=== PATIENT | female | born 1930 | race Caucasian/White ===

== ENCOUNTER 2016-04-04 12:07 | Emergency (ER) | payer MEDICARE, BC ==
[2016-04-04 12:37] LABS: BASO % 0.3 % (0-6); GRAN % 56.3 % (47-80); HEMATOCRIT 30.9 % (35.0-47.0); HEMOGLOBIN 9.5 gm/dl (11.6-16.0); LYMPH % 28.2 % (16-45); MEAN CORPUSCULAR HEMOGLOBIN 30.4 pg (27-33); MEAN CORPUSCULAR HGB CONC 30.7 g/dl (32-36); MEAN PLATELET VOLUME 10.1 fl (7.4-10.4); MONO % 11.2 % (0-9); PLATELET COUNT 307 K/uL (130-400); RED BLOOD COUNT 3.12 M/uL (3.80-5.40); RED CELL DISTRIBUTION WIDTH 15.4 % (11.5-14.5); WHITE BLOOD COUNT W/O DIFF 6.5 K/uL (4.2-12.2)
--- NOTE | 2016-04-04 12:39 | Emergency Department Record ---
History of Present Illness - General Chief Complaint: Abdominal Pain Stated Complaint: ABD PAIN Time Seen by Provider: 04/04/16 12:25 Source: Patient Mode of Arrival: Ambulatory Limitations: No limitations - History of Present Illness Initial Comments: 85 yo female presents to ED for evaluation of an abdominal "cramp" that the patient reports is similar to the sensation before having a bowel movement. Patient reports that she is currently on coumadin which was elevated yesterday, was told by her PCP to come tot he ED for evaluation as she could be "bleeding out". Patient denies any rectal bleeding, but does report previous bleeding while taking Eliquis 1.5 years ago. Complaint: Other Onset/Timin -: Week(s) Location: LLQ Radiation: None Migration to: No migration Severity: Mild Quality: Cramping Consistency: Intermittent Improves With: Nothing Worsens With: Nothing Associated Symptoms: Denies other symptoms - Related Data Home Medications Medication Instructions Recorded Confirmed Last Taken Aspirin [Aspirin EC] 81 mg PO DAILY 06/19/14 04/04/16 01/30/16 Carvedilol 6.25 mg PO BID 06/19/14 04/04/16 01/31/16 Furosemide 20 mg PO BIDDIUR 06/19/14 04/04/16 01/31/16 Atorvastatin Calcium [Lipitor] 80 mg PO QHS 03/30/15 04/04/16 01/30/16 Gabapentin 300 mg PO DAILY 03/30/15 04/04/16 01/30/16 Gabapentin 600 mg PO QHS 03/30/15 04/04/16 01/30/16 Cholecalciferol (Vitamin D3) 2,000 unit PO DAILY 12/17/15 04/04/16 01/30/16 [Vitamin D3] Cyanocobalamin (Vitamin B-12) 1,000 mcg PO DAILY 12/17/15 04/04/16 01/30/16 [Vitamin B-12] Lorazepam 1 tab PO 2000 PRN 12/17/15 04/04/16 01/30/16 Melatonin 10 mg PO QHS 12/17/15 04/04/16 01/30/16 Sennosides [Senokot] 8.6 mg PO DAILY 12/17/15 04/04/16 01/30/16 Warfarin Sodium [Coumadin] 6 mg PO DAILY 04/04/16 04/04/16 Unknown Previous Rx's Medication Instructions Recorded Omeprazole 40 mg PO BIDAC #20 02/05/16 Ondansetron [Zofran Odt] 4 mg PO Q8H PRN #15 tab.rapdis 02/05/16 Ranitidine HCl [Zantac] 150 mg PO BID PRN #20 tablet 02/05/16 Allergies Allergy/AdvReac Type Severity Reaction Status Date / Time Penicillins Allergy Unknown PT UNSURE Verified 04/04/16 12:23 OF REACTION Sulfa (Sulfonamide Allergy Unknown PT UNSURE Verified 04/04/16 12:23 Antibiotics) OF REACTION Travel Screening - Travel/Exposure Within Last 30 Days Have you traveled within the last 30 days?: No - Travel Symptoms Symptom Screening: None Review of Systems Constitutional: Denies: Chills, Fever, Malaise, Night sweats Eyes: Denies: Eye discharge, Eye pain ENT: Denies: Congestion, Ear pain, Epistaxis Respiratory: Denies: Cough, Dyspnea Cardiovascular: Denies: Chest pain, Dyspnea on exertion Endocrine: Denies: Fatigue, Heat or cold intolerance Gastrointestinal: Reports: Abdominal pain. Denies: Nausea, Vomiting Genitourinary: Denies: Dysuria, Frequency, Hematuria Musculoskeletal: Denies: Arthralgia, Back pain Skin: Denies: Bruising, Change in color Neurological: Denies: Abnormal gait, Confusion, Headache, Seizure Psychiatric: Denies: Anxiety Hematological/Lymphatic: Reports: Easy bleeding, Easy bruising. Denies: Anemia Past Medical History - SOCIAL HISTORY Smoking Status: Never smoker Alcohol Use: Rare Drug Use: None - RESPIRATORY Hx Respiratory Disorders: Yes Hx Pneumonia: Yes Hx Sleep Apnea: Yes Hx Tuberculosis: No Comment:: oxygen at night 2 L - CARDIOVASCULAR Hx Cardio Disorders: Yes Hx Cardiac Cath: Yes (2 stents) Hx Deep Vein Thrombosis: Yes (2001) Hx Hypertension: Yes - NEURO Hx Neuro Disorders: No Hx Seizures: No - GI Hx GI Disorders: Yes Hx Diverticulitis: Yes Hx GI Bleed: Yes (2014) Hx Reflux: Yes Hx Rectal Bleeding: Yes (2014) - Hx Genitourinary Disorders: Yes Hx Renal Disease: Yes (Bright's disease at 7yrs old) Hx UTI: Yes - ENDOCRINE Hx Endocrine Disorders: No Hx Diabetes: No - MUSCULOSKELETAL Hx Musculoskeletal Disorders: Yes Hx Arthritis: Yes (lower back) - PSYCH Hx Psych Problems: Yes Hx Anxiety: Yes Hx Depression: Yes Comment:: sundowners - HEMATOLOGY/ONCOLOGY Hx Hematology/Oncology Disorders: Yes Hx Blood Transfusions: Yes (2014) Hx Blood Transfusion Reaction: No Family Medical History Any Significant Family History?: Yes Hx Cancer: Mother, Grandparents Hx Diabetes: Grandparents Hx Heart Disease: Grandparents Hx Stroke: Grandparents Physical Exam - General General Appearance: Alert, Oriented x3, Cooperative, No acute distress Limitations: No limitations - Head Head exam: Atraumatic, Normocephalic, Normal inspection Head exam detail: negative: Abrasion, Contusion, Alexis's sign, General tenderness, Hematoma, Laceration - Eye Eye exam: Normal appearance. negative: Conjunctival injection, Periorbital swelling, Periorbital tenderness, Scleral icterus - ENT Ear exam: negative: Auricular hematoma, Auricular trauma Nasal Exam: negative: Active bleeding, Discharge, Dried blood, Foreign body Mouth exam: negative: Drooling, Laceration, Muffled voice, Tongue elevation - Neck Neck exam: Normal inspection. negative: Meningismus, Tenderness - Respiratory Respiratory exam: Normal lung sounds bilaterally. negative: Respiratory distress, Rhonchi, Stridor, Wheezes - Cardiovascular Cardiovascular Exam: Regular rate, Normal rhythm, Normal heart sounds - GI/Abdominal GI/Abdominal exam: Soft, Other (Abdominal examination is 100% nontender on exam , patient denies pain currently, no rebound or guarding present). negative: Distended, Rebound, Rigid, Tenderness - Rectal Rectal exam: Deferred - exam: Deferred - Extremities Extremities exam: Normal inspection. negative: Calf tenderness, Pedal edema, Tenderness - Back Back exam: Denies: CVA tenderness (R), CVA tenderness (L) - Neurological Neurological exam: Alert, Normal gait (with walker), Oriented X3 - Psychiatric Psychiatric exam: Normal affect, Normal mood - Skin Skin exam: Normal color. negative: Abrasion Type of lesion: negative: abrasion Course Vital Signs 04/04/16 12:16 Temperature 98.3 F Pulse Rate 69 Respiratory 20 Rate Blood Pressure 151/66 Pulse Ox 96 - Reevaluation(s) Reevaluation #1: 04/04/16 13:06 Labs reviewed, Hgb 9.5, INR 2.63. Previous Hgb 02/03: 9.5 Hgb 02/02: 10.0 Patient was updated on all results, denies any pain or bleeding at this time, and is asking to go home. Patient was encouraged to return to ED if her symptoms worsen or if she develops any rectal bleeding symptoms. Patient verbalizes understanding of all instructions. Medical Decision Making - Lab Data Result diagrams: 04/04/16 12:30 04/04/16 12:30 Disposition Disposition: Discharge Clinical Impression: Warfarin-induced coagulopathy Anemia Qualifiers: Anemia type: unspecified type Qualified Code(s): D64.9 - Anemia, unspecified Disposition: Home, Self-Care Condition: (2) Stable Instructions: Anemia (ED) Additional Instructions: Return to ED if your symptoms worsen or if you have any concerns Follow-up with Dr. Betancur in 3-5 days as directed. Forms: Patient Portal Access Time of Disposition: 13:09
[2016-04-04 12:50] LABS: INR 2.63; PROTHROMBIN TIME (PATIENT) 29.7 SECONDS (9.5-12.1)
[2016-04-04 12:51] LABS: ALB/GLOB RATIO 1.4 (1.1-1.8); ALBUMIN 4.3 gm/dL (3.5-5.0); BILIRUBIN,TOTAL 0.42 mg/dL (0.2-1.3); CREATININE 1.2 mg/dL (0.52-1.04); TOTAL PROTEIN 7.4 gm/dL (6.3-8.2)
== END 2016-04-04 13:17 | disposition home or self-care (01) ==
LOC: ER 12:07
DX: T45.515A Adverse effect of anticoagulants, initial encounter (principal); D64.9 Anemia, unspecified; R10.32 Left lower quadrant pain; I10 Essential (primary) hypertension
CPT/HCPCS: 80053; 83690; 85025; 85610; 99283

== ENCOUNTER 2016-06-14 06:59 | Day surgery (SDC) | payer MEDICARE, BC ==
[2016-06-14 08:09] LABS: INR 0.88; PARTIAL THROMBOPLASTIN TIME 18.7 SECONDS (24.5-39.1)
[2016-06-14] MEDS ORDERED: DEXAMETHASONE PRESERVATIVE FREE 10MG/ML VIAL IV ONE (12:43)
[2016-06-14] MEDS ORDERED: LIDOCAINE 1% W/EPI 1:200,000 MPF 30ML SQ ONE (12:43)
[2016-06-14] MEDS ORDERED: BUPIVACAINE 0.25% MPF 30ML VIAL IVP ONE (12:43)
[2016-06-14] MEDS ORDERED: BUPIVACAINE 0.5% W/EPI MPF 30 ML VIAL IVP ONE (12:43)
[2016-06-14] MEDS ORDERED: 0.9 % SODIUM CHLORIDE 100ML BAG IV ONE (12:43)
[2016-06-14] MEDS ORDERED: LIDOCAINE 2% MDV (20MG/ML) 20ML VIAL IV ONE (15:52)
[2016-06-14] MEDS ORDERED: PROPOFOL 10 MG/ML VIAL IV ONE (15:52)
[2016-06-14] MEDS ORDERED: FENTANYL PF 100MCG/2ML VIAL IV ONE (15:52)
--- NOTE | 2016-06-14 16:22 | Operative Note - [facility]ro ---
DATE OF SURGERY: 06/14/16 PREOPERATIVE DIAGNOSIS: LUMBAR RADICULITIS, ICD-10 CODE = M54.16 AND M54.17. OPERATION: FLUOROSCOPICALLY-GUIDED BILATERAL TRANSFORAMINAL SELECTIVE SEGMENTAL EPIDURAL INJECTION, L3-4. SURGEON: JUAN ANTONIO CARRILLO D.O. ANESTHESIA: LOCAL SEDATION. ANESTHESIA PROVIDER: RYAN BELLE CRNA. INDICATION: This patient presents with pain, which is starts in the back and extends to the hips and legs. Her diagnostic studies show complete disc space collapse 2-3 to 5-1. Endplate spurring and osteophytic spur formation. The current pattern of pain across the outer front surface could be a 3-4 or a 4-5. The 4-5 was unsuccessful in terms of needle placement. PROCEDURE: Intravenous line, vital sign monitoring, IV sedation, prepped, draped, sterile technique. Lumbar foraminal opening at L3-4 was identified and marked bilaterally. Skin infiltrated. Two separate 20-gauge needles one to each foraminal opening. 5 mL of 0.125% Marcaine with Dexamethasone injected. Needle removed. Back cleaned. Topical antibiotics. Sterile dressing applied. We will monitor and evaluate. JUAN ANTONIO CARRILLO D.O. Date & Time cc: Dr. Betancur JOB NUMBER: [id number] MTDD
== END 2016-06-14 09:15 | disposition home or self-care (01) ==
LOC: SUR 06:59
PROVIDERS: ATTEND Pain Medicine Interventional Pain Medicine
DX: M54.16 Radiculopathy, lumbar region (principal); M54.17 Radiculopathy, lumbosacral region; Z79.01 Long term (current) use of anticoagulants; I10 Essential (primary) hypertension; Z86.718 Personal history of other venous thrombosis and embolism
CPT/HCPCS: 64483; 01936; 85730; 85610; Q9967; J1100; J3010

== ENCOUNTER 2016-09-21 17:55 | Emergency (ER) | payer MEDICARE, BC ==
--- NOTE | 2016-09-21 18:35 | Emergency Department Record ---
History of Present Illness - General Chief complaint: Rectal bleeding Stated complaint: RECTAL BLEEDING Time Seen by Provider: 09/21/16 18:19 Source: Patient Mode of Arrival: Wheelchair Limitations: No limitations - History of Present Illness Initial comments: 86 yo female presents with bloody stools for 2 hours. She has had two large stools. She is anticoagulated with Coumadin and on Aspirin. She has a history of significant GI bleed about 1.5 years ago while anticoagulated. She reports she required 13 units of blood. She has a history of DVT/PE with an IVC filter , CAD with 2 stents, diverticulosis. The filter has a history of migrating. It was evaluated in the past for removal but it was not successful. She reports she follows with a local PCP and local [facility] spring former. Her other care team is through [facility]. No current chest pain, shortness of breath or syncope. She had an EGD 02/01/16 that was negative. In july of 2014 she had a GI bleed with source after a work up with EGD, colonoscopy, and tag RBC scan.. Her baseline Hgb over the last year is 9-10. She was 9.1 on 08/21/16. She is on Coumadin 6mg daily. complaint: Gross hematochezia Onset/Timin -: Hour(s) Radiation: None, Epigastric Severity scale (1-10): 6 Consistency: Constant Improves with: None Worsens with: None Context: History of GI bleed, Blood thinners Associated Symptoms: Denies other symptoms Treatments Prior to Arrival: None - Related Data Home Medications Medication Instructions Recorded Confirmed Last Taken Aspirin [Aspirin EC] 81 mg PO DAILY 06/19/14 09/21/16 09/21/16 Carvedilol 6.25 mg PO BID 06/19/14 09/21/16 09/21/16 Furosemide 20 mg PO BIDDIUR 06/19/14 09/21/16 09/21/16 Atorvastatin Calcium [Lipitor] 80 mg PO QHS 03/30/15 09/21/16 09/21/16 Gabapentin 300 mg PO DAILY 03/30/15 09/21/16 09/21/16 Gabapentin 600 mg PO QHS 03/30/15 09/21/16 09/21/16 Cholecalciferol (Vitamin D3) 2,000 unit PO DAILY 12/17/15 09/21/1609/21/17 [Vitamin D3] Cyanocobalamin (Vitamin B-12) 1,000 mcg PO DAILY 12/17/15 09/21/16 09/21/16 [Vitamin B-12] Lorazepam 1 tab PO 2000 PRN 12/17/15 09/21/16 09/21/16 Melatonin 10 mg PO QHS 12/17/15 09/21/16 09/21/16 Sennosides [Senokot] 8.6 mg PO DAILY 12/17/15 09/21/16 09/21/16 Warfarin Sodium [Coumadin] 6 mg PO DAILY 04/04/16 09/21/16 09/21/16 Ferrous Sulfate [Iron] 325 mg PO DAILY 09/21/16 09/21/16 09/21/16 Previous Rx's Medication Instructions Recorded Omeprazole 40 mg PO BIDAC #20 02/05/16 Ondansetron [Zofran Odt] 4 mg PO Q8H PRN #15 tab.rapdis 02/05/16 Ranitidine HCl [Zantac] 150 mg PO BID PRN #20 tablet 02/05/16 Allergies Allergy/AdvReac Type Severity Reaction Status Date / Time Penicillins Allergy Unknown PT UNSURE Verified 09/21/16 18:03 OF REACTION Sulfa (Sulfonamide Allergy Unknown PT UNSURE Verified 09/21/16 18:03 Antibiotics) OF REACTION Travel Screening - Travel/Exposure Within Last 30 Days Have you traveled within the last 30 days?: No - Travel/Exposure Within Last Year Have you traveled outside the [place] in the last year?: No - Additonal Travel Details Have you been exposed to anyone with a communicable illness?: No - Travel Symptoms Symptom Screening: None Review of Systems Constitutional: Denies: Chills, Fever, Night sweats, Weakness Eyes: Denies: Eye discharge ENT: Denies: Congestion, Throat pain Respiratory: Denies: Cough, Dyspnea, Hemoptysis, Stridor, Wheezes Cardiovascular: Denies: Chest pain, Palpitations, Syncope Endocrine: Denies: Fatigue Gastrointestinal: Reports: Abdominal pain (cramps), Hematochezia. Denies: Diarrhea, Hematemesis, Nausea, Vomiting Genitourinary: Denies: Dysuria, Urgency Musculoskeletal: Denies: Arthralgia, Back pain, Joint swelling, Myalgia Skin: Denies: Bruising, Change in color, Rash Neurological: Denies: Headache, Numbness, Vertigo, Weakness Psychiatric: Denies: Anxiety Hematological/Lymphatic: Reports: As per HPI, Blood Clots. Denies: Easy bleeding, Easy bruising, Swollen glands Past Medical History - SOCIAL HISTORY Smoking Status: Never smoker Alcohol Use: Occasional Drug Use: None - RESPIRATORY Hx Respiratory Disorders: Yes Hx Bronchitis: Yes Hx Pneumonia: Yes (February 2016) Hx Sleep Apnea: Yes Hx Tuberculosis: No Comment:: oxygen at night 2 L - CARDIOVASCULAR Hx Cardio Disorders: Yes Hx Abnormal EKG: Yes Hx Cardiac Cath: Yes (2 stents) Hx Deep Vein Thrombosis: Yes (2001 and 2015) Hx Hypertension: Yes Hx Irregular Heartbeat: Yes Hx Coronary Artery Disease: Yes Hx Coronary Stent: Yes - NEURO Hx Neuro Disorders: No Hx Seizures: No - GI Hx GI Disorders: Yes Hx Diverticulitis: Yes Hx GI Bleed: Yes (2014) Hx Reflux: Yes Hx Rectal Bleeding: Yes (2014) - Hx Genitourinary Disorders: Yes Hx Renal Disease: Yes (Bright's disease at 7yrs old) Hx UTI: Yes - ENDOCRINE Hx Endocrine Disorders: No Hx Diabetes: No - MUSCULOSKELETAL Hx Musculoskeletal Disorders: Yes Hx Arthritis: Yes (lower back) - PSYCH Hx Psych Problems: Yes Hx Anxiety: Yes Hx Depression: Yes Comment:: sundowners - HEMATOLOGY/ONCOLOGY Hx Hematology/Oncology Disorders: Yes Hx Blood Transfusions: Yes (2014) Hx Blood Transfusion Reaction: No Family Medical History Any Significant Family History?: Yes Hx Cancer: Mother, Grandparents Hx Diabetes: Grandparents Hx Heart Disease: Grandparents Hx Stroke: Grandparents Physical Exam - General General Appearance: Alert, Oriented x3, Cooperative, No acute distress Limitations: No limitations - Head Head exam: Normal inspection - Eye Eye exam: Normal appearance, PERRL. negative: Conjunctival injection, Periorbital swelling - ENT ENT exam: Normal exam, Mucous membranes moist Ear exam: Normal external inspection Nasal Exam: Normal inspection Mouth exam: Normal external inspection Teeth exam: Normal inspection - Neck Neck exam: Normal inspection, Full ROM. negative: Tenderness - Respiratory Respiratory exam: Normal lung sounds bilaterally. negative: Respiratory distress - Cardiovascular Cardiovascular Exam: Regular rate, Normal rhythm, Normal heart sounds Peripheral Pulses: 2+: Radial (R), Radial (L) - GI/Abdominal GI/Abdominal exam: Soft, Tenderness (very mild). negative: Distended, Guarding , Rebound - Rectal Rectal exam: Bloody stool, Heme (+) stool, Normal rectal tone. negative: Hemorrhoids, Mass - exam: Deferred - Extremities Extremities exam: Normal inspection, Full ROM, Normal capillary refill. negative: Tenderness - Back Back exam: Reports: Normal inspection, Full ROM. Denies: Muscle spasm, Rash noted, Tenderness - Neurological Neurological exam: Alert, Normal gait, Oriented X3 - Psychiatric Psychiatric exam: Normal affect, Normal mood - Skin Skin exam: Dry, Intact, Normal color, Warm Course Vital Signs 09/21/16 18:12 Temperature 98 F Pulse Rate 88 Respiratory 20 Rate Blood Pressure 140/68 Pulse Ox 95 - Reevaluation(s) Reevaluation #1: EKG sinus rhythm rate of 84, intervals Qtc 477, LBBB, [place] left, ST No acute changes. No changes from 12/21/15 09/21/16 18:55 The vitals were reviewed. No acute changes. 09/21/16 18:57 Reevaluation #2: I discussed the risk and benefit of transfusion Given she is 2 grms lower with some bleeding I will discuss transfusion given her CAD, Age, and history of significant prior bleed on anticoagulation. The patient will require transfer to another institution. She requests [facility]. 09/21/16 19:21 Reevaluation #3: INR is 1.7 The patient reports another small bowel movement with blood. No changes in vitals [facility] contacted. Awaiting for a physician. 09/21/16 19:37 Reevaluation #4: I SW Dr [facility] of [facility] discussed the case, labs, and patient request for [facility] transfer He accepts She will receive the first unit of PRBC No current changes in vitals 09/21/16 19:44 09/21/16 21:03 The patient had some nausea when sitting up on the commode She was place supine, vitals reviewed. No acute changes and nausea resolved PRBC now starting and transfer team in ED for [facility] transfer. Medical Decision Making - Lab Data Result diagrams: 09/21/16 18:34 09/21/16 17:47 Disposition Disposition: Transfer Clinical Impression: GI bleed Qualifiers: GI bleed type/associated pathology: unspecified gastrointestinal hemorrhage type Qualified Code(s): K92.2 - Gastrointestinal hemorrhage, unspecified Anemia Qualifiers: Anemia type: unspecified type Qualified Code(s): D64.9 - Anemia, unspecified Disposition: Acute Care Hospital Transfer Transfer To: [facility] Reason For Transfer: GI Bleed Accepting Physician: Shahram Time Discussed w/Accepting Physician: 19:45 Condition: (2) Stable Forms: Patient Portal Access Time of Disposition: 19:45 Quality - Quality Measures Quality Measures: N/A - Blood Pressure Screening View Details: Yes Blood Pressure Classification: Hypertensive Reading Systolic Measurement: 140 Diastolic Measurement: 68 Screening for High Blood Pressure: < Pre-Hypertensive BP, F/U Documented > [ [id number]] Pre-Hypertensive Follow-up Interventions: Referral to alternative/primary care provider.
[2016-09-21] MEDS ORDERED: PANTOPRAZOLE SODIUM IV 40 MG VIAL IVP ONE (19:00)
[2016-09-21 19:09] LABS: HEMATOCRIT 25.2 % (35.0-47.0); HEMOGLOBIN 7.2 gm/dl (11.6-16.0); MEAN CELL VOLUME 95.8 fl (81-97); MEAN CORPUSCULAR HGB CONC 28.6 g/dl (32-36); MEAN PLATELET VOLUME 10.4 fl (7.4-10.4); PLATELET COUNT 248 K/uL (130-400); RED BLOOD COUNT 2.63 M/uL (3.80-5.40); RED CELL DISTRIBUTION WIDTH 20.2 % (11.5-14.5); WHITE BLOOD COUNT W/O DIFF 6.2 K/uL (4.2-12.2)
[2016-09-21 19:11] LABS: MEAN CORPUSCULAR HEMOGLOBIN 27.3 pg (27-33)
[2016-09-21 19:23] LABS: INR 1.68; PARTIAL THROMBOPLASTIN TIME 28.6 SECONDS (24.5-39.1); PROTHROMBIN TIME (PATIENT) 18.2 SECONDS (9.5-12.1)
[2016-09-21 19:27] LABS: ALB/GLOB RATIO 1.4 (1.1-1.8); ALBUMIN 3.6 gm/dL (3.5-5.0); ANION GAP 9.8 (7-16); BILIRUBIN,TOTAL 0.87 mg/dL (0.2-1.3); CARBON DIOXIDE 25.2 mmol/L (22-30); CREATININE 1.3 mg/dL (0.52-1.04); TOTAL PROTEIN 6.2 gm/dL (6.3-8.2)
[2016-09-21 20:39] LABS: ABO GROUP A; ANTIBODY SCREEN NEGATIVE (NEGATIVE); RH TYPE POSITIVE
[2016-09-21 20:40] LABS: IMMED. SPIN CROSSMATCH COMPATIBLE
[2016-09-21] MEDS ORDERED: ONDANSETRON HCL IV 4 MG/2 ML VIAL IVP ONE (20:47)
== END 2016-09-21 21:15 | disposition short-term general hospital (02) ==
LOC: ER 17:55
DX: K92.1 Melena (principal); D64.9 Anemia, unspecified; R10.13 Epigastric pain; I25.10 Atherosclerotic heart disease of native coronary artery without angina pectoris; I10 Essential (primary) hypertension; Z79.01 Long term (current) use of anticoagulants
CPT/HCPCS: 99285 ×2; 96374; 96375; 83605; 85730; 85610; 80053; 85027; 86900; 86901; 86850; 93005; 93010; P9016; J2405; C9113

== ENCOUNTER 2016-11-29 07:44 | Day surgery (SDC) | payer MEDICARE, BC ==
[2016-11-29] MEDS ORDERED: BUPIVACAINE 0.5% (5MG/ML) PF 30ML VIAL IVP ONE (11:03)
[2016-11-29] MEDS ORDERED: LIDOCAINE 1% W/EPI 1:200,000 MPF 30ML SQ ONE (11:03)
[2016-11-29] MEDS ORDERED: DEXAMETHASONE PRESERVATIVE FREE 10MG/ML VIAL IV ONE (11:03)
[2016-11-29] MEDS ORDERED: BUPIVACAINE 0.5% W/EPI MPF 30 ML VIAL IVP ONE (11:03)
[2016-11-29] MEDS ORDERED: MIDAZOLAM HCL 2MG/2ML VIAL IV ONE (16:05)
[2016-11-29] MEDS ORDERED: FENTANYL PF 100MCG/2ML VIAL IV ONE (16:05)
[2016-11-29] MEDS ORDERED: PROPOFOL 10 MG/ML VIAL IV ONE (16:05)
--- NOTE | 2016-11-30 08:09 | Operative Note - Ferro ---
DATE OF SURGERY: 11/29/2016. PREOPERATIVE DIAGNOSES: 1. 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 2. SACROILIITIS, ICD-10 CODE M46.1. POSTOPERATIVE DIAGNOSES: 1. 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 2. SACROILIITIS, ICD-10 CODE M46.1. OPERATION: Fluoroscopically guided infiltration block of the bilateral sacroiliac joints. SURGEON: Basilio Evans D.O. ANESTHESIA: Local. ANESTHESIA PROVIDER: Gloria Vaughn CRNA. INDICATION: This patient presents with back pain. Examination shows tenderness in the lumbar spine away from the midline directly over the sacroiliac joints. Diagnostics show extensive spondylosis throughout the lumbar spine and of the sacroiliac joints. PROCEDURE: Intravenous line, vital sign monitoring, and intravenous sedation. Prepped and draped with sterile technique. Under imaging, the skin over the sacroiliac joints in the area of pain was identified and marked bilaterally and infiltrated. A 22-gauge, 3.5-inch needle under imaging into the sacroiliac joint with 3.0 cc of 0.5 percent Marcaine and dexamethasone injected. This was repeated bilaterally. The areas were cleaned. Topical antibiotic and sterile dressings were applied. Will monitor and evaluate. BASILIO EVANS D.O. Date & Time JOB NUMBER: [id number] MTDD
== END 2016-11-29 09:37 | disposition home or self-care (01) ==
LOC: SUR 07:44
PROVIDERS: ATTEND Pain Medicine Interventional Pain Medicine
DX: M47.816 Spondylosis without myelopathy or radiculopathy, lumbar region (principal); M46.1 Sacroiliitis, not elsewhere classified; I10 Essential (primary) hypertension; I25.10 Atherosclerotic heart disease of native coronary artery without angina pectoris; Z79.01 Long term (current) use of anticoagulants
CPT/HCPCS: 27096; 01992; J1100; J3010

== ENCOUNTER 2017-02-21 07:38 | Day surgery (SDC) | payer MEDICARE, BC ==
[2017-02-21] MEDS ORDERED: LIDOCAINE 2% MDV (20MG/ML) 20ML VIAL IV ONE (07:39)
[2017-02-21] MEDS ORDERED: FLUMAZENIL 1MG/10ML VIAL IV ONE (07:39)
[2017-02-21] MEDS ORDERED: FENTANYL PF 100MCG/2ML VIAL IV ONE (07:39)
[2017-02-21] MEDS ORDERED: LIDOCAINE 1% W/EPI 1:200,000 MPF 30ML SQ ONE (07:39)
[2017-02-21] MEDS ORDERED: KETOROLAC 30 MG/ML VIAL IVP ONE (07:39)
[2017-02-21] MEDS ORDERED: PROPOFOL 10 MG/ML VIAL IV ONE (07:39)
[2017-02-21] MEDS ORDERED: HYDROCODONE/APAP 7.5/325MG TABLET PO ONE (07:39)
[2017-02-21] MEDS ORDERED: MIDAZOLAM HCL 2MG/2ML VIAL IV ONE (07:39)
[2017-02-21] MEDS ORDERED: DEXAMETHASONE PRESERVATIVE FREE 10MG/ML VIAL IV ONE (07:39)
[2017-02-21] MEDS ORDERED: BUPIVACAINE 0.75% W/EPI MPF 30ML VIAL IVP ONE (07:39)
--- NOTE | 2017-02-21 15:23 | Operative Note - Ferro ---
DATE OF SURGERY: 02/21/17 PREOPERATIVE DIAGNOSIS: LUMBAR SPONDYLOSIS WITHOUT MYELOPATHY, ICD-10 CODE = M47.816. OPERATION: RADIOFREQUENCY RHIZOTOMY BILATERAL LUMBAR FACETS, 4-5 AND 5-1. SURGEON: JUAN ANTONIO CARRILLO D.O. ANESTHESIA: LOCAL SEDATION. ANESTHESIA PROVIDER: SUMANTH SWEET CRNA INDICATION: This patient presents with primary back pain. Examination shows tenderness in the lumbar spine. Range of motion does cause pain in the low back with extension. Diagnostic imaging shows extensive multiple levels of spondylosis with near complete disc space collapse at 4-5 and 5-1. A previous facet series performed at 2-3 to 5-1 resulted in 75 to 90% pain control. Insurance guidelines and authorization has only approved two of the four levels , approving a 4-5 and 5-1 bilateral technique. All conservative therapies failed. PROCEDURE: Intravenous line, vital sign monitoring, IV sedation, prepped and draped in sterile technique. Facet levels of the lumbar spine at 4-5 and 5-1 identified and marked bilaterally. Skin infiltrated and a 20-gauge rhizotomy cannula positioned. Stimulation trials conducted. Rhizotomy burn performed. Local with anti-inflammatory into the sites. Topical antibiotics. Sterile dressing applied. We will monitor and evaluate. cc: Dr. Betancur JOB NUMBER: [id number] MTDD
== END 2017-02-21 10:20 | disposition home or self-care (01) ==
LOC: SUR 07:38
PROVIDERS: ATTEND Pain Medicine Interventional Pain Medicine
DX: M47.816 Spondylosis without myelopathy or radiculopathy, lumbar region (principal); I10 Essential (primary) hypertension; Z79.01 Long term (current) use of anticoagulants; E78.00 Pure hypercholesterolemia, unspecified; Z86.718 Personal history of other venous thrombosis and embolism
CPT/HCPCS: 85730; 64635; 64636; 01936; J1885; J1100; J3010; J3490

== ENCOUNTER 2017-04-05 04:43 | Inpatient (IN) | payer MEDICARE, BC ==
[2017-04-05] MEDS ORDERED: IPRATROPIUM/ALBUTEROL (0.5MG/3MG) NEB INH ONE (05:11)
--- NOTE | 2017-04-05 05:12 | Emergency Department Record ---
History of Present Illness - General Chief Complaint: Shortness of breath Stated Complaint: ACOSTA Time Seen by Provider: 04/05/17 05:01 Source: Patient Mode of Arrival: EMS Limitations: No limitations - History of Present Illness Initial Comments: The patient is here due to a cough and SOB for one day. She also has had a low grade fever. The patient feels like her lungs are tight similar to when she had pneumonia last year. There has been no reported sputum production, ST, back pain , AP or bloody stools. The patient does have an extensive hx of DVT's and is on Coumadin and does have a malik filter in place. The patient states she has oxygen she uses at night because she cannot tolerate CPAP. MD Complaint: Cough, Shortness of breath Onset/Timin -: Days(s) Severity scale (1-10): 7 Quality: Crushing Consistency: Constant Improves With: Nothing Worsens With: Coughing, Inspiration Known History Of: DVT Associated Symptoms: Cough, Pain with inspiration Treatments Prior to Arrival: None - Related Data Home Oxygen Therapy: Yes Home Oxygen Amount: 2 Liters Home Medications Medication Instructions Recorded Confirmed Last Taken Nabumetone 500 mg PO DAILY 04/05/17 04/05/17 Unknown Omeprazole 20 mg PO DAILY 04/05/17 04/05/17 Unknown Allergies Allergy/AdvReac Type Severity Reaction Status Date / Time Penicillins Allergy Intermediate RASH Verified 04/05/17 04:52 Sulfa (Sulfonamide Allergy Intermediate RASH Verified 04/05/17 04:52 Antibiotics) Travel Screening - Travel/Exposure Within Last 30 Days Have you traveled within the last 30 days?: No - Travel Symptoms Symptom Screening: None Review of Systems Constitutional: Reports: Malaise. Denies: Chills, Fever Eyes: Denies: Eye discharge ENT: Reports: Congestion Respiratory: Reports: Cough, Dyspnea. Denies: Hemoptysis Cardiovascular: Reports: Dyspnea on exertion. Denies: Arrhythmia Endocrine: Reports: Fatigue Gastrointestinal: Denies: Abdominal pain Genitourinary: Denies: Dysuria Musculoskeletal: Denies: Back pain Past Medical History - SOCIAL HISTORY Smoking Status: Never smoker - RESPIRATORY Hx Respiratory Disorders: Yes Hx Sleep Apnea: Yes (O2 2.5L by nc) - CARDIOVASCULAR Hx Cardio Disorders: Yes Hx Deep Vein Thrombosis: Yes (2001 and 2015) Hx Hypertension: Yes Hx Coronary Stent: Yes (x2) - NEURO Hx Neuro Disorders: No Hx Seizures: No - GI Hx GI Disorders: Yes Hx Diverticulitis: Yes Hx GI Bleed: Yes (2014) Hx Reflux: Yes Hx Rectal Bleeding: Yes (2014) Comment:: unkown cause of bleed-to avoid NSAIDS - Hx Genitourinary Disorders: Yes Hx UTI: Yes - ENDOCRINE Hx Endocrine Disorders: No Hx Diabetes: No - MUSCULOSKELETAL Hx Musculoskeletal Disorders: Yes Hx Arthritis: Yes (lower back) - PSYCH Hx Psych Problems: Yes Hx Anxiety: Yes Hx Depression: Yes Comment:: sundowners - HEMATOLOGY/ONCOLOGY Hx Hematology/Oncology Disorders: Yes Hx Blood Transfusions: Yes (2014) Family Medical History Any Significant Family History?: Yes Hx Cancer: Mother, Grandparents Hx Diabetes: Grandparents Hx Heart Disease: Grandparents Hx Stroke: Grandparents Physical Exam - General General Appearance: Alert, Oriented x3, Cooperative, No acute distress - Head Head exam: Atraumatic, Normocephalic, Normal inspection - Eye Eye exam: Normal appearance, PERRL - Neck Neck exam: Normal inspection, Full ROM. negative: Tenderness - Respiratory Respiratory exam: Normal lung sounds bilaterally (The patient is in no respiratory distress with a biox of 99% on 2 liters of oxygen.). negative: Accessory muscle use, Prolonged expiratory, Respiratory distress, Rhonchi, Stridor, Wheezes - Cardiovascular Cardiovascular Exam: Regular rate, Normal rhythm, Normal heart sounds - GI/Abdominal GI/Abdominal exam: Soft, Normal bowel sounds. negative: Tenderness - Extremities Extremities exam: Normal inspection, Full ROM, Normal capillary refill. negative: Tenderness - Neurological Neurological exam: Alert. negative: Motor sensory deficit Course Vital Signs 04/05/17 04:52 Temperature 99.0 F Pulse Rate 86 Respiratory 24 Rate Blood Pressure 137/55 Pulse Ox 98 - Reevaluation(s) Reevaluation #1: The patient is feeling better after the Neb tx but still feels very weak. She is coughing less and presently denies any CP or SOB. I did explain to her that her xrays and labs are mostly WNL's. Due to the pain with cough we will admit the patient as an OBS for monitoring. 04/05/17 06:05 Medical Decision Making - Data Complexity MDM Data: Labs Ordered and/or Reviewed, X-Ray Ordered and/or Reviewed - Lab Data Result diagrams: 04/05/17 05:10 04/05/17 05:10 - EKG Data -: EKG Interpreted by Me EKG: No Acute Changes, Unchanged From Previous, LBBB - Radiology Data Radiology results: Report reviewed (Head CT: neg CXR: Neg.) Disposition Disposition: Admit Clinical Impression: Weakness generalized, Chest pain CAP (community acquired pneumonia) Qualifiers: Lung location: unspecified part of lung Disposition: Still a Patient at [facility] Decision to Admit: Admit from ER Decision to Admit Date: 04/05/17 Decision to Admit Time: 06:07 Accepting Physician: Nicole Archer Discussed w/Accepting Physician: 06:07 Condition: (2) Stable Time of Disposition: 06:07 Quality - Quality Measures Quality Measures: N/A - Blood Pressure Screening View Details: Yes Does Patient Have Any of the Following: No Blood Pressure Classification: Pre-Hypertensive BP Reading Systolic Measurement: 137 Diastolic Measurement: 55 Screening for High Blood Pressure: < Pre-Hypertensive BP, F/U Documented > [ [id number]] Pre-Hypertensive Follow-up Interventions: Referral to alternative/primary care provider.
[2017-04-05 05:14] LABS: BASO % 0.2 % (0-6); EOS % 1.6 % (0-6); GRAN % 71.3 % (47-80); HEMATOCRIT 32.7 % (35.0-47.0); LYMPH % 14.5 % (16-45); MEAN CELL VOLUME 91.9 fl (81-97); MEAN CORPUSCULAR HGB CONC 30.6 g/dl (32-36); MEAN PLATELET VOLUME 10.1 fl (7.4-10.4); MONO % 12.4 % (0-9); PLATELET COUNT 245 K/uL (130-400); RED BLOOD COUNT 3.56 M/uL (3.80-5.40); WHITE BLOOD COUNT W/O DIFF 12.6 K/uL (4.2-12.2)
[2017-04-05 05:23] LABS: BLOOD UREA NITROGEN 20 mg/dL (8-23); CREATININE 1.1 mg/dL (0.5-0.9); EST GLOMERULAR FILTRATION RATE 50 mL/min
[2017-04-05 05:26] LABS: GLUCOSE,RANDOM 110 mg/dL (74-109)
[2017-04-05 05:27] LABS: INR 2.28; PARTIAL THROMBOPLASTIN TIME 32.9 SECONDS (24.5-39.1); PROTHROMBIN TIME (PATIENT) 24.8 SECONDS (9.5-12.1)
[2017-04-05 05:28] LABS: INFLUENZA A NEGATIVE (NEGATIVE); INFLUENZA B NEGATIVE (NEGATIVE)
[2017-04-05 05:29] LABS: CREATINE PHOSPHOKINASE 98 U/L (26-192)
[2017-04-05 05:31] LABS: CKMB < 1.0 ng/mL (<3.77)
[2017-04-05] MEDS ORDERED: DOXYCYCLINE HYCLATE 100 MG CAPSULE PO ONE (06:04)
[2017-04-05] MEDS ORDERED: CEFTRIAXONE SODIUM 1 GM in 0.9 % SODIUM CHLORIDE 100ML 100 ML IVPB ONE (06:04)
--- NOTE | 2017-04-05 08:06 | History & Physical ---
History of Present Illness - Date of Service Date of Service for History & Physical: 04/05/17 - History of Present Illness Admitting Diagnosis: 1. Chest pain, R/O AR. 2. Weakness with Pneumonia History of Present Illness: Mrs. Shepherd is an 86 year-old female who presented to the ED early this morning due to cough and shortness of breath that she had been experiencing for one day. She stated that her lungs felt "tight" and similar to when she had pneumonia last year. She denied sputum production, back pain, abdominal pain, or change in bowel pattern. She does have an extensive history of DVTs and is on coumadin, she does have a malik filter in place. Patient states that she uses oxygen at night at home because she cannot tolerate her Cpap. Her history includes: sleep apnea (2.5L O2 NC during night) , HTN, coronary stent x2, DVTs in 2001 and 2015, diverticulitis, GI bleed in 2014 related to NSAID use, GERD, lower back arthritis, anxiety, depression, and sundowners. She had a rhizotomy with Dr. Evans on 02/21/17. In the ED, she did have a low grade fever of 99.0F. Her BP was 137/55, HR 86, RR24, and pulse ox of 98% on 2L NC. She received a duo neb treatment and reported improved ease of breathing, still feeling weakness. WBC was 12.6, Hgb 10.0. First troponin was within normal range. Influenza A and B were negative. EKG in ED showed right BBB, no acute change. A chest x-ray was done , report still pending, but no acute process visible on image. A head CT was done because of pt's weakness, which was negative for acute process. She was started on rocephin 1g IV bid and doxy 100mg IV bid. She was admitted for observation based on her cough and chest pain, possible early pneumonia. 04/05/17 0830: Pt. is resting in bed. She states that her cough has improved, remains nonproductive, she also states her chest tightness has improved. Her vital signs have remained stable, she is afebrile at 98.2F and 97% O2 on 2L nc. Plan to continue IV antibiotics and repeat labs this evening, will plan to discharge home tomorrow morning if pt. remains stable, ease of respiration continue to improve, and no worsening signs/symptoms of infection. PCP: Dr. Betancur Metaphysician: Dr. Briggs Oncology/hematology: Dr. Reyes (DVT and anemia management) Travel Screening - Travel/Exposure Within Last 30 Days Have you traveled within the last 30 days?: No - Travel/Exposure Within Last Year Have you traveled outside the [place] in the last year?: No - Additonal Travel Details Have you been exposed to anyone with a communicable illness?: No - Travel Symptoms Symptom Screening: Weakness Review of Systems Constitutional: Reports: Malaise. Denies: Chills, Fever Eyes: Denies: Eye discharge ENT: Reports: Congestion Respiratory: Reports: Cough. Denies: Hemoptysis Cardiovascular: Reports: Dyspnea on exertion. Denies: Arrhythmia Endocrine: Reports: Fatigue Gastrointestinal: Denies: Abdominal pain Genitourinary: Denies: Dysuria Musculoskeletal: Denies: Back pain Skin: Reports: As per HPI. Denies: Bruising, Change in color, Change in hair/ nails, Lesions, Pruritus, Rash Neurological: Reports: As per HPI. Denies: Abnormal gait, Confusion, Numbness, Paresthesias, Seizure, Tingling, Tremors, Vertigo Psychiatric: Reports: As per HPI. Denies: Anxiety, Auditory hallucinations, Depression, Homicidal thoughts, Suicidal thoughts, Visual hallucinations Hematological/Lymphatic: Reports: As per HPI, Easy bleeding, Easy bruising. Denies: Anemia, Blood Clots, Swollen glands Past Medical History - SOCIAL HISTORY Smoking Status: Never smoker Alcohol Use: None Drug Use: None - RESPIRATORY Hx Respiratory Disorders: Yes Hx Sleep Apnea: Yes (O2 2.5L by nc) - CARDIOVASCULAR Hx Cardio Disorders: Yes Hx Deep Vein Thrombosis: Yes (2001 and 2015) Hx Hypertension: Yes Hx Coronary Stent: Yes (x2) - NEURO Hx Neuro Disorders: No Hx Seizures: No - GI Hx GI Disorders: Yes Hx Diverticulitis: Yes Hx GI Bleed: Yes (2014) Hx Reflux: Yes Hx Rectal Bleeding: Yes (2014) Comment:: unkown cause of bleed-to avoid NSAIDS - Hx Genitourinary Disorders: Yes Hx UTI: Yes - ENDOCRINE Hx Endocrine Disorders: No Hx Diabetes: No - MUSCULOSKELETAL Hx Musculoskeletal Disorders: Yes Hx Arthritis: Yes (lower back) - PSYCH Hx Psych Problems: Yes Hx Anxiety: Yes Hx Depression: Yes Comment:: ers - HEMATOLOGY/ONCOLOGY Hx Hematology/Oncology Disorders: Yes Hx Blood Transfusions: Yes (2014) Family Medical History Any Significant Family History?: Yes Hx Cancer: Mother, Grandparents Hx Diabetes: Grandparents Hx Heart Disease: Grandparents Hx Stroke: Grandparents H&P Meds/Allergies - Allergies Allergies: Allergies Allergy/AdvReac Type Severity Reaction Status Date / Time Penicillins Allergy Intermediate RASH Verified 04/05/17 04:52 Sulfa (Sulfonamide Allergy Intermediate RASH Verified 04/05/17 04:52 Antibiotics) - Home Medications Home Medications Medication Instructions Recorded Confirmed Last Taken Nabumetone 500 mg PO DAILY 04/05/17 04/05/17 Unknown Omeprazole 20 mg PO DAILY 04/05/17 04/05/17 Unknown - Active Medications Active Medications: Current Medications Albuterol/Ipratropium (Duoneb) 3 ml INH [id number].[id number].WA JULIO Aspirin (Ecotrin (Ec)) 325 mg PO DAILY JULIO Atorvastatin Calcium (Lipitor) 80 mg PO QHS [facility] Carvedilol (Coreg) 6.25 mg PO BID JULIO Doxycycline Hyclate (Vibramycin) 100 mg PO BID JULIO Furosemide (Lasix) 20 mg PO DAILY [facility] Gabapentin (Neurontin) 600 mg PO QHS [facility] Gabapentin (Neurontin) 300 mg PO DAILY JULIO Ceftriaxone Sodium 1 gm/ (Sodium Chloride) 100 mls @ 200 mls/hr IVPB Q12H JULIO Stop: 04/10/17 18:01 Lorazepam (Ativan) 0.5 mg PO 2000 PRN PRN Reason: ANXIETY Melatonin (Melatonin) 10 mg PO QHS [facility] Naproxen (Naprosyn) 250 mg PO DAILY JULIO Pantoprazole Sodium (Protonix) 40 mg PO DAILYAC JULIO Senna/Docusate Sodium (Senna Plus) 1 each PO DAILY [facility] Warfarin Sodium (Coumadin) 5 mg PO DAILY@1600 JULIO Warfarin Sodium (Coumadin) 1 mg PO [id number] [facility] Physical Exam - Vital Signs Vital Signs: Vital Signs - Last 24 Hrs Temp Pulse Resp BP Pulse Ox 04/05/17 06:56 99.2 F 74 18 147/93 94 L - General General Appearance: Alert, Oriented x3, Cooperative, No acute distress Limitations: No limitations - Head Head exam: Atraumatic, Normocephalic, Normal inspection - Eye Eye exam: Normal appearance, PERRL - ENT ENT exam: Normal exam, Mucous membranes moist, Normal external ear exam, Normal orophraynx Ear exam: Normal external inspection. negative: External canal tenderness Nasal Exam: Normal inspection. negative: Discharge, Sinus tenderness Mouth exam: Normal external inspection, Tongue normal Teeth exam: Normal inspection. negative: Dental caries Throat exam: Normal inspection. negative: Tonsillar erythema, Tonsillar exudate - Neck Neck exam: Normal inspection. negative: Tenderness - Respiratory Respiratory exam: Normal lung sounds bilaterally (The patient is in no respiratory distress with a biox of 99% on 2 liters of oxygen.). negative: Accessory muscle use, Prolonged expiratory, Respiratory distress, Rhonchi, Stridor, Wheezes - Cardiovascular Cardiovascular Exam: Regular rate, Normal rhythm, Normal heart sounds - GI/Abdominal GI/Abdominal exam: Soft, Normal bowel sounds. negative: Tenderness - Rectal Rectal exam: Deferred - exam: Deferred - Extremities Extremities exam: Normal inspection, Full ROM, Normal capillary refill. negative: Tenderness - Neurological Neurological exam: Alert. negative: Motor sensory deficit - Psychiatric Psychiatric exam: Normal affect, Normal mood - Skin Skin exam: Dry, Intact, Normal color, Warm Results - Labs Result Diagrams: 04/05/17 05:10 04/05/17 05:10 - Imaging and Cardiology CT scan - head Status: Pending Chest x-ray Status: Image reviewed (No acute process- per voice clip) VTE H&P Assessment - Risk for VTE Risk for VTE: Yes Risk Level: Moderate Risk Assessment Date: 04/05/17 Risk Assessment Time: 09:21 VTE Orders Placed or Will Be Placed: No VTE Reason for No Prophylaxis: Not Indicated (Pt. is currently on coumadin and takes daily asa) Plan - Detailed Diagnosis and Plan (1) Pneumonia Current Visit: Yes Status: Acute Base Code: J18.9 - PNEUMONIA, UNSPECIFIED ORGANISM Comment: 04/05/17 0845: Chest x-ray was negative for acute process, however, pt. presented to ED with shortness of breath, low grade temp of 99F, generalized weakness, and chest pain with cough. (pt. report of cough/chest tightness similar to previous pneumonia last year). Plan to continue IV antibiotics: rocephin 1g IV q12h and doxy 100mg IV BID. Plan to continue duoneb q4h scheduled while awake. Will monitor CBC with diff. (2) Chest pain Current Visit: Yes Status: Acute Qualifiers: Chest pain type: other chest pain Qualified Code(s): R07.89 - Other chest pain; R07.8 - Other chest pain Base Code: R07.9 - CHEST PAIN, UNSPECIFIED Priority: High Comment: 04/05/17 0845: Pt. presented to ED with report of chest tightness with cough. Hx of HTN , stent x2, several DVT with malik filter in place. Chest x-ray neg for acute process. EKG in ED showed R BBB, no acute changes identified. Plan to continue to monitor serial troponins (first value was wnl). Pt. recieving coumadin 6mg daily and asa 325mg daily. Plan to continue laboratory monitor. (3) Weakness generalized Current Visit: Yes Status: Acute Base Code: R53.1 - WEAKNESS Comment: 04/05 0845: Pt. presented to ED this morning with cough, chest tightness and weakness that she had been experiencing for 1 day. Weakness likely related to infectious process, possible early pneumonia. Will continue to monitor and will consider PT/OT eval if no improvement. (4) At risk for deep venous thrombosis Current Visit: Yes Status: Acute Base Code: Z91.89 - OTH PERSONAL RISK FACTORS, NOT ELSEWHERE CLASSIFIED Comment: 04/05/17 0845: Pt. has history of several DVTs. Pt. currently on coumadin 6mg daily and has malik filter in place. INR this morning was 2.25. Pt. sees Dr. Reyes for hematology. Will plan to increase activity as tolerated. (5) Full code status Current Visit: Yes Status: Acute Base Code: Z78.9 - OTHER SPECIFIED HEALTH STATUS Comment: 04/05/17 0809: Pt. is full code status
[2017-04-05] MEDS: GABAPENTIN 300 MG CAPSULE PO SCH ×2 (09:11→21:21)
[2017-04-05] MEDS: SENNOSIDES/DOCUSATE SODIUM UD CAPSULE PO SCH (09:11)
[2017-04-05] MEDS: CARVEDILOL 3.125 MG TABLET PO SCH ×2 (09:11→21:21)
[2017-04-05] MEDS: FUROSEMIDE 20 MG TABLET PO SCH (09:12)
[2017-04-05] MEDS: ASPIRIN 325 MG TAB ENTERIC-COATED PO SCH (09:12)
[2017-04-05] MEDS: NAPROXEN 250 MG TABLET PO SCH (09:12)
[2017-04-05] MEDS: IPRATROPIUM/ALBUTEROL (0.5MG/3MG) NEB INH SCH ×2 (09:41→14:34)
--- NOTE | 2017-04-05 09:49 | RADIOLOGY REPORT ---
EXAM: CHEST, TWO VIEWS HISTORY: CHEST PAIN. TECHNIQUE: Frontal and lateral views of the chest were obtained. Comparison: Prior chest 12/17/15. FINDINGS: The heart size is normal. Atheromatous change thoracic aorta. Osteopenia. Inferior vena cava filter partially seen. Scarring left lung base. The lungs are otherwise clear. No pneumothorax. IMPRESSION: NO ACUTE CARDIOPULMONARY PROCESS. JOB NUMBER: [id number] MTDD
--- NOTE | 2017-04-05 09:51 | CT SCAN REPORT ---
EXAM: CT OF THE BRAIN WITHOUT CONTRAST HISTORY: HEADACHE. TECHNIQUE: CT of the brain without contrast was obtained. Comparison: None. FINDINGS: The globes are intact. Minor polyp formation in the maxillary sinuses. There is no displaced or depressed skull fracture. There is no intra or extraaxial hemorrhage. CT is limited for the evaluation of acute infarct. No CT evidence for large or territorial acute infarct. No mass or midline shift. Age appropriate atrophy with small vessel ischemic change. IMPRESSION: ATROPHY. SMALL VESSEL ISCHEMIC CHANGE. JOB NUMBER: [id number] [facility]
[2017-04-05 14:35] LABS: CKMB < 1.0 ng/mL (<3.77)
[2017-04-05] MEDS: WARFARIN 1 MG TABLET PO SCH (16:25)
[2017-04-05] MEDS: WARFARIN 5 MG TAB PO SCH (16:26)
[2017-04-05] MEDS ORDERED: CEFTRIAXONE SODIUM 1 GM in 0.9 % SODIUM CHLORIDE 100ML 100 ML IVPB SCH (18:00)
[2017-04-05] MEDS: LORAZEPAM 0.5 MG TABLET PO PRN (20:00)
[2017-04-05] MEDS ORDERED: ONDANSETRON 4 MG ODT TABLET SL PRN (20:34)
[2017-04-05] MEDS: DOXYCYCLINE HYCLATE 100 MG CAPSULE PO SCH (21:20)
[2017-04-05] MEDS: ATORVASTATIN 20 MG TABLET PO SCH (21:20)
[2017-04-05] MEDS: MELATONIN 5 MG TABLET PO SCH (21:21)
[2017-04-05 21:56] LABS: CKMB < 1.0 ng/mL (<3.77)
[2017-04-05 22:02] LABS: BASO % 0.2 % (0-6); EOS % 1.6 % (0-6); GRAN % 69.6 % (47-80); HEMATOCRIT 30.6 % (35.0-47.0); HEMOGLOBIN 8.9 gm/dl (11.6-16.0); LYMPH % 16.9 % (16-45); MEAN CORPUSCULAR HGB CONC 29.1 g/dl (32-36); MEAN PLATELET VOLUME 10.5 fl (7.4-10.4); MONO % 11.7 % (0-9); PLATELET COUNT 253 K/uL (130-400); RED BLOOD COUNT 3.29 M/uL (3.80-5.40); RED CELL DISTRIBUTION WIDTH 18.8 % (11.5-14.5); WHITE BLOOD COUNT W/O DIFF 11.2 K/uL (4.2-12.2)
[2017-04-05 22:11] LABS: ALB/GLOB RATIO 1.3 (1.1-1.8); ALBUMIN 3.7 g/dL (4.0-5.0); BILIRUBIN,TOTAL 0.2 mg/dL (0.2-1.0); CREATININE 1.2 mg/dL (0.5-0.9); TOTAL PROTEIN 6.6 g/dL (6.6-8.7)
[2017-04-05] MEDS ORDERED: CEFDINIR 300 MG CAPSULE PO SCH (22:30)
[2017-04-06 06:45] LABS: BASO % 0.1 % (0-6); EOS % 2.5 % (0-6); GRAN % 65.9 % (47-80); HEMATOCRIT 31.8 % (35.0-47.0); HEMOGLOBIN 9.1 gm/dl (11.6-16.0); LYMPH % 19.8 % (16-45); MEAN CORPUSCULAR HEMOGLOBIN 26.6 pg (27-33); MEAN CORPUSCULAR HGB CONC 28.6 g/dl (32-36); MEAN PLATELET VOLUME 10.2 fl (7.4-10.4); MONO % 11.7 % (0-9); PLATELET COUNT 246 K/uL (130-400); RED BLOOD COUNT 3.42 M/uL (3.80-5.40); WHITE BLOOD COUNT W/O DIFF 8.1 K/uL (4.2-12.2)
[2017-04-06 07:17] LABS: ALB/GLOB RATIO 1.1 (1.1-1.8); ALBUMIN 3.6 g/dL (4.0-5.0); BILIRUBIN,TOTAL 0.4 mg/dL (0.2-1.0); CREATININE 1.2 mg/dL (0.5-0.9); TOTAL PROTEIN 6.8 g/dL (6.6-8.7)
[2017-04-06] MEDS: PANTOPRAZOLE SODIUM 40 MG TABLET PO SCH (07:49)
[2017-04-06] MEDS: IPRATROPIUM/ALBUTEROL (0.5MG/3MG) NEB INH PRN ×3 (09:33→21:34)
[2017-04-06] MEDS ORDERED: ACETAMINOPHEN 500 MG TABLET PO PRN (10:26)
[2017-04-06] MEDS ORDERED: MAGNESIUM HYDROXIDE 30 ML UDC PO PRN (10:45)
[2017-04-06] MEDS: CEFDINIR 300 MG CAPSULE PO SCH ×2 (10:54→21:16)
[2017-04-06] MEDS: GUAIFENESIN 1,200 MG TABLET PO SCH ×2 (10:54→21:17)
[2017-04-06] MEDS: ASPIRIN 325 MG TAB ENTERIC-COATED PO SCH (10:56)
[2017-04-06] MEDS: CARVEDILOL 3.125 MG TABLET PO SCH ×2 (10:56→21:16)
[2017-04-06] MEDS: GABAPENTIN 300 MG CAPSULE PO SCH ×2 (10:56→21:16)
[2017-04-06] MEDS: FUROSEMIDE 20 MG TABLET PO SCH (10:57)
[2017-04-06] MEDS: NAPROXEN 250 MG TABLET PO SCH (10:57)
[2017-04-06] MEDS: SENNOSIDES/DOCUSATE SODIUM UD CAPSULE PO SCH (10:57)
[2017-04-06] MEDS: DOXYCYCLINE HYCLATE 100 MG CAPSULE PO SCH ×2 (10:57→21:16)
--- NOTE | 2017-04-06 11:21 | Rehab Evaluation ---
Patient Information - Patient Information Diagnosis: Chest Pain, Deconditioning with Pneumonia Ordered Treatment: PT Evaluate and Treat Status: Initial Evaluation Surgery: No Past Medical/Surgical Hx: PAST MEDICAL/SURGICAL HISTORY Past Surgical History back injs and rhizotomy hernia repair cholecystectomy hand surgery cardiac stents 2001, 2005 Juhi filter in Left Lower Extremity PMH - Respiratory Hx Respiratory Disorders Yes Hx Sleep Apnea Yes: O2 2.5L by nc PMH - Cardiovascular Hx Cardiovascular Disorders Yes Hx Deep Vein Thrombosis Yes: 2001 and 2015 Hx Hypertension Yes Hx Coronary Stent Yes: x2 PMH - Neuro Hx Neurological Disorders No Hx Seizures No PMH - GI Hx Gastrointestinal Disorders Yes Hx Diverticulitis Yes Hx Gastrointestinal Bleed Yes: 2014 Hx Gastroesophageal Reflux Yes Hx Rectal Bleeding Yes: 2014 Comment: unkown cause of bleed-to avoid NSAIDS PMH - Hx Genitourinary Disorders Yes Hx Urinary Tract Infection Yes PMH - Endocrine Hx Endocrine Disorders No Hx Diabetes No PMH - Musculoskeletal Hx Musculoskeletal Disorders Yes Hx Arthritis Yes: lower back PMH - Psych Hx Psychiatric Problems Yes Hx Anxiety Yes Hx Depression 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 - Hematology/Oncology Hx Hematology/Oncology Yes Disorders Social History: Detail (The reports living alone in a 2-story house. She says that she has 4 steps to enter the home, with railing on each side. She says that her bathroom has a walk-in shower with a seat and a hand held shower head. She has grab bars within the shower, as well. She has a raised toilet seat, but does not have grab bars. She says that she uses a walker inside her home, and outside of the home she uses a single point cane.) - Time With Patient Total Time Spent With Patient (Min): 30 Treatment Procedures: Detail (PT Initial Evaluation) Subjective Information - Subjective Information Per Patient (Says that she has a little bit of a headache currently, but otherwise is feeling okay. Says that she has a persistent cough that she can't get rid of.) Objective Data - Pain Pain Present: Yes (Due to her headache) Pain Intensity: 5 - Mental Status Patient Orientation: Oriented x3 - ROM Within normal limits (LE within functional limits, but not formally assessed) - Strength/Tone Within normal limits (LE strength at Quads, Hamstrings, Plantarflexors, dorsiflexors, Hip Flexion, Hip Add/Abduction was 5/5 throughout.) - Bed Mobility Independent (Not formally assessed as patient was in her chair upon arrival. Patient was able to move independently in her chair) - Transfers Independent (Sit to Stand, Stand to sit, Scooting side to side independently) - Balance Balance Sitting: Good (Not formally assessed, but no loss of balance was seen during evaluation activities.) Balance Standing: Good (Not formally assessed, but showed no loss of balance with ambulation.) - Gait Detail (The patient used a 2WW during ambulation today, and was able to walk about 50 feet total independently. She says that she used a 4WW at home, and uses a single point cane with distances in the community independently.) Therapy Assessment - Therapy Assessment Detail (The patient was independent with bed mobility, transfers, and ambulation. Stairs were not assessed at this time. The patient's strength and ROM were all within functional limits. However, she did have increased with fatigue with exercise today. Based on the patient's presentation, she would not benefit from further inpatient therapy at this time.) Problem List - Problem List Physical Therapy Problem List: Detail (1) Fatigue with activity 2) Ability to do stairs was not assessed) Goals - Goals Physical Therapy Goals: Patient is independent with ambulation and transfers. The patient's strength and ROM is within normal limits. No further inpatient PT goals. Prognosis - Prognosis Good Plan - Plan Physical Therapy Plan: The patient was independent with transfers and ambulation , and had functional strength and ROM. The patient should not need further inpatient PT at this time.
--- NOTE | 2017-04-06 11:52 | Inpatient Certification ---
Inpatient Certification Admit to inpatient care: Based on my medical assessment, after consideration of patient's risk factors (age, co-morbidities and patient presenting symptoms and acuity), I expect that this patient will remain in the hospital greater than or equal to two midnights and that the services needed warrant inpatient care because: Patient Risk Factors: [Age, comorbidities, history of pneumonia admissions] Estimated length of stay: [] The patient may reasonably be expected to be discharged or transferred to a hospital within 96 hours after admission to [facility]. Services needed: [Respiratory treatment, PT/OT evaluation, antibiotic therapy, lab monitoring] Post hospital care (if known): [will plan for visiting nurse (pt. lives independently)] I certify that my determination is in accordance with my understanding of Medicare requirements for reasonable and necessary inpatient services. 04/06/17 11:50
--- NOTE | 2017-04-06 12:24 | Rehab Evaluation ---
Patient Information - Patient Information Diagnosis: Chest Pain, Deconditioning with Pneumonia Ordered Treatment: OT Evaluate and Treat Status: Initial Evaluation Surgery: No Past Medical/Surgical Hx: PAST MEDICAL/SURGICAL HISTORY Past Surgical History back injs and rhizotomy hernia repair cholecystectomy hand surgery cardiac stents 2001, 2005 Juhi filter in Left Lower Extremity PMH - Respiratory Hx Respiratory Disorders Yes Hx Sleep Apnea Yes: O2 2.5L by nc PMH - Cardiovascular Hx Cardiovascular Disorders Yes Hx Deep Vein Thrombosis Yes: 2001 and 2015 Hx Hypertension Yes Hx Coronary Stent Yes: x2 PMH - Neuro Hx Neurological Disorders No Hx Seizures No PMH - GI Hx Gastrointestinal Disorders Yes Hx Diverticulitis Yes Hx Gastrointestinal Bleed Yes: 2014 Hx Gastroesophageal Reflux Yes Hx Rectal Bleeding Yes: 2014 Comment: unkown cause of bleed-to avoid NSAIDS PMH - Hx Genitourinary Disorders Yes Hx Urinary Tract Infection Yes PMH - Endocrine Hx Endocrine Disorders No Hx Diabetes No PMH - Musculoskeletal Hx Musculoskeletal Disorders Yes Hx Arthritis Yes: lower back PMH - Psych Hx Psychiatric Problems Yes Hx Anxiety Yes Hx Depression 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 - Hematology/Oncology Hx Hematology/Oncology Yes Disorders Premorbid Status: Detail (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 She says that she has 4 steps to enter the home, with railing on each side. Bathroom has a walk-in shower with a seat, glass door enclosure, grab bars, and a hand held shower head. She has a raised toilet seat, but does not have grab bars around toilet. She says that she uses a walker inside her home, and outside of the home she uses a single point cane.) Precautions: [place], Fall, Other (Contact precautions) - Time With Patient Total Time Spent With Patient (Min): 25 Treatment Procedures: Detail (OT eval LOW) Subjective Information - Subjective Information Per Patient Objective Data - Pain Pain Present: Yes (Pt c/o headache that became worse following strength testing) - Mental Status Patient Orientation: Oriented x3 - Visual Perception Appears within normal limits for therapeutic activities - ROM Within normal limits (BUE's) - Strength/Tone Not within normal limits (MMT: (bilateral) Shld flex 3+/5, shld ext 4+/5, shld abd 3+/5, shld add 4+/5, elbow flex 4/5, elbow ext 3+/5. Pt does show overall BUE weakness, however, pt has been here in the past and strength testing appears to within pt's norm.) - Coordination Appears within normal limits for therapeutic activities - Transfers Independent (Sit<>stand t/f) - Balance Balance Sitting: Good - Sensation Intact - Gait Detail (Pt ambulated from room to just past nurses station independently w/ 2WW) Therapy Assessment - Therapy Assessment Detail (Pt does show some BUE weakness but this appears to be her normal functioning level of strength. Pt shows some decreased endurance when ambulating household distances. Do not anticipate patient needing further inpatient OT services at this time.) Problem List - Problem List Physical Therapy Problem List: Detail (1) Fatigue with activity 2) Ability to do stairs was not assessed) Occupational Therapy Problem List: Detail Goals - Goals Physical Therapy Goals: Patient is independent with ambulation and transfers. The patient's strength and ROM is within normal limits. No further inpatient PT goals. Occupational Therapy Goals: Pt is independent and safe with ADLs, t/f's and mobility. No further inpatient OT anticipated at this time. Prognosis - Prognosis Good Plan - Plan Physical Therapy Plan: The patient was independent with transfers and ambulation , and had functional strength and ROM. The patient should not need further inpatient PT at this time. Occupational Therapy Plan: No further inpatient OT needed at this time.
--- NOTE | 2017-04-06 15:19 | Physician Progress Note ---
Subjective - Date Date of Physician Progress Note: 04/06/17 Objective - Vital Signs Vital Signs: Vital Signs - Last 24 Hrs Temp Pulse Pulse Resp BP Pulse Ox 04/06/17 10:00 98.8 F 74 18 134/54 97 04/06/17 09:33 77 17 97 - General General Appearance: Alert, Oriented x3, Cooperative, No acute distress Limitations: No limitations - Head Head exam: Atraumatic, Normocephalic, Normal inspection - Eye Eye exam: Normal appearance, PERRL - ENT ENT exam: Normal exam, Mucous membranes moist, Normal external ear exam, Normal orophraynx Ear exam: Normal external inspection. negative: External canal tenderness Nasal Exam: Normal inspection. negative: Discharge, Sinus tenderness Mouth exam: Normal external inspection, Tongue normal Teeth exam: Normal inspection. negative: Dental caries Throat exam: Normal inspection. negative: Tonsillar erythema, Tonsillar exudate - Neck Neck exam: Normal inspection, Full ROM. negative: Tenderness - Respiratory Respiratory exam: Rhonchi. negative: Accessory muscle use, Prolonged expiratory , Respiratory distress, Stridor, Wheezes - Cardiovascular Cardiovascular Exam: Regular rate, Normal rhythm, Normal heart sounds - GI/Abdominal GI/Abdominal exam: Soft, Normal bowel sounds. negative: Tenderness - Rectal Rectal exam: Deferred - exam: Deferred - Extremities Extremities exam: Normal inspection, Full ROM, Normal capillary refill. negative: Tenderness - Neurological Neurological exam: Alert. negative: Motor sensory deficit - Psychiatric Psychiatric exam: Normal affect, Normal mood - Skin Skin exam: Dry, Intact, Normal color, Warm Assessment and Plan - Assessment and Plan (1) Pneumonia Current Visit: Yes Status: Acute Base Code: J18.9 - PNEUMONIA, UNSPECIFIED ORGANISM Comment: 04/06/17 1512: Chest x-ray was negative for acute process, however, pt. presented to ED with shortness of breath, low grade temp of 99F, generalized weakness, and chest pain with cough. (pt. report of cough/chest tightness similar to previous pneumonia last year). Antibiotics changed to PO, continue to encurage duonebs. Will monitor CBC with diff. (2) Chest pain Current Visit: Yes Status: Acute Qualifiers: Chest pain type: other chest pain Qualified Code(s): R07.89 - Other chest pain; R07.8 - Other chest pain Base Code: R07.9 - CHEST PAIN, UNSPECIFIED Priority: High Comment: 04/05/17 0845: Pt. presented to ED with report of chest tightness with cough. Hx of HTN , stent x2, several DVT with malik filter in place. Chest x-ray neg for acute process. EKG in ED showed R BBB, no acute changes identified. Serial troponis were negative. Pt. recieving coumadin 6mg daily and asa 325mg daily. 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 (3) Weakness generalized Current Visit: Yes Status: Acute Base Code: R53.1 - WEAKNESS Comment: 04/06 1520: Pt. presented to ED this morning with cough, chest tightness and weakness that she had been experiencing for 1 day. Weakness likely related to infectious process of pneumonia. Will continue to monitor. PT/OT eval completed and no needs identified. Pt. set up with visiting nurse to start on Sunday 04/09. (4) At risk for deep venous thrombosis Current Visit: Yes Status: Acute Base Code: Z91.89 - OT PERSONAL RISK FACTORS, NOT ELSEWHERE CLASSIFIED Comment: 04/06/17 1385: Pt. has history of several DVTs. Pt. currently on coumadin 6mg daily and has malik filter in place. Pt. sees Dr. Reyes for hematology. Will plan to increase activity as tolerated. (5) Full code status Current Visit: Yes Status: Acute Base Code: Z78.9 - OTHER SPECIFIED HEALTH STATUS Comment: 04/06/17 0184: Pt. remains full code status - Disposition Disposition: Pt began having productive cough this morning with yellow/brown sputum. She remains afebrile and WBC wnl. Pt. lives alone independently and has history of several pneumonia re-admissions. Planning to continue monitoring vital signs, wbc differential, respiratory status, and encourage duo nebs. Will tentatively plan to discharge tomorrow morning. Results - Labs Result Diagrams: 04/06/17 06:20 04/06/17 06:20 DVT/PE Assessment - Risk for VTE Risk for VTE: No Risk Level: Moderate Risk Assessment Date: 04/05/17 Risk Assessment Time: 09:21 VTE Orders Placed or Will Be Placed: No VTE Reason for No Prophylaxis: Not Indicated (Pt. is currently on coumadin and takes daily asa) - Active Medicaitons Current Medications: Current Medications Acetaminophen (Tylenol 500mg Tab) 1,000 mg PO Q8H PRN PRN Reason: HEADACHE Last Admin: 04/06/17 10:56 Dose: 1,000 mg Albuterol/Ipratropium (Duoneb) 3 ml INH RESP.Q4H PRN PRN Reason: Wheezing Last Admin: 04/06/17 09:33 Dose: 3 ml Aspirin (Ecotrin (Ec)) 325 mg PO DAILY [facility] [place] Last Admin: 04/06/17 10:56 Dose: 325 mg Atorvastatin Calcium (Lipitor) 80 mg PO QHS [facility] Last Admin: 04/05/17 21:20 Dose: 80 mg Carvedilol (Coreg) 6.25 mg PO BID [facility] [place] Last Admin: 04/06/17 10:56 Dose: 6.25 mg Cefdinir (Cefdinir) 300 mg PO BID [facility] [place] Stop: 04/09/17 22:01 Last Admin: 04/06/17 10:54 Dose: 300 mg Doxycycline Hyclate (Vibramycin) 100 mg PO BID [facility] [place] Last Admin: 04/06/17 10:57 Dose: 100 mg Furosemide (Lasix) 20 mg PO DAILY [facility] [place] Last Admin: 04/06/17 10:57 Dose: 20 mg Gabapentin (Neurontin) 600 mg PO QHS [facility] [place] Last Admin: 04/05/17 21:21 Dose: 600 mg Gabapentin (Neurontin) 300 mg PO DAILY [facility] [place] Last Admin: 04/06/17 10:56 Dose: 300 mg Guaifenesin (Mucinex) 1,200 mg PO BID [facility] Last Admin: 04/06/17 10:54 Dose: 1,200 mg Lorazepam (Ativan) 0.5 mg PO 2000 PRN PRN Reason: ANXIETY Last Admin: 04/05/17 20:00 Dose: 0.5 mg Magnesium Hydroxide (Milk Of Magnesium) 30 ml PO DAILY PRN PRN Reason: INDIGESTION Melatonin (Melatonin) 10 mg PO QHS [facility] [place] Last Admin: 04/05/17 21:21 Dose: 10 mg Naproxen (Naprosyn) 250 mg PO DAILY [facility] [place] Last Admin: 04/06/17 10:57 Dose: 250 mg Ondansetron HCl (Zofran Odt) 4 mg SL Q8H PRN PRN Reason: NAUSEA/VOMITING Last Admin: 04/05/17 21:21 Dose: 4 mg [facility]op[facility]ole [facility] ([facility] Last Admin: 04/06/17 07:49 Dose: 40 mg Senna/Docusate Sodium (Senna Plus) 1 each PO DAILY [facility] [place] Last Admin: 04/06/17 10:57 Dose: 1 each Warfarin Sodium (Coumadin) 5 mg PO DAILY@1600 [facility] Last Admin: 04/05/17 16:26 Dose: 5 mg Warfarin Sodium (Coumadin) 1 mg PO [id number] [facility] [place] Last Admin: 04/05/17 16:25 Dose: 1 mg AMI Plan - Labs Result Diagrams: 04/06/17 06:20 04/06/17 06:20
[2017-04-06] MEDS: WARFARIN 5 MG TAB PO SCH (16:28)
[2017-04-06] MEDS: WARFARIN 1 MG TABLET PO SCH (16:28)
[2017-04-06] MEDS: LORAZEPAM 0.5 MG TABLET PO PRN (19:42)
[2017-04-06] MEDS: MELATONIN 5 MG TABLET PO SCH (21:15)
[2017-04-06] MEDS: ATORVASTATIN 20 MG TABLET PO SCH (21:16)
[2017-04-07] MEDS: IPRATROPIUM/ALBUTEROL (0.5MG/3MG) NEB INH PRN (03:03)
[2017-04-07] MEDS: PANTOPRAZOLE SODIUM 40 MG TABLET PO SCH (06:14)
[2017-04-07 06:51] LABS: BASO % 0.1 % (0-6); EOS % 3.4 % (0-6); GRAN % 67.4 % (47-80); HEMATOCRIT 30.8 % (35.0-47.0); HEMOGLOBIN 9.1 gm/dl (11.6-16.0); LYMPH % 17.5 % (16-45); MEAN CELL VOLUME 92.8 fl (81-97); MEAN CORPUSCULAR HEMOGLOBIN 27.4 pg (27-33); MEAN CORPUSCULAR HGB CONC 29.5 g/dl (32-36); MEAN PLATELET VOLUME 10.5 fl (7.4-10.4); MONO % 11.6 % (0-9); PLATELET COUNT 262 K/uL (130-400); RED BLOOD COUNT 3.32 M/uL (3.80-5.40); RED CELL DISTRIBUTION WIDTH 18.7 % (11.5-14.5); WHITE BLOOD COUNT W/O DIFF 7.8 K/uL (4.2-12.2)
[2017-04-07 07:13] LABS: ALB/GLOB RATIO 1.2 (1.1-1.8); ALBUMIN 3.5 g/dL (4.0-5.0); BILIRUBIN,TOTAL 0.3 mg/dL (0.2-1.0); TOTAL PROTEIN 6.5 g/dL (6.6-8.7)
--- NOTE | 2017-04-07 07:56 | Discharge Summary ---
Providers Discharge Summary Date: 04/07/17 Date of admission: 04/06/17 09:00 Expected Date of Discharge: 04/07/17 Attending physician: NIRMALA DANIELS Primary care physician: ISRRAEL BETANCUR D.O. Physical Exam - Vital Signs Vital Signs: Vital Signs - Last 24 Hrs Temp Pulse Pulse Pulse Resp BP Pulse Ox 04/07/17 05:45 98.7 F 65 67 16 132/72 96 04/07/17 03:03 76 20 96 04/06/17 22:00 98.3 F 68 16 125/68 97 04/06/17 21:34 73 20 96 04/06/17 21:00 70 68 16 04/06/17 18:00 99.1 F 71 16 137/66 95 04/06/17 16:31 81 17 97 04/06/17 14:00 98.9 F 64 18 108/50 95 04/06/17 10:00 98.8 F 74 18 134/54 97 04/06/17 09:33 77 17 97 - General General Appearance: Alert, Oriented x3, Cooperative, No acute distress Limitations: No limitations - Head Head exam: Atraumatic, Normocephalic, Normal inspection - Eye Eye exam: Normal appearance, PERRL - ENT ENT exam: Normal exam, Mucous membranes moist, Normal external ear exam, Normal orophraynx Ear exam: Normal external inspection. negative: External canal tenderness Nasal Exam: Normal inspection. negative: Discharge, Sinus tenderness Mouth exam: Normal external inspection, Tongue normal Teeth exam: Normal inspection. negative: Dental caries Throat exam: Normal inspection. negative: Tonsillar erythema, Tonsillar exudate - Neck Neck exam: Normal inspection, Full ROM. negative: Tenderness - Respiratory Respiratory exam: Rhonchi. negative: Accessory muscle use, Prolonged expiratory , Respiratory distress, Stridor, Wheezes - Cardiovascular Cardiovascular Exam: Regular rate, Normal rhythm, Normal heart sounds - GI/Abdominal GI/Abdominal exam: Soft, Normal bowel sounds. negative: Tenderness - Rectal Rectal exam: Deferred - exam: Deferred - Extremities Extremities exam: Normal inspection, Full ROM, Normal capillary refill. negative: Tenderness - Neurological Neurological exam: Alert. negative: Motor sensory deficit - Psychiatric Psychiatric exam: Normal affect, Normal mood - Skin Skin exam: Dry, Intact, Normal color, Warm Hospitalization - Hospitalization Admission Diagnosis: 1. Chest pain, R/O HI. 2. Weakness with Pneumonia - Problem List/Discharge Diagnosis (1) Pneumonia Status: Acute Base Code: J18.9 - PNEUMONIA, UNSPECIFIED ORGANISM Comment: 04/22 1512: Chest x-ray was negative for acute process, however, pt. presented to ED with shortness of breath, low grade temp of 99F, generalized weakness, and chest pain with cough. (pt. report of cough/chest tightness similar to previous pneumonia last year). Vital signs have remained stable and wbc count now wnl. Plan to discharge home today and continue PO cefdinir 300mg bid and doxy 100mg bid for total of 5 days therapy. (2) Chest pain Status: Acute Discharge Diagnosis: Chest pain type: other chest pain Qualified Code(s): R07.89 - Other chest pain; R07.8 - Other chest pain Base Code: R07.9 - CHEST PAIN, UNSPECIFIED Comment: 04/07/17 151: Pt. presented to ED with report of chest tightness with cough. Hx of HTN, stent x2 , several DVT with malik filter in place. Chest x-ray neg for acute process. EKG in ED showed R BBB, no acute changes identified. Serial troponis were negative. Pt. recieving coumadin 6mg daily and asa 325mg daily. Chest pain with cough has now resolved. Plan to discharge home today. (3) Weakness generalized Status: Acute Base Code: R53.1 - WEAKNESS Comment: 04/07/17 100: Pt. presented to ED on 04/05 with cough, chest tightness and weakness that she had been experiencing for 1 day. Weakness likely related to infectious process of pneumonia. PT/OT eval completed and no needs identified. Pt. set up with visiting nurse to start on Sunday 04/09. (4) At risk for deep venous thrombosis Status: Acute Base Code: Z91.89 - OT PERSONAL RISK FACTORS, NOT ELSEWHERE CLASSIFIED Comment: 04/07/17 5492: Pt. has history of several DVTs. Pt. currently on coumadin 6mg daily and has malik filter in place. Pt. sees Dr. Reyes for hematology. Will plan to increase activity as tolerated. (5) Full code status Status: Acute Base Code: Z78.9 - OTHER SPECIFIED HEALTH STATUS Comment: 04/07 1515: Pt. remains full code status - Disposition Pt began having productive cough this morning with yellow/brown sputum. She remains afebrile and WBC wnl. Pt. lives alone independently and has history of several pneumonia re-admissions. Planning to continue monitoring vital signs, wbc differential, respiratory status, and encourage duo nebs. Will tentatively plan to discharge tomorrow morning. - Hospitalization Course Disposition: Home Health Service Hospital Course: Mrs. Shepherd is an 86 year-old female who presented to the ED early this morning due to cough and shortness of breath that she had been experiencing for one day. She stated that her lungs felt "tight" and similar to when she had pneumonia last year. She denied sputum production, back pain, abdominal pain, or change in bowel pattern. She does have an extensive history of DVTs and is on coumadin, she does have a malik filter in place. Patient states that she uses oxygen at night at home because she cannot tolerate her Cpap. Her history includes: sleep apnea (2.5L O2 [place] during night) , HTN, coronary stent x2, DVTs in 2001 and 2015, diverticulitis, GI bleed in 2014 related to NSAID use, GERD, lower back arthritis, anxiety, depression, and sundowners. She had a rhizotomy with Dr. Evans on 02/21/17. In the ED, she did have a low grade fever of 99.0F. Her BP was 137/55, HR 86, RR24, and pulse ox of 98% on 2L NC. She received a duo neb treatment and reported improved ease of breathing, still feeling weakness. WBC was 12.6, Hgb 10.0. First troponin was within normal range. Influenza A and B were negative. EKG in ED showed right BBB, no acute change. A chest x-ray was done , report still pending, but no acute process visible on image. A head CT was done because of pt's weakness, which was negative for acute process. She was started on rocephin 1g IV bid and doxy 100mg IV bid. She was admitted for observation based on her cough and chest pain, possible early pneumonia. 04/05/17 0830: Pt. is resting in bed. She states that her cough has improved, remains nonproductive, she also states her chest tightness has improved. Her vital signs have remained stable, she is afebrile at 98.2F and 97% O2 on 2L nc. Plan to continue IV antibiotics and repeat labs this evening, will plan to discharge home tomorrow morning if pt. remains stable, ease of respiration continue to improve, and no worsening signs/symptoms of infection. 04/06/17 1532: Pt. began having productive cough this morning with yellow/brown sputum. She remains afebrile and WBC wnl. Pt. lives alone independently and has history of several pneumonia re-admissions. Planning to continue monitoring vital signs, wbc differential, respiratory status, and encourage duonebs. Will tentatively plan to discharge home tomorrow. 04/06/17 1000: Pt. is resting in bed, she states that her cough has improved. She verbalized that she is nervous about being home. RT saw pt. this morning and taught pt. deep-breathing exercises and did ambulating pulse ox monitoring, pt. responded well, no home O2 needed. Vital signs have remained stable, WBC has decreased to normal limit. Pt's daughter, Anali, is present. We discussed discharge home and pt. is set up with visiting nurse from [place] to start on Saturday 04/08. Pt. has f/u with Dr. Betancur on 04/08 as well. PCP: Dr. Betancur Pharmacy Technician Assistant: Dr. Briggs Oncology/hematology: Dr. Reyes (DVT and anemia management) Abnormal Labs: Abnormal Lab Results 04/07/17 04/07/17 Range/Units 06:20 06:20 RBC 3.32 L (3.80-5.40) M/uL Hgb 9.1 L (11.6-16.0) gm/dl Hct 30.8 L (35.0-47.0) % MCHC 29.5 L (32-36) g/dl RDW 18.7 H (11.5-14.5) % MPV 10.5 H (7.4-10.4) fl Monocytes % 11.6 H (0-9) % Creatinine 1.0 H (0.5-0.9) mg/dL Total Protein 6.5 L (6.6-8.7) g/dL Albumin 3.5 L (4.0-5.0) g/dL Condition at Discharge: (2) Stable VTE Discharge VTE Reason For No Overlap Therapy: Not Indicated (Pt. is already on coumadin) Discharge Medications - Discharge Medications Prescriptions: Cefdinir 300 mg PO BID #5 capsule Doxycycline Hyclate [Vibramycin] 100 mg PO BID #5 capsule Home Medications: Ambulatory Orders Carvedilol 6.25 mg PO BID 06/19/14 [Last Taken 09/21/16] Furosemide 20 mg PO DAILY 06/19/14 [Last Taken 09/21/16] Atorvastatin Calcium [Lipitor] 80 mg PO QHS 03/30/15 [Last Taken 09/21/16] Gabapentin 300 mg PO DAILY 03/30/15 [Last Taken 09/21/16] Gabapentin 600 mg PO QHS 03/30/15 [Last Taken 09/21/16] Lorazepam 1 tab PO 2000 PRN 12/17/15 [Last Taken 09/21/16] Melatonin 10 mg PO QHS 12/17/15 [Last Taken 09/21/16] Sennosides [Senokot] 8.6 mg PO DAILY 12/17/15 [Last Taken 09/21/16] Warfarin Sodium [Coumadin] 6 mg PO DAILY 04/04/16 [Last Taken 09/21/16] Nabumetone 500 mg PO DAILY 04/05/17 [Last Taken Unknown] Omeprazole 20 mg PO DAILY 04/05/17 [Last Taken Unknown] Cefdinir 300 mg PO BID #5 capsule 04/07/17 [Last Taken Unknown] Doxycycline Hyclate [Vibramycin] 100 mg PO BID #5 capsule 04/07/17 [Last Taken Unknown] Discharge Plan - Discharge Instructions Activity at Discharge: Increase Activity as Tolerated Diet at Discharge: Regular Diet Instructions: Dyspnea (ED) Additional Instructions: Follow up with Dr. Betancur on 04/09 Visiting nurse schedule to start on 04/09 Return to ED if you experience worsening shortness of breath or chest pain Quality Measures - Quality Measures Quality Measures: Atrial Fibrillation & Atrial Flutter: Chronic Anticoagulation Therapy, Advance Directives, Documentation of Current Medications in Medical Record, Elder Maltreatment Screen and Follow-Up Plan, Screening for High Blood Pressure and F/U Documented - Current Medications Quality Measure: Measure #130: Documentation of Current Medications Documentation of Current Medications: <Current Medications Documented/Reviewed> [G8427] - Blood Pressure Screening Quality Measure: Screening for High Blood Pressure and Follow-Up Documented Does Patient Have Any of the Following: Active Dx of HTN Blood Pressure Classification: Pre-Hypertensive BP Reading Systolic Measurement: 137 Diastolic Measurement: 55 Screening for High Blood Pressure: Patient Exclusion, Hx of HTN [R3954] - Atrial Fibrillation and Atrial Flutter Quality Measure: Atrial Fibrillation & Atrial Flutter: Chronic Anticoagulation Therapy Does Patient Have Any of the Following: No CHADS2 Risk Stratification: Age 75 or Greater, Hypertension Risk Stratification Summary: One or more high risk factors OR more than one moderate risk factor exists. [K8972] Anticoagulation Therapy: <Oral anticoagulant Prescribed> [[id number]] - Advance Directives Quality Measure: Measure #47: Care Plan Advance Directives Established: Yes Advance Directives Information Provided To Patient: Declined Advance Directives on File: No Living Will: Yes Power of Brim Stiffener: Yes Power of Brim Stiffener Name: John ruff Advance Care Planning: <Care Plan/Decision Maker Documented; Discussed & Documented> [[id number]] - Elder Abuse Suspicion Index Screening: Elder Abuse Suspicion Index Screening Rely on people for bathing, dressing, shopping, banking, etc: No Prevented from getting food, clothes, medication, etc: No Made to feel shamed or threatened by someone: No Forced to sign papers or use money against will: No Feel afraid, touched in ways not wanted or hurt physically: No Poor eye contact, withdrawn, malnourished, cuts or bruises: No Screening Result: Negative result EASI Reference Information: Rebeca SAMUELS, Danny C, Shay D, Darwin Drew.Development and validation of a tool to assist physicians identification of elder abuse: The Elder Abuse Suspicion Index (EASI ). Journal of Elder Abuse and Neglect, 2008; 20 (3): 276-300. - Elder Maltreatment Screen Quality Measures: Elder Maltreatment Screen and Follow-Up Plan Elder Maltreatment Screen: <Negative, No Follow-Up Plan Required> [[id number]]
[2017-04-07] MEDS: FUROSEMIDE 20 MG TABLET PO SCH (09:20)
[2017-04-07] MEDS: SENNOSIDES/DOCUSATE SODIUM UD CAPSULE PO SCH (09:20)
[2017-04-07] MEDS: NAPROXEN 250 MG TABLET PO SCH (09:20)
[2017-04-07] MEDS: ASPIRIN 325 MG TAB ENTERIC-COATED PO SCH (09:20)
[2017-04-07] MEDS: CEFDINIR 300 MG CAPSULE PO SCH (09:20)
[2017-04-07] MEDS: DOXYCYCLINE HYCLATE 100 MG CAPSULE PO SCH (09:21)
[2017-04-07] MEDS: GUAIFENESIN 1,200 MG TABLET PO SCH (09:21)
[2017-04-07] MEDS: GABAPENTIN 300 MG CAPSULE PO SCH (09:22)
[2017-04-07] MEDS: CARVEDILOL 3.125 MG TABLET PO SCH (09:22)
[2017-04-07] MEDS ORDERED: ALBUTEROL HFA 8 GM INHALER INH PRN (12:28)
[2017-04-08] MEDS: IPRATROPIUM/ALBUTEROL (0.5MG/3MG) NEB INH PRN (06:50)
== END 2017-04-07 13:00 | disposition home health service (06) | DRG 195 ==
LOC: ER 04:43 → MEDSURG 06:38 → OBSVTOIN 04-06 09:00
PROVIDERS: ADMIT Internal Medicine; ATTEND Internal Medicine
DX: R05 Cough (principal); R07.89 Other chest pain; J18.9 Pneumonia, unspecified organism; I10 Essential (primary) hypertension; F41.8 Other specified anxiety disorders; Z86.718 Personal history of other venous thrombosis and embolism; Z79.01 Long term (current) use of anticoagulants; I25.10 Atherosclerotic heart disease of native coronary artery without angina pectoris; G47.33 Obstructive sleep apnea (adult) (pediatric); R53.1 Weakness
CPT/HCPCS: 99285 ×2; 96365; 82550; 85025 ×3; 85730; 85610; 82553 ×3; 80048; 80053 ×2; 87400; 84484 ×3; 71046; 70450; 94640 ×2; 94761 ×2; 93005 ×2; 93010 ×2; G0378 ×18; J3490; 94760; 97165; 99220; 99223; 99233; 99239

== ENCOUNTER 2017-04-29 17:03 | Emergency (ER) | payer MEDICARE, BC ==
[2017-04-29] MEDS ORDERED: ONDANSETRON HCL IV 4 MG/2 ML VIAL IV ONE (18:37)
[2017-04-29] MEDS ORDERED: 0.9% SODIUM CHLORIDE 250ML BAG IV ONE (18:37)
[2017-04-29] MEDS ORDERED: MORPHINE SULFATE 5 MG/ML PFS IVP ONE (18:40)
--- NOTE | 2017-04-29 18:45 | Emergency Department Record ---
History of Present Illness - General Chief complaint: GI Bleed Stated complaint: BLOODY STOOL Time Seen by Provider: 04/29/17 18:31 Source: Patient Mode of Arrival: EMS Limitations: No limitations - History of Present Illness Initial comments: pt reports 1 episode of blood in toilet w clots. she hs had gi bleeds in the past and was [facility] and to [facility]. no source was found. at one time she required 13 units of blood. pt is also having ap in upper abd. w nausea. Onset/Timin -: Hour(s) Radiation: LUQ, LLQ, RLQ Severity scale (1-10): 8 Consistency: Constant Improves with: None Worsens with: None Context: History of GI bleed, Blood thinners Associated Symptoms: Nausea - Related Data Previous Rx's Medication Instructions Recorded Doxycycline Hyclate [Vibramycin] 100 mg PO BID #5 capsule 04/07/17 Allergies Allergy/AdvReac Type Severity Reaction Status Date / Time Penicillins Allergy Intermediate RASH Verified 04/29/17 17:14 Sulfa (Sulfonamide Allergy Intermediate RASH Verified 04/29/17 17:14 Antibiotics) Travel Screening - Travel/Exposure Within Last 30 Days Have you traveled within the last 30 days?: No - Travel/Exposure Within Last Year Have you traveled outside the [place] in the last year?: No - Additonal Travel Details Have you been exposed to anyone with a communicable illness?: No - Travel Symptoms Symptom Screening: None Review of Systems Reviewed: No additional complaints except as noted below Constitutional: Reports: As per HPI. Denies: Chills, Fever, Malaise, Night sweats, Weakness, Weight change Eyes: Reports: As per HPI. Denies: Eye discharge, Eye pain, Photophobia, Vision change ENT: Reports: As per HPI. Denies: Congestion, Dental pain, Ear pain, Epistaxis , Hearing loss, Throat pain Respiratory: Reports: As per HPI. Denies: Cough, Dyspnea, Hemoptysis, Stridor, Wheezes Cardiovascular: Reports: As per HPI. Denies: Arrhythmia, Chest pain, Dyspnea on exertion, Edema, Murmurs, Orthopnea, Palpitations, Paroxysmal nocturnal dyspnea, Rheumatic Fever, Syncope Endocrine: Reports: As per HPI. Denies: Fatigue, Heat or cold intolerance, Polydipsia, Polyuria Gastrointestinal: Reports: As per HPI, Abdominal pain, Hematochezia, Nausea. Denies: Constipation, Diarrhea, Hematemesis, Melena, Vomiting Genitourinary: Reports: As per HPI. Denies: Abnormal menses, Discharge, Dyspareunia, Dysuria, Frequency, Hematuria, Incontinence, Retention, Urgency Musculoskeletal: Reports: As per HPI. Denies: Arthralgia, Back pain, Gout, Joint swelling, Myalgia, Neck pain Skin: Reports: As per HPI. Denies: Bruising, Change in color, Change in hair/ nails, Lesions, Pruritus, Rash Neurological: Reports: As per HPI. Denies: Abnormal gait, Confusion, Headache, Numbness, Paresthesias, Seizure, Tingling, Tremors, Vertigo, Weakness Psychiatric: Reports: As per HPI. Denies: Anxiety, Auditory hallucinations, Depression, Homicidal thoughts, Suicidal thoughts, Visual hallucinations Hematological/Lymphatic: Reports: As per HPI. Denies: Anemia, Blood Clots, Easy bleeding, Easy bruising, Swollen glands Past Medical History - SOCIAL HISTORY Smoking Status: Never smoker Alcohol Use: None Drug Use: None - RESPIRATORY Hx Respiratory Disorders: Yes Hx Sleep Apnea: Yes (O2 2.5L by nc) - CARDIOVASCULAR Hx Cardio Disorders: Yes Hx Deep Vein Thrombosis: Yes (2001 and 2015) Hx Hypertension: Yes Hx Coronary Stent: Yes (x2) - NEURO Hx Neuro Disorders: No Hx Seizures: No - GI Hx GI Disorders: Yes Hx Diverticulitis: Yes Hx GI Bleed: Yes (2014) Hx Reflux: Yes Hx Rectal Bleeding: Yes (2014) Comment:: unkown cause of bleed-to avoid NSAIDS - Hx Genitourinary Disorders: Yes Hx UTI: Yes - ENDOCRINE Hx Endocrine Disorders: No Hx Diabetes: No - MUSCULOSKELETAL Hx Musculoskeletal Disorders: Yes Hx Arthritis: Yes (lower back) - PSYCH Hx Psych Problems: Yes Hx Anxiety: Yes Hx Depression: Yes 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:: sundowners - HEMATOLOGY/ONCOLOGY Hx Hematology/Oncology Disorders: Yes Hx Blood Transfusions: Yes (2014) Family Medical History Any Significant Family History?: Yes Hx Cancer: Mother, Grandparents Hx Diabetes: Grandparents Hx Heart Disease: Grandparents Hx Stroke: Grandparents Physical Exam - General General Appearance: Alert, Oriented x3, Cooperative, Mild distress - Head Head exam: Normal inspection - Eye Eye exam: Normal appearance, PERRL, EOMI Pupils: Normal accommodation - ENT ENT exam: Normal exam, Mucous membranes moist, Normal external ear exam, Normal orophraynx Ear exam: Normal external inspection. negative: External canal tenderness Nasal Exam: Normal inspection. negative: Discharge, Sinus tenderness Mouth exam: Normal external inspection, Tongue normal Teeth exam: Normal inspection. negative: Dental caries Throat exam: Normal inspection. negative: Tonsillar erythema, Tonsillar exudate - Neck Neck exam: Normal inspection, Full ROM. negative: Tenderness - Respiratory Respiratory exam: Normal lung sounds bilaterally. negative: Respiratory distress - Cardiovascular Cardiovascular Exam: Regular rate, Normal rhythm, Normal heart sounds - GI/Abdominal GI/Abdominal exam: Soft, Normal bowel sounds. negative: Tenderness - Rectal Rectal exam: Heme (+) stool - exam: Deferred - Extremities Extremities exam: Normal inspection, Full ROM, Normal capillary refill. negative: Tenderness - Back Back exam: Reports: Normal inspection, Full ROM. Denies: Muscle spasm, Rash noted, Tenderness - Neurological Neurological exam: Alert, CN II-XII intact, Normal gait, Oriented X3 - Psychiatric Psychiatric exam: Normal affect, Normal mood - Skin Skin exam: Dry, Intact, Normal color, Warm Course Vital Signs 04/29/17 17:07 Temperature 99.0 F Pulse Rate 73 Respiratory 18 Rate Blood Pressure 145/65 Pulse Ox 92 L - Reevaluation(s) Reevaluation #1: 04/29/17 22:04 pt did well entire stay, she remained stable and had no reoccurences of bleeding Medical Decision Making - Lab Data Result diagrams: 04/29/17 18:23 04/29/17 18:23 Disposition Disposition: Transfer Clinical Impression: GI bleed Qualifiers: GI bleed type/associated pathology: unspecified gastrointestinal hemorrhage type Qualified Code(s): K92.2 - Gastrointestinal hemorrhage, unspecified Transfer To: [facility] Reason For Transfer: gi bleed Accepting Physician: dr cece cool Time Discussed w/Accepting Physician: 22:04 Quality - Quality Measures Quality Measures: N/A - Blood Pressure Screening Does Patient Have Any of the Following: Active Dx of HTN Blood Pressure Classification: Hypertensive Reading Systolic Measurement: 145 Diastolic Measurement: 65 Screening for High Blood Pressure: Patient Exclusion, Hx of HTN [[id number]]
[2017-04-29 18:51] LABS: BASO % 0.3 % (0-6); EOS % 5.3 % (0-6); GRAN % 55.7 % (47-80); HEMATOCRIT 34.6 % (35.0-47.0); HEMOGLOBIN 10.1 gm/dl (11.6-16.0); LYMPH % 25.3 % (16-45); MEAN CELL VOLUME 95.1 fl (81-97); MEAN CORPUSCULAR HEMOGLOBIN 27.7 pg (27-33); MEAN CORPUSCULAR HGB CONC 29.2 g/dl (32-36); MONO % 13.4 % (0-9); PLATELET COUNT 257 K/uL (130-400); RED BLOOD COUNT 3.64 M/uL (3.80-5.40); RED CELL DISTRIBUTION WIDTH 19.8 % (11.5-14.5); WHITE BLOOD COUNT W/O DIFF 6.1 K/uL (4.2-12.2)
[2017-04-29 19:03] LABS: INR 1.6; PROTHROMBIN TIME (PATIENT) 17.6 SECONDS (9.5-12.1)
[2017-04-29 19:04] LABS: BILIRUBIN,TOTAL 0.2 mg/dL (0.2-1.0)
[2017-04-29 19:09] LABS: ALB/GLOB RATIO 1.3 (1.1-1.8)
[2017-04-29 19:26] LABS: URINE APPEARANCE CLEAR; URINE BILIRUBIN NEGATIVE (NEGATIVE); URINE BLOOD TRACE-I (NEGATIVE); URINE COLOR YELLOW; URINE GLUCOSE (UA) NEGATIVE (NEGATIVE); URINE KETONE NEGATIVE (NEGATIVE); URINE LEUKOCYTE ESTERASE NEGATIVE (NEGATIVE); URINE NITRITE NEGATIVE (NEGATIVE); URINE PROTEIN NEGATIVE (NEGATIVE); URINE UROBILINOGEN 0.2 E.U./dL (0.20 - 1.00)
[2017-04-29 19:32] LABS: URINE BACTERIA NONE SEEN; URINE EPITHELIAL CELLS 0 - 2 (FEW); URINE WBC 0 - 2 (0-2/hpf)
[2017-04-29 19:36] LABS: ABO GROUP O; ANTIBODY SCREEN NEGATIVE (NEGATIVE); RH TYPE POSITIVE
--- NOTE | 2017-04-30 09:07 | CT SCAN REPORT ---
EXAM: CT OF THE ABDOMEN AND PELVIS WITHOUT CONTRAST HISTORY: GI BLEED. TECHNIQUE: CT of the abdomen and pelvis was performed without oral or IV contrast. This limits evaluation of bowel and solid visceral organs. Comparison: Prior CT 04/17/16. FINDINGS: Limited evaluation of the lung bases is unremarkable. The osseous structures are grossly intact. Limited evaluation of the liver, spleen, adrenal glands, and pancreas is unremarkable. Moderate sized hiatal hernia. Surgical absence of the gallbladder. Negative for urinary tract calculus or hydronephrosis. Rather extensive atheromatous changes. Left iliac endovascular stent graft noted. Inferior vena cava partially seen. Abundant stool in the colon. Scattered colonic diverticulosis without CT evidence for diverticulitis. No free air or free fluid. No gross evidence for bowel obstruction. IMPRESSION: MODERATE SIZED HIATAL HERNIA. COLONIC DIVERTICULOSIS WITHOUT CT EVIDENCE FOR DIVERTICULITIS. ATHEROMATOUS CHANGES, ABOVE. JOB NUMBER: [id number] [facility]
== END 2017-04-29 22:36 | disposition short-term general hospital (02) ==
LOC: ER 17:03
DX: K92.1 Melena (principal); R10.84 Generalized abdominal pain; R42 Dizziness and giddiness; R11.0 Nausea; R07.81 Pleurodynia; I10 Essential (primary) hypertension; Z79.01 Long term (current) use of anticoagulants
CPT/HCPCS: 99285 ×2; 96374; 96375; 96361; 83605; 83690; 85025; 85730; 85610; 80053; 81001; 86900; 86901; 86850; 74176; 93005; 93010; J2405; J2270

== ENCOUNTER 2017-05-31 13:46 | Day surgery (SDC) | payer MEDICARE, BC ==
[2017-05-31] MEDS ORDERED: ONDANSETRON HCL IV 4 MG/2 ML VIAL IVP ONE (13:47)
[2017-05-31] MEDS ORDERED: PROPOFOL 10 MG/ML VIAL IV ONE (13:47)
--- NOTE | 2017-06-01 12:40 | Operative Note ---
DATE OF SURGERY: 05/31/2017 OPERATION: 1. ESOPHAGOGASTRODUODENOSCOPY. 2. COLONOSCOPY. PREOPERATIVE DIAGNOSIS: Hiatal hernia, left upper quadrant pain, and anemia. POSTOPERATIVE DIAGNOSES: 1. Hiatal hernia. 2. Melanosis coli. 3. Colonic diverticulosis. PROCEDURE: After informed consent was obtained from the patient, she was placed in the left lateral decubitus position in the endoscopy suite, sedated and monitored by the department of anesthesia. A well-lubricated [id number] gastroscope was placed in the posterior oropharynx and under direct visualization passed to the proximal esophagus. The endoscope was advanced through the proximal, mid, and distal esophagus. There was a [id number] size hiatal hernia. The subdiaphragmatic stomach and esophagus was unremarkable. The gastric body, antrum, pylorus, duodenal bulb and sweep were unremarkable. J-turn views of the proximal stomach revealed changes consistent with a hiatal hernia but no other abnormalities were identified. The endoscope was straightened and retracted from the patient after the duodenum had been inspected one more time and no new abnormalities were identified. No abnormalities noted in the esophagus in retrograde inspection. Digital rectal exam was unremarkable. A well-lubricated [id number] colonoscope was inserted into the rectum and advanced to the cecum. Preparation quality was good to excellent. The cecum, ileocecal valve, appendiceal orifice, ascending colon, transverse colon, descending colon, sigmoid colon, and rectum were free of inflammatory changes, mass lesions, or polyps. Forward and J-turn views of the rectum were unremarkable. There were colonic diverticular changes throughout the length of the colon, primarily in the sigmoid colon, descending colon, and ascending colon. No polyps, mass lesions, fresh or old blood, or bleeding lesions were seen. No AVMs were noted. The rectal ampulla was deflated and the endoscope was removed. RECOMMENDATIONS: At this point I see no obvious GI abnormality to be concerned about at this time. She should undergo further workup of her left rib pain. There is no GI explanation noted at this time. As always, thank you for allowing me to participate in the healthcare of your patients. CC: ISRRAEL SCHREIBER D.O. Dr. Connie LASSITER
== END 2017-05-31 15:34 | disposition home or self-care (01) ==
LOC: HOP 13:46
PROVIDERS: ATTEND Internal Medicine Gastroenterology
DX: R10.12 Left upper quadrant pain (principal); K44.9 Diaphragmatic hernia without obstruction or gangrene; K63.89 Other specified diseases of intestine; K57.30 Diverticulosis of large intestine without perforation or abscess without bleeding; D64.9 Anemia, unspecified; Z86.718 Personal history of other venous thrombosis and embolism; Z79.01 Long term (current) use of anticoagulants; I10 Essential (primary) hypertension; E78.00 Pure hypercholesterolemia, unspecified
CPT/HCPCS: 00813; 43235; G0121; J2405

== ENCOUNTER 2017-06-14 11:15 | Inpatient (IN) | payer MEDICARE, BC ==
--- NOTE | 2017-06-14 16:13 | History & Physical ---
History of Present Illness - Date Date of Service for History & Physical: 06/15/17 - History of Present Illness Admitting Diagnosis: weakness, deconditioning History of Present Illness: Pt. is an 87 year-old female who is admitted to swing bed for sub-acute rehab for generalized weakness and deconditioning. She was admitted at [facility] from 06/07/17-06/14/17 with c/o nausea, vomiting, weakness, and abdominal vidal and discharged with a diagnosis of acute pancreatitis and constipation. During her hospital stay, GI was consulted and an abdominal CT was done on 06/08/17 and results included small hiatal hernia, presence of an IVC filter, diverticulosis , and 4.3 x 2.3 cm low attenuation area in the stomach that may be food vs. neoplasm- an upper GI series was recommended to further evaluate the area. Bentyl 10mg qid was initiated and her diet was advanced from clear liquid to regular as tolerated. She was evaluated by PT/OT and MURTAZA was recommended- she was admitted to [facility] swing bed on 06/14/17 for weakness. She has a history of ED visits and an admission to [facility] for similar symptoms over the past several weeks, most recently d/c'd on 06/01. She had an EGD and colonoscopy with Dr. Collins for GI bleed 5 weeks ago. Past medical history included long-term anticoagulation therapy for a-fib and chronic DVTs, lower GI bleed (3 years ago required 13 units PRBCs), CAD, chronic anemia, chronic constipation, GERD, WILNER, TAY, left BBB, anxiety, and nausea. Surgical hx of cholecystectomy, cardiac stents 2001 and 2011, rhizotomies, and IVC fitler. 06/14/17 1630: Pt. is sitting up in her chair. She states that her abdominal pain had greatly improved over the last few days and she currently denies constipation. She was evaluated by PT/OT this afternoon and she is ambulating with a cane. She does report persistent weakness. Plan to continue PT/OT, GI consult for possible upper GI series to evaluate stomach mass seen on CT (neoplasm vs. food) . PT did note left calf tenderness, pt. hx of chronic left calf DVT. PCP Gy[facility] Hematology: Dr. Reyes GI: Dr. Collins General - Cognitive Patterns Speech: Normal Thought Process: Intact Thought Content: Normal Orientation: Oriented x3 - Communication Preferred Language?: Latvian Returned Goods Inspector Required: No Level of Education: High School Preferred Method of Learning: Doing Comprehension Ability: No Impairment Able to Read: Yes Able to Write: Yes Select best description of speech pattern: Clear Speech Ability to express ideas and wants: Understood Understanding verbal content: Understands - Mood and Behavior Patterns Appearance: Well Groomed Mood: Normal Attitude: Cooperative Motor Activity: Calm Affect: Appropriate Hallucinations: Denies - Psychosocial Well-Being Usual Living Arrangement: Alone - Physical Functioning Assistive Devices: Straight Cane - Dental Status Unable to examine: No Broken or loosely fitting full or partial dentures: No No natural teeth or tooth fragment(s) (edentulous): No Abnormal mouth tissue (ulcers, masses, oral lesions, etc.): No Obvious or likely cavity or broken natural teeth: Yes Inflamed or bleeding gums or loose natural teeth: No Mouth/facial pain, discomfort or difficulty chewing: Yes - Nutrition Screening Poor oral intake > 1 week: Yes Unplanned weight loss in specified time frame: No Nutrition Support via tube feedings or parenteral nutrition: No Pressure Ulcer: No Significantly underweight define as BMI <18.5 kg/m2: No Albumin <2.5mg/dL: No Persistent nausea/vomiting/diarrhea >3 days: Yes Difficulty chewing/swallowing/mouth sores: No Admitting Diagnosis: Yes Nutrition Risk Score: High Risk Review of Systems Reviewed: No additional complaints except as noted below Constitutional: Reports: Weakness. Denies: Chills, Fever, Malaise, Night sweats , Weight change Eyes: Reports: As per HPI. Denies: Eye discharge, Eye pain, Photophobia, Vision change ENT: Reports: As per HPI. Denies: Congestion, Dental pain, Ear pain, Epistaxis , Hearing loss, Throat pain Respiratory: Reports: As per HPI. Denies: Cough, Dyspnea, Hemoptysis, Stridor, Wheezes Cardiovascular: Reports: As per HPI. Denies: Arrhythmia, Chest pain, Dyspnea on exertion, Edema, Murmurs, Orthopnea, Palpitations, Paroxysmal nocturnal dyspnea, Rheumatic Fever, Syncope Endocrine: Reports: As per HPI. Denies: Fatigue, Heat or cold intolerance, Polydipsia, Polyuria Gastrointestinal: Reports: Abdominal pain. Denies: Constipation, Diarrhea, Hematemesis, Hematochezia, Melena, Nausea, Vomiting Genitourinary: Reports: As per HPI. Denies: Abnormal menses, Discharge, Dyspareunia, Dysuria, Frequency, Hematuria, Incontinence, Retention, Urgency Musculoskeletal: Reports: Other (left leg tenderness). Denies: Arthralgia, Back pain, Gout, Joint swelling, Myalgia, Neck pain Skin: Reports: As per HPI. Denies: Bruising, Change in color, Change in hair/ nails, Lesions, Pruritus, Rash Neurological: Reports: As per HPI. Denies: Abnormal gait, Confusion, Headache, Numbness, Paresthesias, Seizure, Tingling, Tremors, Vertigo, Weakness Psychiatric: Reports: As per HPI. Denies: Anxiety, Auditory hallucinations, Depression, Homicidal thoughts, Suicidal thoughts, Visual hallucinations Hematological/Lymphatic: Reports: As per HPI. Denies: Anemia, Blood Clots, Easy bleeding, Easy bruising, Swollen glands Past Medical History - SOCIAL HISTORY Smoking Status: Never smoker - SURGICAL HISTORY Past Surgical History: back injs and rhizotomy. hernia repair cholecystectomy hand surgery cardiac stents 2001, 2005. Juhi filter in Left Lower Extremity. EGD/colonoscopy in [place]. Emergent tranfer and 13 units of blood for GI bleeding - RESPIRATORY Hx Respiratory Disorders: Yes - CARDIOVASCULAR Hx Cardio Disorders: Yes Hx Abnormal EKG: Yes Hx Cardiac Cath: Yes (2 stents) Hx Edema: Yes (some in ankles-on Lasix) Hx Hypertension: Yes Hx Coronary Artery Disease: Yes (per CT results) - NEURO Hx Neuro Disorders: No Hx Seizures: No - GI Hx GI Disorders: Yes Hx Hiatal Hernia: Yes (1956) - Hx Genitourinary Disorders: Yes Hx UTI: Yes - ENDOCRINE Hx Endocrine Disorders: No Hx Diabetes: No Hx Thyroid Disease: No - MUSCULOSKELETAL Hx Musculoskeletal Disorders: Yes Hx Arthritis: Yes (lower back) - PSYCH Hx Psych Problems: Yes Hx Anxiety: Yes Hx Depression: Yes - HEMATOLOGY/ONCOLOGY Hx Hematology/Oncology Disorders: Yes Hx Anemia: Yes Hx Blood Transfusions: Yes (2014) Hx Blood Transfusion Reaction: No Family Medical History Any Significant Family History?: Yes Hx Cancer: Mother *Cancer Comment: uterus Hx Heart Disease: Grandparents Hx Resp Disorders: Father *Resp Comment: TB Hx Stroke: Grandparents H&P Meds/Allergies - Allergies Allergies: Allergies Allergy/AdvReac Type Severity Reaction Status Date / Time Penicillins Allergy Intermediate RASH Verified 04/29/17 17:14 Sulfa (Sulfonamide Allergy Intermediate RASH Verified 04/29/17 17:14 Antibiotics) - Home Medications Previous Rx's Medication Instructions Recorded Enoxaparin Sodium [Lovenox] 120 mg SQ DAILY syr 06/02/17 Lorazepam [Ativan] 1 mg PO BID PRN tablet 06/02/17 Zinc Oxide [Desitin] 28.35 gm TOP BID PRN tube 06/02/17 - Active Medications Active Medications: Current Medications Atorvastatin Calcium (Lipitor) 80 mg PO QHS [facility] Carvedilol (Coreg) 6.25 mg PO BID JULIO Celecoxib (Celebrex) 100 mg PO BID [facility] Cyanocobalamin (Vitamin B-12) 100 mcg PO DAILY [facility] Dicyclomine HCl (Bentyl) 10 mg PO QIDWMHS [facility] Enoxaparin Sodium (Lovenox) 80 mg SQ DAILY JULIO Enoxaparin Sodium (Lovenox) 40 mg SQ DAILY [facility] Gabapentin (Neurontin) 300 mg PO BID JULIO Lorazepam (Ativan) 1 mg PO BID PRN PRN Reason: ANXIETY Melatonin (Melatonin) 10 mg PO QHS [facility] Pantoprazole Sodium (Protonix) 40 mg PO BIDAC [facility] Senna/Docusate Sodium (Senna Plus) 1 each PO QHS [facility] Tramadol HCl (Ultram) 50 mg PO BID PRN PRN Reason: Pain - General Vitamin D (Vitamin D3) 2,000 unit PO DAILY [facility] Warfarin Sodium (Coumadin) 5 mg PO DAILY@1600 [facility] Warfarin Sodium (Coumadin) 2 mg PO [id number] [facility] Physical Exam - Vital Signs Vital Signs: Vital Signs - Last 24 Hrs Temp Pulse Resp BP Pulse Ox 06/14/17 13:00 98.8 F 67 16 130/71 92 L - General General Appearance: Alert, Oriented x3, Cooperative, No acute distress Limitations: Physical limitation - Head Head exam: Normal inspection - Eye Eye exam: Normal appearance, PERRL Pupils: Normal accommodation - ENT ENT exam: Normal exam, Mucous membranes moist, Normal external ear exam, Normal orophraynx, TM's normal bilaterally Ear exam: Normal external inspection. negative: External canal tenderness Nasal Exam: Normal inspection. negative: Discharge, Sinus tenderness Mouth exam: Normal external inspection, Tongue normal Teeth exam: Normal inspection. negative: Dental caries Throat exam: Normal inspection. negative: Tonsillar erythema, Tonsillar exudate - Neck Neck exam: Normal inspection, Full ROM. negative: Tenderness - Respiratory Respiratory exam: Normal lung sounds bilaterally. negative: Respiratory distress - Cardiovascular Cardiovascular Exam: Irregular rhythm (a-fib) - GI/Abdominal GI/Abdominal exam: Soft, Normal bowel sounds, Tenderness (epigastric) - Rectal Rectal exam: Deferred - exam: Deferred - Extremities Extremities exam: Calf tenderness (left), Other (bilateral ankle edema) - Back Back exam: Reports: Normal inspection, Full ROM. Denies: Muscle spasm, Rash noted, Tenderness - Neurological Neurological exam: Alert, Normal gait, Oriented X3, Reflexes normal - Psychiatric Psychiatric exam: Normal affect, Normal mood - Skin Skin exam: Dry, Intact, Normal color, Warm H&P Results - Chest X-Ray In Last 90 Days Chest X-Ray Within Last 90 Days: Yes Status: Report reviewed, Image reviewed Discharge Potential - Discharge Potential Discharge Potential: Plan to discharge home within 7-10 days, depending on PT/OT progress, will discharge with home PT - Discharge Needs Community Services Used Prior to Admission: Home Health Nurse Patient Discharge Plan Description: Return Home Community Services Needed at Discharge: Home Health Aide, Home Health Nurse Plan - Swing Bed Certification Initial Certification Due: 06/14/17 14 Day Re-Cert Due: 06/28/17 44 Day Re-Cert Due: 07/28/17 74 Day Re-Cert Due: 08/27/17 - Detailed Diagnosis and Plan (1) Physical deconditioning Current Visit: Yes Status: Acute Base Code: R53.81 - OTHER MALAISE Comment : 06/15/17: Physical deconditioning and weakness secondary to several weeks of abdominal pain/GI work-up and pneumonia in 04/2017. Pt. is ambulating with a cane. PT/OT eval and treament 1-2/week. Will plan to d/c with home PT as well. (2) Abdominal pain Current Visit: No Status: Acute Qualifiers: Abdominal location: epigastric Qualified Code(s): R10.13 - Epigastric pain Base Code: R10.9 - UNSPECIFIED ABDOMINAL PAIN Comment: 06/15/17: several week hx of epigastric pain. Pt. had EGD and colonoscopy [address] Collins - report of gastritis and hiatal hernia- no acute findings. Abd CT on 06/08/17 during [facility] admission revealed diverticulosis, small hiatal hernia, and questionable stomach neoplasm vs. food- upper GI series was recommended to further evaluate. Plan to continue bentyl 10mg qid, protonix 40mg bid, ultram 50mg bid prn, maalox for GI upset and simethicone 80mg tid prn. Will pursue GI series during SB status as OP. Low fiber and bland diet, will advance as tolerated. (3) At risk for deep venous thrombosis Current Visit: No Status: Acute Base Code: Z91.89 - OTH PERSONAL RISK FACTORS, NOT ELSEWHERE CLASSIFIED Comment: 06/15/17: hx of a-fib and chronic DVTs. IVC filter in place. Per hematology- planned treatement is 120mg lovenox and 7mg coumadin daily and daily INRs. Dr. Reyes plans to call on 06/18 to re-evaluate treatment. Plan to increase activity as tolerated with PT/OT. (4) Full code status Current Visit: No Status: Acute Base Code: Z78.9 - OTHER SPECIFIED HEALTH STATUS Comment: 06/15/17: Pt. remains full code status
[2017-06-14 16:16] LABS: PROTHROMBIN TIME (PATIENT) 10.7 SECONDS (9.5-12.1)
--- NOTE | 2017-06-14 16:28 | Swing Bed Certification/Recert ---
Initial Certification Due: 06/14/17 14 Day Re-Cert Due: 06/28/17 44 Day Re-Cert Due: 07/28/17 74 Day Re-Cert Due: 08/27/17 CERTIFICATION 3 CERTIFICATION OF PATIENT ADMISSION Required at time of admission. Due: 06/14/17 I certify that SNF services are required to be given on an inpatient basis because of the above named patient's need for [place] [facility] care on a continuing basis for the condition(s) for which he/she was receiving inpatient hospital services prior to his/her transfer to the SNF. The patient's current needs for skilled care includes: [PT/OT evaluation and treatment, outpatient GI workup] Aye Redmond, N.P. 06/14/17
[2017-06-14] MEDS: WARFARIN 5 MG TAB PO SCH (16:40)
[2017-06-14] MEDS: WARFARIN 1 MG TABLET PO SCH (16:41)
[2017-06-14] MEDS: PANTOPRAZOLE SODIUM 40 MG TABLET PO SCH (16:42)
[2017-06-14] MEDS: DICYCLOMINE HCL 10 MG CAPSULE PO SCH ×2 (17:34→21:30)
--- NOTE | 2017-06-14 18:35 | Rehab Evaluation ---
Patient Information - Patient Information Diagnosis: Deconditioning, weakness Ordered Treatment: PT Evaluate and Treat Status: Initial Evaluation Surgery: No History: Detail (Pt had endoscopy on 05/31/17 at [facility], had nausea the next day, presented to ED and admitted overnight for observation. Subsequently discharged home 06/02/17 and was seen by visiting nurse on 06/07/17 who advised going to [facility] due to persistent nausea/vomiting. Had pancreatitis; transferred to [facility] for IP rehabilitation today. Pt continues to have nausea, but vomiting has diminished significantly.) Past Medical/Surgical Hx: PAST MEDICAL/SURGICAL HISTORY Past Surgical History back injs and rhizotomy hernia repair cholecystectomy hand surgery cardiac stents 2001, 2005 [place] filter in Left Lower Extremity EGD/colonoscopy in [place] [facility] tranfer and 13 units of blood for GI bleeding PMH - Respiratory Hx Respiratory Disorders Yes Hx Bronchitis Yes Hx Pneumonia Yes: February 2016 Hx Sleep Apnea Yes: O2 2.5L by nc Hx Tuberculosis No Hx of CPAP No Hx of SOB Yes Comment: oxygen at night 2 L PMH - Cardiovascular Hx Cardiovascular Disorders Yes Hx Abnormal EKG Yes Hx Cardiac Catheterization Yes: 2 stents Hx Deep Vein Thrombosis Yes: 2001 and 2015 Hx Edema Yes: some in ankles-on Lasix Hx Hypertension Yes Hx Irregular Heartbeat Yes Hx Coronary Artery Disease Yes: per CT results Hx Coronary Stent Yes: x2 PMH - Neuro Hx Neurological Disorders No Hx Seizures No PMH - GI Hx Gastrointestinal Disorders Yes Hx Diverticulitis Yes Hx Gastrointestinal Bleed Yes: 2014 Hx Gastroesophageal Reflux Yes Hx Hiatal Hernia Yes: 1956 Hx Rectal Bleeding Yes: 2014 Comment: unkown cause of bleed-to avoid NSAIDS PMH - Hx Genitourinary Disorders Yes Hx Renal Disease Yes: Bright's disease at 7yrs old Hx Urinary Tract Infection Yes PMH - Endocrine Hx Endocrine Disorders No Hx Diabetes No Hx Thyroid Disease No PMH - Musculoskeletal Hx Musculoskeletal Disorders Yes Hx Arthritis Yes: lower back Hx Back Injury Yes: broke tailbone-removed PMH - Psych Hx Psychiatric Problems Yes Hx Anxiety Yes Hx Depression 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 She has four steps to enter the home, w/two handrails but they are four feet apart. She has walk-in shower with bench and hand held shower, elevated toilet. All needs are on first level of home. She had pneumonia in March, was hospitalized, and had been dealing with N/V for some time over the past three months. She had been receiving home care services (nrsg, PT, SW) prior to this admission. She used a four-wheeled walker within her home mostly to be able to carry things from room to room. Out of the house, she used a single tip cane, which she has presently. She has had no falls in the past 6 months.) Social History: Detail (Pt's son-in-law Santi was present during evaluation; he and pt's daughter Anali live 2-1/2 hrs away. Pt has a niece Antoinette in [place], but she is not very available due to her work schedule. A family friend in [place] is available to help as needed.) Precautions: [place] - Time With Patient Total Time Spent With Patient (Min): 40 Treatment Procedures: Detail (PT Evaluation) Subjective Information - Subjective Information Per Patient (Pt was walking in the hallway with her son-in-law upon arrival. She was agreeable/cooperative for evaluation. Reported epigastric pain, but states she is mostly deconditioned from being sick essentially since March. She feels that she didn't fully recover after pneumonia, because the GI issues began.) Objective Data - Pain Pain Present: Yes Pain Intensity: 4 (belly pain) Pain Scale Used: Numeric (1 - 10) - Mental Status Patient Orientation: Oriented x3 - Visual Perception Appears within normal limits for therapeutic activities - ROM Within normal limits - Strength/Tone Not within normal limits (4/5 strength in B hip flexion, extension, abduction, and adduction; 4+/5 in B knee extension and flexion, and B ankle dorsiflexion.) - Coordination Appears within normal limits for therapeutic activities - Bed Mobility Independent - Transfers Independent - Balance Balance Sitting: Good Balance Standing: Good - Sensation Intact (Intact to light touch but patient reports numbness in L LE greater than R since rhizotomies in December 2016. She states rhizotomy on R was effective in relieving R LE pain, but not on L. She states epidural was scheduled w/Dr. Evans, but that was postponed due to her illness.) - Gait Detail (Pt ambulated independently w/single tip cane over level surfaces. She walked about 55 feet w/no LOB, conversing.) - Special Tests Yes (Pt exhibits tenderness, edema, and mild warmth of the L calf. Nrsg notified.) Therapy Assessment - Therapy Assessment Detail (Pt exhibits mild proximal LE weakness and activity intolerance consistent with her medical condition. She is a good candidate for short-term rehabilitation to facilitate safe return to home environment.) Patient Education - Patient Education Teaching Topic: Exercise/Activity, Precautions Response: Reinforcement Needed Teaching Method: Discussion Teaching Recipient: Patient, Family Barriers To Learning: None Problem List - Problem List Physical Therapy Problem List: Detail (1. Mild proximal LE weakness. 2. Activity intolerance) Goals - Goals Physical Therapy Goals: 1. Pt will safely and independently ambulate over household and short-community distances with least restrictive assistive device. 2. Pt will tolerate 30 minutes of low intensity therapeutic exercise without undue fatigue or pain. 3. Pt will safely and independently ascend/ descend up to 10 stairs with least restrictive assistive device. 4. Pt will be independent in a lower extremity strengthening exercise program. Prognosis - Prognosis Good Plan - Plan Physical Therapy Plan: Pt will be seen 1-2x/daily M-F to address above goals.
[2017-06-14] MEDS: CARVEDILOL 3.125 MG TABLET PO SCH (21:30)
[2017-06-14] MEDS: CELECOXIB 100 MG CAPSULE PO SCH (21:30)
[2017-06-14] MEDS: SENNOSIDES/DOCUSATE SODIUM UD CAPSULE PO SCH (21:30)
[2017-06-14] MEDS: GABAPENTIN 300 MG CAPSULE PO SCH (21:30)
[2017-06-14] MEDS: MELATONIN 5 MG TABLET PO SCH (21:31)
[2017-06-14] MEDS: ATORVASTATIN 20 MG TABLET PO SCH (21:31)
[2017-06-14] MEDS: LORAZEPAM 0.5 MG TABLET PO PRN (21:39)
[2017-06-15] MEDS: TRAMADOL HCL 50 MG TABLET PO PRN ×2 (05:23→21:45)
[2017-06-15] MEDS: PANTOPRAZOLE SODIUM 40 MG TABLET PO SCH ×2 (06:03→15:55)
[2017-06-15] MEDS: DICYCLOMINE HCL 10 MG CAPSULE PO SCH ×5 (09:14→22:31)
[2017-06-15] MEDS: SIMETHICONE 80 MG TAB.CHEW PO PRN ×3 (09:15→20:20)
[2017-06-15] MEDS: CARVEDILOL 3.125 MG TABLET PO SCH ×3 (09:15→23:51)
[2017-06-15] MEDS: CYANOCOBALAMIN (VITAMIN B-12) 100 MCG TABLET PO SCH (09:15)
[2017-06-15] MEDS: BIFIDOBACTERIUM INFANTIS 4 MG CAPSULE PO SCH (09:15)
[2017-06-15] MEDS: CELECOXIB 100 MG CAPSULE PO SCH ×2 (09:15→22:48)
[2017-06-15] MEDS: CHOLECALCIFEROL 1,000 UNIT TABLET PO SCH (09:16)
[2017-06-15] MEDS: GABAPENTIN 300 MG CAPSULE PO SCH ×3 (09:16→23:47)
[2017-06-15] MEDS: AL HYDROX/MAG HYDROX 30ML UD PO PRN ×2 (09:17→19:52)
[2017-06-15] MEDS ORDERED: ENOXAPARIN 40 MG/0.4 ML SYR SQ SCH (10:00)
[2017-06-15] MEDS ORDERED: ENOXAPARIN 80 MG/0.8 ML SYR SQ SCH (10:00)
[2017-06-15] MEDS ORDERED: ENOXAPARIN 40 MG/0.4 ML SYR SQ ONE (10:00)
[2017-06-15] MEDS ORDERED: ENOXAPARIN 100 MG/ML SYR SQ SCH (10:00)
--- NOTE | 2017-06-15 12:50 | Rehab Evaluation ---
Patient Information - Patient Information Diagnosis: Deconditioning, weakness Ordered Treatment: OT Evaluate and Treat Status: Initial Evaluation Surgery: No History: Detail (Pt had endoscopy on 05/31/17 at [facility], had nausea the next day, presented to ED and admitted overnight for observation. Subsequently discharged home 06/02/17 and was seen by visiting nurse on 06/07/17 who advised going to [facility] due to persistent nausea/vomiting. Had pancreatitis; transferred to [facility] for IP rehabilitation 06/14/17. Pt continues to have nausea , but vomiting has diminished significantly.) Past Medical/Surgical Hx: PAST MEDICAL/SURGICAL HISTORY Past Surgical History back injs and rhizotomy hernia repair cholecystectomy hand surgery cardiac stents 2001, 2005 [place] filter in Left Lower Extremity EGD/colonoscopy in [place] [facility] tranfer and 13 units of blood for GI bleeding PMH - Respiratory Hx Respiratory Disorders Yes Hx Bronchitis Yes Hx Pneumonia Yes: February 2016 Hx Sleep Apnea Yes: O2 2.5L by nc Hx Tuberculosis No Hx of CPAP No Hx of SOB Yes Comment: oxygen at night 2 L PMH - Cardiovascular Hx Cardiovascular Disorders Yes Hx Abnormal EKG Yes Hx Cardiac Catheterization Yes: 2 stents Hx Deep Vein Thrombosis Yes: 2001 and 2015 Hx Edema Yes: some in ankles-on Lasix Hx Hypertension Yes Hx Irregular Heartbeat Yes Hx Coronary Artery Disease Yes: per CT results Hx Coronary Stent Yes: x2 PMH - Neuro Hx Neurological Disorders No Hx Seizures No PMH - GI Hx Gastrointestinal Disorders Yes Hx Diverticulitis Yes Hx Gastrointestinal Bleed Yes: 2014 Hx Gastroesophageal Reflux Yes Hx Hiatal Hernia Yes: 1956 Hx Rectal Bleeding Yes: 2014 Comment: unkown cause of bleed-to avoid NSAIDS PMH - Hx Genitourinary Disorders Yes Hx Renal Disease Yes: Bright's disease at 7yrs old Hx Urinary Tract Infection Yes PMH - Endocrine Hx Endocrine Disorders No Hx Diabetes No Hx Thyroid Disease No PMH - Musculoskeletal Hx Musculoskeletal Disorders Yes Hx Arthritis Yes: lower back Hx Back Injury Yes: broke tailbone-removed PMH - Psych Hx Psychiatric Problems Yes Hx Anxiety Yes Hx Depression 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 She has four steps to enter the home, w/two handrails but they are four feet apart. She has walk-in shower with bench, grab bar and hand held shower as well as an elevated toilet with grab bar. All needs are on first level of home. She had pneumonia in March, was hospitalized, and had been dealing with N/V for some time over the past three months. She had been receiving home care services (nrsg, PT, SW) prior to this admission. She used a four-wheeled walker within her home mostly to be able to carry things from room to room. Out of the house, she used a single tip cane, which she has presently. She has had no falls in the past 6 months.) Social History: Detail (Pt reports she has a supportive son in law. Pt has a niece Antoinette in [place], but she is not very available due to her work schedule. A family friend in [place] is available to help as needed.) Precautions: [place], [place] - Time With Patient Total Time Spent With Patient (Min): 40 Treatment Procedures: Detail (OT eval low complexity) Subjective Information - Subjective Information Per Patient Objective Data - Pain Pain Present: Yes (7/10 abdominal pain) - Mental Status Patient Orientation: Oriented x3 - Visual Perception Appears within normal limits for therapeutic activities (Pt reports she wears glasses as needed.) - ROM Within normal limits (Hola UE AROM WNL) - Strength/Tone Not within normal limits (Hola shoulder strength 4-/5, hola elbow flexion and extension 4/5, hola deck specialist 4-/5) - Coordination Appears within normal limits for therapeutic activities - Transfers Independent (Ind with sit to stand from reclining chair.) - Balance Balance Sitting: Good Balance Standing: Good - Sensation Deficit (Pt reports she has numbness in hola hands all the time.) - Gait Detail (Pt ambulating in room and hallway with 2 wheeled walker and SBA.) - ADL's/IADL's Detail (Pt reports she was able to complete total body dressing this am Indly. She has not attempted showering. She was able to demonstrate Ind with oral hygiene and combing hair while standing at sink. She reports nursing is standing by with toileting.) Therapy Assessment - Therapy Assessment Detail (Pt presents with UE weakness and decreased endurance needed for safe and Ind return home. She hopes to increase her overall strength and return to doing everything she was doing before.) Problem List - Problem List Physical Therapy Problem List: Detail (1. Mild proximal LE weakness. 2. Activity intolerance) Occupational Therapy Problem List: Detail (1. Decreased Ind with showering. 2. Decreased UE strength needed for safe and Ind IADLs. 3. Decreased endurance) Goals - Goals Physical Therapy Goals: 1. Pt will safely and independently ambulate over household and short-community distances with least restrictive assistive device. 2. Pt will tolerate 30 minutes of low intensity therapeutic exercise without undue fatigue or pain. 3. Pt will safely and independently ascend/ descend up to 10 stairs with least restrictive assistive device. 4. Pt will be independent in a lower extremity strengthening exercise program. Occupational Therapy Goals: 1. Pt will be safe and Ind with showering in sitting. 2. Pt will participate in UE strengthening activities and improve UE strength to 4/5 in shoulders and hands. 3. Pt will tolerate endurance training to allow safe and Ind IADLs. Prognosis - Prognosis Good Plan - Plan Physical Therapy Plan: Pt will be seen 1-2x/daily M-F to address above goals. Occupational Therapy Plan: OT 2-4 days per week to address ADLs/IADLs, UE strength, overall endurance and safety to allow Ind return home.
--- NOTE | 2017-06-15 13:23 | Physical Therapy Tx Note ---
Physical Therapy Tx Note - Treatment Note Tolerated: Good Total Time Spent With Patient: 20 Physical Therapy Tx Note: Detail (The patient was sitting in her chair upon arrival. The patient was independent with transferring from sit to stand. The patient was then able to ambulate from her room to the nurse's station and back to her room (a total of 130 feet). She used a cane and required only supervision for ambulation activities. The patient then completed 10 reps of the following exercises: Long Arc Quads, Heel/Toe Raises, Seated Hip Flexion, Hip Abduction, and Hip Adduction. She was instructed to complete the HEP 2 times a day. The patient was left sitting in her chair with call light in reach and friends present.Patient's treatment was limited due to fatigue.) Physical Therapy Problem List: Detail (1. Mild proximal LE weakness. 2. Activity intolerance) Physical Therapy Goals: 1. Pt will safely and independently ambulate over household and short-community distances with least restrictive assistive device. 2. Pt will tolerate 30 minutes of low intensity therapeutic exercise without undue fatigue or pain. 3. Pt will safely and independently ascend/ descend up to 10 stairs with least restrictive assistive device. 4. Pt will be independent in a lower extremity strengthening exercise program. Prognosis: Good Physical Therapy Plan: Pt will be seen 1-2x/daily M-F to address above goals.
[2017-06-15] MEDS: WARFARIN 1 MG TABLET PO SCH (15:55)
[2017-06-15] MEDS: WARFARIN 5 MG TAB PO SCH (15:55)
[2017-06-15] MEDS: LORAZEPAM 0.5 MG TABLET PO PRN (21:44)
[2017-06-15] MEDS ORDERED: ONDANSETRON 4 MG ODT TABLET SL PRN (22:28)
[2017-06-15] MEDS: ATORVASTATIN 20 MG TABLET PO SCH (22:48)
[2017-06-15] MEDS: SENNOSIDES/DOCUSATE SODIUM UD CAPSULE PO SCH ×2 (22:48→23:47)
[2017-06-15] MEDS: MELATONIN 5 MG TABLET PO SCH ×2 (22:48→23:49)
[2017-06-16] MEDS: PANTOPRAZOLE SODIUM 40 MG TABLET PO SCH ×2 (08:01→18:12)
[2017-06-16] MEDS: DICYCLOMINE HCL 10 MG CAPSULE PO SCH ×4 (08:01→22:19)
[2017-06-16] MEDS: ENOXAPARIN 80 MG/0.8 ML SYR SQ SCH (09:56)
[2017-06-16] MEDS: ENOXAPARIN 40 MG/0.4 ML SYR SQ SCH (09:56)
[2017-06-16] MEDS: CHOLECALCIFEROL 1,000 UNIT TABLET PO SCH (09:56)
[2017-06-16] MEDS: CELECOXIB 100 MG CAPSULE PO SCH ×2 (09:57→22:19)
[2017-06-16] MEDS: BIFIDOBACTERIUM INFANTIS 4 MG CAPSULE PO SCH (09:57)
[2017-06-16] MEDS: CARVEDILOL 3.125 MG TABLET PO SCH ×2 (09:57→22:19)
[2017-06-16] MEDS: GABAPENTIN 300 MG CAPSULE PO SCH ×2 (09:57→22:19)
[2017-06-16] MEDS: CYANOCOBALAMIN (VITAMIN B-12) 100 MCG TABLET PO SCH (09:58)
[2017-06-16 10:28] LABS: PROTHROMBIN TIME (PATIENT) 10.9 SECONDS (9.5-12.1)
[2017-06-16] MEDS: LORAZEPAM 0.5 MG TABLET PO PRN (18:03)
[2017-06-16] MEDS: WARFARIN 1 MG TABLET PO SCH (18:03)
[2017-06-16] MEDS: WARFARIN 5 MG TAB PO SCH (18:11)
[2017-06-16] MEDS: SENNOSIDES/DOCUSATE SODIUM UD CAPSULE PO SCH (22:19)
[2017-06-16] MEDS: MELATONIN 5 MG TABLET PO SCH (22:19)
[2017-06-16] MEDS: ATORVASTATIN 20 MG TABLET PO SCH (22:19)
[2017-06-17] MEDS: PANTOPRAZOLE SODIUM 40 MG TABLET PO SCH ×2 (07:15→16:51)
[2017-06-17] MEDS: DICYCLOMINE HCL 10 MG CAPSULE PO SCH ×4 (07:15→22:23)
[2017-06-17] MEDS: GABAPENTIN 300 MG CAPSULE PO SCH ×2 (10:21→22:23)
[2017-06-17] MEDS: CARVEDILOL 3.125 MG TABLET PO SCH ×2 (10:22→22:23)
[2017-06-17] MEDS: CHOLECALCIFEROL 1,000 UNIT TABLET PO SCH (10:23)
[2017-06-17] MEDS: CELECOXIB 100 MG CAPSULE PO SCH ×2 (10:23→22:23)
[2017-06-17] MEDS: BIFIDOBACTERIUM INFANTIS 4 MG CAPSULE PO SCH (10:24)
[2017-06-17] MEDS: ENOXAPARIN 80 MG/0.8 ML SYR SQ SCH (10:24)
[2017-06-17] MEDS: CYANOCOBALAMIN (VITAMIN B-12) 100 MCG TABLET PO SCH (10:24)
[2017-06-17] MEDS: ENOXAPARIN 40 MG/0.4 ML SYR SQ SCH (10:25)
[2017-06-17 10:36] LABS: INR 1.1; PROTHROMBIN TIME (PATIENT) 11.4 SECONDS (9.5-12.1)
[2017-06-17] MEDS: WARFARIN 5 MG TAB PO SCH (16:51)
[2017-06-17] MEDS: WARFARIN 1 MG TABLET PO SCH (16:52)
[2017-06-17] MEDS: LORAZEPAM 0.5 MG TABLET PO PRN (18:27)
[2017-06-17] MEDS: TRAMADOL HCL 50 MG TABLET PO PRN (22:22)
[2017-06-17] MEDS: MELATONIN 5 MG TABLET PO SCH (22:23)
[2017-06-17] MEDS: ATORVASTATIN 20 MG TABLET PO SCH (22:23)
[2017-06-17] MEDS: SENNOSIDES/DOCUSATE SODIUM UD CAPSULE PO SCH (22:23)
[2017-06-18] MEDS: LORAZEPAM 0.5 MG TABLET PO PRN ×2 (00:25→17:42)
[2017-06-18] MEDS: PANTOPRAZOLE SODIUM 40 MG TABLET PO SCH ×2 (06:13→16:02)
[2017-06-18] MEDS: DICYCLOMINE HCL 10 MG CAPSULE PO SCH ×4 (07:59→21:17)
[2017-06-18] MEDS: CELECOXIB 100 MG CAPSULE PO SCH ×2 (10:08→21:17)
[2017-06-18] MEDS: BIFIDOBACTERIUM INFANTIS 4 MG CAPSULE PO SCH (10:08)
[2017-06-18] MEDS: ENOXAPARIN 80 MG/0.8 ML SYR SQ SCH (10:09)
[2017-06-18] MEDS: CARVEDILOL 3.125 MG TABLET PO SCH ×2 (10:09→21:17)
[2017-06-18] MEDS: GABAPENTIN 300 MG CAPSULE PO SCH ×2 (10:09→21:17)
[2017-06-18] MEDS: ENOXAPARIN 40 MG/0.4 ML SYR SQ SCH (10:09)
[2017-06-18] MEDS: CYANOCOBALAMIN (VITAMIN B-12) 100 MCG TABLET PO SCH (10:10)
[2017-06-18] MEDS: CHOLECALCIFEROL 1,000 UNIT TABLET PO SCH (10:10)
--- NOTE | 2017-06-18 10:23 | Occupational Therapy Tx Note ---
Occupational Therapy Tx Note - Treatment Note Tolerated: Good Total Time Spent With Patient: 45 (gait, ther ex) Occupational Therapy Treatment Note: Detail (S: Pt in recliner resting. Reports having a good weekend. O: Sit to stand and amb to rehab gym with 2 wheeled walker and SBA (300 feet +). Pt completed hola UE ther ex including passive pulleys for shoulder ROM, overhead repetitive reaching with resisted clothespins and red theraputty for networking administrator, rolling and pinch. Pt amb back to room with 2 wheeled walker and SBA. A: Hola shoulder fatigue with overhead reaching, improved endurance with mobility.) Occupational Therapy Problem List: Detail (1. Decreased Ind with showering. 2. Decreased UE strength needed for safe and Ind IADLs. 3. Decreased endurance) Occupational Therapy Goals: 1. Pt will be safe and Ind with showering in sitting. 2. Pt will participate in UE strengthening activities and improve UE strength to 4/5 in shoulders and hands. 3. Pt will tolerate endurance training to allow safe and Ind IADLs. Prognosis: Good Occupational Therapy Plan: OT 2-4 days per week to address ADLs/IADLs, UE strength, overall endurance and safety to allow Ind return home.
[2017-06-18 11:00] LABS: INR 1.2; PROTHROMBIN TIME (PATIENT) 12.5 SECONDS (9.5-12.1)
--- NOTE | 2017-06-18 13:41 | Physical Therapy Tx Note ---
Physical Therapy Tx Note - Treatment Note Tolerated: Good Total Time Spent With Patient: 30 Physical Therapy Tx Note: Detail (The patient was sitting in her chair upon arrival. She was independent with sit to stand. She was then able to ambulate from her room to the ED doors and back to the nurse's station before requiring a rest break ( a total of 630 feet). She used a 2WW and required supervision only for ambulation. She was then able to ascend/descend 3 stairs with CGA x1. She ambulated back to her room with 2WW and supervision (another 67 feet). The patient then completed the following standing exercises: mini-squats x 10, side- stepping and tandem walking for a total of 30 feet with each exercise. The patient then reported increased fatigue. The patient was returned to her recliner with call light in reach.) Physical Therapy Problem List: Detail (1. Mild proximal LE weakness. 2. Activity intolerance) Physical Therapy Goals: 1. Pt will safely and independently ambulate over household and short-community distances with least restrictive assistive device - MET. 2. Pt will tolerate 30 minutes of low intensity therapeutic exercise without undue fatigue or pain. 3. Pt will safely and independently ascend/ descend up to 10 stairs with least restrictive assistive device. 4. Pt will be independent in a lower extremity strengthening exercise program. Prognosis: Good Physical Therapy Plan: Pt will be seen 1-2x/daily M-F to address above goals.
[2017-06-18] MEDS: WARFARIN 1 MG TABLET PO SCH (16:01)
[2017-06-18] MEDS: WARFARIN 5 MG TAB PO SCH (16:01)
[2017-06-18] MEDS: SENNOSIDES/DOCUSATE SODIUM UD CAPSULE PO SCH (21:16)
[2017-06-18] MEDS: ATORVASTATIN 20 MG TABLET PO SCH (21:16)
[2017-06-18] MEDS ORDERED: ZINC OXIDE 28.35 GM TUBE TOP PRN (22:36)
[2017-06-18] MEDS: TRAMADOL HCL 50 MG TABLET PO PRN (23:42)
[2017-06-18] MEDS: MELATONIN 5 MG TABLET PO SCH (23:42)
[2017-06-19] MEDS: PANTOPRAZOLE SODIUM 40 MG TABLET PO SCH ×2 (06:16→16:57)
[2017-06-19] MEDS: DICYCLOMINE HCL 10 MG CAPSULE PO SCH ×4 (08:19→23:07)
[2017-06-19] MEDS: CHOLECALCIFEROL 1,000 UNIT TABLET PO SCH (09:40)
[2017-06-19] MEDS: CELECOXIB 100 MG CAPSULE PO SCH ×2 (09:41→23:07)
[2017-06-19] MEDS: GABAPENTIN 300 MG CAPSULE PO SCH ×2 (09:41→23:07)
[2017-06-19] MEDS: CYANOCOBALAMIN (VITAMIN B-12) 100 MCG TABLET PO SCH (09:41)
[2017-06-19] MEDS: BIFIDOBACTERIUM INFANTIS 4 MG CAPSULE PO SCH (09:42)
[2017-06-19] MEDS: CARVEDILOL 3.125 MG TABLET PO SCH ×2 (09:42→23:07)
[2017-06-19] MEDS: ENOXAPARIN 60 MG/0.6 ML SYR SQ SCH (09:43)
[2017-06-19 10:38] LABS: INR 1.2; PROTHROMBIN TIME (PATIENT) 13.4 SECONDS (9.5-12.1)
--- NOTE | 2017-06-19 12:55 | Occupational Therapy Tx Note ---
Occupational Therapy Tx Note - Treatment Note Tolerated: Good Total Time Spent With Patient: 45 (ADL) Occupational Therapy Treatment Note: Detail (S: Pt up in chair, ready for showering. O: Sit to stand and amb to shower with 2 wheeled walker. Pt doffed PJ gown, briefs and slippers Indly. Pt completed showering in sitting with hand held shower and use of grab bar when standing. She was Ind with drying self. She donned shirt, briefs, pants and slippers Indly in sitting. Pt amb to sink with walker and completed oral hygiene and combed hair Indly. Pt amb back to chair with walker Indly. A: Pt fatigued after showering, she was Ind with all showering, dressing and grooming/hygiene tasks.) Occupational Therapy Problem List: Detail (1. Decreased Ind with showering. 2. Decreased UE strength needed for safe and Ind IADLs. 3. Decreased endurance) Occupational Therapy Goals: 1. Pt will be safe and Ind with showering in sitting. 2. Pt will participate in UE strengthening activities and improve UE strength to 4/5 in shoulders and hands. 3. Pt will tolerate endurance training to allow safe and Ind IADLs. Prognosis: Good Occupational Therapy Plan: OT 2-4 days per week to address ADLs/IADLs, UE strength, overall endurance and safety to allow Ind return home.
--- NOTE | 2017-06-19 13:33 | Physical Therapy Tx Note ---
Physical Therapy Tx Note - Treatment Note Tolerated: Good Total Time Spent With Patient: 15 Physical Therapy Tx Note: Detail (The patient was sitting in her chair upon arrival. The patient independently transferred from sit to stand. She was then able to ambulate from her room to the [facility] (about 210 feet) with use of cane and supervision. She then requested to use a 2WW to return back to her room (another 210 feet). She required supervision only for this bout of ambulation as well. She then had complaints of fatigue after getting a shower this morning with OT. She was returned to her chair with call light in reach.) Physical Therapy Problem List: Detail (1. Mild proximal LE weakness. 2. Activity intolerance) Physical Therapy Goals: 1. Pt will safely and independently ambulate over household and short-community distances with least restrictive assistive device - MET. 2. Pt will tolerate 30 minutes of low intensity therapeutic exercise without undue fatigue or pain. 3. Pt will safely and independently ascend/ descend up to 10 stairs with least restrictive assistive device. 4. Pt will be independent in a lower extremity strengthening exercise program. Prognosis: Good Physical Therapy Plan: Pt will be seen 1-2x/daily M-F to address above goals.
[2017-06-19] MEDS: WARFARIN 5 MG TAB PO SCH (16:56)
[2017-06-19] MEDS: WARFARIN 1 MG TABLET PO SCH (16:57)
[2017-06-19] MEDS: LORAZEPAM 0.5 MG TABLET PO PRN (18:58)
[2017-06-19] MEDS: ATORVASTATIN 20 MG TABLET PO SCH (23:07)
[2017-06-19] MEDS: SENNOSIDES/DOCUSATE SODIUM UD CAPSULE PO SCH (23:07)
[2017-06-19] MEDS: MELATONIN 5 MG TABLET PO SCH (23:07)
[2017-06-19] MEDS: TRAMADOL HCL 50 MG TABLET PO PRN (23:08)
[2017-06-20] MEDS: PANTOPRAZOLE SODIUM 40 MG TABLET PO SCH ×2 (06:45→16:13)
[2017-06-20] MEDS: CARVEDILOL 3.125 MG TABLET PO SCH ×2 (09:17→21:57)
[2017-06-20] MEDS: GABAPENTIN 300 MG CAPSULE PO SCH ×2 (09:17→22:02)
[2017-06-20] MEDS: CYANOCOBALAMIN (VITAMIN B-12) 100 MCG TABLET PO SCH (09:17)
[2017-06-20] MEDS: ENOXAPARIN 60 MG/0.6 ML SYR SQ SCH (09:17)
[2017-06-20] MEDS: CHOLECALCIFEROL 1,000 UNIT TABLET PO SCH (09:18)
[2017-06-20] MEDS: LORAZEPAM 0.5 MG TABLET PO PRN ×2 (09:18→22:00)
[2017-06-20] MEDS: CELECOXIB 100 MG CAPSULE PO SCH ×2 (09:18→22:00)
[2017-06-20] MEDS: BIFIDOBACTERIUM INFANTIS 4 MG CAPSULE PO SCH (09:20)
[2017-06-20] MEDS: DICYCLOMINE HCL 10 MG CAPSULE PO SCH ×5 (09:20→21:58)
[2017-06-20 11:30] LABS: INR 1.5; PROTHROMBIN TIME (PATIENT) 16.2 SECONDS (9.5-12.1)
--- NOTE | 2017-06-20 12:36 | Physical Therapy Tx Note ---
Physical Therapy Tx Note - Treatment Note Tolerated: Good Total Time Spent With Patient: 35 Physical Therapy Tx Note: Detail (The patient was sitting in her chair upon arrival. The patient was able to transfer from sit to stand independently. The patient was then able to ambulate from her room to the therapy gym using her cane and supervision only (about 320 feet total). She then completed 6 minutes on the Nu-Step. She then completed 12 mini-squats with UE support on the therapy rail. She completed side-stepping with each foot lead for the length of the therapy rail ([address] The patient required a rest break between the Nu-Step and squat exercises, and another break between the squat and side- stepping exercise. She was then able to ambulate back down to her room from the therapy gym with use of her 2WW as she felt some fatigue and wanted more stability. The patient was returned to her chair in her room with call light in reach.) Physical Therapy Problem List: Detail (1. Mild proximal LE weakness. 2. Activity intolerance) Physical Therapy Goals: 1. Pt will safely and independently ambulate over household and short-community distances with least restrictive assistive device - MET. 2. Pt will tolerate 30 minutes of low intensity therapeutic exercise without undue fatigue or pain - MET. 3. Pt will safely and independently ascend/descend up to 10 stairs with least restrictive assistive device. 4. Pt will be independent in a lower extremity strengthening exercise program. Prognosis: Good Physical Therapy Plan: Pt will be seen 1-2x/daily M-F to address above goals.
--- NOTE | 2017-06-20 14:46 | Occupational Therapy Tx Note ---
Occupational Therapy Tx Note - Treatment Note Tolerated: Good Total Time Spent With Patient: 30 (ther ex) Occupational Therapy Treatment Note: Detail (S: Pt up in chair, ready for therapy. O: Sit to stand and amb to rehab gym with 2 wheeled walker Indly. Pt completed angie UE overhead reaching and resisted pinch activity with graded clothespins. Pt provided yellow and red theraband and written HEP, she was able to complete angie UE yellow theraband exercises as follows: shoulder flexion , shoulder extension, horizontal abduction, horizontal adduction, elbow extension and elbow flexion x 10 reps each. She demonstrated learning of theraband HEP. Pt amb back to room with 2 wheeled walker Indly. A: Pt continues to improve endurance with mobility and UE activities. She is Ind with theraband and theraputty HEP) Occupational Therapy Problem List: Detail (1. Decreased Ind with showering. 2. Decreased UE strength needed for safe and Ind IADLs. 3. Decreased endurance) Occupational Therapy Goals: 1. Pt will be safe and Ind with showering in sitting. 2. Pt will participate in UE strengthening activities and improve UE strength to 4/5 in shoulders and hands. 3. Pt will tolerate endurance training to allow safe and Ind IADLs. Prognosis: Good Occupational Therapy Plan: OT 2-4 days per week to address ADLs/IADLs, UE strength, overall endurance and safety to allow Ind return home.
[2017-06-20] MEDS: WARFARIN 5 MG TAB PO SCH ×2 (16:13→16:15)
[2017-06-20] MEDS: WARFARIN 1 MG TABLET PO SCH (16:13)
[2017-06-20] MEDS: ATORVASTATIN 20 MG TABLET PO SCH (21:58)
[2017-06-20] MEDS: MELATONIN 5 MG TABLET PO SCH (21:59)
[2017-06-20] MEDS: TRAMADOL HCL 50 MG TABLET PO PRN (21:59)
[2017-06-20] MEDS: SENNOSIDES/DOCUSATE SODIUM UD CAPSULE PO SCH (21:59)
[2017-06-21] MEDS: PANTOPRAZOLE SODIUM 40 MG TABLET PO SCH ×2 (06:36→17:09)
[2017-06-21] MEDS: DICYCLOMINE HCL 10 MG CAPSULE PO SCH ×4 (07:47→22:50)
[2017-06-21] MEDS: GABAPENTIN 300 MG CAPSULE PO SCH ×2 (09:32→22:53)
[2017-06-21] MEDS: CARVEDILOL 3.125 MG TABLET PO SCH ×2 (09:32→22:51)
[2017-06-21] MEDS: BIFIDOBACTERIUM INFANTIS 4 MG CAPSULE PO SCH (09:33)
[2017-06-21] MEDS: CYANOCOBALAMIN (VITAMIN B-12) 100 MCG TABLET PO SCH (09:33)
[2017-06-21] MEDS: LORAZEPAM 0.5 MG TABLET PO PRN ×2 (09:33→20:43)
[2017-06-21] MEDS: CELECOXIB 100 MG CAPSULE PO SCH ×2 (09:33→22:51)
[2017-06-21] MEDS: CHOLECALCIFEROL 1,000 UNIT TABLET PO SCH (09:33)
--- NOTE | 2017-06-21 10:07 | Discharge Summary ---
Providers Discharge Summary Date: 06/22/17 Date of admission: 06/14/17 12:38 Expected Date of Discharge: 06/22/17 Attending physician: NIRMALA DANIELS Primary care physician: ISRRAEL BETANCUR D.O. Physical Exam - Vital Signs Vital Signs: Vital Signs - Last 24 Hrs Temp Pulse Resp BP Pulse Ox 06/21/17 09:00 97.7 F 58 L 18 143/80 94 L 06/20/17 20:00 99.2 F 65 18 149/63 94 L 06/20/17 11:02 16 93 L - General General Appearance: Alert, Oriented x3, Cooperative, No acute distress Limitations: Physical limitation - Head Head exam: Normal inspection - Eye Eye exam: Normal appearance, PERRL Pupils: Normal accommodation - ENT ENT exam: Normal exam, Mucous membranes moist, Normal external ear exam, Normal orophraynx, TM's normal bilaterally Ear exam: Normal external inspection. negative: External canal tenderness Nasal Exam: Normal inspection. negative: Discharge, Sinus tenderness Mouth exam: Normal external inspection, Tongue normal Teeth exam: Normal inspection. negative: Dental caries Throat exam: Normal inspection. negative: Tonsillar erythema, Tonsillar exudate - Neck Neck exam: Normal inspection, Full ROM. negative: Tenderness - Respiratory Respiratory exam: Normal lung sounds bilaterally. negative: Respiratory distress - Cardiovascular Cardiovascular Exam: Irregular rhythm (a-fib) - GI/Abdominal GI/Abdominal exam: Soft, Normal bowel sounds, Tenderness (epigastric, mild) - Rectal Rectal exam: Deferred - exam: Deferred - Extremities Extremities exam: Other (bilateral ankle edema). negative: Calf tenderness - Back Back exam: Reports: Normal inspection, Full ROM. Denies: Muscle spasm, Rash noted, Tenderness - Neurological Neurological exam: Alert, Normal gait, Oriented X3, Reflexes normal - Psychiatric Psychiatric exam: Normal affect, Normal mood - Skin Skin exam: Dry, Intact, Normal color, Warm Hospitalization - Hospitalization Admission Diagnosis: weakness, deconditioning - Problem List (1) Abdominal pain Current Visit: No Status: Acute Discharge Diagnosis: Abdominal location: epigastric Qualified Code(s): R10.13 - Epigastric pain Base Code: R10.9 - UNSPECIFIED ABDOMINAL PAIN Comment: 06/22/17: chronic GI pain for several months. EGD and colonoscopy [address] Collins- report of gastritis and small hiatal hernia. Abd CT on 06/08/17 during [facility] admission revealed diverticulosis, small hiatal hernia, and questionable stomach neoplasm vs. food. -Plan to follow up with Dr. Gallo, GI, today to continue further evaluation and mgmt of her chronic abdominal pain -Has had minimal improvement in severity of pain. Will continue protonix 40mg bid and follow Dr. Gallo's recommendations -has follow up [facility] pcp already scheduled (2) At risk for deep venous thrombosis Current Visit: No Status: Acute Base Code: Z91.89 - OTH PERSONAL RISK FACTORS, NOT ELSEWHERE CLASSIFIED Comment: 06/22/17: hx of a-fib and chronic DVTs. IVC filter in place. -will continue treatement with lovenox 120mg sq q24H and coumadin 9mg po daily with weekly INR until therapeutic -She will follow up with Dr. Reyes for further mgmt as outpatient and PT/INR will be reported to her office. (3) Full code status Current Visit: No Status: Acute Base Code: Z78.9 - OTHER SPECIFIED HEALTH STATUS Comment: 06/22/17: Pt. remains full code status - Hospitalization Course Disposition: Home Health Service Reason For Discharge/Transfer: Medical Stability Hospital Course: Pt. is an 87 year-old female who is admitted to swing bed for sub-acute rehab for generalized weakness and deconditioning. She was admitted at [facility] from 06/07/17-06/14/17 with c/o nausea, vomiting, weakness, and abdominal vidal and discharged with a diagnosis of acute pancreatitis and constipation. During her hospital stay, GI was consulted and an abdominal CT was done on 06/08/17 and results included small hiatal hernia, presence of an IVC filter, diverticulosis , and 4.3 x 2.3 cm low attenuation area in the stomach that may be food vs. neoplasm- an upper GI series was recommended to further evaluate the area. Bentyl 10mg qid was initiated and her diet was advanced from clear liquid to regular as tolerated. She was evaluated by PT/OT and MURTAZA was recommended- she was admitted to [facility] swing bed on 06/14/17 for weakness. She has a history of ED visits and an admission to [facility] for similar symptoms over the past several weeks, most recently d/c'd on 06/01. She had an EGD and colonoscopy with Dr. Collins for GI bleed 5 weeks ago. Past medical history included long-term anticoagulation therapy for a-fib and chronic DVTs, lower GI bleed (3 years ago required 13 units PRBCs), CAD, chronic anemia, chronic constipation, GERD, WILNER, TAY, left BBB, anxiety, and nausea. Surgical hx of cholecystectomy, cardiac stents 2001 and 2011, rhizotomies, and IVC fitler. 06/14/17 1630: Pt. is sitting up in her chair. She states that her abdominal pain had greatly improved over the last few days and she currently denies constipation. She was evaluated by PT/OT this afternoon and she is ambulating with a cane. She does report persistent weakness. Plan to continue PT/OT, GI consult for possible upper GI series to evaluate stomach mass seen on CT (neoplasm vs. food) . PT did note left calf tenderness, pt. hx of chronic left calf DVT. 06/22/18- patient states she is frustrated with continued epigastric pain that she has had for several months. She does admit that the severity has improved significantly since she's been here but has not gone away. She can't say that any of the medications or diet modifications have made a difference. she is going to see Dr. Gallo today for GI follow up and determine need for further imaging and treatment. She has done well from a therapy stand point and will continue with home health services upon discharge. She has a follow up [facility] Dr. Reyes scheduled as well as a follow up with her pcp, Dr. Betancur. PCP [facility]: Dr. Reyes GI: Dr. Collins Procedures: Cardiology Procedures 06/15/17 21:51 EKG NOW Abnormal Labs: Abnormal Lab Results 06/18/17 06/19/17 06/20/17 Range/Units 10:35 10:20 10:37 PT 12.5 H 13.4 H 16.2 H (9.5-12.1) SECONDS Condition at Discharge: (2) Stable Discharge Medications - Discharge Medications Prescriptions: Enoxaparin Sodium [Lovenox] 120 mg SQ DAILY #30 syr Pantoprazole Sodium [Protonix] 40 mg PO BIDAC #60 tablet. Home Medications: Ambulatory Orders Carvedilol 6.25 mg PO BID 06/19/14 [Last Taken 1 Day Ago ~04/28/17] Furosemide 20 mg PO BID 06/19/14 [Last Taken 1 Day Ago ~04/28/17] Atorvastatin Calcium [Lipitor] 80 mg PO QHS 03/30/15 [Last Taken 1 Day Ago ~] Gabapentin 300 mg PO BID 03/30/15 [Last Taken 1 Day Ago ~04/28/17] Lorazepam 1 tab PO BID 12/17/15 [Last Taken 1 Day Ago ~04/28/17] Melatonin 10 mg PO QHS 12/17/15 [Last Taken 1 Day Ago ~04/28/17] Sennosides [Senokot] 8.6 mg PO DAILY 12/17/15 [Last Taken 1 Day Ago ~04/28/17] Nabumetone 500 mg PO BID 04/05/17 [Last Taken 1 Day Ago ~04/28/17] Cholecalciferol (Vitamin D3) [Vitamin D3] 2,000 unit PO DAILY 06/01/17 [Last Taken Unknown] Nitroglycerin [Nitrostat] 0.4 mg SL ASDIR 06/01/17 [Last Taken Unknown] Potassium Chloride 20 meq PO DAILY 06/01/17 [Last Taken Unknown] Lorazepam [Ativan] 1 mg PO BID PRN tablet 06/02/17 [Last Taken Unknown] Zinc Oxide [Desitin] 28.35 gm TOP BID PRN tube 06/02/17 [Last Taken Unknown] Enoxaparin Sodium [Lovenox] 120 mg SQ DAILY #30 syr 06/22/17 [Last Taken Unknown ] Pantoprazole Sodium [Protonix] 40 mg PO BIDAC #60 tablet. 06/22/17 [Last Taken Unknown] Discharge Plan - Discharge Instructions Activity at Discharge: As Per Physical Therapy Additional Instructions: Follow up with Dr. Betancur on Sunday 06/25 at 1:30PM Follow up with Dr. Reyes for further management of coumadin as scheduled Continue Lovenox 120mg subcutaneously every 24 hours. Continue coumadin 9mg by mouth daily Continue protonix 40mg by mouth twice daily Home Care has been set up through [facility]. They will also be doing home blood draws to monitor your INR once weekly. Please call with questions or concerns Quality Measures - Quality Measures Quality Measures: Atrial Fibrillation & Atrial Flutter: Chronic Anticoagulation Therapy, Advance Directives, Documentation of Current Medications in Medical Record, Elder Maltreatment Screen and Follow-Up Plan, Screening for High Blood Pressure and F/U Documented - Current Medications Quality Measure: Measure #130: Documentation of Current Medications Documentation of Current Medications: <Current Medications Documented/Reviewed> [G4221] - Blood Pressure Screening Quality Measure: Screening for High Blood Pressure and Follow-Up Documented Does Patient Have Any of the Following: Active Dx of HTN Blood Pressure Classification: Pre-Hypertensive BP Reading Systolic Measurement: 143 Diastolic Measurement: 80 Screening for High Blood Pressure: Patient Exclusion, Hx of HTN [G9744] - Atrial Fibrillation and Atrial Flutter Quality Measure: Atrial Fibrillation & Atrial Flutter: Chronic Anticoagulation Therapy Does Patient Have Any of the Following: No CHADS2 Risk Stratification: Age 75 or Greater, Hypertension Risk Stratification Summary: One or more high risk factors OR more than one moderate risk factor exists. [G8972] Anticoagulation Therapy: <Oral anticoagulant Prescribed> [G8967] - Advance Directives Quality Measure: Measure #47: Care Plan Advance Directives Established: Yes (DNR) Advance Directives Information Provided To Patient: No Advance Directives on File: Yes Living Will: Yes Power of Ged Teacher: Yes Power of Ged Teacher Name: Anali- elzbieta Advance Care Planning: <Care Plan/Decision Maker Documented; Discussed & Documented> [1123F] - Elder Abuse Suspicion Index Screening: Elder Abuse Suspicion Index Screening Rely on people for bathing, dressing, shopping, banking, etc: Yes Prevented from getting food, clothes, medication, etc: No Made to feel shamed or threatened by someone: No Forced to sign papers or use money against will: No Feel afraid, touched in ways not wanted or hurt physically: No Poor eye contact, withdrawn, malnourished, cuts or bruises: No Screening Result: Negative result EASI Reference Information: Rebeca SAMUELS, Danny C, Shay D, Darwin Drew.Development and validation of a tool to assist physicians identification of elder abuse: The Elder Abuse Suspicion Index (EASI ). Journal of Elder Abuse and Neglect, 2008; 20 (3): 276-300. - Elder Maltreatment Screen Quality Measures: Elder Maltreatment Screen and Follow-Up Plan Elder Maltreatment Screen: <Negative, No Follow-Up Plan Required> [G8781]
[2017-06-21 10:36] LABS: INR 1.8; PROTHROMBIN TIME (PATIENT) 19.6 SECONDS (9.5-12.1)
[2017-06-21] MEDS: ENOXAPARIN 60 MG/0.6 ML SYR SQ SCH (10:39)
--- NOTE | 2017-06-21 14:57 | Physical Therapy Tx Note ---
Physical Therapy Tx Note - Treatment Note Tolerated: Good Total Time Spent With Patient: 50 Physical Therapy Tx Note: Detail (Patient was seated in chair upon BID ANALYST arrival. Patient transferred sit to and from stand independently. Patient ambulated 337 feet with cane with supervision x1. Patient performed the Nustep L1 x10 minutes. Patient ambulated 50 feet with cane with supervision x1. Patient performed the following exercises x32 feet each: sidestepping, walking backwards , and marching. Patient performed the following exercises standing x10-15 reps each: heel raises and toe raises. Patient performed the following balance exercises x30 seconds each: foam weight shift A/P, foam weight shift lateral, feet together balance on foam, feet together with looking up and down on foam, feet together with looking side to side on foam, DLS with eyes closed on foam, and tandem stance on floor. Patient ambulated 268 feet with cane with supervision x1. Patient tolerated treatment well. Patient required several seated rest breaks with exercises due to fatigue. Patient displays decreased balance with foam weight shift lateral and A/P, feet together on foam, DLS with eyes closed, feet together looking side to side, feet together looking up and down, tandem stance, and walking backwards. Patient declined further exercises due to fatigue. Patient was left seated in chair with call light within reach.) Physical Therapy Problem List: Detail (1. Mild proximal LE weakness. 2. Activity intolerance) Physical Therapy Goals: 1. Pt will safely and independently ambulate over household and short-community distances with least restrictive assistive device - MET. 2. Pt will tolerate 30 minutes of low intensity therapeutic exercise without undue fatigue or pain - MET. 3. Pt will safely and independently ascend/descend up to 10 stairs with least restrictive assistive device. 4. Pt will be independent in a lower extremity strengthening exercise program. Prognosis: Good Physical Therapy Plan: Pt will be seen 1-2x/daily M-F to address above goals.
[2017-06-21] MEDS: WARFARIN 5 MG TAB PO SCH (17:05)
[2017-06-21] MEDS: WARFARIN 1 MG TABLET PO SCH ×2 (17:06→17:07)
[2017-06-21] MEDS: ATORVASTATIN 20 MG TABLET PO SCH (22:52)
[2017-06-21] MEDS: SENNOSIDES/DOCUSATE SODIUM UD CAPSULE PO SCH (22:53)
[2017-06-21] MEDS: MELATONIN 5 MG TABLET PO SCH (22:53)
[2017-06-22] MEDS: PANTOPRAZOLE SODIUM 40 MG TABLET PO SCH (06:29)
[2017-06-22] MEDS: DICYCLOMINE HCL 10 MG CAPSULE PO SCH (08:42)
[2017-06-22 09:57] LABS: INR 1.9; PROTHROMBIN TIME (PATIENT) 21.1 SECONDS (9.5-12.1)
[2017-06-22] MEDS: BIFIDOBACTERIUM INFANTIS 4 MG CAPSULE PO SCH (11:20)
[2017-06-22] MEDS: CARVEDILOL 3.125 MG TABLET PO SCH (11:21)
[2017-06-22] MEDS: CELECOXIB 100 MG CAPSULE PO SCH (11:21)
[2017-06-22] MEDS: GABAPENTIN 300 MG CAPSULE PO SCH (11:22)
[2017-06-22] MEDS: CHOLECALCIFEROL 1,000 UNIT TABLET PO SCH (11:22)
[2017-06-22] MEDS: CYANOCOBALAMIN (VITAMIN B-12) 100 MCG TABLET PO SCH (11:22)
--- NOTE | 2017-06-25 08:16 | Rehab Discharge Summary ---
Patient Information - Patient Information Diagnosis: Deconditioning, weakness Ordered Treatment: OT Evaluate and Treat Surgery: No History: Detail (Pt had endoscopy on 05/31/17 at [facility], had nausea the next day, presented to ED and admitted overnight for observation. Subsequently discharged home 06/02/17 and was seen by visiting nurse on 06/07/17 who advised going to [facility] due to persistent nausea/vomiting. Had pancreatitis; transferred to [facility] for IP rehabilitation 06/14/17. Pt continues to have nausea , but vomiting has diminished significantly.) Past Medical/Surgical Hx: PAST MEDICAL/SURGICAL HISTORY Past Surgical History back injs and rhizotomy hernia repair cholecystectomy hand surgery cardiac stents 2001, 2005 Juhi filter in Left Lower Extremity EGD/colonoscopy in [facility] and 13 units of blood for GI bleeding PMH - Respiratory Hx Respiratory Disorders Yes Hx Bronchitis Yes Hx Pneumonia Yes: February 2016 Hx Sleep Apnea Yes: O2 2.5L by nc Hx Tuberculosis No Hx of CPAP No Hx of SOB Yes Comment: oxygen at night 2 L PMH - Cardiovascular Hx Cardiovascular Disorders Yes Hx Abnormal EKG Yes Hx Cardiac Catheterization Yes: 2 stents Hx Deep Vein Thrombosis Yes: 2001 and 2015 Hx Edema Yes: some in ankles-on Lasix Hx Hypertension Yes Hx Irregular Heartbeat Yes Hx Coronary Artery Disease Yes: per CT results Hx Coronary Stent Yes: x2 PMH - Neuro Hx Neurological Disorders No Hx Seizures No PMH - GI Hx Gastrointestinal Disorders Yes Hx Diverticulitis Yes Hx Gastrointestinal Bleed Yes: 2014 Hx Gastroesophageal Reflux Yes Hx Hiatal Hernia Yes: 1956 Hx Rectal Bleeding Yes: 2014 Comment: unkown cause of bleed-to avoid NSAIDS PMH - Hx Genitourinary Disorders Yes Hx Renal Disease Yes: Bright's disease at 7yrs old Hx Urinary Tract Infection Yes PMH - Endocrine Hx Endocrine Disorders No Hx Diabetes No Hx Thyroid Disease No PMH - Musculoskeletal Hx Musculoskeletal Disorders Yes Hx Arthritis Yes: lower back Hx Back Injury Yes: broke tailbone-removed PMH - Psych Hx Psychiatric Problems Yes Hx Anxiety Yes Hx Depression 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 She has four steps to enter the home, w/two handrails but they are four feet apart. She has walk-in shower with bench, grab bar and hand held shower as well as an elevated toilet with grab bar. All needs are on first level of home. She had pneumonia in March, was hospitalized, and had been dealing with N/V for some time over the past three months. She had been receiving home care services (nrsg, PT, SW) prior to this admission. She used a four-wheeled walker within her home mostly to be able to carry things from room to room. Out of the house, she used a single tip cane, which she has presently. She has had no falls in the past 6 months.) Social History: Detail (Pt reports she has a supportive son in law. Pt has a niece Antoinette in [place], but she is not very available due to her work schedule. A family friend in [place] is available to help as needed.) Precautions: [place], Fall Objective Data - Pain Pain Present: Yes (Abdominal pain at times) - Mental Status Patient Orientation: Oriented x3 - Visual Perception Appears within normal limits for therapeutic activities - ROM Within normal limits (Hola UE AROM WNL) - Strength/Tone Not within normal limits (Hola UE strength improved to 4/5 in shoulder flexion and 4+/5 in elbows and technical professional.) - Coordination Appears within normal limits for therapeutic activities - Bed Mobility Independent - Transfers Independent - Balance Balance Sitting: Good Balance Standing: Good - Sensation Intact - Gait Detail (Ind with ambulating household distances with assistive device as needed. ) - ADL's/IADL's Detail (Pt is Ind with showering, dressing, grooming/hygiene activities) Therapy Assessment - Therapy Assessment Detail (Pt is safe and Ind with all self cares, functional mobility and HEP) Problem List - Problem List Physical Therapy Problem List: Detail (1. Mild proximal LE weakness. 2. Activity intolerance) Occupational Therapy Problem List: Detail (1. Decreased Ind with showering. 2. Decreased UE strength needed for safe and Ind IADLs. 3. Decreased endurance) Goals - Goals Physical Therapy Goals: 1. Pt will safely and independently ambulate over household and short-community distances with least restrictive assistive device - MET. 2. Pt will tolerate 30 minutes of low intensity therapeutic exercise without undue fatigue or pain - MET. 3. Pt will safely and independently ascend/descend up to 10 stairs with least restrictive assistive device. 4. Pt will be independent in a lower extremity strengthening exercise program. Occupational Therapy Goals: Goals Met: 1. Pt will be safe and Ind with showering in sitting. 2. Pt will participate in UE strengthening activities and improve UE strength to 4/5 in shoulders and hands. 3. Pt will tolerate endurance training to allow safe and Ind IADLs. Prognosis - Prognosis Good Plan - Plan Physical Therapy Plan: Pt will be seen 1-2x/daily M-F to address above goals. Occupational Therapy Plan: Pt discharged home on 06/22/17 with home OT/PT.
--- NOTE | 2017-06-25 11:29 | Rehab Discharge Summary ---
Patient Information - Patient Information Diagnosis: Deconditioning, weakness Ordered Treatment: PT Evaluate and Treat Surgery: No History: Detail (Pt had endoscopy on 05/31/[address] [facility], had nausea the next day, presented to ED and admitted overnight for observation. Subsequently discharged home 06/02/17 and was seen by visiting nurse on 06/07/17 who advised going to [facility] due to persistent nausea/vomiting. Had pancreatitis; transferred to [facility] for IP rehabilitation 06/14/17. Pt continues to have nausea , but vomiting has diminished significantly.) Past Medical/Surgical Hx: PAST MEDICAL/SURGICAL HISTORY Past Surgical History back injs and rhizotomy hernia repair cholecystectomy hand surgery cardiac stents 2001, 2005 Juhi filter in Left Lower Extremity EGD/colonoscopy in [place] [facility] tranfer and 13 units of blood for GI bleeding PMH - Respiratory Hx Respiratory Disorders Yes Hx Bronchitis Yes Hx Pneumonia Yes: February 2016 Hx Sleep Apnea Yes: O2 2.5L by nc Hx Tuberculosis No Hx of CPAP No Hx of SOB Yes Comment: oxygen at night 2 L PMH - Cardiovascular Hx Cardiovascular Disorders Yes Hx Abnormal EKG Yes Hx Cardiac Catheterization Yes: 2 stents Hx Deep Vein Thrombosis Yes: 2001 and 2015 Hx Edema Yes: some in ankles-on Lasix Hx Hypertension Yes Hx Irregular Heartbeat Yes Hx Coronary Artery Disease Yes: per CT results Hx Coronary Stent Yes: x2 PMH - Neuro Hx Neurological Disorders No Hx Seizures No PMH - GI Hx Gastrointestinal Disorders Yes Hx Diverticulitis Yes Hx Gastrointestinal Bleed Yes: 2014 Hx Gastroesophageal Reflux Yes Hx Hiatal Hernia Yes: 1956 Hx Rectal Bleeding Yes: 2014 Comment: unkown cause of bleed-to avoid NSAIDS PMH - Hx Genitourinary Disorders Yes Hx Renal Disease Yes: Bright's disease at 7yrs old Hx Urinary Tract Infection Yes PMH - Endocrine Hx Endocrine Disorders No Hx Diabetes No Hx Thyroid Disease No PMH - Musculoskeletal Hx Musculoskeletal Disorders Yes Hx Arthritis Yes: lower back Hx Back Injury Yes: broke tailbone-removed PMH - Psych Hx Psychiatric Problems Yes Hx Anxiety Yes Hx Depression 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 She has four steps to enter the home, w/two handrails but they are four feet apart. She has walk-in shower with bench, grab bar and hand held shower as well as an elevated toilet with grab bar. All needs are on first level of home. She had pneumonia in March, was hospitalized, and had been dealing with N/V for some time over the past three months. She had been receiving home care services (nrsg, PT, SW) prior to this admission. She used a four-wheeled walker within her home mostly to be able to carry things from room to room. Out of the house, she used a single tip cane, which she has presently. She has had no falls in the past 6 months.) Social History: Detail (Pt reports she has a supportive son in law. Pt has a niece Antoinette in [place], but she is not very available due to her work schedule. A family friend in [place] is available to help as needed.) Precautions: [place], Fall Subjective Information - Subjective Information Per Patient (The patient had no complaints except of abdominal pain.) Objective Data - Mental Status Patient Orientation: Oriented x3 - ROM Within normal limits - Strength/Tone Within normal limits (The patient's strength is functional generally 4+ to 4/5.) - Bed Mobility Independent - Transfers Independent (The patient is independent with sit to and from stand and toilet transfers.) - Balance Balance Sitting: Good Balance Standing: Good - Gait Detail (The patient ambulated independently with single point cane with a wider base a distance of 350 feet . The patient ambulated on stairs independently with use of railing.) Therapy Assessment - Therapy Assessment Detail (The patient was independent with mobility and transfers. The patient's ability to complete sustained physical activity has improved. The patient is to recieve home PT to assess the paitent's safety in a home environment.) Patient Education - Patient Education Teaching Topic: Exercise/Activity (The patient was instructed in a home exercise program of LE strengthening exercises.) Response: Return Demonstration Teaching Method: Demonstration, Handout Teaching Recipient: Patient Barriers To Learning: Age Related Problem List - Problem List Physical Therapy Problem List: Detail (1. Mild proximal LE weakness. 2. Activity intolerance) Occupational Therapy Problem List: Detail (1. Decreased Ind with showering. 2. Decreased UE strength needed for safe and Ind IADLs. 3. Decreased endurance) Goals - Goals Physical Therapy Goals: 1. Pt will safely and independently ambulate over household and short-community distances with least restrictive assistive device - MET. 2. Pt will tolerate 30 minutes of low intensity therapeutic exercise without undue fatigue or pain - MET. 3. Pt will safely and independently ascend/descend up to 10 stairs with least restrictive assistive device. PARTIALLY MET, the patient was able to climb 3 steps the amount that was present at her home enterance. 4. Pt will be independent in a lower extremity strengthening exercise program. MET Occupational Therapy Goals: Goals Met: 1. Pt will be safe and Ind with showering in sitting. 2. Pt will participate in UE strengthening activities and improve UE strength to 4/5 in shoulders and hands. 3. Pt will tolerate endurance training to allow safe and Ind IADLs. Plan - Plan Physical Therapy Plan: The patient was discharged from [facility] and is to receive home PT/OT. Occupational Therapy Plan: Pt discharged home on 06/22/17 with home OT/PT.
== END 2017-06-22 14:10 | disposition home health service (06) | DRG 948 ==
LOC: MEDSURG 12:38
PROVIDERS: ADMIT Internal Medicine; ATTEND Internal Medicine
DX: R53.1 Weakness (principal); R10.13 Epigastric pain; K59.00 Constipation, unspecified; K44.9 Diaphragmatic hernia without obstruction or gangrene; K57.30 Diverticulosis of large intestine without perforation or abscess without bleeding; I48.91 Unspecified atrial fibrillation; Z79.01 Long term (current) use of anticoagulants; Z86.718 Personal history of other venous thrombosis and embolism; I25.10 Atherosclerotic heart disease of native coronary artery without angina pectoris; D53.9 Nutritional anemia, unspecified
CPT/HCPCS: 85610; 93005; 94760; 94761; 97110; 97116; 97530; 97535; 99306; 99316; J1650

== ENCOUNTER 2017-11-21 16:01 | Observation (INO) | payer MEDICARE, BC ==
[2017-11-21] MEDS ORDERED: ONDANSETRON HCL IV 4 MG/2 ML VIAL IV ONE (16:37)
[2017-11-21] MEDS ORDERED: SODIUM CHLORIDE 0.9% 500 ML IV ONE (16:37)
--- NOTE | 2017-11-21 16:38 | Emergency Department Record ---
History of Present Illness - General Chief Complaint: Abdominal Pain Stated Complaint: LT SIDE /BACK PAIN,NAUSEA Time Seen by Provider: 11/21/17 16:33 Source: Patient Mode of Arrival: Ambulatory Limitations: No limitations - History of Present Illness Initial Comments: The patient is here due to LUQ and L flank pain for 8 months. The pain is a sharp aching intermittent pain. She has seen multiple providers for it and did have a neg Abd CT 3 weeks ago and a neg EGD 3 months ago. The patient has been taking Tylenol for the pain but today it is not helping and she also is nauseated. There has been no fever, chills, vomiting, diarrhea or CP. MD Complaint: Abdominal pain Onset/Timin -: Month(s) Location: L Flank Severity: Severe Severity scale (1-10): 10 Quality: Aching Consistency: Constant Improves With: Nothing Worsens With: Nothing Associated Symptoms: Nausea - Related Data Home Medications Medication Instructions Recorded Confirmed Last Taken Metoprolol Tartrate 50 mg PO DAILY 11/21/17 11/21/17 Unknown Omeprazole 20 mg PO DAILY 11/21/17 11/21/17 Unknown Previous Rx's Medication Instructions Recorded Lorazepam [Ativan] 1 mg PO BID PRN tablet 06/02/17 Warfarin Sodium [Coumadin] 5 mg PO DAILY@1600 #30 tablet 06/22/17 Allergies Allergy/AdvReac Type Severity Reaction Status Date / Time Penicillins Allergy Intermediate RASH Verified 11/21/17 16:32 Sulfa (Sulfonamide Allergy Intermediate RASH Verified 11/21/17 16:32 Antibiotics) Travel Screening - Travel/Exposure Within Last 30 Days Have you traveled within the last 30 days?: No Past Medical History - SOCIAL HISTORY Smoking Status: Never smoker Alcohol Use: None Drug Use: None - RESPIRATORY Hx Respiratory Disorders: Yes - CARDIOVASCULAR Hx Cardio Disorders: Yes Hx Abnormal EKG: Yes Hx Cardiac Cath: Yes (2 stents) Hx Edema: Yes (some in ankles-on Lasix) Hx Hypertension: Yes Hx Coronary Artery Disease: Yes (per CT results) - NEURO Hx Neuro Disorders: No Hx Seizures: No - GI Hx GI Disorders: Yes Hx Hiatal Hernia: Yes (1956) - Hx Genitourinary Disorders: Yes Hx UTI: Yes - ENDOCRINE Hx Endocrine Disorders: No Hx Diabetes: No - MUSCULOSKELETAL Hx Musculoskeletal Disorders: Yes Hx Arthritis: Yes (lower back) - PSYCH Hx Psych Problems: Yes Hx Anxiety: Yes Hx Depression: Yes - HEMATOLOGY/ONCOLOGY Hx Hematology/Oncology Disorders: Yes Hx Anemia: Yes Hx Blood Transfusions: Yes (2014) Hx Blood Transfusion Reaction: No Family Medical History Any Significant Family History?: Yes Hx Cancer: Mother *Cancer Comment: uterus Hx Heart Disease: Grandparents Hx Resp Disorders: Father *Resp Comment: TB Hx Stroke: Grandparents Physical Exam - General General Appearance: Alert, Oriented x3, Cooperative, No acute distress - Head Head exam: Atraumatic, Normocephalic - Eye Eye exam: Normal appearance, PERRL - Neck Neck exam: Normal inspection, Full ROM. negative: Tenderness - Respiratory Respiratory exam: Normal lung sounds bilaterally. negative: Respiratory distress - Cardiovascular Cardiovascular Exam: Regular rate, Normal rhythm, Normal heart sounds - GI/Abdominal GI/Abdominal exam: Soft, Normal bowel sounds, Tenderness (There is mild LUQ tenderness.). negative: Diminished bowel sounds, Guarding, Organomegaly, Pulsatile mass, Rebound, Rigid - Extremities Extremities exam: Normal inspection, Full ROM, Normal capillary refill. negative: Tenderness - Neurological Neurological exam: Alert. negative: Motor sensory deficit - Skin Skin exam: negative: Rash Course Vital Signs 11/21/17 16:21 Temperature 98.9 F Pulse Rate 74 Respiratory 22 Rate Blood Pressure 155/86 Pulse Ox 95 - Reevaluation(s) Reevaluation #1: The patient is still nauseated and still having the chronic L sided AP. I did explain to her that we have not found any cause for the pain and will order a CT to be sure there is no acute problems going on. Because the patient is reluctant to go home we will admit her overnight for a social group worker consult and PT/OT eval. I did discuss the case with Nica (PATIENT ADVOCATE) and she does accept the patient for admission for Dr. Rivera. 11/21/17 18:32 Medical Decision Making - Data Complexity MDM Data: Labs Ordered and/or Reviewed - Lab Data Result diagrams: 11/21/17 17:12 11/21/17 17:12 Disposition Disposition: Admit Clinical Impression: Weakness generalized, Physical deconditioning Abdominal pain Qualifiers: Abdominal location: unspecified location Qualified Code(s): R10.9 - Unspecified abdominal pain Disposition: Still a Patient at [facility] Decision to Admit: Admit from ER Decision to Admit Date: 11/21/17 Decision to Admit Time: 18:35 Accepting Physician: Nicole Time Discussed w/Accepting Physician: 18:35 Condition: (2) Stable Time of Disposition: 18:35 Quality - Quality Measures Quality Measures: N/A - Blood Pressure Screening View Details: Yes Does Patient Have Any of the Following: No Blood Pressure Classification: Pre-Hypertensive BP Reading Systolic Measurement: 155 Diastolic Measurement: 86 Screening for High Blood Pressure: < Pre-Hypertensive BP, F/U Documented > [ [id number]] Pre-Hypertensive Follow-up Interventions: Referral to alternative/primary care provider.
[2017-11-21] MEDS ORDERED: ACETAMINOPHEN 325 MG TAB PO ONE (16:45)
[2017-11-21 17:19] LABS: BASO % 0.1 % (0-6); EOS % 1.3 % (0-6); GRAN % 60.1 % (47-80); HEMATOCRIT 35.2 % (35.0-47.0); HEMOGLOBIN 10.6 gm/dl (11.6-16.0); LYMPH % 31.4 % (16-45); MEAN CELL VOLUME 94.9 fl (81-97); MEAN CORPUSCULAR HGB CONC 30.1 g/dl (32-36); MEAN PLATELET VOLUME 10.8 fl (7.4-10.4); MONO % 7.1 % (0-9); PLATELET COUNT 231 K/uL (130-400); RED BLOOD COUNT 3.71 M/uL (3.80-5.40); RED CELL DISTRIBUTION WIDTH 16.6 % (11.5-14.5); WHITE BLOOD COUNT W/O DIFF 7.1 K/uL (4.2-12.2)
[2017-11-21 17:20] LABS: MEAN CORPUSCULAR HEMOGLOBIN 28.5 pg (27-33)
[2017-11-21 17:27] LABS: INR 2.2; PARTIAL THROMBOPLASTIN TIME 32.7 SECONDS (24.5-39.1); PROTHROMBIN TIME (PATIENT) 21.5 SECONDS (9.5-12.1)
[2017-11-21 17:29] LABS: BLOOD UREA NITROGEN 19 mg/dL (8-23); EST GLOMERULAR FILTRATION RATE 56 mL/min
[2017-11-21 17:32] LABS: AMYLASE 49 U/L (28-100); GLUCOSE,RANDOM 96 mg/dL (74-109)
[2017-11-21 17:34] LABS: ALT/SGPT 11 U/L (<33); AST/SGOT 20 U/L (10.0-35.0)
[2017-11-21 17:35] LABS: ALBUMIN 4.1 g/dL (4.0-5.0); ALKALINE PHOSPHATASE 32 U/L (35-104); LIPASE 54 U/L (13-60)
[2017-11-21 17:44] LABS: BILIRUBIN,DIRECT < 0.2 mg/dL (0-0.3)
[2017-11-21] MEDS ORDERED: MORPHINE SULFATE 10 MG/ML VIAL IVP ONE (17:46)
[2017-11-21 17:51] LABS: URINE APPEARANCE CLEAR; URINE BILIRUBIN NEGATIVE (NEGATIVE); URINE BLOOD SMALL (NEGATIVE); URINE COLOR YELLOW; URINE GLUCOSE (UA) NEGATIVE (NEGATIVE); URINE KETONE NEGATIVE (NEGATIVE); URINE LEUKOCYTE ESTERASE NEGATIVE (NEGATIVE); URINE NITRITE NEGATIVE (NEGATIVE); URINE PROTEIN NEGATIVE (NEGATIVE); URINE UROBILINOGEN 0.2 E.U./dL (0.20 - 1.00)
[2017-11-21 18:01] LABS: URINE BACTERIA NONE SEEN; URINE EPITHELIAL CELLS 0 - 2 (FEW); URINE RBC 0 - 2 (NONE SEEN); URINE WBC NONE SEEN (0-2/hpf)
[2017-11-21] MEDS ORDERED: HYDROCODONE/APAP 5/325MG TABLET PO PRN (20:51)
[2017-11-21] MEDS ORDERED: ACETAMINOPHEN 500 MG TABLET PO PRN (20:51)
[2017-11-21] MEDS ORDERED: ONDANSETRON HCL IV 4 MG/2 ML VIAL IVP PRN (20:51)
[2017-11-21] MEDS ORDERED: LORAZEPAM 0.5 MG TABLET PO PRN (20:51)
[2017-11-21] MEDS: CARVEDILOL 3.125 MG TABLET PO SCH (21:27)
[2017-11-21] MEDS: GABAPENTIN 300 MG CAPSULE PO SCH (21:28)
[2017-11-21] MEDS ORDERED: FUROSEMIDE 20 MG TABLET PO SCH (22:00)
[2017-11-21] MEDS ORDERED: MELATONIN 5 MG TABLET PO SCH (22:00)
[2017-11-22] MEDS ORDERED: PANTOPRAZOLE SODIUM 40 MG TABLET PO SCH (07:00)
--- NOTE | 2017-11-22 08:00 | CT SCAN REPORT ---
EXAM: CT OF THE ABDOMEN AND PELVIS WITHOUT CONTRAST HISTORY: LEFT SIDED ABDOMINAL PAIN. TECHNIQUE: Routine CT imaging of the abdomen and pelvis was obtained without intravenous contrast. Comparison: 10/29/17. FINDINGS: The lung bases are clear. The liver is unremarkable. The gallbladder has been resected. There is marked dilatation of the common bile duct. Similar to prior exams dating back to 04/17/16. No peripancreatic inflammation. The spleen is normal in size. The adrenal glands appear normal. No nephrolithiasis or hydronephrosis. There is a tiny hiatal hernia. No small bowel dilatation. There is colonic diverticulosis without evidence for diverticulitis. The appendix is not visualized. The bladder is unremarkable. Multiple mildly enlarged retroperitoneal lymph nodes and a left paraaortic distribution measuring up to 14 mm in short axis diameter. Some of these are stable from 04/17/16 while a few others have enlarged. No enlarged pelvic lymph nodes. No enlarged mesenteric lymph nodes. No free fluid in the abdomen or pelvis. A stent is present in the left iliac veins. Severe atherosclerotic disease. An IVC filter remains. There are numerous collaterals with a diminutive IVC. Advanced multilevel degenerative changes in the lumbar spine. IMPRESSION: 1. NEGATIVE NONCONTRAST CT FOR AN ACUTE INFLAMMATORY PROCESS. 2. MILD RETROPERITONEAL ADENOPATHY, SOME OF WHICH HAVE SLIGHTLY INCREASED IN SIZE FROM 04/17/16. 3. COLONIC DIVERTICULOSIS. JOB NUMBER: [id number] MTDD
[2017-11-22] MEDS: CARVEDILOL 3.125 MG TABLET PO SCH (09:28)
[2017-11-22] MEDS: GABAPENTIN 300 MG CAPSULE PO SCH (09:29)
[2017-11-22] MEDS ORDERED: FUROSEMIDE 20 MG TABLET PO SCH (10:00)
[2017-11-22] MEDS ORDERED: METOPROLOL TART 50 MG TABLET PO SCH (10:00)
[2017-11-22] MEDS ORDERED: SENNOSIDES/DOCUSATE SODIUM UD CAPSULE PO SCH ×2 (10:00→22:00)
--- NOTE | 2017-11-22 11:34 | History & Physical ---
History of Present Illness - Date of Service Date of Service for History & Physical: 11/22/17 - History of Present Illness Admitting Diagnosis: 1. Acute Exacerbation of Chronic pain disorder with Deconditioning. History of Present Illness: 87 year old female presented to ED for LUQ abdominal pain that has been intermittent since April of 2017. Patient reports yesterday the pain was significantly worse, with a sharp, stabbing pain in the LUQ. Patient reports using a heating pad and Tylenol at home with no relief. Patient has seen PCP and Dr. Gama (GI) for this issue. She has had negative CTs and negative EGD 3 months ago. Patient reports not having gotten any answers for the cause of this pain up to this point. Denies nausea, vomiting, fever, chills, chest pain , or shortness of breath with the pain. She is currently established with home health care services and has weekly PT/OT and visiting nurse services. Past medical history includes LBBB, HTN, hyperlipidemia, history of DVT with current coumadin use PCP: [facility] ED Course: VS: Temp 98.9F, HR 74, RR 22, BP 155/86, Pulse ox 95% RA CBC and CMP unremarkable Abd/pelvis CT: negative for acute inflammotry process, retroperitoneal adenopathy, colonic diverticulosis Morphine and [place] for pain control 11/22/17: Patient A&O x 4, resting comfortably in bed. Reports significant improvement in pain at this time, reporting the most help from [place]. Patient has been tolerating PO diet, VS WNL. Patient reports improvement in weakness at this time, already established with home PT/OT. Travel Screening - Travel/Exposure Within Last 30 Days Have you traveled within the last 30 days?: No - Travel/Exposure Within Last Year Have you traveled outside the [place] in the last year?: No - Additonal Travel Details Have you been exposed to anyone with a communicable illness?: No - Travel Symptoms Symptom Screening: Weakness Review of Systems Reviewed: No additional complaints except as noted below Constitutional: Reports: Weakness. Denies: Chills, Fever ENT: Denies: Congestion Respiratory: Denies: Cough, Dyspnea Cardiovascular: Denies: Arrhythmia, Chest pain, Syncope Endocrine: Denies: Fatigue Gastrointestinal: Reports: Abdominal pain. Denies: Diarrhea, Nausea, Vomiting Musculoskeletal: Denies: Arthralgia Skin: Denies: Bruising Neurological: Reports: Abnormal gait Psychiatric: Denies: Anxiety Hematological/Lymphatic: Reports: Blood Clots Past Medical History - SOCIAL HISTORY Smoking Status: Never smoker Alcohol Use: None Drug Use: None - RESPIRATORY Hx Respiratory Disorders: Yes - CARDIOVASCULAR Hx Cardio Disorders: Yes Hx Abnormal EKG: Yes Hx Cardiac Cath: Yes (2 stents) Hx Edema: Yes (some in ankles-on Lasix) Hx Hypertension: Yes Hx Coronary Artery Disease: Yes (per CT results) - NEURO Hx Neuro Disorders: No Hx Seizures: No - GI Hx GI Disorders: Yes Hx Hiatal Hernia: Yes (1954) - Hx Genitourinary Disorders: Yes Hx UTI: Yes - ENDOCRINE Hx Endocrine Disorders: No Hx Diabetes: No - MUSCULOSKELETAL Hx Musculoskeletal Disorders: Yes Hx Arthritis: Yes (lower back) - PSYCH Hx Psych Problems: Yes Hx Anxiety: Yes Hx Depression: Yes - HEMATOLOGY/ONCOLOGY Hx Hematology/Oncology Disorders: Yes Hx Anemia: Yes Hx Blood Transfusions: Yes (2014) Hx Blood Transfusion Reaction: No Family Medical History Any Significant Family History?: Yes Hx Cancer: Mother *Cancer Comment: uterus Hx Heart Disease: Grandparents Hx Resp Disorders: Father *Resp Comment: TB Hx Stroke: Grandparents H&P Meds/Allergies - Allergies Allergies: Allergies Allergy/AdvReac Type Severity Reaction Status Date / Time Penicillins Allergy Intermediate RASH Verified 11/21/17 16:32 Sulfa (Sulfonamide Allergy Intermediate RASH Verified 11/21/17 16:32 Antibiotics) - Home Medications Home Medications Medication Instructions Recorded Confirmed Last Taken Omeprazole 20 mg PO DAILY 11/21/17 11/21/17 Unknown Warfarin Sodium 5 mg PO QHS 11/22/17 11/22/17 Unknown Previous Rx's Medication Instructions Recorded Lorazepam [Ativan] 1 mg PO BID PRN tablet 06/02/17 - Active Medications Active Medications: Current Medications Acetaminophen (Tylenol 500mg Tab) 500 mg PO Q6H PRN PRN Reason: PAIN - MILD(1-4)/FEVER Hydrocodone Bitart/Acetaminophen ([place] 5mg/325mg) 1 each PO Q6H PRN PRN Reason: ABDOMINAL PAIN Last Admin: 11/21/17 21:31 Dose: 1 each Atorvastatin Calcium (Lipitor) 80 mg PO QHS JULIO Last Admin: 11/21/17 21:37 Dose: 80 mg Carvedilol (Coreg) 6.25 mg PO BID JULIO Last Admin: 11/22/17 09:28 Dose: 6.25 mg Furosemide (Lasix) 20 mg PO BIDDIUR [facility] Last Admin: 11/22/17 09:29 Dose: 20 mg Gabapentin (Neurontin) 300 mg PO BID [facility] Last Admin: 11/22/17 09:29 Dose: 300 mg Lorazepam (Ativan) 1 mg PO BID PRN PRN Reason: ANXIETY Last Admin: 11/21/17 21:31 Dose: 1 mg Melatonin (Melatonin) 10 mg PO QHS [facility] Last Admin: 11/21/17 21:28 Dose: 10 mg Ondansetron HCl (Zofran) 4 mg IVP Q4H PRN PRN Reason: NAUSEA Pantoprazole S[facility] ([facility]ix) [facility] Last Admin: 11/22/17 06:58 Dose: 40 mg Senna/Docusate Sodium (Senna Plus) 1 each PO DAILY [facility] Warfarin Sodium (Coumadin) 5 mg PO DAILY@1600 [facility] Last Admin: 11/21/17 21:29 Dose: 5 mg Physical Exam - Vital Signs Vital Signs: Vital Signs - Last 24 Hrs Temp Pulse Pulse Pulse Resp BP BP 11/22/17 08:00 98.6 F 56 L 20 141/56 11/21/17 20:45 98.9 F 70 18 156/78 11/21/17 20:35 98.5 F 71 16 139/74 11/21/17 17:57 66 20 154/75 11/21/17 16:21 98.9 F 74 22 155/86 Pulse Ox 11/22/17 08:00 93 L 11/21/17 20:45 97 11/21/17 20:35 93 L 11/21/17 17:57 97 11/21/17 16:21 95 - General General Appearance: Alert, Oriented x3, Cooperative, No acute distress Limitations: No limitations - Head Head exam: Atraumatic, Normocephalic - Eye Eye exam: Normal appearance, PERRL - ENT ENT exam: Normal exam, Mucous membranes moist Mouth exam: Normal external inspection - Neck Neck exam: Normal inspection, Full ROM. negative: Tenderness - Respiratory Respiratory exam: Normal lung sounds bilaterally. negative: Respiratory distress - Cardiovascular Cardiovascular Exam: Regular rate, Normal rhythm, Normal heart sounds Peripheral Pulses: 2+: Radial (R), Radial (L), Dorsalis Pedis (R), Dorsalis Pedis (L) - GI/Abdominal GI/Abdominal exam: Soft, Normal bowel sounds, Tenderness (There is mild LUQ tenderness to palpation.). negative: Diminished bowel sounds, Guarding, Organomegaly, Pulsatile mass, Rebound, Rigid - Rectal Rectal exam: Deferred - exam: Deferred - Extremities Extremities exam: Normal inspection, Full ROM, Normal capillary refill. negative: Tenderness - Neurological Neurological exam: Alert, Oriented X3. negative: Motor sensory deficit - Psychiatric Psychiatric exam: Normal affect, Normal mood - Skin Skin exam: Dry, Normal color, Warm. negative: Rash Results - Labs Result Diagrams: 11/21/17 17:12 11/21/17 17:12 Labs Last 24 Hours: Laboratory Results - last 24 hr 11/21/17 11/21/17 11/21/17 16:37 16:41 17:12 WBC 7.1 RBC 3.71 L Hgb 10.6 L Hct 35.2 MCV 94.9 MCH 28.5 MCHC 30.1 L RDW 16.6 H Plt Count 231 MPV 10.8 H Gran % 60.1 Lymphocytes % 31.4 Monocytes % 7.1 Eosinophils % 1.3 Basophils % 0.1 PT INR APTT Sodium Potassium Chloride Carbon Dioxide Anion Gap BUN Creatinine Estimated GFR Random Glucose Lactic Acid Calcium Total Bilirubin Direct Bilirubin AST ALT Alkaline Phosphatase Total Protein Albumin Amylase Lipase Urine Color Yellow Urine Appearance Clear Urine pH 7.0 Ur Specific [place] <= 1.005 Urine Protein Negative Urine Glucose (UA) Negative Urine Ketones Negative Urine Blood Small H Urine Nitrite Negative Urine Bilirubin Negative Urine Urobilinogen 0.2 Ur Leukocyte Esterase Negative Urine RBC 0 - 2 Urine WBC None seen Ur Epithelial Cells 0 - 2 Urine Bacteria None seen Fluid Lactate Cancelled 11/21/17 11/21/17 11/21/17 17:12 17:12 18:15 WBC RBC Hgb Hct MCV MCH MCHC RDW Plt Count MPV Gran % Lymphocytes % Monocytes % Eosinophils % Basophils % PT 21.5 H INR 2.2 APTT 32.7 Sodium 144 Potassium 3.5 Chloride 103 Carbon Dioxide 26.0 Anion Gap 15.0 BUN 19 Creatinine 1.0 H Estimated GFR 56 Random Glucose 96 Lactic Acid 0.8 Calcium 9.2 Total Bilirubin 0.30 Direct Bilirubin < 0.2 AST 20 ALT 11 Alkaline Phosphatase 32 L Total Protein 7.0 Albumin 4.1 Amylase 49 Lipase 54 Urine Color Urine Appearance Urine pH Ur Specific [place] Urine Protein Urine Glucose (UA) Urine Ketones Urine Blood Urine Nitrite Urine Bilirubin Urine Urobilinogen Ur Leukocyte Esterase Urine RBC Urine WBC Ur Epithelial Cells Urine Bacteria Fluid Lactate VTE H&P Assessment - Risk for VTE Risk for VTE: Yes Risk Level: Moderate Risk Assessment Date: 11/22/17 Risk Assessment Time: 09:00 VTE Orders Placed or Will Be Placed: No VTE Reason for No Prophylaxis: Contraindicated (currently on coumadin therapy) Plan - Detailed Diagnosis and Plan (1) Abdominal pain Current Visit: Yes Status: Acute Qualifiers: Abdominal location: unspecified location Qualified Code(s): R10.9 - Unspecified abdominal pain Base Code: R10.9 - UNSPECIFIED ABDOMINAL PAIN Comment: 11/22/17: chronic GI pain since April 2017. EGD and colonoscopy with Dr. Collins- report of gastritis and small hiatal hernia. Abd CT on 06/08/17 during [facility] admission revealed diverticulosis, small hiatal hernia, and questionable stomach neoplasm vs. food. -Abd/pelvis CT in ED: negative for acute inflammatory process, retroperitoneal adenopathy, colonic diverticulosis -IV dilaudid and [place] for pain control -Advance diet as tolerated (2) Weakness generalized Current Visit: Yes Status: Acute Base Code: R53.1 - WEAKNESS Comment: 11/22: Patient reports weakness yesterday upon admission. Has noted some improvement in weakness since getting a full night's sleep with adequate pain control -Will continue with home PT/OT that has been scheduled (3) DVT prophylaxis Current Visit: Yes Status: Acute Base Code: [id number] - Comment: 11/22/17: Moderate risk due to age, hospitalization, and history of DVT -No further prophylaxis needed at this time as patient is currently on coumadin therapy (4) Full code status Current Visit: No Status: Acute Base Code: Z78.9 - OTHER SPECIFIED HEALTH STATUS Comment: 11/22/17: Pt. remains full code status this admission
--- NOTE | 2017-11-22 11:48 | Discharge Summary ---
Providers Discharge Summary Date: 11/22/17 Date of admission: 11/21/17 20:36 Expected Date of Discharge: 11/22/17 Attending physician: NIRMALA DANIELS Primary care physician: ISRRAEL SCHREIBER D.O. Physical Exam - Vital Signs Vital Signs: Vital Signs - Last 24 Hrs Temp Pulse Pulse Pulse Resp BP BP 11/22/17 08:00 98.6 F 56 L 20 141/56 11/21/17 20:45 98.9 F 70 18 156/78 11/21/17 20:35 98.5 F 71 16 139/74 11/21/17 17:57 66 20 154/75 11/21/17 16:21 98.9 F 74 22 155/86 Pulse Ox 11/22/17 08:00 93 L 11/21/17 20:45 97 11/21/17 20:35 93 L 11/21/17 17:57 97 11/21/17 16:21 95 - General General Appearance: Alert, Oriented x3, Cooperative, No acute distress Limitations: No limitations - Head Head exam: Atraumatic, Normocephalic - Eye Eye exam: Normal appearance, PERRL - ENT ENT exam: Normal exam, Mucous membranes moist Mouth exam: Normal external inspection - Neck Neck exam: Normal inspection, Full ROM. negative: Tenderness - Respiratory Respiratory exam: Normal lung sounds bilaterally. negative: Respiratory distress - Cardiovascular Cardiovascular Exam: Regular rate, Normal rhythm, Normal heart sounds Peripheral Pulses: 2+: Radial (R), Radial (L), Dorsalis Pedis (R), Dorsalis Pedis (L) - GI/Abdominal GI/Abdominal exam: Soft, Normal bowel sounds, Tenderness (There is mild LUQ tenderness to palpation.). negative: Diminished bowel sounds, Guarding, Organomegaly, Pulsatile mass, Rebound, Rigid - Rectal Rectal exam: Deferred - exam: Deferred - Extremities Extremities exam: Normal inspection, Full ROM, Normal capillary refill. negative: Tenderness - Neurological Neurological exam: Alert, Oriented X3. negative: Motor sensory deficit - Psychiatric Psychiatric exam: Normal affect, Normal mood - Skin Skin exam: Dry, Normal color, Warm. negative: Rash Hospitalization - Hospitalization Admission Diagnosis: 1. Acute Exacerbation of Chronic pain disorder with Deconditioning. - Problem List/Discharge Diagnosis (1) Abdominal pain Current Visit: Yes Status: Acute Discharge Diagnosis: Abdominal location: unspecified location Qualified Code(s): R10.9 - Unspecified abdominal pain Base Code: R10.9 - UNSPECIFIED ABDOMINAL PAIN Comment: 11/22/17: chronic GI pain since April 2017. EGD and colonoscopy with Dr. Collins- report of gastritis and small hiatal hernia. Abd CT on 06/08/17 during [facility] admission revealed diverticulosis, small hiatal hernia, and questionable stomach neoplasm vs. food. -Abd/pelvis CT in ED: negative for acute inflammatory process, retroperitoneal adenopathy, colonic diverticulosis -Pain controlled with 1 [place] 5/325 -Tolerating PO diet -No acute process identified. Patient to continue following with GI as scheduled (2) Weakness generalized Current Visit: Yes Status: Acute Base Code: R53.1 - WEAKNESS Comment: 11/22: Patient reports weakness yesterday upon admission. Has noted some improvement in weakness since getting a full night's sleep with adequate pain control -Will continue with home PT/OT and visiting nurse that has been scheduled (3) DVT prophylaxis Current Visit: Yes Status: Acute Base Code: [id number] - Comment: 11/22/17: Moderate risk due to age, hospitalization, and history of DVT -No further prophylaxis needed at this time as patient is currently on coumadin therapy (4) Full code status Current Visit: No Status: Acute Base Code: Z78.9 - OTHER SPECIFIED HEALTH STATUS Comment: 11/22/17: Pt. remains full code status this admission - Hospitalization Course Disposition: Home Health Service Hospital Course: 87 year old female presented to ED for LUQ abdominal pain that has been intermittent since April of 2017. Patient reports yesterday the pain was significantly worse, with a sharp, stabbing pain in the LUQ. Patient reports using a heating pad and Tylenol at home with no relief. Patient has seen PCP and Dr. Gama (GI) for this issue. She has had negative CTs and negative EGD 3 months ago. Patient reports not having gotten any answers for the cause of this pain up to this point. Denies nausea, vomiting, fever, chills, chest pain , or shortness of breath with the pain. She is currently established with home health care services and has weekly PT/OT and visiting nurse services. Past medical history includes LBBB, HTN, hyperlipidemia, history of DVT with current coumadin use PCP: [facility] ED Course: VS: Temp 98.9F, HR 74, RR 22, BP 155/86, Pulse ox 95% RA CBC and CMP unremarkable Abd/pelvis CT: negative for acute inflammotry process, retroperitoneal adenopathy, colonic diverticulosis Morphine and [place] for pain control 11/22/17: Patient A&O x 4, resting comfortably in bed. Reports significant improvement in pain at this time, reporting the most help from [place]. Patient has been tolerating PO diet, VS WNL. Patient reports improvement in weakness at this time, already established with home PT/OT. Update: Patient has had significant improvement in pain with 1 [place] /. Reports normal BM pattern, denies urinary symptoms. Patient will be sent home with small amount of [place] to take as needed. Patient to follow-up with GI and PCP as scheduled to continue workup for this pain. Procedures: Imaging and X-Rays 11/21/17 18:15 ABDOMEN/PELVIS WO CONTRAST [CT] Stat Abnormal Labs: Abnormal Lab Results 11/21/17 11/21/17 11/21/17 Range/Units 16:37 17:12 17:12 RBC 3.71 L (3.80-5.40) M/uL Hgb 10.6 L (11.6-16.0) gm/dl MCHC 30.1 L (32-36) g/dl RDW 16.6 H (11.5-14.5) % MPV 10.8 H (7.4-10.4) fl PT (9.5-12.1) SECONDS Creatinine 1.0 H (0.5-0.9) mg/dL Alkaline Phosphatase 32 L (35-104) U/L Urine Blood Small H (NEGATIVE) 11/21/17 Range/Units 17:12 RBC (3.80-5.40) M/uL Hgb (11.6-16.0) gm/dl MCHC (32-36) g/dl RDW (11.5-14.5) % MPV (7.4-10.4) fl PT 21.5 H (9.5-12.1) SECONDS Creatinine (0.5-0.9) mg/dL Alkaline Phosphatase (35-104) U/L Urine Blood (NEGATIVE) Condition at Discharge: (2) Stable VTE Discharge VTE Reason For No Overlap Therapy: Not Indicated Discharge Medications - Discharge Medications Prescriptions: Hydrocodone/APAP 5/325Mg [[place] 5Mg/325Mg] 1 each PO Q6H PRN #10 tab PRN Reason: Abdominal Pain Home Medications: Ambulatory Orders Carvedilol 6.25 mg PO BID 06/19/14 [Last Taken 1 Day Ago ~04/28/17] Furosemide 20 mg PO BID 06/19/14 [Last Taken 1 Day Ago ~04/28/17] Atorvastatin Calcium [Lipitor] 80 mg PO QHS 03/30/15 [Last Taken 1 Day Ago ~] Gabapentin 300 mg PO BID 03/30/15 [Last Taken 1 Day Ago ~04/28/17] Melatonin 10 mg PO QHS 12/17/15 [Last Taken 1 Day Ago ~04/28/17] Sennosides [Senokot] 8.6 mg PO DAILY 12/17/15 [Last Taken 1 Day Ago ~04/28/17] Nabumetone 500 mg PO DAILY 04/05/17 [Last Taken 1 Day Ago ~04/28/17] Cholecalciferol (Vitamin D3) [Vitamin D3] 2,000 unit PO DAILY 06/01/17 [Last Taken Unknown] Lorazepam [Ativan] 1 mg PO BID PRN tablet 06/02/17 [Last Taken Unknown] Omeprazole 20 mg PO DAILY 11/21/17 [Last Taken Unknown] Hydrocodone/APAP 5/325Mg [[place] 5Mg/325Mg] 1 each PO Q6H PRN #10 tab 11/22/17 [ Last Taken Unknown] Warfarin Sodium 5 mg PO QHS 11/22/17 [Last Taken Unknown] Discharge Plan - Discharge Instructions Activity at Discharge: Increase Activity as Tolerated Diet at Discharge: Advance to Usual Diet Instructions: Abdominal Pain (ED) Additional Instructions: -Follow-up with Dr. Reyes today as scheduled at 3:15 -Continue following with Dr. Gama and Dr. Collins to further evaluate your abdominal pain -Use the [place] only as needed for severe abdominal pain. Do not drive after taking the [place]. Quality Measures - Quality Measures Quality Measures: Atrial Fibrillation & Atrial Flutter: Chronic Anticoagulation Therapy, Advance Directives, Documentation of Current Medications in Medical Record, Elder Maltreatment Screen and Follow-Up Plan, Screening for High Blood Pressure and F/U Documented - Current Medications Quality Measure: Measure #130: Documentation of Current Medications Documentation of Current Medications: <Current Medications Documented/Reviewed> [[id number]] - Blood Pressure Screening Quality Measure: Screening for High Blood Pressure and Follow-Up Documented Does Patient Have Any of the Following: Active Dx of HTN Blood Pressure Classification: Pre-Hypertensive BP Reading Systolic Measurement: 155 Diastolic Measurement: 86 Screening for High Blood Pressure: Patient Exclusion, Hx of HTN [G9844] - Atrial Fibrillation and Atrial Flutter Quality Measure: Atrial Fibrillation & Atrial Flutter: Chronic Anticoagulation Therapy Does Patient Have Any of the Following: No CHADS2 Risk Stratification: Age 75 or Greater, Hypertension Risk Stratification Summary: One or more high risk factors OR more than one moderate risk factor exists. [G8972] Anticoagulation Therapy: <Oral anticoagulant Prescribed> [G8967] - Advance Directives Quality Measure: Measure #47: Care Plan Advance Directives Established: Yes (DNR) Advance Directives Information Provided To Patient: No Advance Directives on File: Yes Living Will: Yes Power of Historic Sites Registrar: Yes Power of Historic Sites Registrar Name: Anali- daughter Advance Care Planning: <Care Plan/Decision Maker Documented; Discussed & Documented> [3603F] - Elder Abuse Suspicion Index Screening: Elder Abuse Suspicion Index Screening Rely on people for bathing, dressing, shopping, banking, etc: No Prevented from getting food, clothes, medication, etc: No Made to feel shamed or threatened by someone: No Forced to sign papers or use money against will: No Feel afraid, touched in ways not wanted or hurt physically: No Poor eye contact, withdrawn, malnourished, cuts or bruises: No Screening Result: Negative result EASI Reference Information: Rebeca SAMUELS, Danny C, Shay D, Darwin Drew.Development and validation of a tool to assist physicians identification of elder abuse: The Elder Abuse Suspicion Index (EASI ). Journal of Elder Abuse and Neglect, 2008; 20 (3): 276-300. - Elder Maltreatment Screen Quality Measures: Elder Maltreatment Screen and Follow-Up Plan Elder Maltreatment Screen: <Negative, No Follow-Up Plan Required> [G8734]
[2017-11-22] MEDS ORDERED: WARFARIN 5 MG TAB PO SCH (16:00)
[2017-11-22] MEDS ORDERED: ATORVASTATIN 20 MG TABLET PO SCH (22:00)
== END 2017-11-22 14:57 | disposition home health service (06) ==
LOC: ER 16:01 → MEDSURG 20:36
PROVIDERS: ADMIT Internal Medicine; ATTEND Internal Medicine
DX: G89.29 Other chronic pain (principal); R53.81 Other malaise; R53.1 Weakness; I82.409 Acute embolism and thrombosis of unspecified deep veins of unspecified lower extremity; D50.9 Iron deficiency anemia, unspecified; K85.90 Acute pancreatitis without necrosis or infection, unspecified; I10 Essential (primary) hypertension; E78.00 Pure hypercholesterolemia, unspecified; R60.9 Edema, unspecified; I25.10 Atherosclerotic heart disease of native coronary artery without angina pectoris; Z86.14 Personal history of Methicillin resistant Staphylococcus aureus infection; Z95.5 Presence of coronary angioplasty implant and graft; Z87.19 Personal history of other diseases of the digestive system; Z79.01 Long term (current) use of anticoagulants
CPT/HCPCS: 83605; 83550; 82150; 83690; 85025; 85730; 85610; 80076; 80048; 81001; 82728; 74176; 90686; G0378 ×2; J2405; J3490; J2270; 96365; 96366; 96374; 99220; 99285

== ENCOUNTER 2017-12-10 19:54 | Emergency (ER) | payer MEDICARE, BC ==
[2017-12-10] MEDS ORDERED: ONDANSETRON HCL IV 4 MG/2 ML VIAL IVP ONE (20:08)
[2017-12-10] MEDS ORDERED: HYOSCYAMINE SULFATE ODT 0.125 MG TAB.SUBL SL ONE (20:09)
[2017-12-10] MEDS ORDERED: ACETAMINOPHEN 1,000 MG/100 ML BTL IVPB ONE (20:09)
[2017-12-10] MEDS ORDERED: 0.9 % SODIUM CHLORIDE 1000ML 500 ML IV SCH (20:15)
--- NOTE | 2017-12-10 20:15 | Emergency Department Record ---
History of Present Illness - General Chief Complaint: Abdominal Pain Stated Complaint: LT SIDE ABDOMINAL PAIN Time Seen by Provider: 12/10/17 19:58 Source: Patient Mode of Arrival: EMS Limitations: No limitations - History of Present Illness Initial Comments: 87 yo female presents to ED for evaluation of diffuse abdominal pain that has been present for months. Patient reports that her symptoms have been progressively worsening, reports recent negative CT imaging 3 weeks ago as well as negative EGD/Colonoscopy. Patient denies fevers, chills, or recent illness. Patient does report previous shi and hysterectomy. Patient reports that her PCP does not knwo the etiology of her symptoms and has referred her to [facility] for further evaluation which has not occurred yet. MD Complaint: Abdominal pain -: Month(s) Location: Diffuse Radiation: None Migration to: No migration Severity: Moderate Severity scale (1-10): 6 Quality: Other Consistency: Constant, Getting worse Improves With: Nothing Worsens With: Nothing Associated Symptoms: Nausea - Related Data Patient : No Home Medications Medication Instructions Recorded Confirmed Last Taken Gabapentin [Neurontin] 600 mg PO QHS 12/10/17 12/10/17 Unknown Previous Rx's Medication Instructions Recorded RX: Lorazepam [Ativan] 1 mg PO BID PRN tablet 06/02/17 RX: Hydrocodone/APAP 5/325Mg 1 each PO Q6H PRN #10 tab 11/22/17 [[place] 5Mg/325Mg] Allergies Allergy/AdvReac Type Severity Reaction Status Date / Time Penicillins Allergy Intermediate RASH Verified 11/21/17 16:32 Sulfa (Sulfonamide Allergy Intermediate RASH Verified 11/21/17 16:32 Antibiotics) Travel Screening - Travel/Exposure Within Last 30 Days Have you traveled within the last 30 days?: No Review of Systems Constitutional: Denies: Chills, Fever, Malaise, Night sweats Eyes: Denies: Eye discharge, Eye pain ENT: Denies: Congestion, Ear pain, Epistaxis Respiratory: Denies: Cough, Dyspnea Cardiovascular: Denies: Chest pain, Dyspnea on exertion Endocrine: Denies: Fatigue, Heat or cold intolerance Gastrointestinal: Reports: Abdominal pain. Denies: Nausea, Vomiting Genitourinary: Denies: Incontinence, Retention Musculoskeletal: Denies: Arthralgia, Back pain Skin: Denies: Bruising, Change in color Neurological: Denies: Abnormal gait, Confusion, Headache, Seizure Psychiatric: Denies: Anxiety Hematological/Lymphatic: Denies: Anemia, Blood Clots Past Medical History - SOCIAL HISTORY Smoking Status: Never smoker Alcohol Use: None Drug Use: None - RESPIRATORY Hx Respiratory Disorders: Yes - CARDIOVASCULAR Hx Cardio Disorders: Yes Hx Abnormal EKG: Yes Hx Cardiac Cath: Yes (2 stents) Hx Edema: Yes (some in ankles-on Lasix) Hx Hypertension: Yes Hx Coronary Artery Disease: Yes (per CT results) - NEURO Hx Neuro Disorders: No Hx Seizures: No - GI Hx GI Disorders: Yes Hx Hiatal Hernia: Yes (1956) - Hx Genitourinary Disorders: Yes Hx UTI: Yes - ENDOCRINE Hx Endocrine Disorders: No Hx Diabetes: No - MUSCULOSKELETAL Hx Musculoskeletal Disorders: Yes Hx Arthritis: Yes (lower back) - PSYCH Hx Psych Problems: Yes Hx Anxiety: Yes Hx Depression: Yes - HEMATOLOGY/ONCOLOGY Hx Hematology/Oncology Disorders: Yes Hx Anemia: Yes Hx Blood Transfusions: Yes (2014) Hx Blood Transfusion Reaction: No Family Medical History Any Significant Family History?: Yes Hx Cancer: Mother *Cancer Comment: uterus Hx Heart Disease: Grandparents Hx Resp Disorders: Father *Resp Comment: TB Hx Stroke: Grandparents Physical Exam - General General Appearance: Alert, Oriented x3, Cooperative, Moderate distress Limitations: No limitations - Head Head exam: Atraumatic, Normocephalic, Normal inspection Head exam detail: negative: Abrasion, Contusion, Alexis's sign, General tenderness, Hematoma, Laceration - Eye Eye exam: Normal appearance. negative: Conjunctival injection, Periorbital swelling, Periorbital tenderness, Scleral icterus - ENT Ear exam: negative: Auricular hematoma, Auricular trauma Nasal Exam: negative: Active bleeding, Discharge, Dried blood, Foreign body Mouth exam: negative: Drooling, Laceration, Muffled voice, Tongue elevation - Neck Neck exam: Normal inspection. negative: Meningismus, Tenderness - Respiratory Respiratory exam: Normal lung sounds bilaterally. negative: Rales, Respiratory distress, Rhonchi, Stridor - Cardiovascular Cardiovascular Exam: Regular rate, Normal rhythm, Normal heart sounds - GI/Abdominal GI/Abdominal exam: Soft, Tenderness (Diffuse TTP without rebound, guarding, or peritoneal signs on examination.). negative: Rebound, Rigid - Rectal Rectal exam: Deferred - exam: Deferred - Extremities Extremities exam: Normal inspection. negative: Calf tenderness, Pedal edema, Tenderness - Back Back exam: Denies: CVA tenderness (R), CVA tenderness (L) - Neurological Neurological exam: Alert, Oriented X3. negative: Motor sensory deficit - Psychiatric Psychiatric exam: Normal affect, Normal mood - Skin Skin exam: Normal color. negative: Abrasion Type of lesion: negative: abrasion Course Vital Signs 12/10/17 19:58 Pulse Rate 80 Respiratory 20 Rate Blood Pressure 138/81 Pulse Ox 96 - Reevaluation(s) Reevaluation #1: 12/10/17 21:21 Laboratory studies were reviewed and are grossly unremarkable for an acute process except: Hgb 10.[address] imaging is currently pending. Reevaluation #2: 12/10/17 22:37 EKG: NSR with PACs LBBB No Sgarboss criteria present. 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 Patient was updated on all results, chronic occlusion may be the etiology of the patient's chronic pain symptoms. Will initiate transfer to [facility] for vascular consultation. Reevaluation #4: 12/10/17 23:54 Case was discussed with Dr. Serrano, will accept transfer for cardiovascular surgery consultation. Patient and family at the bedside were updated on the plan of care at this time as well. Medical Decision Making - Lab Data Result diagrams: 12/10/17 20:10 12/10/17 20:10 Disposition Disposition: Transfer Clinical Impression: Abdominal pain Qualifiers: Abdominal location: generalized Qualified Code(s): R10.84 - Generalized abdominal pain Disposition: Acute Care Hospital Transfer Transfer To: [facility] Reason For Transfer: IVC occlusion with pelvic vascular congestion Accepting Physician: Maggie Time Discussed w/Accepting Physician: 23:38 Condition: (2) Stable Forms: Patient Portal Access Time of Disposition: 23:38 Quality - Quality Measures Quality Measures: N/A - Blood Pressure Screening Does Patient Have Any of the Following: No Blood Pressure Classification: Pre-Hypertensive BP Reading Systolic Measurement: 138 Diastolic Measurement: 81 Screening for High Blood Pressure: < Pre-Hypertensive BP, F/U Documented > [ G8950] Pre-Hypertensive Follow-up Interventions: Referral to alternative/primary care provider.
[2017-12-10 20:24] LABS: BASO % 0.3 % (0-6); EOS % 1.9 % (0-6); GRAN % 64.6 % (47-80); HEMATOCRIT 35.2 % (35.0-47.0); HEMOGLOBIN 10.6 gm/dl (11.6-16.0); MEAN CELL VOLUME 95.9 fl (81-97); MEAN CORPUSCULAR HGB CONC 30.1 g/dl (32-36); MEAN PLATELET VOLUME 10.7 fl (7.4-10.4); MONO % 8.2 % (0-9); PLATELET COUNT 240 K/uL (130-400); RED BLOOD COUNT 3.67 M/uL (3.80-5.40); RED CELL DISTRIBUTION WIDTH 16.3 % (11.5-14.5); WHITE BLOOD COUNT W/O DIFF 7.4 K/uL (4.2-12.2)
[2017-12-10 20:31] LABS: MEAN CORPUSCULAR HEMOGLOBIN 28.8 pg (27-33)
[2017-12-10 20:38] LABS: BLOOD UREA NITROGEN 17 mg/dL (8-23)
[2017-12-10 20:39] LABS: CREATININE 0.9 mg/dL (0.5-0.9); EST GLOMERULAR FILTRATION RATE > 60 mL/min; TOTAL PROTEIN 6.9 g/dL (6.6-8.7)
[2017-12-10 20:41] LABS: GLUCOSE,RANDOM 108 mg/dL (74-109)
[2017-12-10 20:44] LABS: ALB/GLOB RATIO 1.5 (1.1-1.8); ALBUMIN 4.1 g/dL (4.0-5.0); ALKALINE PHOSPHATASE 37 U/L (35-104); ALT/SGPT 13 U/L (<33); AST/SGOT 19 U/L (10.0-35.0); LIPASE 62 U/L (13-60)
[2017-12-10] MEDS ORDERED: MORPHINE SULFATE 10 MG/ML VIAL IVP ONE (21:50)
[2017-12-10 22:35] LABS: INR 2.2; PROTHROMBIN TIME (PATIENT) 21.5 SECONDS (9.5-12.1)
[2017-12-11] MEDS ORDERED: MORPHINE SULFATE 10 MG/ML VIAL IVP ONE (01:21)
--- NOTE | 2017-12-13 10:09 | CT SCAN REPORT ---
EXAM: CT OF THE ABDOMEN AND PELVIS WITH IV CONTRAST HISTORY: LEFT UPPER ABDOMINAL PAIN, NAUSEA. TECHNIQUE: Helical CT scan of the abdomen and pelvis was obtained after the administration of intravenous contrast. No oral contrast was administered. Comparison: CT abdomen and pelvis without contrast 11/21/17. FINDINGS: The lung bases show minimal linear scar. Coronary artery stent noted. Tiny hiatal hernia. ABDOMEN: The liver, spleen, pancreas, adrenal glands, and kidneys are within normal limits. The gallbladder is absent. The common bile duct is again mildly dilated, similar to previous CT. The bowel has normal caliber, moderate colonic diverticulosis without acute inflammatory changes. PELVIC: Retroperitoneal nodes are again mildly enlarged, similar to recent exam. Inferior vena cava filter is present, the infrarenal IVC is very tiny in caliber, presumably chronically occluded. There is a stent in the left common iliac vein, patency is not well evaluated due to early phase of contrast administration. The right iliac vein is tiny in caliber and is presumably chronically occluded. Several collateral vessels are seen in both groins and in the anterior abdominal wall. The urinary bladder is unremarkable. The bony structures show moderate degenerative changes of the spine. IMPRESSION: 1. NO ACUTE ABNORMALITIES ARE IDENTIFIED IN THE ABDOMEN AND PELVIS TO EXPLAIN THIS PATIENT'S ABDOMINAL PAIN. 2. MILD RETROPERITONEAL ADENOPATHY, CONSIDER LOW GRADE LYMPHOPROLIFERATIVE DISORDER OR CHRONIC LOW GRADE INFECTION. 3. 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 JOB NUMBER: [id number] MTDD
== END 2017-12-11 02:49 | disposition short-term general hospital (02) ==
LOC: ER 19:54
DX: I82.221 Chronic embolism and thrombosis of inferior vena cava (principal); R10.84 Generalized abdominal pain; R11.0 Nausea; I10 Essential (primary) hypertension
CPT/HCPCS: 99285 ×2; 96376; 96365; 96375; 83605; 83690; 85025; 85610; 80053; 74177; 93005; 93010; Q9967; J1980; J2405; J2270 ×2; J7030

== ENCOUNTER 2018-02-21 19:30 | Observation (INO) | payer MEDICARE, BC ==
[2018-02-21] MEDS ORDERED: 0.9% SODIUM CHLORIDE 250ML BAG IV ONE (20:13)
[2018-02-21] MEDS ORDERED: ONDANSETRON HCL IV 4 MG/2 ML VIAL IV ONE (20:13)
[2018-02-21 20:15] LABS: URINE APPEARANCE CLOUDY; URINE BILIRUBIN NEGATIVE (NEGATIVE); URINE BLOOD LARGE (NEGATIVE); URINE COLOR YELLOW; URINE GLUCOSE (UA) NEGATIVE (NEGATIVE); URINE KETONE NEGATIVE (NEGATIVE); URINE LEUKOCYTE ESTERASE LARGE (NEGATIVE); URINE NITRITE POSITIVE (NEGATIVE); URINE UROBILINOGEN 0.2 E.U./dL (0.20 - 1.00)
[2018-02-21 20:22] LABS: URINE BACTERIA 4+; URINE EPITHELIAL CELLS NONE SEEN (FEW); URINE RBC 0 - 2 (NONE SEEN); URINE WBC 21 - 35 (0-2/hpf)
[2018-02-21 20:33] LABS: BASO % 0.1 % (0-6); EOS % 1.1 % (0-6); GRAN % 63.3 % (47-80); HEMATOCRIT 35.7 % (35.0-47.0); HEMOGLOBIN 11.2 gm/dl (11.6-16.0); LYMPH % 26.9 % (16-45); MEAN CELL VOLUME 97.5 fl (81-97); MEAN CORPUSCULAR HEMOGLOBIN 30.6 pg (27-33); MEAN CORPUSCULAR HGB CONC 31.4 g/dl (32-36); MEAN PLATELET VOLUME 10.3 fl (7.4-10.4); MONO % 8.6 % (0-9); PLATELET COUNT 287 K/uL (130-400); RED BLOOD COUNT 3.66 M/uL (3.80-5.40); RED CELL DISTRIBUTION WIDTH 15.9 % (11.5-14.5); WHITE BLOOD COUNT W/O DIFF 9.3 K/uL (4.2-12.2)
[2018-02-21] MEDS ORDERED: MORPHINE SULFATE 10 MG/ML VIAL IVP ONE ×2 (20:38→23:01)
[2018-02-21 20:42] LABS: CREATININE 1.1 mg/dL (0.5-0.9)
[2018-02-21 20:43] LABS: BILIRUBIN,TOTAL 0.4 mg/dL (0.2-1.0); TOTAL PROTEIN 7.7 g/dL (6.6-8.7)
[2018-02-21 20:48] LABS: ALB/GLOB RATIO 1.3 (1.1-1.8); ALBUMIN 4.4 g/dL (4.0-5.0)
[2018-02-21 21:01] LABS: INR 1.6; PARTIAL THROMBOPLASTIN TIME 30.8 SECONDS (24.5-39.1)
[2018-02-21] MEDS ORDERED: CEFTRIAXONE SODIUM 1 GM in 0.9 % SODIUM CHLORIDE 100ML 100 ML IVPB ONE (21:36)
[2018-02-21] MEDS ORDERED: CEFTRIAXONE 1GM/50ML BAG 1 GM/50 ML BAG IVPB ONE (21:41)
--- NOTE | 2018-02-21 23:26 | Emergency Department Record ---
History of Present Illness - General Chief complaint: Female Urogenital Problem Stated complaint: UTI Time Seen by Provider: 02/21/18 20:04 Source: Patient Mode of Arrival: Ambulatory Limitations: No limitations - History of Present Illness Initial comments: pt thinks she has a uti. she has burning w urination, dysuria, frequency, nausea. she has ap also but in the upper abdomen MD Complaint: Dysuria Onset/Timin -: Days(s) Location: Suprapubic Severity: Mild Severity scale (1-10): 5 Consistency: Intermittent Worsens with: Urination Patient : No Associated Symptoms: Abdominal pain, Dysuria, Nausea/vomiting - Related Data Sexually active: No Previous Rx's Medication Instructions Recorded Lorazepam [Ativan] 1 mg PO BID PRN tablet 06/02/17 Hydrocodone/APAP 5/325Mg [[place] 1 each PO Q6H PRN #10 tab 11/22/17 5Mg/325Mg] Allergies Allergy/AdvReac Type Severity Reaction Status Date / Time Penicillins Allergy Intermediate RASH Verified 11/21/17 16:32 Sulfa (Sulfonamide Allergy Intermediate RASH Verified 11/21/17 16:32 Antibiotics) Travel Screening - Travel/Exposure Within Last 30 Days Have you traveled within the last 30 days?: No - Travel Symptoms Symptom Screening: Fever (Subjective), Chills Review of Systems Reviewed: No additional complaints except as noted below Constitutional: Reports: As per HPI. Denies: Chills, Fever, Malaise, Night sweats, Weakness, Weight change Eyes: Reports: As per HPI. Denies: Eye discharge, Eye pain, Photophobia, Vision change ENT: Reports: As per HPI. Denies: Congestion, Dental pain, Ear pain, Epistaxis , Hearing loss, Throat pain Respiratory: Reports: As per HPI. Denies: Cough, Dyspnea, Hemoptysis, Stridor, Wheezes Cardiovascular: Reports: As per HPI. Denies: Arrhythmia, Chest pain, Dyspnea on exertion, Edema, Murmurs, Orthopnea, Palpitations, Paroxysmal nocturnal dyspnea, Rheumatic Fever, Syncope Endocrine: Reports: As per HPI. Denies: Fatigue, Heat or cold intolerance, Polydipsia, Polyuria Gastrointestinal: Reports: As per HPI, Abdominal pain, Nausea. Denies: Constipation, Diarrhea, Hematemesis, Hematochezia, Melena, Vomiting Genitourinary: Reports: As per HPI, Dysuria, Frequency, Urgency. Denies: Abnormal menses, Discharge, Dyspareunia, Hematuria, Incontinence, Retention Musculoskeletal: Reports: As per HPI. Denies: Arthralgia, Back pain, Gout, Joint swelling, Myalgia, Neck pain Skin: Reports: As per HPI. Denies: Bruising, Change in color, Change in hair/ nails, Lesions, Pruritus, Rash Neurological: Reports: As per HPI. Denies: Abnormal gait, Confusion, Headache, Numbness, Paresthesias, Seizure, Tingling, Tremors, Vertigo, Weakness Psychiatric: Reports: As per HPI. Denies: Anxiety, Auditory hallucinations, Depression, Homicidal thoughts, Suicidal thoughts, Visual hallucinations Hematological/Lymphatic: Reports: As per HPI. Denies: Anemia, Blood Clots, Easy bleeding, Easy bruising, Swollen glands Past Medical History - SOCIAL HISTORY Smoking Status: Never smoker Alcohol Use: None Drug Use: None - RESPIRATORY Hx Respiratory Disorders: Yes - CARDIOVASCULAR Hx Cardio Disorders: Yes Hx Abnormal EKG: Yes Hx Cardiac Cath: Yes (2 stents) Hx Edema: Yes (some in ankles-on Lasix) Hx Hypertension: Yes Hx Coronary Artery Disease: Yes (per CT results) - NEURO Hx Neuro Disorders: No Hx Seizures: No - GI Hx GI Disorders: Yes Hx Hiatal Hernia: Yes (1956) - Hx Genitourinary Disorders: Yes Hx UTI: Yes - ENDOCRINE Hx Endocrine Disorders: No Hx Diabetes: No - MUSCULOSKELETAL Hx Musculoskeletal Disorders: Yes Hx Arthritis: Yes (lower back) - PSYCH Hx Psych Problems: Yes Hx Anxiety: Yes Hx Depression: Yes - HEMATOLOGY/ONCOLOGY Hx Hematology/Oncology Disorders: Yes Hx Anemia: Yes Hx Blood Transfusions: Yes (2014) Hx Blood Transfusion Reaction: No Family Medical History Any Significant Family History?: Yes Hx Cancer: Mother *Cancer Comment: uterus Hx Heart Disease: Grandparents Hx Resp Disorders: Father *Resp Comment: TB Hx Stroke: Grandparents Course Vital Signs 02/21/18 02/21/18 02/21/18 19:49 21:29 22:33 Temperature 99.4 F 98.9 F Pulse Rate [ 94 H 84 97 H Crimp Setter ] Respiratory 28 H 24 20 Rate Blood Pressure 147/87 162/69 148/76 [Left Arm] Pulse Ox 96 95 96 - Reevaluation(s) Reevaluation #1: 02/21/18 23:[address] pt feels better. pt and family want her admitted as she lives alone and has been uncomfortable Medical Decision Making - Lab Data Result diagrams: 02/21/18 20:28 02/21/18 20:28 Lab Results 02/21/18 02/21/18 02/21/18 Range/Units 20:00 20:27 20:28 WBC 9.3 (4.2-12.2) K/uL RBC 3.66 L (3.80-5.40) M/uL Hgb 11.2 L (11.6-16.0) gm/dl Hct 35.7 (35.0-47.0) % MCV 97.5 H (81-97) fl MCH 30.6 (27-33) pg MCHC 31.4 L (32-36) g/dl RDW 15.9 H (11.5-14.5) % Plt Count 287 (130-400) K/uL MPV 10.3 (7.4-10.4) fl Gran % 63.3 (47-80) % Lymphocytes % 26.9 (16-45) % Monocytes % 8.6 (0-9) % Eosinophils % 1.1 (0-6) % Basophils % 0.1 (0-6) % PT 16.0 H (9.5-12.1) SECONDS INR 1.6 APTT 30.8 (24.5-39.1) SECONDS Sodium (136-145) mmol/L Potassium (3.4-4.5) mmol/L Chloride (98-107) mmol/L Carbon Dioxide (22-29) mmol/L Anion Gap (7-16) BUN (8-23) mg/dL Creatinine (0.5-0.9) mg/dL Estimated GFR mL/min Random Glucose (74-109) mg/dL Calcium (8.8-10.2) mg/dL Total Bilirubin (0.2-1.0) mg/dL AST (10.0-35.0) U/L ALT (<33) U/L Alkaline Phosphatase (35-104) U/L Total Protein (6.6-8.7) g/dL Albumin (4.0-5.0) g/dL Globulin (1.4-4.8) gm/dL Albumin/Globulin Ratio (1.1-1.8) Lipase (13-60) U/L Urine Color Yellow Urine Appearance Cloudy Urine pH 7.0 (5.0-8.0) Ur Specific [place] 1.010 (1.002-1.030) Urine Protein 100 mg/dl H (NEGATIVE) Urine Glucose (UA) Negative (NEGATIVE) Urine Ketones Negative (NEGATIVE) Urine Blood Large H (NEGATIVE) Urine Nitrite Positive H (NEGATIVE) Urine Bilirubin Negative (NEGATIVE) Urine Urobilinogen 0.2 (0.20 - 1.00) E.U./dL Ur Leukocyte Esterase Large H (NEGATIVE) Urine RBC 0 - 2 (NONE SEEN) Urine WBC 21 - 35 (0-2/hpf) Ur Epithelial Cells None seen (FEW) Urine Bacteria 4+ 12//18 Range/Units 20:28 WBC (4.2-12.2) K/uL RBC (3.80-5.40) M/uL Hgb (11.6-16.0) gm/dl Hct (35.0-47.0) % MCV (81-97) fl MCH (27-33) pg MCHC (32-36) g/dl RDW (11.5-14.5) % Plt Count (130-400) K/uL MPV (7.4-10.4) fl Gran % (47-80) % Lymphocytes % (16-45) % Monocytes % (0-9) % Eosinophils % (0-6) % Basophils % (0-6) % PT (9.5-12.1) SECONDS INR APTT (24.5-39.1) SECONDS Sodium 142 (136-145) mmol/L Potassium 3.5 (3.4-4.5) mmol/L Chloride 100 (98-107) mmol/L Carbon Dioxide 26.0 (22-29) mmol/L Anion Gap 16.0 (7-16) BUN 17 (8-23) mg/dL Creatinine 1.1 H (0.5-0.9) mg/dL Estimated GFR 50 mL/min Random Glucose 104 (74-109) mg/dL Calcium 9.5 (8.8-10.2) mg/dL Total Bilirubin 0.40 (0.2-1.0) mg/dL AST 21 (10.0-35.0) U/L ALT 11 (<33) U/L Alkaline Phosphatase 43 (35-104) U/L Total Protein 7.7 (6.6-8.7) g/dL Albumin 4.4 (4.0-5.0) g/dL Globulin 3.3 (1.4-4.8) gm/dL Albumin/Globulin Ratio 1.3 (1.1-1.8) Lipase 48 (13-60) U/L Urine Color Urine Appearance Urine pH (5.0-8.0) Ur Specific [place] (1.002-1.030) Urine Protein (NEGATIVE) Urine Glucose (UA) (NEGATIVE) Urine Ketones (NEGATIVE) Urine Blood (NEGATIVE) Urine Nitrite (NEGATIVE) Urine Bilirubin (NEGATIVE) Urine Urobilinogen (0.20 - 1.00) E.U./dL Ur Leukocyte Esterase (NEGATIVE) Urine RBC (NONE SEEN) Urine WBC (0-2/hpf) Ur Epithelial Cells (FEW) Urine Bacteria Disposition Disposition: Admit Clinical Impression: UTI (urinary tract infection) Qualifiers: Urinary tract infection type: acute cystitis Hematuria presence: without hematuria Qualified Code(s): N30.00 - Acute cystitis without hematuria Nausea & vomiting Qualifiers: Vomiting type: unspecified Vomiting Intractability: non-intractable Qualified Code(s): R11.2 - Nausea with vomiting, unspecified Abdominal pain Qualifiers: Abdominal location: upper abdomen, unspecified Qualified Code(s): R10.10 - Upper abdominal pain, unspecified Decision to Admit: Admit from ER Decision to Admit Date: 02/21/18 Decision to Admit Time: 23:30 Quality - Quality Measures Quality Measures: N/A - Blood Pressure Screening Does Patient Have Any of the Following: Active Dx of HTN Blood Pressure Classification: Hypertensive Reading Systolic Measurement: 148 Diastolic Measurement: 76 Screening for High Blood Pressure: Patient Exclusion, Hx of HTN [[id number]]
[2018-02-21] MEDS ORDERED: LORAZEPAM 0.5 MG TABLET PO PRN (23:40)
[2018-02-21] MEDS ORDERED: ACETAMINOPHEN 500 MG TABLET PO PRN (23:40)
[2018-02-22] MEDS ORDERED: WARFARIN 5 MG TAB PO SCH (01:00)
[2018-02-22] MEDS: HYDROCODONE/APAP 5/325MG TABLET PO PRN ×2 (01:01→09:39)
--- NOTE | 2018-02-22 06:21 | CT SCAN REPORT ---
EXAM: EMERGENCY CT OF THE ABDOMEN AND PELVIS WITHOUT CONTRAST HISTORY: NAUSEATED, LOWER ABDOMINAL PAIN. CHOLECYSTECTOMY. HYSTERECTOMY. UMBILICAL HERNIA SURGERY. TECHNIQUE: Axial CT scan of the abdomen and pelvis was performed without oral or IV contrast. Comparison: CT abdomen and pelvis 12/10/17. FINDINGS: The gallbladder and uterus are again not identified consistent with surgical history. IVC filter remains in place and the left iliac venous stent remains in place. No intrarenal calculi are identified in either kidney. No hydronephrosis or hydroureter is seen in either kidney. As such the ureters are difficult to follow in their nondilated state throughout the retroperitoneum and pelvis, but no definite ureteral calculus seen on either side and no bladder calculus evident. Mildly thick walled appearance of the bladder is nonspecific, but may simply be due to incomplete distention. This can also be seen with cystitis and correlation with urinalysis is suggested. Evaluation of the bowel and viscera is extremely limited without oral or IV contrast. Given this limitation, no definite hepatic, splenic, adrenal, pancreatic, or renal mass identified. Small hiatal hernia similar to before. Previously described stable mildly enlarged retroperitoneal nodes again seen. These may actually represent some collateral veins, but at any rate appear stable compared with the prior study. Prominent diverticulosis left side of the colon and less so also right side of the colon, but no definite diverticulitis evident. No appendicitis is seen. A small amount of pericardial fluid anteriorly more pronounced than before. No free intraperitoneal air or free intraperitoneal fluid identified. 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 IMPRESSION: 1. POSTOP CHOLECYSTECTOMY AND HYSTERECTOMY. 2. IVC FILTER REMAINS IN PLACE DOES THE LEFT ILIAC VENOUS STENT. 3. NO DEFINITE URINARY TRACT CALCULI OR HYDRONEPHROSIS EVIDENT. MILDLY THICK WALLED APPEARANCE OF THE URINARY BLADDER MAY JUST BE DUE TO INCOMPLETE DISTENTION, BUT CAN ALSO BE SEEN WITH CYSTITIS. 4. SCATTERED DIVERTICULOSIS THROUGHOUT THE COLON, BUT NO DIVERTICULITIS EVIDENT. 5. SMALL AMOUNT OF PERICARDIAL EFFUSION ANTERIORLY. 6. SMALL HIATAL HERNIA. 7. DIFFUSE DEGENERATIVE CHANGES IN THE LUMBAR SPINE. JOB NUMBER: [id number] [facility]
[2018-02-22] MEDS ORDERED: PANTOPRAZOLE SODIUM 40 MG TABLET PO SCH (07:00)
[2018-02-22] MEDS ORDERED: SENNOSIDES/DOCUSATE SODIUM UD CAPSULE PO SCH ×2 (10:00→22:00)
[2018-02-22] MEDS ORDERED: FUROSEMIDE 20 MG TABLET PO SCH ×2 (10:00)
[2018-02-22] MEDS ORDERED: GABAPENTIN 300 MG CAPSULE PO SCH ×2 (10:00→22:00)
[2018-02-22] MEDS ORDERED: CARVEDILOL 3.125 MG TABLET PO SCH (10:00)
[2018-02-22] MEDS ORDERED: NAPROXEN 250 MG TABLET PO SCH (10:00)
--- NOTE | 2018-02-22 10:24 | History & Physical ---
History of Present Illness - Date of Service Date of Service for History & Physical: 02/22/18 - History of Present Illness Admitting Diagnosis: uti, nausea, abd pain History of Present Illness: Mrs. Shepherd is a 87 y/o female with a two day complaint of burning when urinating. She says that she spoke to her home nurse about it but they did not order any tests for it right away but then took a urine sample yesterday before she came in. She denies fever, chills, headaches or diarrhea. The patient also has chronic complaint of abdominal pain and has been evaluated with EGD/ Colonoscopy at the [facility]. The patient says that she is on pain medication for her condition but is unable to articualte exactly what is being treated. She says that she has a home nurse that comes out to visit and monitor her Coumadin levels. The patient's ED labs reveal urine positive for leukocytes, nitrites and large hematuria. CT abdomen/pelvis was not suggestive of hydronephrosis or renal calculi but diverticula were noted. Vitals on admission: BP: 147/87 HR: 94 RR: 28 T: 99.4 Sats: 96% RA Travel Screening - Travel/Exposure Within Last 30 Days Have you traveled within the last 30 days?: No - Travel/Exposure Within Last Year Have you traveled outside the [place] in the last year?: No - Additonal Travel Details Have you been exposed to anyone with a communicable illness?: No - Travel Symptoms Symptom Screening: Fever (Subjective), Chills Review of Systems Constitutional: Reports: As per HPI. Denies: Chills, Fever, Malaise, Night sweats, Weakness, Weight change Eyes: Reports: As per HPI. Denies: Eye discharge, Eye pain, Photophobia, Vision change ENT: Reports: As per HPI. Denies: Congestion, Dental pain, Ear pain, Epistaxis , Hearing loss, Throat pain Respiratory: Reports: As per HPI. Denies: Cough, Dyspnea, Hemoptysis, Stridor, Wheezes Cardiovascular: Reports: As per HPI. Denies: Arrhythmia, Chest pain, Dyspnea on exertion, Edema, Murmurs, Orthopnea, Palpitations, Paroxysmal nocturnal dyspnea, Rheumatic Fever, Syncope Endocrine: Reports: As per HPI. Denies: Fatigue, Heat or cold intolerance, Polydipsia, Polyuria Gastrointestinal: Reports: As per HPI, Abdominal pain, Nausea. Denies: Constipation, Diarrhea, Hematemesis, Hematochezia, Melena, Vomiting Genitourinary: Reports: As per HPI, Dysuria, Frequency, Urgency. Denies: Abnormal menses, Discharge, Dyspareunia, Hematuria, Incontinence, Retention Musculoskeletal: Reports: As per HPI. Denies: Arthralgia, Back pain, Gout, Joint swelling, Myalgia, Neck pain Skin: Reports: As per HPI. Denies: Bruising, Change in color, Change in hair/ nails, Lesions, Pruritus, Rash Neurological: Reports: As per HPI. Denies: Abnormal gait, Confusion, Headache, Numbness, Paresthesias, Seizure, Tingling, Tremors, Vertigo, Weakness Psychiatric: Reports: As per HPI. Denies: Anxiety, Auditory hallucinations, Depression, Homicidal thoughts, Suicidal thoughts, Visual hallucinations Hematological/Lymphatic: Reports: As per HPI. Denies: Anemia, Blood Clots, Easy bleeding, Easy bruising, Swollen glands Past Medical History - SOCIAL HISTORY Smoking Status: Never smoker - RESPIRATORY Hx Respiratory Disorders: Yes - CARDIOVASCULAR Hx Cardio Disorders: Yes Hx Abnormal EKG: Yes Hx Cardiac Cath: Yes (2 stents) Hx Edema: Yes (some in ankles-on Lasix) Hx Hypertension: Yes Hx Coronary Artery Disease: Yes (per CT results) - NEURO Hx Neuro Disorders: No Hx Seizures: No - GI Hx GI Disorders: Yes Hx Hiatal Hernia: Yes (1956) - Hx Genitourinary Disorders: Yes Hx UTI: Yes - ENDOCRINE Hx Endocrine Disorders: No Hx Diabetes: No - MUSCULOSKELETAL Hx Musculoskeletal Disorders: Yes Hx Arthritis: Yes (lower back) - PSYCH Hx Psych Problems: Yes Hx Anxiety: Yes Hx Depression: Yes - HEMATOLOGY/ONCOLOGY Hx Hematology/Oncology Disorders: Yes Hx Anemia: Yes Hx Blood Transfusions: Yes (2014) Hx Blood Transfusion Reaction: No Family Medical History Any Significant Family History?: Yes Hx Cancer: Mother *Cancer Comment: uterus Hx Heart Disease: Grandparents Hx Resp Disorders: Father *Resp Comment: TB Hx Stroke: Grandparents H&P Meds/Allergies - Allergies Allergies: Allergies Allergy/AdvReac Type Severity Reaction Status Date / Time Penicillins Allergy Intermediate RASH Verified 11/21/17 16:32 Sulfa (Sulfonamide Allergy Intermediate RASH Verified 11/21/17 16:32 Antibiotics) - Home Medications Previous Rx's Medication Instructions Recorded Lorazepam [Ativan] 1 mg PO BID PRN tablet 06/02/17 Hydrocodone/APAP 5/325Mg [Merna 1 each PO Q6H PRN #10 tab 11/22/17 5Mg/325Mg] - Active Medications Active Medications: Current Medications Acetaminophen (Tylenol 500mg Tab) 1,000 mg PO Q6H PRN PRN Reason: PAIN - MILD(1-4)/FEVER Hydrocodone Bitart/Acetaminophen (Merna 5mg/325mg) 1 each PO Q6H PRN PRN Reason: ABDOMINAL PAIN Last Admin: 02/22/18 09:39 Dose: 1 each Atorvastatin Calcium (Lipitor) 80 mg PO QHS [facility] Carvedilol (Coreg) 6.25 mg PO BID [facility] Last Admin: 02/22/18 09:39 Dose: 6.25 mg Furosemide (Lasix) 20 mg PO BIDDIUR [facility] Last Admin: 02/22/18 09:48 Dose: Not Given Gabapentin (Neurontin) 300 mg PO QAM [facility] Last Admin: 02/22/18 09:39 Dose: 300 mg Gabapentin (Neurontin) 600 mg PO QHS [facility] CEFTRIAXONE 1GM/50ML BAG (Ceftriaxone 1 Gm-D5w Bag) 1 gm in 50 mls @ 100 mls/ hr IVPB QHS [facility] Lorazepam (Ativan) 1 mg PO BID PRN PRN Reason: ANXIETY Last Admin: 02/22/18 01:01 Dose: 1 mg Naproxen (Naprosyn) 250 mg PO DAILY [facility] Last Admin: 02/22/18 09:39 Dose: 250 mg Pantoprazole Sodium (Protonix) 40 mg PO DAILYAC [facility] Last Admin: 02/22/18 06:14 Dose: 40 mg Senna/Docusate Sodium (Senna Plus) 3 each PO QHS JUL[facility] Warfarin Sodium (Coumadin) 5 mg PO QHS [facility] Last Admin: 02/22/18 01:01 Dose: 5 mg Physical Exam - Vital Signs Vital Signs: Vital Signs - Last 24 Hrs Temp Pulse Pulse Resp BP Pulse Ox 02/22/18 09:00 16 02/22/18 07:00 98.1 F 76 16 130/52 93 L 02/22/18 00:40 16 02/21/18 23:55 99.0 F 88 16 185/82 96 02/21/18 22:33 98.9 F 97 H 20 148/76 96 02/21/18 21:29 84 24 162/69 95 02/21/18 19:49 99.4 F 94 H 28 H 147/87 96 - General Limitations: No limitations - Head Head exam: Normal inspection Head exam detail: negative: Abrasion, Contusion - Eye Eye exam: Normal appearance, PERRL Pupils: Normal accommodation - ENT Nasal Exam: Normal inspection. negative: Discharge, Sinus tenderness Mouth exam: Normal external inspection, Tongue normal - Respiratory Respiratory exam: Normal lung sounds bilaterally. negative: Respiratory distress - Cardiovascular Cardiovascular Exam: Regular rate Peripheral Pulses: 3+: Radial (R), Radial (L), Dorsalis Pedis (R), Dorsalis Pedis (L) - GI/Abdominal GI/Abdominal exam: Soft, Normal bowel sounds - Neurological Neurological exam: Alert, Normal gait, Oriented X3, Reflexes normal - Skin Skin exam: Dry, Intact, Normal color, Warm Results - Labs Result Diagrams: 02/21/18 20:28 02/21/18 20:28 Labs Last 24 Hours: Laboratory Results - last 24 hr 02/21/18 02/21/18 02/21/18 20:00 20:27 20:28 WBC 9.3 RBC 3.66 L Hgb 11.2 L Hct 35.7 MCV 97.5 H MCH 30.6 MCHC 31.4 L RDW 15.9 H Plt Count 287 MPV 10.3 Gran % 63.3 Lymphocytes % 26.9 Monocytes % 8.6 Eosinophils % 1.1 Basophils % 0.1 PT 16.0 H INR 1.6 APTT 30.8 Sodium Potassium Chloride Carbon Dioxide Anion Gap BUN Creatinine Estimated GFR Random Glucose Calcium Total Bilirubin AST ALT Alkaline Phosphatase Total Protein Albumin Globulin Albumin/Globulin Ratio Lipase Urine Color Yellow Urine Appearance Cloudy Urine pH 7.0 Ur Specific [place] 1.010 Urine Protein 100 mg/dl H Urine Glucose (UA) Negative Urine Ketones Negative Urine Blood Large H Urine Nitrite Positive H Urine Bilirubin Negative Urine Urobilinogen 0.2 Ur Leukocyte Esterase Large H Urine RBC 0 - 2 Urine WBC 21 - 35 Ur Epithelial Cells None seen Urine Bacteria 4+ 02/21/18 20:28 WBC RBC Hgb Hct MCV MCH MCHC RDW Plt Count MPV Gran % Lymphocytes % Monocytes % Eosinophils % Basophils % PT INR APTT Sodium 142 Potassium 3.5 Chloride 100 Carbon Dioxide 26.0 Anion Gap 16.0 BUN 17 Creatinine 1.1 H Estimated GFR 50 Random Glucose 104 Calcium 9.5 Total Bilirubin 0.40 AST 21 ALT 11 Alkaline Phosphatase 43 Total Protein 7.7 Albumin 4.4 Globulin 3.3 Albumin/Globulin Ratio 1.3 Lipase 48 Urine Color Urine Appearance Urine pH Ur Specific [place] Urine Protein Urine Glucose (UA) Urine Ketones Urine Blood Urine Nitrite Urine Bilirubin Urine Urobilinogen Ur Leukocyte Esterase Urine RBC Urine WBC Ur Epithelial Cells Urine Bacteria VTE H&P Assessment - Risk for VTE Risk for VTE: Yes Risk Level: High Risk Assessment Date: 02/22/18 Risk Assessment Time: 12:21 VTE Orders Placed or Will Be Placed: Yes Plan - Detailed Diagnosis and Plan (1) Urinary tract infection Current Visit: Yes Status: Acute Qualifiers: Urinary tract infection type: acute cystitis Hematuria presence: without hematuria Qualified Code(s): N30.00 - Acute cystitis without hematuria Base Code: N39.0 - URINARY TRACT INFECTION, SITE NOT SPECIFIED Comment: 02/22/18: - UA: + leukocytes, + nitrites, + blood. CT abdo/pelvis: previously described hiatal hernia and diverticulosis. - UCX pending. - On Rocephin 1 gm Q24H. Change Ciprofloxacin 500mg BID x 6 mored days. (2) Abdominal pain Current Visit: Yes Status: Acute Qualifiers: Abdominal location: upper abdomen, unspecified Qualified Code(s): R10.10 - Upper abdominal pain, unspecified Base Code: R10.9 - UNSPECIFIED ABDOMINAL PAIN Comment: 02/22/18: - Persistent abdominal pain with hx of multiple EGD/Colonsocopies. CT abdomen/ pelvis: diverticulosis w/o diverticulitis. Labs WNL - EGD and colonoscopy with Dr. Collins- report of gastritis and small hiatal hernia. Abd CT on 06/08/17 during [facility] admission revealed diverticulosis, small hiatal hernia. - Pain controlled with 1 Merna 5/325 - Tolerating PO diet - Pt to follow with GI at the [facility] next week. 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 (4) DNR (do not resuscitate) discussion Current Visit: No Status: Acute Base Code: Z71.89 - OTHER SPECIFIED COUNSELING Comment: 02/22/18: - Pt remains DNR status.
--- NOTE | 2018-02-22 13:36 | Discharge Summary ---
Providers Date of admission: 02/21/18 23:44 Attending physician: NIRMALA DANIELS Primary care physician: ISRRAEL SCHREIBER D.O. Physical Exam - Vital Signs Vital Signs: Vital Signs - Last 24 Hrs Temp Pulse Pulse Resp BP Pulse Ox 02/22/18 09:00 16 02/22/18 07:00 98.1 F 76 16 130/52 93 L 02/22/18 00:40 16 02/21/18 23:55 99.0 F 88 16 185/82 96 02/21/18 22:33 98.9 F 97 H 20 148/76 96 02/21/18 21:29 84 24 162/69 95 02/21/18 19:49 99.4 F 94 H 28 H 147/87 96 - General Limitations: No limitations - Head Head exam: Normal inspection Head exam detail: negative: Abrasion, Contusion - Eye Eye exam: Normal appearance, PERRL Pupils: Normal accommodation - ENT Nasal Exam: Normal inspection. negative: Discharge, Sinus tenderness Mouth exam: Normal external inspection, Tongue normal - Respiratory Respiratory exam: Normal lung sounds bilaterally. negative: Respiratory distress - Cardiovascular Cardiovascular Exam: Regular rate Peripheral Pulses: 3+: Radial (R), Radial (L), Dorsalis Pedis (R), Dorsalis Pedis (L) - GI/Abdominal GI/Abdominal exam: Soft, Normal bowel sounds - Neurological Neurological exam: Alert, Normal gait, Oriented X3, Reflexes normal - Skin Skin exam: Dry, Intact, Normal color, Warm Hospitalization - Hospitalization Admission Diagnosis: uti, nausea, abd pain - Problem List/Discharge Diagnosis (1) Urinary tract infection Current Visit: Yes Status: Acute Discharge Diagnosis: Urinary tract infection type: acute cystitis Hematuria presence: without hematuria Qualified Code(s): N30.00 - Acute cystitis without hematuria Base Code: N39.0 - URINARY TRACT INFECTION, SITE NOT SPECIFIED Comment: 02/22/18: - UA: + leukocytes, + nitrites, + blood. CT abdo/pelvis: previously described hiatal hernia and diverticulosis. - UCX pending. - On Rocephin 1 gm Q24H. Change Ciprofloxacin 500mg BID x 6 mored days. (2) Abdominal pain Current Visit: Yes Status: Acute Discharge Diagnosis: Abdominal location: upper abdomen, unspecified Qualified Code(s): R10.10 - Upper abdominal pain, unspecified Base Code: R10.9 - UNSPECIFIED ABDOMINAL PAIN Comment: 02/22/18: - Persistent abdominal pain with hx of multiple EGD/Colonsocopies. CT abdomen/ pelvis: diverticulosis w/o diverticulitis. Labs WNL - EGD and colonoscopy with Dr. Collins- report of gastritis and small hiatal hernia. Abd CT on 06/08/17 during [facility] admission revealed diverticulosis, small hiatal hernia. - Pain controlled with 1 [place] 5/325 - Tolerating PO diet - Pt to follow with GI at the [facility] next week. 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 (4) DNR (do not resuscitate) discussion Current Visit: No Status: Acute Base Code: Z71.89 - OTHER SPECIFIED COUNSELING Comment: 02/22/18: - Pt remains DNR status. - Hospitalization Course Hospital Course: Mrs. Shepherd is a 87 y/o female with a two day complaint of burning when urinating. She says that she spoke to her home nurse about it but they did not order any tests for it right away but then took a urine sample yesterday before she came in. She denies fever, chills, headaches or diarrhea. The patient also has chronic complaint of abdominal pain and has been evaluated with EGD/ Colonoscopy at the [facility]. The patient says that she is on pain medication for her condition but is unable to articualte exactly what is being treated. She says that she has a home nurse that comes out to visit and monitor her Coumadin levels. The patient's ED labs reveal urine positive for leukocytes, nitrites and large hematuria. CT abdomen/pelvis was not suggestive of hydronephrosis or renal calculi but diverticula were noted. Vitals on admission: BP: 147/87 HR: 94 RR: 28 T: 99.4 Sats: 96% RA Procedures: Imaging and X-Rays 02/21/18 20:13 ABDOMEN/PELVIS WO CONTRAST [CT] Stat Abnormal Labs: Abnormal Lab Results 02/21/18 02/21/18 02/21/18 Range/Units 20:00 20:27 20:28 RBC 3.66 L (3.80-5.40) M/uL Hgb 11.2 L (11.6-16.0) gm/dl MCV 97.5 H (81-97) fl MCHC 31.4 L (32-36) g/dl RDW 15.9 H (11.5-14.5) % PT 16.0 H (9.5-12.1) SECONDS Creatinine (0.5-0.9) mg/dL Urine Protein 100 mg/dl H (NEGATIVE) Urine Blood Large H (NEGATIVE) Urine Nitrite Positive H (NEGATIVE) Ur Leukocyte Esterase Large H (NEGATIVE) 02/21/18 Range/Units 20:28 RBC (3.80-5.40) M/uL Hgb (11.6-16.0) gm/dl MCV (81-97) fl MCHC (32-36) g/dl RDW (11.5-14.5) % PT (9.5-12.1) SECONDS Creatinine 1.1 H (0.5-0.9) mg/dL Urine Protein (NEGATIVE) Urine Blood (NEGATIVE) Urine Nitrite (NEGATIVE) Ur Leukocyte Esterase (NEGATIVE) Discharge Medications - Discharge Medications Prescriptions: Cefdinir [Omnicef] 300 mg PO BID 6 Days #12 cap Home Medications: Ambulatory Orders Carvedilol 6.25 mg PO BID 06/19/14 [Last Taken 1 Day Ago ~04/28/17] Furosemide 20 mg PO BID 06/19/14 [Last Taken 1 Day Ago ~04/28/17] Atorvastatin Calcium [Lipitor] 80 mg PO QHS 03/30/15 [Last Taken 1 Day Ago ~] Gabapentin 300 mg PO QA 03/30/15 [Last Taken 1 Day Ago ~04/28/17] Melatonin 10 mg PO QHS 12/17/15 [Last Taken 1 Day Ago ~04/28/17] Sennosides [Senokot] 8.6 mg PO DAILY 12/17/15 [Last Taken 1 Day Ago ~04/28/17] Nabumetone 500 mg PO DAILY 04/05/17 [Last Taken 1 Day Ago ~04/28/17] Cholecalciferol (Vitamin D3) [Vitamin D3] 2,000 unit PO DAILY 06/01/17 [Last Taken Unknown] Lorazepam [Ativan] 1 mg PO BID PRN tablet 06/02/17 [Last Taken Unknown] Omeprazole 20 mg PO DAILY 11/21/17 [Last Taken Unknown] Hydrocodone/APAP 5/325Mg [[place] 5Mg/325Mg] 1 each PO Q6H PRN #10 tab 11/22/17 [ Last Taken Unknown] Warfarin Sodium 5 mg PO QHS 11/22/17 [Last Taken Unknown] Gabapentin [Neurontin] 600 mg PO QHS 12/10/17 [Last Taken Unknown] Cefdinir [Omnicef] 300 mg PO BID 6 Days #12 cap 02/22/18 [Last Taken Unknown] Discharge Plan - Discharge Instructions Additional Instructions: You are to take: Omnicef 500mg, twice daily for the next 6 days. Resume all of your other home medications as prescribed by your primary care doctor. Follow up with your primary care doctor within 1 week of discharge. If you have urgent concerns or feel any new symptoms please go to the ED. Quality Measures - Quality Measures Quality Measures: Atrial Fibrillation & Atrial Flutter: Chronic Anticoagulation Therapy, Advance Directives, Documentation of Current Medications in Medical Record, Elder Maltreatment Screen and Follow-Up Plan, Screening for High Blood Pressure and F/U Documented - Current Medications Quality Measure: Measure #130: Documentation of Current Medications Documentation of Current Medications: <Current Medications Documented/Reviewed> [U7046] - Blood Pressure Screening Quality Measure: Screening for High Blood Pressure and Follow-Up Documented Does Patient Have Any of the Following: Active Dx of HTN Blood Pressure Classification: Pre-Hypertensive BP Reading Systolic Measurement: 130 Diastolic Measurement: 52 Screening for High Blood Pressure: Patient Exclusion, Hx of HTN [X5064] - Atrial Fibrillation and Atrial Flutter Quality Measure: Atrial Fibrillation & Atrial Flutter: Chronic Anticoagulation Therapy Does Patient Have Any of the Following: No CHADS2 Risk Stratification: Age 75 or Greater, Hypertension Risk Stratification Summary: One or more high risk factors OR more than one moderate risk factor exists. [G8972] Anticoagulation Therapy: <Oral anticoagulant Prescribed> [G8990] - Advance Directives Quality Measure: Measure #47: Care Plan Advance Directives Established: Yes (DNR) Advance Directives Information Provided To Patient: No Advance Directives on File: Yes Living Will: Yes Power of Electric Wheelchair Repairer: Yes Power of Electric Wheelchair Repairer Name: Anali- daughter Advance Care Planning: <Care Plan/Decision Maker Documented; Discussed & Documented> [1123F] - Elder Abuse Suspicion Index Screening: Elder Abuse Suspicion Index Screening Rely on people for bathing, dressing, shopping, banking, etc: No Prevented from getting food, clothes, medication, etc: No Made to feel shamed or threatened by someone: No Forced to sign papers or use money against will: No Feel afraid, touched in ways not wanted or hurt physically: No Poor eye contact, withdrawn, malnourished, cuts or bruises: No Screening Result: Negative result EASI Reference Information: Rebeca SAMUELS, Danny C, Shay Hooper, Darwin Drew.Development and validation of a tool to assist physicians identification of elder abuse: The Elder Abuse Suspicion Index (EASI ). Journal of Elder Abuse and Neglect, 2008; 20 (3): 276-300. - Elder Maltreatment Screen Quality Measures: Elder Maltreatment Screen and Follow-Up Plan Elder Maltreatment Screen: <Negative, No Follow-Up Plan Required> [G3911]
[2018-02-22] MEDS ORDERED: ONDANSETRON 4 MG ODT TABLET SL PRN (14:52)
[2018-02-22] MEDS ORDERED: ATORVASTATIN 20 MG TABLET PO SCH (22:00)
[2018-02-22] MEDS ORDERED: CEFTRIAXONE 1GM/50ML BAG 1 GM/50 ML BAG IVPB SCH (22:00)
== END 2018-02-22 15:17 | disposition home or self-care (01) ==
LOC: ER 19:30 → MEDSURG 23:44
PROVIDERS: ADMIT Internal Medicine; ATTEND Internal Medicine
DX: N30.00 Acute cystitis without hematuria (principal); R10.10 Upper abdominal pain, unspecified; Z71.89 Other specified counseling
CPT/HCPCS: 99285 ×2; 96376; 96365; 96375; 82310; 83690; 85025; 85730; 85610; 80053; 81001; 74176; G0378 ×2; J2405; J0696; J2270; 99220

== ENCOUNTER 2018-04-19 07:47 | Observation (INO) | payer MEDICARE, BC ==
[2018-04-19] MEDS ORDERED: ACETAMINOPHEN 1,000 MG/100 ML BTL IVPB ONE ×2 (07:50→12:01)
[2018-04-19] MEDS ORDERED: 0.9 % SODIUM CHLORIDE 1000ML 1,000 ML IV ONE (07:50)
[2018-04-19] MEDS ORDERED: ONDANSETRON HCL IV 4 MG/2 ML VIAL IVP ONE ×2 (07:50→08:51)
--- NOTE | 2018-04-19 07:56 | Emergency Department Record ---
History of Present Illness - General Chief Complaint: Abdominal Pain Stated Complaint: ABDOMINAL PAIN Time Seen by Provider: 04/19/18 07:48 Source: Patient, EMS Mode of Arrival: EMS Limitations: No limitations - History of Present Illness Initial Comments: 88 yo female presents with two days of upper abdominal pain. The pain started two days ago upon waking up. The pain goes across the abdomen. She has associated nausea without any vomiting. Her appetite is decreased. No chest pain or cough. No shortness of breath. The pain does go to the back. She had a soft bowel movement this morning. No blood. She reports she had her gall bladder removed in the past and she has an IVC filter that can not be removed. She reports she was pain free prior three days ago with baseline appetite. The patient has had recurrent similar pain over the last several years. CT scan 03/31/18 at [facility] demonstrated scattered aorto biiliac atherosclerosis but no significant stenosis. The celiac, SMA, and DEMARIO are widely patent. A jose angel of her IVC traverses the duodenum and a jose angel is near the aorta. Diverticulosis without diverticulitis. [facility] GI clinic on 03/22/18 was reviewed as a follow up for chronic abdominal pain. She had a GI bleed in 2014. IVC filter retrieval was attempted in 2014 without success. Recurrent GI bleed in 2015. No source found with Hgb 6. 2017 the patient developed abdominal and back pain. EGD was performed 01/2018. Duodenitis noted otherwise negative. The IVC filter prong has been seen on prior scopes in the duodenum and on the video enterography. MD Complaint: Abdominal pain -: Days(s) (2) Location: Epigastric, LUQ, RUQ Radiation: Back, Epigastric, LUQ, RUQ Migration to: Epigastric, LUQ, RUQ Severity: Severe Quality: Aching, Other (pressure) Consistency: Constant Improves With: Other (Improved with walking around) Worsens With: Eating Context: Other Associated Symptoms: Anorexia, Constipation, Nausea - Related Data Previous Rx's Medication Instructions Recorded Lorazepam [Ativan] 1 mg PO BID PRN tablet 06/02/17 Hydrocodone/APAP 5/325Mg [[place] 1 each PO Q6H PRN #10 tab 11/22/17 5Mg/325Mg] Allergies Allergy/AdvReac Type Severity Reaction Status Date / Time Penicillins Allergy Intermediate RASH Verified 11/21/17 16:32 Sulfa (Sulfonamide Allergy Intermediate RASH Verified 11/21/17 16:32 Antibiotics) Review of Systems Constitutional: Denies: Chills, Fever, Malaise, Weakness Eyes: Denies: Eye discharge, Eye pain, Vision change ENT: Denies: Congestion Respiratory: Denies: Cough Cardiovascular: Denies: Chest pain, Edema, Palpitations, Syncope Endocrine: Denies: Fatigue, Heat or cold intolerance, Polyuria Gastrointestinal: Reports: Abdominal pain, Diarrhea (one soft stool this morning ), Nausea. Denies: Constipation, Vomiting Genitourinary: Denies: Dysuria, Retention Musculoskeletal: Reports: Back pain. Denies: Arthralgia, Joint swelling, Myalgia Skin: Denies: Bruising, Rash Neurological: Denies: Confusion, Headache, Numbness, Vertigo, Weakness Psychiatric: Denies: Anxiety Hematological/Lymphatic: Denies: Blood Clots, Easy bleeding, Easy bruising, Swollen glands Past Medical History - SOCIAL HISTORY Smoking Status: Never smoker - RESPIRATORY Hx Respiratory Disorders: Yes - CARDIOVASCULAR Hx Cardio Disorders: Yes Hx Abnormal EKG: Yes Hx Cardiac Cath: Yes (2 stents) Hx Edema: Yes (some in ankles-on Lasix) Hx Hypertension: Yes Hx Coronary Artery Disease: Yes (per CT results) - NEURO Hx Neuro Disorders: No Hx Seizures: No - GI Hx GI Disorders: Yes Hx Hiatal Hernia: Yes (1954) - Hx Genitourinary Disorders: Yes Hx UTI: Yes - ENDOCRINE Hx Endocrine Disorders: No Hx Diabetes: No - MUSCULOSKELETAL Hx Musculoskeletal Disorders: Yes Hx Arthritis: Yes (lower back) - PSYCH Hx Psych Problems: Yes Hx Anxiety: Yes Hx Depression: Yes - HEMATOLOGY/ONCOLOGY Hx Hematology/Oncology Disorders: Yes Hx Anemia: Yes Hx Blood Transfusions: Yes (2014) Hx Blood Transfusion Reaction: No Family Medical History Hx Cancer: Mother *Cancer Comment: uterus Hx Heart Disease: Grandparents Hx Resp Disorders: Father *Resp Comment: TB Hx Stroke: Grandparents Physical Exam - General General Appearance: Alert, Oriented x3, Cooperative, No acute distress Limitations: No limitations - Head Head exam: Atraumatic, Normal inspection - Eye Eye exam: Normal appearance, PERRL. negative: Conjunctival injection, Scleral icterus - ENT ENT exam: Normal exam, Mucous membranes moist Ear exam: Normal external inspection Nasal Exam: Normal inspection Mouth exam: Normal external inspection - Neck Neck exam: Normal inspection, Full ROM. negative: Tenderness - Respiratory Respiratory exam: Normal lung sounds bilaterally. negative: Accessory muscle use, Decreased breath sounds, Respiratory distress, Rhonchi, Stridor, Wheezes - Cardiovascular Cardiovascular Exam: Regular rate, Normal rhythm, Normal heart sounds Peripheral Pulses: 2+: Radial (R), Radial (L) - GI/Abdominal GI/Abdominal exam: Soft, Guarding, Tenderness, Other (The abdomen is soft and non distended, she is tender in the RUQ,Epigastrium, and LUQ. The lower abdomen is very soft and non tender). negative: Distended - Rectal Rectal exam: Deferred Course - Reevaluation(s) Reevaluation #1: EMR reviewed. [facility] reviewed. See HPI for notes EKG 08:14 Sinus rhythm rate of 65, intervals LBBB, Qtc 470, Sulphur L, ST segments consistent with LBBB, no changes since 12/10/17. 04/19/18 08:21 04/19/18 08:23 The CBC was reviewed. The Hgb is 12.6. 04/19/18 08:32 The remaining labs were reviewed. The lactic acid is 0.9 The troponin is normal The CMP is normal except K of 3.4 The lipase is normal The patient reports no improvement of pain with the initial treatment 04/19/18 11:[address] scan was read as no acute process, chronic stable processes, diverticulosis without finding for diverticulitis. 04/19/18 11:16 The patient work up demonstrates findings at her baseline. No since of a new acute process. She still has nausea and pain. I recommend admission. She has had extensive work up at [facility]. No clear advantage to immediate transfer. Transfer was offered but the patient prefers to remain in [place]. She is aware of risks of transfer if any changes occur in her clinical condition. Dr Rivera accepts the patient for inpatient admission and further treatment and monitoring. She is stable for admission to [facility] at this time. Medical Decision Making - Lab Data Result diagrams: 04/19/18 08:00 04/19/18 08:00 Disposition Disposition: Admit Clinical Impression: Abdominal pain Disposition: Still a Patient at [facility] Decision to Admit: Admit from ER Decision to Admit Date: 04/19/18 Decision to Admit Time: 11:11 Condition: (2) Stable Forms: Patient Portal Access Time of Disposition: 11:11 Quality - Quality Measures Quality Measures: N/A - Blood Pressure Screening Does Patient Have Any of the Following: Active Dx of HTN Blood Pressure Classification: Pre-Hypertensive BP Reading Systolic Measurement: 153 Diastolic Measurement: 84 Screening for High Blood Pressure: Patient Exclusion, Hx of HTN [G9744]
[2018-04-19 08:04] LABS: BASO % 0.4 % (0-6); EOS % 2.8 % (0-6); HEMATOCRIT 39.2 % (35.0-47.0); HEMOGLOBIN 12.6 gm/dl (11.6-16.0); LYMPH % 34.9 % (16-45); MEAN CORPUSCULAR HEMOGLOBIN 32.5 pg (27-33); MEAN CORPUSCULAR HGB CONC 32.1 g/dl (32-36); MEAN PLATELET VOLUME 11.2 fl (7.4-10.4); MONO % 8.9 % (0-9); PLATELET COUNT 194 K/uL (130-400); RED BLOOD COUNT 3.88 M/uL (3.80-5.40); WHITE BLOOD COUNT W/O DIFF 5.3 K/uL (4.2-12.2)
[2018-04-19 08:22] LABS: BLOOD UREA NITROGEN 11 mg/dL (8-23); EST GLOMERULAR FILTRATION RATE 56 mL/min; LIPASE 39 U/L (13-60); TOTAL PROTEIN 7.5 g/dL (6.6-8.7)
[2018-04-19 08:24] LABS: GLUCOSE,RANDOM 112 mg/dL (74-109)
[2018-04-19 08:27] LABS: ALB/GLOB RATIO 1.5 (1.1-1.8); ALBUMIN 4.5 g/dL (4.0-5.0); ALKALINE PHOSPHATASE 47 U/L (45-87); ALT/SGPT 14 U/L (<33); AST/SGOT 24 U/L (10.0-35.0); PROTHROMBIN TIME (PATIENT) 19.8 SECONDS (9.5-12.1)
[2018-04-19] MEDS ORDERED: PANTOPRAZOLE SODIUM IV 40 MG VIAL IVP ONE (08:31)
[2018-04-19] MEDS ORDERED: MORPHINE SULFATE 10 MG/ML VIAL IVP ONE (08:31)
[2018-04-19] MEDS ORDERED: METOCLOPRAMIDE HCL 10 MG/2 ML VIAL IVP ONE (11:33)
[2018-04-19] MEDS: POTASSIUM CHLORIDE/D5-0.9%NACL 20 MEQ/1,000 ML BAG IV SCH ×2 (12:19→21:33)
[2018-04-19] MEDS ORDERED: PNEUM 13-VAL/PF 0.5 ML IM ONE (12:48)
--- NOTE | 2018-04-19 13:09 | History & Physical ---
History of Present Illness - Date of Service Date of Service for History & Physical: 04/19/18 - History of Present Illness Admitting Diagnosis: Abdominal pain History of Present Illness: Mrs. Shepherd is a 88 y/o female well known to this service who has ongoing complaint of abdominal pain and nausea. The patient has protracted history of colonoscopies and imaging here at [facility] and at the [facility]. She states that she began having abdominal pain about two days ago which progressively became more acute last night. The patient was recently evaluated at the [facility] outpatient gastroenterology and had a CT abdomen/ pelvis which did not show any significant changes from previous imaging studies. 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 The patient notes having nausea, and a decrease in appetite. She says that her pain does resolve with the use of [place] but she doesn't like using it because it makes her constipated. She denies, fevers, chills, weight loss or blood in her stools. The patient is admitted to the general medical floor for pain control and hydration. PCP: Dr. Betancur Travel Screening - Travel/Exposure Within Last 30 Days Have you traveled within the last 30 days?: No - Travel/Exposure Within Last Year Have you traveled outside the [place] in the last year?: No - Additonal Travel Details Have you been exposed to anyone with a communicable illness?: No - Travel Symptoms Symptom Screening: None Review of Systems Constitutional: Denies: Chills, Fever, Malaise, Weakness Eyes: Denies: Eye discharge, Eye pain, Vision change ENT: Denies: Congestion Respiratory: Denies: Cough Cardiovascular: Denies: Chest pain, Edema, Palpitations, Syncope Endocrine: Denies: Fatigue, Heat or cold intolerance, Polyuria Gastrointestinal: Reports: Abdominal pain, Diarrhea (one soft stool this morning ), Nausea. Denies: Constipation, Vomiting Genitourinary: Denies: Dysuria, Retention Musculoskeletal: Reports: Back pain. Denies: Arthralgia, Joint swelling, Myalgia Skin: Denies: Bruising, Rash Neurological: Denies: Confusion, Headache, Numbness, Vertigo, Weakness Psychiatric: Denies: Anxiety Hematological/Lymphatic: Denies: Blood Clots, Easy bleeding, Easy bruising, Swollen glands Past Medical History - SOCIAL HISTORY Smoking Status: Never smoker Alcohol Use: None Drug Use: None - RESPIRATORY Hx Respiratory Disorders: Yes - CARDIOVASCULAR Hx Cardio Disorders: Yes Hx Abnormal EKG: Yes Hx Cardiac Cath: Yes (2 stents) Hx Edema: Yes (some in ankles-on Lasix) Hx Hypertension: Yes Hx Coronary Artery Disease: Yes (per CT results) - NEURO Hx Neuro Disorders: No Hx Seizures: No - GI Hx GI Disorders: Yes Hx Hiatal Hernia: Yes (1954) Hx Ulcer: Yes - Hx Genitourinary Disorders: Yes Hx UTI: Yes - ENDOCRINE Hx Endocrine Disorders: No Hx Diabetes: No - MUSCULOSKELETAL Hx Musculoskeletal Disorders: Yes Hx Arthritis: Yes (lower back) - PSYCH Hx Psych Problems: Yes Hx Anxiety: Yes Hx Depression: Yes - HEMATOLOGY/ONCOLOGY Hx Hematology/Oncology Disorders: Yes Hx Anemia: Yes Hx Blood Transfusions: Yes (2014) Hx Blood Transfusion Reaction: No Family Medical History Any Significant Family History?: Yes Hx Cancer: Mother *Cancer Comment: uterus Hx Heart Disease: Grandparents Hx Resp Disorders: Father *Resp Comment: TB Hx Stroke: Grandparents H&P Meds/Allergies - Allergies Allergies: Allergies Allergy/AdvReac Type Severity Reaction Status Date / Time Penicillins Allergy Intermediate RASH Verified 11/21/17 16:32 Sulfa (Sulfonamide Allergy Intermediate RASH Verified 11/21/17 16:32 Antibiotics) - Home Medications Previous Rx's Medication Instructions Recorded Lorazepam [Ativan] 1 mg PO BID PRN tablet 06/02/17 Hydrocodone/APAP 5/325Mg [[place] 1 each PO Q6H PRN #10 tab 11/22/17 5Mg/325Mg] - Active Medications Active Medications: Current Medications Atorvastatin Calcium (Lipitor) 80 mg PO QHS JULIO Carvedilol (Coreg) 6.25 mg PO BID JULIO Furosemide (Lasix) 20 mg PO BIDDIUR JULIO Gabapentin (Neurontin) 300 mg PO QAM JULIO Gabapentin (Neurontin) 600 mg PO QHS JUL[facility] Acetaminophen (Ofirmev) 1,000 mg in 100 mls @ 400 mls/hr IVPB NOW ONE Stop: 04/19/18 12:15 Last Admin: 04/19/18 12:21 Dose: Not Given Potassium Chloride/Dextrose/Sod Cl () 20 meq in 1,000 mls @ 125 mls/hr IV Q8H JULIO Last Admin: 04/19/18 12:19 Dose: 125 mls/hr Lorazepam (Ativan) 1 mg PO BID PRN PRN Reason: ANXIETY Morphine Sulfate (Morphine Sulfate) 4 mg IVP Q6H PRN PRN Reason: ABDOMINAL PAIN Non-Formulary Medication (Nabumetone [Nabumetone]) 500 mg PO DAILY [facility] Ondansetron HCl (Zofran) 4 mg IVP Q4H PRN PRN Reason: NAUSEA Pantoprazole Sodium (Protonix Iv) 40 mg IV DAILY [facility] Pneumococcal 13-Valent Conj Vacc (Prevnar 13) 0.5 ml IM .ONCE ONE Stop: 04/19/18 12:49 Senna/Docusate Sodium (Senna Plus) 1 each PO DAILY [facility] Vitamin D (Vitamin D3) 2,000 unit PO DAILY [facility] Physical Exam - Vital Signs Vital Signs: Vital Signs - Last 24 Hrs Temp Pulse Pulse Resp BP BP Pulse Ox 04/19/18 12:52 20 04/19/18 12:22 98.8 F 60 16 144/56 98 04/19/18 11:52 99 04/19/18 11:45 60 18 135/61 95 04/19/18 10:26 62 16 134/60 95 04/19/18 08:56 97.7 F 04/19/18 07:49 70 20 153/84 96 - General General Appearance: Alert, Oriented x3, Cooperative, No acute distress Limitations: No limitations - Head Head exam: Atraumatic, Normal inspection - Eye Eye exam: Normal appearance, PERRL. negative: Conjunctival injection, Scleral icterus - ENT ENT exam: Normal exam, Mucous membranes moist Ear exam: Normal external inspection Nasal Exam: Normal inspection Mouth exam: Normal external inspection - Neck Neck exam: Normal inspection, Full ROM. negative: Tenderness - Respiratory Respiratory exam: Normal lung sounds bilaterally. negative: Accessory muscle use, Decreased breath sounds, Respiratory distress, Rhonchi, Stridor, Wheezes - Cardiovascular Cardiovascular Exam: Regular rate, Normal rhythm, Normal heart sounds Peripheral Pulses: 2+: Radial (R), Radial (L) - GI/Abdominal GI/Abdominal exam: Soft, Guarding, Tenderness, Other (The abdomen is soft and non distended, she is tender in the RUQ,Epigastrium, and LUQ. The lower abdomen is very soft and non tender). negative: Distended - Rectal Rectal exam: Deferred Results - Labs Result Diagrams: 04/19/18 08:00 04/19/18 08:00 Labs Last 24 Hours: Laboratory Results - last 24 hr 04/19/18 04/19/18 04/19/18 08:00 08:00 08:00 WBC 5.3 RBC 3.88 Hgb 12.6 Hct 39.2 MCV 101.0 H MCH 32.5 MCHC 32.1 RDW 15.0 H Plt Count 194 MPV 11.2 H Gran % 53.0 Lymphocytes % 34.9 Monocytes % 8.9 Eosinophils % 2.8 Basophils % 0.4 PT 19.8 H INR 2.0 APTT 32.0 Sodium 144 Potassium 3.4 Chloride 102 Carbon Dioxide 27.0 Anion Gap 15.0 BUN 11 Creatinine 1.0 H Estimated GFR 56 Random Glucose 112 H Lactic Acid Cancelled Calcium 9.2 Total Bilirubin 0.70 AST 24 ALT 14 Alkaline Phosphatase 47 Troponin T < 0.010 Total Protein 7.5 Albumin 4.5 Globulin 3.0 Albumin/Globulin Ratio 1.5 Lipase 39 04/19/18 Unknown WBC RBC Hgb Hct MCV MCH MCHC RDW Plt Count MPV Gran % Lymphocytes % Monocytes % Eosinophils % Basophils % PT INR APTT Sodium Potassium Chloride Carbon Dioxide Anion Gap BUN Creatinine Estimated GFR Random Glucose Lactic Acid 0.9 Calcium Total Bilirubin AST ALT Alkaline Phosphatase Troponin T Total Protein Albumin Globulin Albumin/Globulin Ratio Lipase VTE H&P Assessment - Risk for VTE Risk for VTE: Yes Risk Level: High Risk Assessment Date: 04/19/18 Risk Assessment Time: 13:04 VTE Orders Placed or Will Be Placed: Yes Plan - Detailed Diagnosis and Plan (1) Abdominal pain Current Visit: Yes Status: Acute Qualifiers: Base Code: R10.9 - UNSPECIFIED ABDOMINAL PAIN Comment: 04/19/17: - Recurrent abdominal pain s/p multiple EGD/Colonsocopies. Most recent EGD 2017 only showing duodenitis. - CT abdomen/pelvis 03/31/18: notes scattered aorto bilial atherosclerosis but w /o stenosis, diverticulosis w/o diverticulitis. - Labs; lactic acid 0.9, normal white count. - Pain control with morphine 4mg IV Q6H PRN, Protonix 40mg IV, Zofran 4mg Q4H PRN - IVF: Nacl 0.9% 75mL/hr continuous. - Advance diet as tolerated, currently on clear liquids. (2) Nausea Current Visit: No Status: Acute Base Code: R11.0 - NAUSEA Priority: High Comment: 04/19/18: - Zofran 4mg Q4H PRN (3) Coronary artery disease Current Visit: Yes Status: Chronic Base Code: I25.10 - ATHSCL HEART DISEASE OF [place] CORONARY ARTERY W/O ANG PCTRS Comment: 04/19/18: - EKG: old LBBB, no acute changes noted. - Labs: Tropnins negative - Resume Coreg, Atorvastatin, Lasix (4) Anxiety Current Visit: Yes Status: Acute Base Code: F41.9 - ANXIETY DISORDER, UNSPECIFIED Comment: 04/19/18: - Resume home dose of xanax. (5) At risk for deep venous thrombosis Current Visit: No Status: Acute Base Code: Z91.89 - OTH PERSONAL RISK FACTORS, NOT ELSEWHERE CLASSIFIED Comment: 04/19/18: hx of a-fib and chronic DVTs. 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 - Statring Warfarin 5mg QD - PT/INR ordered. (6) DNR (do not resuscitate) discussion Current Visit: No Status: Acute Base Code: Z71.89 - OTHER SPECIFIED COUNSELING Comment: 04/19/18: - Resuscitation status reviewed from ED and again on floor. - Pt remains DNR status.
[2018-04-19] MEDS: LORAZEPAM 0.5 MG TABLET PO PRN ×2 (14:11→21:15)
[2018-04-19] MEDS: GABAPENTIN 300 MG CAPSULE PO SCH ×2 (14:35→21:14)
[2018-04-19] MEDS: CARVEDILOL 3.125 MG TABLET PO SCH ×2 (14:35→21:18)
[2018-04-19] MEDS: WARFARIN 5 MG TAB PO SCH (16:21)
[2018-04-19] MEDS: FUROSEMIDE 20 MG TABLET PO SCH (16:21)
[2018-04-19] MEDS: ONDANSETRON HCL IV 4 MG/2 ML VIAL IVP PRN ×2 (16:22→20:16)
[2018-04-19] MEDS: MORPHINE SULFATE 10 MG/ML VIAL IVP PRN ×2 (16:22→21:15)
[2018-04-19] MEDS: ATORVASTATIN 20 MG TABLET PO SCH (21:13)
[2018-04-19] MEDS ORDERED: NITROGLYCERIN 0.4MG SL TABLET #25 BTL SL ONE (21:46)
[2018-04-19] MEDS ORDERED: NITROGLYCERIN 0.4MG SL TABLET #25 BTL SL PRN (21:52)
[2018-04-20 07:37] LABS: INR 2.7; PROTHROMBIN TIME (PATIENT) 26.9 SECONDS (9.5-12.1)
[2018-04-20 07:40] LABS: BASO % 0.2 % (0-6); EOS % 0.6 % (0-6); GRAN % 52.1 % (47-80); HEMATOCRIT 32.8 % (35.0-47.0); HEMOGLOBIN 10.3 gm/dl (11.6-16.0); LYMPH % 35.9 % (16-45); MEAN CELL VOLUME 103.1 fl (81-97); MEAN CORPUSCULAR HGB CONC 31.4 g/dl (32-36); MONO % 11.2 % (0-9); PLATELET COUNT 168 K/uL (130-400); RED BLOOD COUNT 3.18 M/uL (3.80-5.40); RED CELL DISTRIBUTION WIDTH 15.1 % (11.5-14.5); WHITE BLOOD COUNT W/O DIFF 4.6 K/uL (4.2-12.2)
[2018-04-20 07:48] LABS: MEAN CORPUSCULAR HEMOGLOBIN 32.3 pg (27-33)
[2018-04-20] MEDS: FUROSEMIDE 20 MG TABLET PO SCH ×2 (09:55→16:39)
[2018-04-20] MEDS: CARVEDILOL 3.125 MG TABLET PO SCH ×2 (09:55→21:27)
[2018-04-20] MEDS: NAPROXEN 250 MG TABLET PO SCH (09:55)
[2018-04-20] MEDS: PANTOPRAZOLE SODIUM IV 40 MG VIAL IV SCH (09:56)
[2018-04-20] MEDS: GABAPENTIN 300 MG CAPSULE PO SCH ×2 (09:56→21:26)
[2018-04-20] MEDS: SENNOSIDES/DOCUSATE SODIUM UD CAPSULE PO SCH (09:56)
[2018-04-20] MEDS: CHOLECALCIFEROL 1,000 UNIT TABLET PO SCH (09:57)
[2018-04-20] MEDS: POTASSIUM CHLORIDE/D5-0.9%NACL 20 MEQ/1,000 ML BAG IV SCH (10:34)
--- NOTE | 2018-04-20 10:49 | Physician Progress Note ---
Subjective - Date Date of Physician Progress Note: 04/20/18 - Subjective Subjective Comment: The patient still complains of abdominal pain this morning. She says that she has not eaten much because she feels nauseated. Events last evening: Nursing call at 9:40pm: The patient complained of chest pain. ED physician Dr. Kartik Felder attended and examined the patient. ECG: no acute changes, old LBBB noted. Troponins negative x 2. 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 Location: Abdomen Radiation: Abdomen Severity scale (1-10): 5 Quality: Aching Consistency: Constant Improves with: Cold therapy, Medication Worsens with: None Associated symptoms: Denies other symptoms Objective - Vital Signs Vital Signs: Vital Signs - Last 24 Hrs Temp Pulse Pulse Pulse Resp BP BP 04/20/18 08:00 98.8 F 57 L 18 150/52 04/19/18 23:03 98.1 F 103 H 15 155/85 04/19/18 23:02 85 20 142/74 04/19/18 21:00 58 L 18 04/19/18 16:00 98.7 F 54 L 20 136/88 04/19/18 12:52 20 04/19/18 12:22 98.8 F 60 16 144/56 04/19/18 11:52 04/19/18 11:45 60 18 135/61 Pulse Ox 04/20/18 08:00 93 L 04/19/18 23:03 98 04/19/18 23:02 100 04/19/18 21:00 04/19/18 16:00 94 L 04/19/18 12:52 04/19/18 12:22 98 04/19/18 11:52 99 04/19/18 11:45 95 - General General Appearance: Alert, Oriented x3, Cooperative, No acute distress Limitations: No limitations - Head Head exam: Atraumatic, Normal inspection - Eye Eye exam: Normal appearance, PERRL. negative: Conjunctival injection, Scleral icterus - ENT ENT exam: Normal exam, Mucous membranes moist Ear exam: Normal external inspection Nasal Exam: Normal inspection Mouth exam: Normal external inspection - Neck Neck exam: Normal inspection, Full ROM. negative: Tenderness - Respiratory Respiratory exam: Normal lung sounds bilaterally. negative: Accessory muscle use, Decreased breath sounds, Respiratory distress, Rhonchi, Stridor, Wheezes - Cardiovascular Cardiovascular Exam: Regular rate, Normal rhythm, Normal heart sounds Peripheral Pulses: 2+: Radial (R), Radial (L) - GI/Abdominal GI/Abdominal exam: Soft, Guarding, Tenderness, Other (The abdomen is soft and non distended, she is tender in the RUQ,Epigastrium, and LUQ. The lower abdomen is very soft and non tender). negative: Distended - Rectal Rectal exam: Deferred Assessment and Plan - Assessment and Plan (1) Abdominal pain Current Visit: Yes Status: Acute Qualifiers: Base Code: R10.9 - UNSPECIFIED ABDOMINAL PAIN Comment: 04/20/17: - Recurrent abdominal pain s/p multiple EGD/Colonsocopies. Most recent EGD 2017 only showing duodenitis. - CT abdomen/pelvis 03/31/18: notes scattered aorto bilial atherosclerosis but w /o stenosis, diverticulosis w/o diverticulitis. - Labs; lactic acid 0.9, normal white count. No changes in CBC w/ diff. - Pain control with morphine 4mg IV Q6H PRN, Protonix 40mg IV, Zofran 4mg Q4H PRN - IVF: Nacl 0.9% 75mL/hr continuous. - Advance diet as tolerated, currently on clear liquids. (2) Nausea Current Visit: No Status: Acute Base Code: R11.0 - NAUSEA Priority: High Comment: 04/20/18: - Pt continuing to have nausea. - Zofran 4mg Q4H PRN (3) Coronary artery disease Current Visit: Yes Status: Chronic Base Code: I25.10 - ATHSCL HEART DISEASE OF [place] CORONARY ARTERY W/O ANG PCTRS Comment: 04/20/18: - EKG: old LBBB, no acute changes noted. Repeat ECG: LBBB, no new acute changes. - Labs: Troponins negative x 3, - Resume Coreg, Atorvastatin, Lasix, Nitrostat 0.4mg PRN. (4) Anxiety Current Visit: Yes Status: Acute Base Code: F41.9 - ANXIETY DISORDER, UNSPECIFIED Comment: 04/20/18: - Xanax. (5) At risk for deep venous thrombosis Current Visit: No Status: Acute Base Code: Z91.89 - OTH PERSONAL RISK FACTORS, NOT ELSEWHERE CLASSIFIED Comment: 04/20/18: hx of a-fib and chronic DVTs. 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 - Warfarin 5mg QD - INR 2.7 (6) DNR (do not resuscitate) discussion Current Visit: No Status: Acute Base Code: Z71.89 - OTHER SPECIFIED COUNSELING Comment: 04/20/18: - Resuscitation status reviewed from ED and again on floor. - Pt remains DNR status. - Disposition Disposition: I had an extensive conversation is with the patient's daughter Anali who I spoke to on the patient's last admission. She states that the patient has a lot of anxiety about being home alone. She confirms that the patient does get pain control using [place] but she gets concerned about dependence and also her constipation. She agrees that she perhaps needs more home care to help with her medication management and other daily chores. She is interested in what terminal worker may be able to assist with. She can be reached at [phone]. Results - Labs Result Diagrams: 04/20/18 07:15 04/19/18 08:00 Labs Last 24 Hours: Laboratory Results - last 24 hr 04/19/18 04/20/18 04/20/18 22:05 01:55 07:15 WBC 4.6 RBC 3.18 L Hgb 10.3 L Hct 32.8 L MCV 103.1 H MCH 32.3 MCHC 31.4 L RDW 15.1 H Plt Count 168 MPV 11.0 H Gran % 52.1 Lymphocytes % 35.9 Monocytes % 11.2 H Eosinophils % 0.6 Basophils % 0.2 PT INR Troponin T < 0.010 < 0.010 04/20/18 07:15 WBC RBC Hgb Hct MCV MCH MCHC RDW Plt Count MPV Gran % Lymphocytes % Monocytes % Eosinophils % Basophils % PT 26.9 H INR 2.7 Troponin T DVT/PE Assessment - Risk for VTE Risk for VTE: No Risk Level: High Risk Assessment Date: 04/19/18 Risk Assessment Time: 13:04 VTE Orders Placed or Will Be Placed: Yes - Active Medicaitons Current Medications: Current Medications Atorvastatin Calcium (Lipitor) 80 mg PO QHS [facility] Last Admin: 04/19/18 21:13 Dose: 80 mg Carvedilol (Coreg) 6.25 mg PO BID [facility] Last Admin: 04/20/18 09:55 Dose: 6.25 mg Furosemide (Lasix) 20 mg PO BIDDIUR [facility] Last Admin: 04/20/18 09:55 Dose: 20 mg Gabapentin (Neurontin) 300 mg PO QAM [facility] Last Admin: 04/20/18 09:56 Dose: 300 mg Gabapentin (Neurontin) 600 mg PO QHS [facility] Last Admin: 04/19/18 21:14 Dose: 600 mg Lorazepam (Ativan) 1 mg PO BID PRN PRN Reason: ANXIETY Last Admin: 04/19/18 21:15 Dose: 1 mg Morphine Sulfate (Morphine Sulfate) 4 mg IVP Q6H PRN PRN Reason: ABDOMINAL PAIN Last Admin: 04/19/18 21:15 Dose: 4 mg Naproxen (Naprosyn) 250 mg PO DAILY [facility] Last Admin: 04/20/18 09:55 Dose: 250 mg Nitroglycerin (Nitrostat 0.4mg) 0.4 mg SL Q5MIN PRN PRN Reason: CHEST PAIN Ondansetron HCl (Zofran) 4 mg IVP Q4H PRN PRN Reason: NAUSEA Last Admin: 04/19/18 20:16 Dose: 4 mg Pantoprazole Sodium (Protonix Iv) 40 mg IV DAILY [facility] Last Admin: 04/20/18 09:56 Dose: 40 mg Senna/Docusate Sodium (Senna Plus) 1 each PO DAILY [facility] Last Admin: 04/20/18 09:56 Dose: 1 each Sodium Chloride () 75 ml IV CONT [facility] Vitamin D (Vitamin D3) 2,000 unit PO DAILY [facility] Last Admin: 04/20/18 09:57 Dose: 2,000 unit Warfarin Sodium (Coumadin) 5 mg PO [id number] [facility] Last Admin: 04/19/18 16:21 Dose: 5 mg AMI Plan - Labs Result Diagrams: 04/20/18 07:15 04/19/18 08:00
[2018-04-20] MEDS: WARFARIN 5 MG TAB PO SCH (16:38)
[2018-04-20] MEDS: 0.9 % SODIUM CHLORIDE 1,000 ML BAG IV SCH (16:39)
--- NOTE | 2018-04-20 19:04 | CT SCAN REPORT ---
EXAM: CT SCAN ABDOMEN/PELVIS W CONTRAST HISTORY: ABDOMINAL PAIN AND NAUSEA FOR TWO DAYS. HISTORY FROM PREVIOUS IMAGING INDICATES PRIOR CHOLECYSTECTOMY, HYSTERECTOMY, AND UMBILICAL HERNIA REPAIR. TECHNIQUE: CT abdomen and pelvis performed with 100 mL Omnipaque-300 intravenous contrast. Oral contrast also provided. COMPARISON: CT abdomen and pelvis 02/21/2018. FINDINGS: Dense coronary artery calcification and/or stent. Cardiac valvular calcifications. Scattered atelectasis or scarring in both lung bases. Mildly dilated appearance of the extra and intrahepatic bile ducts, a similar appearance was seen on 12/10/2017 comparison. The liver appears otherwise unremarkable. Unremarkable appearance of the pancreas, adrenal glands, and spleen. The gallbladder appears absent. Excreted contrast within both renal collecting systems, likely related to delayed image acquisition related to contrast bolus injection. No focal renal abnormalities are identified. Excreted contrast is seen within the urinary bladder lumen, bladder appears otherwise unremarkable. Diffuse colonic diverticulosis without evidence of acute diverticulitis. No focal colonic thickening or inflammatory change. Stomach and small bowel are nondilated. No free air or free fluid. Stable mildly enlarged left periaortic retroperitoneal lymph nodes. Aortoiliac arterial access is calcified and tortuous without aneurysmal dilation. IVC filter within a possible atretic, collapsed inferior vena cava below the level of the renal veins. Left iliac vein stent is noted. Diminutive appearance of the right iliac vein. Redemonstration of prominent ventral abdominal wall collateral vessels. Uterus appears absent. No focal adnexal abnormality is demonstrated. Multilevel thoracolumbar spine degenerative findings. No acute osseous findings. IMPRESSION: 1. NO ACUTE FINDINGS IN THE ABDOMEN OR PELVIS. 2. MILD INTRA AND EXTRAHEPATIC BILIARY DUCTAL DILATION, SIMILAR IN APPEARANCE FROM CT EXAMINATION ON 12/10/2017; MAY REPRESENT FUNCTIONAL CHANGE RELATED TO PATIENT AGE WELL PRIOR CHOLECYSTECTOMY. 3. DIFFUSE COLONIC DIVERTICULOSIS WITHOUT EVIDENCE OF ACUTE DIVERTICULITIS. 4. IVC FILTER AND LEFT ILIAC VEIN STENT, SEEN PREVIOUSLY. REDEMONSTRATION OF PROMINENT SUPERFICIAL ABDOMINAL WALL COLLATERAL VESSELS. 5. LIMITED POSTCONTRAST ASSESSMENT OF THE SOLID ORGANS DUE TO DELAYED IMAGING ACQUISITION RELATIVE TO CONTRAST BOLUS INJECTION. 6. STABLE MILDLY ENLARGED RETROPERITONEAL LYMPH NODES, NONSPECIFIC. JOB NUMBER: [id number] MTDD
[2018-04-20] MEDS: MORPHINE SULFATE 10 MG/ML VIAL IVP PRN (19:25)
[2018-04-20] MEDS: LORAZEPAM 0.5 MG TABLET PO PRN (19:26)
[2018-04-20] MEDS: ONDANSETRON HCL IV 4 MG/2 ML VIAL IVP PRN (20:37)
[2018-04-20] MEDS: ATORVASTATIN 20 MG TABLET PO SCH (21:26)
[2018-04-21] MEDS: 0.9 % SODIUM CHLORIDE 1,000 ML BAG IV SCH (05:13)
[2018-04-21] MEDS: CARVEDILOL 3.125 MG TABLET PO SCH (09:28)
[2018-04-21] MEDS: FUROSEMIDE 20 MG TABLET PO SCH (09:29)
[2018-04-21] MEDS: GABAPENTIN 300 MG CAPSULE PO SCH (09:31)
[2018-04-21] MEDS: SENNOSIDES/DOCUSATE SODIUM UD CAPSULE PO SCH (09:31)
[2018-04-21] MEDS: CHOLECALCIFEROL 1,000 UNIT TABLET PO SCH (09:31)
[2018-04-21] MEDS: NAPROXEN 250 MG TABLET PO SCH (09:32)
[2018-04-21] MEDS: PANTOPRAZOLE SODIUM IV 40 MG VIAL IV SCH (09:32)
[2018-04-21] MEDS: LORAZEPAM 0.5 MG TABLET PO PRN (09:37)
--- NOTE | 2018-04-21 11:03 | Discharge Summary ---
Providers Discharge Summary Date: 04/21/18 Date of admission: 04/19/18 11:50 Attending physician: NIRMALA RIVERA Primary care physician: ISRRAEL BETANCUR D.O. Physical Exam - Vital Signs Vital Signs: Vital Signs - Last 24 Hrs Temp Pulse Pulse Resp BP Pulse Ox 04/21/18 08:00 97 F L 58 L 18 134/59 92 L 04/20/18 21:00 54 L 18 04/20/18 16:00 98.1 F 60 60 20 160/69 95 04/20/18 12:40 98.1 F 54 L 18 132/51 94 L - General General Appearance: Alert, Oriented x3, Cooperative, No acute distress Limitations: No limitations - Head Head exam: Atraumatic, Normal inspection - Eye Eye exam: Normal appearance, PERRL. negative: Conjunctival injection, Scleral icterus - ENT ENT exam: Normal exam, Mucous membranes moist Ear exam: Normal external inspection Nasal Exam: Normal inspection Mouth exam: Normal external inspection - Neck Neck exam: Normal inspection, Full ROM. negative: Tenderness - Respiratory Respiratory exam: Normal lung sounds bilaterally. negative: Accessory muscle use, Decreased breath sounds, Respiratory distress, Rhonchi, Stridor, Wheezes - Cardiovascular Cardiovascular Exam: Regular rate, Normal rhythm, Normal heart sounds Peripheral Pulses: 2+: Radial (R), Radial (L) - GI/Abdominal GI/Abdominal exam: Soft, Guarding, Tenderness, Other (The abdomen is soft and non distended, she is tender in the RUQ,Epigastrium, and LUQ. The lower abdomen is very soft and non tender). negative: Distended - Rectal Rectal exam: Deferred Hospitalization - Hospitalization Admission Diagnosis: Abdominal pain - Problem List/Discharge Diagnosis (1) Abdominal pain Current Visit: Yes Status: Acute Discharge Diagnosis: Base Code: R10.9 - UNSPECIFIED ABDOMINAL PAIN Comment: 04/21/17: - Recurrent abdominal pain s/p multiple EGD/Colonsocopies. Most recent EGD 2017 only showing duodenitis. - CT abdomen/pelvis 03/31/18: notes scattered aorto bilial atherosclerosis but w /o stenosis, diverticulosis w/o diverticulitis. - Labs; lactic acid 0.9, normal white count. No changes in CBC w/ diff. - Pain control with morphine 4mg IV Q6H PRN, Protonix 40mg IV, Zofran 4mg Q4H PRN - IVF: Nacl 0.9% 75mL/hr continuous. - Advance diet as tolerated, currently on clear liquids and tolerated well this morning. (2) Nausea Current Visit: No Status: Acute Base Code: R11.0 - NAUSEA Comment: 04/21/18: - Pt continuing to have nausea. - Zofran 4mg Q4H PRN (3) Coronary artery disease Current Visit: Yes Status: Chronic Base Code: I25.10 - ATHSCL HEART DISEASE OF [place] CORONARY ARTERY W/O ANG PCTRS Comment: 04/21/18: - EKG: old LBBB, no acute changes noted. Repeat ECG: LBBB, no new acute changes. - Labs: Troponins negative x 3, - Resume Coreg, Atorvastatin, Lasix, Nitrostat 0.4mg PRN. (4) Anxiety Current Visit: Yes Status: Acute Base Code: F41.9 - ANXIETY DISORDER, UNSPECIFIED Comment: 04/21/18: - Xanax. (5) At risk for deep venous thrombosis Current Visit: No Status: Acute Base Code: Z91.89 - OTH PERSONAL RISK FACTORS, NOT ELSEWHERE CLASSIFIED Comment: 04/20/18: hx of a-fib and chronic DVTs. 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 - Warfarin 5mg QD - INR 2.7 (6) DNR (do not resuscitate) discussion Current Visit: No Status: Acute Base Code: Z71.89 - OTHER SPECIFIED COUNSELING Comment: 04/21/18: - Resuscitation status reviewed from ED and again on floor. - Pt remains DNR status. - Disposition I had an extensive conversation is with the patient's daughter Anali who I spoke to on the patient's last admission. She states that the patient has a lot of anxiety about being home alone. She confirms that the patient does get pain control using [place] but she gets concerned about dependence and also her constipation. She agrees that she perhaps needs more home care to help with her medication management and other daily chores. She is interested in what home economics extension worker may be able to assist with. She can be reached at [phone]. - Hospitalization Course Disposition: Home, Self-Care Hospital Course: Mrs. Shepherd is a 88 y/o female well known to this service who has ongoing complaint of abdominal pain and nausea. The patient has protracted history of colonoscopies and imaging here at [facility] and at the [facility]. She states that she began having abdominal pain about two days ago which progressively became more acute last night. The patient was recently evaluated at the [facility] outpatient gastroenterology and had a CT abdomen/ pelvis which did not show any significant changes from previous imaging studies. 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 The patient notes having nausea, and a decrease in appetite. She says that her pain does resolve with the use of [place] but she doesn't like using it because it makes her constipated. She denies, fevers, chills, weight loss or blood in her stools. The patient is admitted to the general medical floor for pain control and hydration. 04/20-04/21: The patient had an episode of tachycardia with heart rate in the 130s on 04/19 which was sustained for about 15 minutes. Later that evening the patient reported chest pain but repeat ECG was negative for acute changes and the troponins trended were negative. Her symptoms improved and she did not have any further complaint while admitted. The patient was able to tolerate clear liquid diet without abdominal pain and her nausea is controlled with Zofran. She appears more comfortable and had no indication of worsening of symptoms on days #2/#3 of admission. PCP: Dr. Betnacur Procedures: Imaging and X-Rays 04/19/18 07:49 ABDOMEN/PELVIS W CONTRAST [CT] Stat Cardiology Procedures 04/19/18 07:49 Learning Strategist NOW 04/19/18 07:50 EKG NOW 04/19/18 21:51 EKG NOW Abnormal Labs: Abnormal Lab Results 04/19/18 04/19/18 04/19/18 Range/Units 08:00 08:00 08:00 RBC (3.80-5.40) M/uL Hgb (11.6-16.0) gm/dl Hct (35.0-47.0) % MCV 101.0 H (81-97) fl MCHC (32-36) g/dl RDW 15.0 H (11.5-14.5) % MPV 11.2 H (7.4-10.4) fl Monocytes % (0-9) % PT 19.8 H (9.5-12.1) SECONDS Creatinine 1.0 H (0.5-0.9) mg/dL Random Glucose 112 H (74-109) mg/dL 04/20/18 04/20/18 Range/Units 07:15 07:15 RBC 3.18 L (3.80-5.40) M/uL Hgb 10.3 L (11.6-16.0) gm/dl Hct 32.8 L (35.0-47.0) % MCV 103.1 H (81-97) fl MCHC 31.4 L (32-36) g/dl RDW 15.1 H (11.5-14.5) % MPV 11.0 H (7.4-10.4) fl Monocytes % 11.2 H (0-9) % PT 26.9 H (9.5-12.1) SECONDS Creatinine (0.5-0.9) mg/dL Random Glucose (74-109) mg/dL Condition at Discharge: (2) Stable Discharge Medications - Discharge Medications Prescriptions: Omeprazole 20 mg PO BID #20 tablet. Ondansetron [Zofran Odt] 4 mg PO Q8H #14 tab.rapdis Home Medications: Ambulatory Orders Carvedilol 6.25 mg PO BID 06/19/14 [Last Taken 1 Day Ago ~04/28/17] Furosemide 20 mg PO BID 06/19/14 [Last Taken 1 Day Ago ~04/28/17] Atorvastatin Calcium [Lipitor] 80 mg PO QHS 03/30/15 [Last Taken 1 Day Ago ~] Melatonin 10 mg PO QHS 12/17/15 [Last Taken 1 Day Ago ~04/28/17] Sennosides [Senokot] 8.6 mg PO DAILY 12/17/15 [Last Taken 1 Day Ago ~04/28/17] Nabumetone 500 mg PO DAILY 04/05/17 [Last Taken 1 Day Ago ~04/28/17] Cholecalciferol (Vitamin D3) [Vitamin D3] 2,000 unit PO DAILY 06/01/17 [Last Taken Unknown] Lorazepam [Ativan] 1 mg PO BID PRN tablet 06/02/17 [Last Taken Unknown] Hydrocodone/APAP 5/325Mg [[place] 5Mg/325Mg] 1 each PO Q6H PRN #10 tab 11/22/17 [ Last Taken Unknown] Warfarin Sodium 7 mg PO QHS 11/22/17 [Last Taken Unknown] Gabapentin [Neurontin] 600 mg PO QHS 12/10/17 [Last Taken Unknown] Gabapentin [Neurontin] 300 mg PO QAM capsule 04/21/18 [Last Taken Unknown] Omeprazole 20 mg PO BID #20 tablet. 04/21/18 [Last Taken Unknown] Ondansetron [Zofran Odt] 4 mg PO Q8H #14 tab.rapdis 04/21/18 [Last Taken Unknown ] Discharge Plan - Discharge Instructions Activity at Discharge: Resume Usual Activities As Tolerated Diet at Discharge: Advance to Usual Diet Additional Instructions: Resume taking [place] as prescribed for your abdominal pain. You may use Sennokot as a stool softener daily and Miralax when constipated. Begin taking Zofran 4mg every 8 hours as needed when you feel nauseated. Gradually increase your diet to normal solid foods but over the next few days try to take in liquids and softer foods. Follow up with Dr. Betancur within 5-7 days to discuss your abdominal pain and management. Dr. Rivera will discuss with him and SW ways in which we can support your pain management and continued home care. Quality Measures - Quality Measures Quality Measures: Atrial Fibrillation & Atrial Flutter: Chronic Anticoagulation Therapy, Advance Directives, Coronary Artery Disease: Antiplatelet Therapy, Documentation of Current Medications in Medical Record, Elder Maltreatment Screen and Follow-Up Plan, Screening for High Blood Pressure and F/U Documented - Current Medications Quality Measure: Measure #130: Documentation of Current Medications Documentation of Current Medications: <Current Medications Documented/Reviewed> [G8452] - Blood Pressure Screening Quality Measure: Screening for High Blood Pressure and Follow-Up Documented Does Patient Have Any of the Following: Active Dx of HTN Blood Pressure Classification: Pre-Hypertensive BP Reading Systolic Measurement: 135 Diastolic Measurement: 61 Screening for High Blood Pressure: Patient Exclusion, Hx of HTN [G9744] - Atrial Fibrillation and Atrial Flutter Quality Measure: Atrial Fibrillation & Atrial Flutter: Chronic Anticoagulation Therapy Does Patient Have Any of the Following: No CHADS2 Risk Stratification: Age 75 or Greater, Hypertension Risk Stratification Summary: One or more high risk factors OR more than one moderate risk factor exists. [G8972] Anticoagulation Therapy: <Oral anticoagulant Prescribed> [O4916] - Coronary Artery Disease Quality Measure: Measure #6: Coronary Artery Disease (CAD) Antiplatelet Therapy: Not Prescribed for Medical Reason [4086F with 1P] Medical Reason for NOT Prescribing Antiplatelet: On Warfarin Therapy - Advance Directives Quality Measure: Measure #47: Care Plan Advance Directives Established: Yes (DNR) Advance Directives Information Provided To Patient: Already Provided Advance Directives on File: Yes Living Will: Yes Power of Technical Support Technician: Yes Power of Technical Support Technician Name: Anali- elzbieta Advance Care Planning: <Care Plan/Decision Maker Documented; Discussed & Documented> [2253F] - Elder Abuse Suspicion Index Screening: Elder Abuse Suspicion Index Screening Rely on people for bathing, dressing, shopping, banking, etc: No Prevented from getting food, clothes, medication, etc: No Made to feel shamed or threatened by someone: No Forced to sign papers or use money against will: No Feel afraid, touched in ways not wanted or hurt physically: No Poor eye contact, withdrawn, malnourished, cuts or bruises: No Screening Result: Negative result EASI Reference Information: Rebeca SAMUESL, Danny C, Shay D, Darwin Drew.Development and validation of a tool to assist physicians identification of elder abuse: The Elder Abuse Suspicion Index (EASI ). Journal of Elder Abuse and Neglect, 2008; 20 (3): 276-300. - Elder Maltreatment Screen Quality Measures: Elder Maltreatment Screen and Follow-Up Plan Elder Maltreatment Screen: <Negative, No Follow-Up Plan Required> [G8734]
== END 2018-04-21 13:17 | disposition home or self-care (01) ==
LOC: ER 07:47 → MEDSURG 11:50 → INTOOBSV 11:50
PROVIDERS: ADMIT Internal Medicine; ATTEND Internal Medicine
DX: R10.13 Epigastric pain (principal); R10.12 Left upper quadrant pain; R10.11 Right upper quadrant pain; R11.0 Nausea; K57.90 Diverticulosis of intestine, part unspecified, without perforation or abscess without bleeding; D64.9 Anemia, unspecified; I10 Essential (primary) hypertension; R60.1 Generalized edema; M46.96 Unspecified inflammatory spondylopathy, lumbar region; Z66 Do not resuscitate; Z86.14 Personal history of Methicillin resistant Staphylococcus aureus infection; Z95.5 Presence of coronary angioplasty implant and graft; Z90.49 Acquired absence of other specified parts of digestive tract; Z87.19 Personal history of other diseases of the digestive system; Z86.718 Personal history of other venous thrombosis and embolism; Z95.828 Presence of other vascular implants and grafts; F41.9 Anxiety disorder, unspecified; I48.91 Unspecified atrial fibrillation
CPT/HCPCS: 83605; 83690; 85025 ×2; 85730; 85610 ×2; 80053; 84484 ×2; 74177; 93005; 93010; G0378 ×3; Q9967; J2405 ×2; J2270 ×2; 90670; 96365; 96374; 96375; 96376; 99217; 99220; 99225; 99285; C9113; J2765; J3480; J7030

== ENCOUNTER 2018-07-02 11:11 | Emergency (ER) | payer MEDICARE, BC ==
--- NOTE | 2018-07-02 11:26 | Emergency Department Record ---
History of Present Illness - General Chief complaint: Extremity Problem Stated complaint: RIGHT ARM PAIN Time Seen by Provider: 07/02/18 11:12 Source: Patient Mode of Arrival: Ambulatory Limitations: No limitations - History of Present Illness Initial comments: 88 yo female presents with right mid humerus pain and a small swollen area. No redness, fever, numbness, rash or known trauma. She woke with the pain. She noted a small nodular swollen area mid arm. No shoulder joint or elbow joint pain. No known DVT or prior fracture of the RUE. MD Complaint: Extremity pain, Extremity swelling Onset/Timin -: Days(s) (3) Location: Right, Arm History of Same: No -: Yes Arthralgia Quality: Aching Consistency: Constant Improves with: Nothing Worsens with: Palpation, Weight bearing Associated Symptoms: Denies other symptoms - Related Data Previous Rx's Medication Instructions Recorded Lorazepam [Ativan] 1 mg PO BID PRN tablet 06/02/17 Hydrocodone/APAP 5/325Mg [[place] 1 each PO Q6H PRN #10 tab 11/22/17 5Mg/325Mg] Gabapentin [Neurontin] 300 mg PO QAM capsule 04/21/18 Omeprazole 20 mg PO BID #20 tablet. 04/21/18 Ondansetron [Zofran Odt] 4 mg PO Q8H #14 tab.rapdis 04/21/18 Allergies Allergy/AdvReac Type Severity Reaction Status Date / Time Penicillins Allergy Intermediate RASH Verified 07/02/18 11:20 Sulfa (Sulfonamide Allergy Intermediate RASH Verified 07/02/18 11:20 Antibiotics) Travel Screening - Travel/Exposure Within Last 30 Days Have you traveled within the last 30 days?: No Review of Systems Constitutional: Denies: Chills, Fever, Malaise, Weakness Eyes: Denies: Eye discharge ENT: Denies: Congestion, Throat pain Respiratory: Denies: Cough Cardiovascular: Denies: Chest pain, Palpitations, Syncope Endocrine: Denies: Fatigue Gastrointestinal: Denies: Abdominal pain, Diarrhea, Nausea, Vomiting Genitourinary: Denies: Dysuria, Urgency Musculoskeletal: Reports: As per HPI, Arthralgia, Myalgia Skin: Denies: Bruising, Change in color, Rash Neurological: Denies: Headache, Numbness, Weakness Psychiatric: Denies: Anxiety Hematological/Lymphatic: Denies: Blood Clots, Easy bleeding, Easy bruising Past Medical History - SOCIAL HISTORY Smoking Status: Never smoker Drug Use: None - RESPIRATORY Hx Respiratory Disorders: Yes - CARDIOVASCULAR Hx Cardio Disorders: Yes Hx Abnormal EKG: Yes Hx Cardiac Cath: Yes (2 stents) Hx Edema: Yes (some in ankles-on Lasix) Hx Hypertension: Yes Hx Coronary Artery Disease: Yes (per CT results) - NEURO Hx Neuro Disorders: No Hx Seizures: No - GI Hx GI Disorders: Yes Hx Hiatal Hernia: Yes (1956) Hx Ulcer: Yes - Hx Genitourinary Disorders: Yes Hx UTI: Yes - ENDOCRINE Hx Endocrine Disorders: No Hx Diabetes: No - MUSCULOSKELETAL Hx Musculoskeletal Disorders: Yes Hx Arthritis: Yes (lower back) - PSYCH Hx Psych Problems: Yes Hx Anxiety: Yes Hx Depression: Yes - HEMATOLOGY/ONCOLOGY Hx Hematology/Oncology Disorders: Yes Hx Anemia: Yes Hx Blood Transfusions: Yes (2014) Hx Blood Transfusion Reaction: No Family Medical History Hx Cancer: Mother *Cancer Comment: uterus Hx Heart Disease: Grandparents Hx Resp Disorders: Father *Resp Comment: TB Hx Stroke: Grandparents Physical Exam - General General Appearance: Alert, Oriented x3, Cooperative, No acute distress Limitations: No limitations - Head Head exam: Atraumatic, Normal inspection - Eye Eye exam: Normal appearance. negative: Conjunctival injection - ENT ENT exam: Normal exam Ear exam: Normal external inspection Nasal Exam: Normal inspection Mouth exam: Normal external inspection - Neck Neck exam: Normal inspection - Respiratory Respiratory exam: Normal lung sounds bilaterally. negative: Respiratory distress - Cardiovascular Cardiovascular Exam: Regular rate, Normal rhythm, Normal heart sounds Peripheral Pulses: 2+: Radial (R) - Extremities Extremities exam: Normal inspection, Normal capillary refill, Tenderness. negative: Full ROM, Joint swelling Image of Full Body: 1 - No pain with internal and external rotation of the humeral joint. Pain with abduction. Tender mid latera with possible 2cm nodular area, no rash, no warmth, no redness, no swelling comparted to the left. 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 negative: Altered, Motor sensory deficit - Psychiatric Psychiatric exam: Normal affect, Normal mood. negative: Agitated, Anxious - Skin Skin exam: Dry, Intact, Normal color, Warm. negative: Erythema Course - Reevaluation(s) Reevaluation #1: The patient declined pain medication prior to radiologic studies No outward signs of infection, trauma or asymmetry vs the left. 07/02/18 The humerus XR was reviewed. No acute abnormality of the humerus. 07/02/18 12:17 07/02/18 12:57 The venous doppler is negative for thrombus Disposition Disposition: Discharge Clinical Impression: Right arm pain Disposition: Home, Self-Care Condition: (1) Good Instructions: Tendinitis (ED), Arm Pain (ED) Additional Instructions: Call your doctor for the next available follow up appointment to recheck the pain in your arm Return to the ER for a recheck if worse, any new concerns or questions Review this ER visit and the tests performed with your family doctor Forms: Patient Portal Access Time of Disposition: 12:59 Quality - Quality Measures Quality Measures: N/A - Blood Pressure Screening Does Patient Have Any of the Following: No Blood Pressure Classification: Pre-Hypertensive BP Reading Systolic Measurement: 127 Diastolic Measurement: 56 Screening for High Blood Pressure: < Pre-Hypertensive BP, F/U Documented > [ G8950] Pre-Hypertensive Follow-up Interventions: Referral to alternative/primary care provider.
--- NOTE | 2018-07-04 07:26 | RADIOLOGY REPORT ---
EXAM: RIGHT HUMERUS HISTORY: RIGHT ARM PAIN WITH LIFTING. TECHNIQUE: Two views of the right humerus were obtained. Comparison: None. FINDINGS: No humerus fracture seen. There are likely degenerative findings in the shoulder as well as the elbow. IMPRESSION: 1. NO ACUTE OSSEOUS FINDINGS. 2. DEGENERATIVE FINDINGS IN THE SHOULDER AND ELBOW. JOB NUMBER: [id number] MTDD
--- NOTE | 2018-07-04 08:03 | US VENOUS DOPPLER REPORT ---
EXAM: RIGHT UPPER EXTREMITY VENOUS DUPLEX ULTRASOUND HISTORY: RIGHT ARM PAIN AND SWELLING. TECHNIQUE: Right upper extremity venous Duplex ultrasound was obtained with assessment of color flow, augmentation and compression. Comparison: None. FINDINGS: No evidence of thrombus within the right internal jugular, subclavian , axillary, brachial, basilic, cephalic, radial or ulnar veins. IMPRESSION: NO EVIDENCE OF RIGHT UPPER EXTREMITY DEEP VENOUS THROMBOSIS. JOB NUMBER: [id number] [facility]
== END 2018-07-02 13:23 | disposition home or self-care (01) ==
LOC: ER 11:11
DX: M79.621 Pain in right upper arm (principal); I10 Essential (primary) hypertension
CPT/HCPCS: 99283

== ENCOUNTER 2018-07-04 10:55 | Emergency (ER) | payer MEDICARE, BC ==
--- NOTE | 2018-07-04 11:43 | Emergency Department Record ---
History of Present Illness - General Chief complaint: Extremity Problem Stated complaint: LEG PAIN Time Seen by Provider: 07/04/18 11:38 Source: Patient Mode of Arrival: Wheelchair - History of Present Illness Initial comments: Patient states two days of let leg pain and swelling, worse than usual. Her coumadin levels have been elevated, so she has not taken any coumadin. On Sunday her INR was 7. She denie chest pain or ACOSTA. Onset/Timin -: Days(s) Location: Left, Lower Leg History of Same: Yes Severity scale (1-10): 4 Quality: Aching Consistency: Constant Improves with: Nothing Worsens with: Nothing Associated Symptoms: Denies other symptoms - Related Data Previous Rx's Medication Instructions Recorded Lorazepam [Ativan] 1 mg PO BID PRN tablet 06/02/17 Hydrocodone/APAP 5/325Mg [[place] 1 each PO Q6H PRN #10 tab 11/22/17 5Mg/325Mg] Gabapentin [Neurontin] 300 mg PO QAM capsule 04/21/18 Omeprazole 20 mg PO BID #20 tablet. 04/21/18 Ondansetron [Zofran Odt] 4 mg PO Q8H #14 tab.rapdis 04/21/18 Clindamycin HCl [Cleocin HCl] 300 mg PO QID #40 capsule 07/04/18 Allergies Allergy/AdvReac Type Severity Reaction Status Date / Time Penicillins Allergy Intermediate RASH Verified 07/04/18 10:58 Sulfa (Sulfonamide Allergy Intermediate RASH Verified 07/04/18 10:58 Antibiotics) Travel Screening - Travel/Exposure Within Last 30 Days Have you traveled within the last 30 days?: No - Travel/Exposure Within Last Year Have you traveled outside the [place] in the last year?: No - Additonal Travel Details Have you been exposed to anyone with a communicable illness?: No - Travel Symptoms Symptom Screening: None Review of Systems Reviewed: No additional complaints except as noted below Constitutional: Reports: As per HPI. Denies: Chills, Fever, Malaise, Night sweats, Weakness, Weight change Eyes: Reports: As per HPI. Denies: Eye discharge, Eye pain, Photophobia, Vision change ENT: Reports: As per HPI. Denies: Congestion, Dental pain, Ear pain, Epistaxis , Hearing loss, Throat pain Respiratory: Reports: As per HPI. Denies: Cough, Dyspnea, Hemoptysis, Stridor, Wheezes Cardiovascular: Reports: As per HPI. Denies: Arrhythmia, Chest pain, Dyspnea on exertion, Edema, Murmurs, Orthopnea, Palpitations, Paroxysmal nocturnal dyspnea, Rheumatic Fever, Syncope Endocrine: Reports: As per HPI. Denies: Fatigue, Heat or cold intolerance, Polydipsia, Polyuria Gastrointestinal: Reports: As per HPI. Denies: Abdominal pain, Constipation, Diarrhea, Hematemesis, Hematochezia, Melena, Nausea, Vomiting Genitourinary: Reports: As per HPI. Denies: Abnormal menses, Discharge, Dyspareunia, Dysuria, Frequency, Hematuria, Incontinence, Retention, Urgency Musculoskeletal: Reports: As per HPI. Denies: Arthralgia, Back pain, Gout, Joint swelling, Myalgia, Neck pain Skin: Reports: As per HPI. Denies: Bruising, Change in color, Change in hair/ nails, Lesions, Pruritus, Rash Neurological: Reports: As per HPI. Denies: Abnormal gait, Confusion, Headache, Numbness, Paresthesias, Seizure, Tingling, Tremors, Vertigo, Weakness Psychiatric: Reports: As per HPI. Denies: Anxiety, Auditory hallucinations, Depression, Homicidal thoughts, Suicidal thoughts, Visual hallucinations Hematological/Lymphatic: Reports: As per HPI. Denies: Anemia, Blood Clots, Easy bleeding, Easy bruising, Swollen glands Past Medical History - SOCIAL HISTORY Smoking Status: Never smoker Alcohol Use: None Drug Use: None - RESPIRATORY Hx Respiratory Disorders: Yes - CARDIOVASCULAR Hx Cardio Disorders: Yes Hx Abnormal EKG: Yes Hx Cardiac Cath: Yes (2 stents) Hx Edema: Yes (some in ankles-on Lasix) Hx Hypertension: Yes Hx Coronary Artery Disease: Yes (per CT results) - NEURO Hx Neuro Disorders: No Hx Seizures: No - GI Hx GI Disorders: Yes Hx Hiatal Hernia: Yes (1956) Hx Ulcer: Yes - Hx Genitourinary Disorders: Yes Hx UTI: Yes - ENDOCRINE Hx Endocrine Disorders: No Hx Diabetes: No - MUSCULOSKELETAL Hx Musculoskeletal Disorders: Yes Hx Arthritis: Yes (lower back) - PSYCH Hx Psych Problems: Yes Hx Anxiety: Yes Hx Depression: Yes - HEMATOLOGY/ONCOLOGY Hx Hematology/Oncology Disorders: Yes Hx Anemia: Yes Hx Blood Transfusions: Yes (2014) Hx Blood Transfusion Reaction: No Family Medical History Any Significant Family History?: Yes Hx Cancer: Mother *Cancer Comment: uterus Hx Heart Disease: Grandparents Hx Resp Disorders: Father *Resp Comment: TB Hx Stroke: Grandparents Physical Exam - General General Appearance: Alert, Oriented x3, Cooperative, No acute distress - Head Head exam: Normal inspection - Eye Eye exam: Normal appearance, PERRL Pupils: Normal accommodation - ENT ENT exam: Normal exam, Mucous membranes moist, Normal external ear exam, Normal orophraynx, TM's normal bilaterally Ear exam: Normal external inspection. negative: External canal tenderness Nasal Exam: Normal inspection. negative: Discharge, Sinus tenderness Mouth exam: Normal external inspection, Tongue normal Teeth exam: Normal inspection. negative: Dental caries Throat exam: Normal inspection. negative: Tonsillar erythema, Tonsillar exudate - Neck Neck exam: Normal inspection, Full ROM. negative: Tenderness - Respiratory Respiratory exam: Normal lung sounds bilaterally, Rales (bibasilar crackles, no JVD). negative: Respiratory distress - Cardiovascular Cardiovascular Exam: Regular rate, Normal rhythm, Normal heart sounds - GI/Abdominal GI/Abdominal exam: Soft, Normal bowel sounds. negative: Tenderness - Rectal Rectal exam: Deferred - exam: Deferred - Extremities Extremities exam: Normal inspection, Calf tenderness (left lower extremity with calf tenderness and cellulitis below knee to ankle. Contusion/bruis to anterior [place] with skin intact.), Full ROM, Normal capillary refill. negative: Tenderness - Back Back exam: Reports: Normal inspection, Full ROM. Denies: Muscle spasm, Rash noted, Tenderness - Neurological Neurological exam: Alert, Normal gait, Oriented X3, Reflexes normal - Psychiatric Psychiatric exam: Normal affect, Normal mood - Skin Skin exam: Dry, Intact, Normal color, Warm Course Vital Signs 07/04/18 11:01 Temperature 98.4 F Pulse Rate 65 Respiratory 20 Rate Blood Pressure 132/73 Pulse Ox 97 - Reevaluation(s) Reevaluation #1: 07/04/18 15:08 Results reviewed with patient and family member. Agree with plan. Will send home on antibiotics with elevation of leg while at home, and close follow up with PCP Medical Decision Making - Management Options MDM Management: No Additional Work-up Planned - Data Complexity MDM Data: Labs Ordered and/or Reviewed (INR 2.1), X-Ray Ordered and/or Reviewed (Dopplers negative for DVT) - Lab Data Result diagrams: 07/04/18 14:30 07/04/18 14:30 Disposition Disposition: Discharge Clinical Impression: Cellulitis of left leg Condition: (1) Good Instructions: Cellulitis (ED) Additional Instructions: Take antibiotics as directed until gone: clindamycin 300 mg four times daily for 10 days No ambulation to leg except up to bathroom and to and from bed. Elevate leg above heart. Call Dr. Leonardo's office for instructions on Coumadin dosages. INR today was 2.1 Follow up with PCP Sunday in office. Return to EDept sooner if infections worsens. Tylenol alternated ibuprofen as directed as needed for pain. Prescriptions: Clindamycin HCl [Cleocin HCl] 300 mg PO QID #40 capsule Quality - Quality Measures Quality Measures: N/A - Blood Pressure Screening Does Patient Have Any of the Following: No Blood Pressure Classification: Pre-Hypertensive BP Reading Systolic Measurement: 132 Diastolic Measurement: 73 Screening for High Blood Pressure: < Normal BP, F/U Not Required > [G8783]
[2018-07-04] MEDS ORDERED: CLINDAMYCIN PHOS/D5W 900MG 900 MG/50 ML BAG IVPB ONE (14:38)
[2018-07-04 14:40] LABS: BASO % 0.3 % (0-6); EOS % 2.8 % (0-6); GRAN % 54.1 % (47-80); HEMATOCRIT 35.2 % (35.0-47.0); HEMOGLOBIN 10.8 gm/dl (11.6-16.0); LYMPH % 33.6 % (16-45); MEAN CELL VOLUME 105.1 fl (81-97); MEAN CORPUSCULAR HEMOGLOBIN 32.2 pg (27-33); MEAN CORPUSCULAR HGB CONC 30.7 g/dl (32-36); MEAN PLATELET VOLUME 11.1 fl (7.4-10.4); MONO % 9.2 % (0-9); PLATELET COUNT 204 K/uL (130-400); RED BLOOD COUNT 3.35 M/uL (3.80-5.40); RED CELL DISTRIBUTION WIDTH 13.8 % (11.5-14.5); WHITE BLOOD COUNT W/O DIFF 5.8 K/uL (4.2-12.2)
[2018-07-04 14:53] LABS: INR 2.1; PARTIAL THROMBOPLASTIN TIME 32.4 SECONDS (24.5-39.1); PROTHROMBIN TIME (PATIENT) 20.3 SECONDS (9.5-12.1)
[2018-07-04 14:54] LABS: BILIRUBIN,TOTAL 0.5 mg/dL (0.2-1.0)
[2018-07-04 14:55] LABS: TOTAL PROTEIN 6.8 g/dL (6.6-8.7)
[2018-07-04 14:59] LABS: ALB/GLOB RATIO 1.5 (1.1-1.8); ALBUMIN 4.1 g/dL (4.0-5.0)
--- NOTE | 2018-07-06 16:35 | US VENOUS DOPPLER REPORT ---
DATE: 07/04/2018. EXAM: LEFT LOWER EXTREMITY VENOUS DUPLEX ULTRASOUND. HISTORY: LEG SWELLING FOR TWO DAYS. HISTORY OF DEEP VEIN THROMBOSIS. CURRENTLY ON COUMADIN. TECHNIQUE: Left lower extremity venous duplex ultrasound with evaluation of compression color flow and augmentation. COMPARISON: None. FINDINGS: No evidence of thrombus involving the left external iliac, common femoral, proximal/mid/distal femoral, profunda femoral, popliteal, gastrocnemius , posterior tibial, peroneal, or anterior tibial veins. Incidentally noted is an irregular heterogeneously hypoechoic collection in the subcutaneous soft tissues along the medial tibia measuring approximately 1.6 x 0.9 x 2.4 cm. No evidence of thrombus involving the right external iliac or common femoral veins. IMPRESSION: 1. NO EVIDENCE OF LEFT LOWER EXTREMITY DEEP VEIN THROMBOSIS. 2. SMALL, NONSPECIFIC SUPERFICIAL HYPOECHOIC COLLECTION ALONG THE MEDIAL TIBIA ; MAY REPRESENT A HEMATOMA OR OTHER SOFT TISSUE FLUID COLLECTION. Job Number: [id number] MTDD
== END 2018-07-04 16:19 | disposition home or self-care (01) ==
LOC: ER 10:55
DX: L03.116 Cellulitis of left lower limb (principal); I10 Essential (primary) hypertension; Z79.01 Long term (current) use of anticoagulants
CPT/HCPCS: 99284 ×2; 96365; 85025; 85730; 85610; 80053; 93971; J3490

== ENCOUNTER 2018-07-22 21:06 | Emergency (ER) | payer MEDICARE, BC ==
--- NOTE | 2018-07-22 21:45 | Emergency Department Record ---
History of Present Illness - General Chief Complaint: Abdominal Pain Stated Complaint: ABDOMINAL PAIN Time Seen by Provider: 07/22/18 21:26 Source: Patient, Family Mode of Arrival: EMS Limitations: No limitations - History of Present Illness Initial Comments: The patient is here due to lower AP for 3 days with constipation. The patient denies any fever, nausea, vomiting, or dysuria. She does take Renwick for chronic pain along with a laxative but has not had a BM for 3 days. She has a hx of multiple medical issues and has had chronic AP in the past also. The patient additionally has had her GB removed in the past and has had multiple GI bleeds and has a malik filter in place. MD Complaint: Abdominal pain Onset/Timin -: Days(s) Location: Other Migration to: Suprapubic Severity: Severe Severity scale (1-10): 10 Quality: Aching Consistency: Constant Improves With: Nothing Worsens With: Other Context: Other Associated Symptoms: Constipation, Other - Related Data Patient : No Home Medications Medication Instructions Recorded Confirmed Last Taken Carbamide Peroxide [Debrox] 1 drop OT WEEKLY 07/22/18 07/22/18 Unknown Diphenhydramine HCl [Benadryl] 25 mg PO BID 07/22/18 07/22/18 Unknown Hydrocodone/APAP 5/325Mg [[place] 1 each PO Q4H PRN 07/22/18 07/22/18 Unknown 5Mg/325Mg] L.acidoph,Paracasei, B.lactis 1 each PO DAILY 07/22/18 07/22/18 Unknown [Probiotic] Nitroglycerin 0.4MG [Nitrostat 1 tab SL Q5MIN PRN MDD 3 07/22/18 07/22/18 Unknown 0.4MG] Ondansetron [Zofran Odt] 8 mg PO Q8H 07/22/18 07/22/18 Unknown Potassium Chloride [Klor-Con M20] 20 meq PO DAILY 07/22/18 07/22/18 Unknown Valacyclovir HCl [Valacyclovir] 500 mg PO DAILY 07/22/18 07/22/18 Unknown Warfarin Sodium 1 mg PO ASDIR 07/22/18 07/22/18 Unknown Previous Rx's Medication Instructions Recorded Lorazepam [Ativan] 1 mg PO BID PRN tablet 06/02/17 Gabapentin [Neurontin] 300 mg PO QAM capsule 04/21/18 Omeprazole 20 mg PO BID #20 tablet. 04/21/18 Allergies Allergy/AdvReac Type Severity Reaction Status Date / Time Penicillins Allergy Intermediate RASH Verified 07/04/18 10:58 Sulfa (Sulfonamide Allergy Intermediate RASH Verified 07/04/18 10:58 Antibiotics) Travel Screening - Travel/Exposure Within Last 30 Days Have you traveled within the last 30 days?: No - Travel Symptoms Symptom Screening: None Review of Systems Constitutional: Denies: Chills, Fever Eyes: Denies: Eye discharge ENT: Denies: Throat pain Respiratory: Denies: Cough, Dyspnea Cardiovascular: Denies: Arrhythmia Endocrine: Denies: Fatigue Gastrointestinal: Reports: Abdominal pain, Constipation. Denies: Diarrhea Genitourinary: Denies: Dysuria Musculoskeletal: Denies: Arthralgia Skin: Denies: Bruising Past Medical History - SOCIAL HISTORY Smoking Status: Never smoker Alcohol Use: None Drug Use: None - RESPIRATORY Hx Respiratory Disorders: Yes - CARDIOVASCULAR Hx Cardio Disorders: Yes Hx Abnormal EKG: Yes Hx Cardiac Cath: Yes (2 stents) Hx Edema: Yes (some in ankles-on Lasix) Hx Hypertension: Yes Hx Coronary Artery Disease: Yes (per CT results) - NEURO Hx Neuro Disorders: No Hx Seizures: No - GI Hx GI Disorders: Yes Hx Hiatal Hernia: Yes (1956) Hx Ulcer: Yes - Hx Genitourinary Disorders: Yes Hx UTI: Yes - ENDOCRINE Hx Endocrine Disorders: No Hx Diabetes: No - MUSCULOSKELETAL Hx Musculoskeletal Disorders: Yes Hx Arthritis: Yes (lower back) - PSYCH Hx Psych Problems: Yes Hx Anxiety: Yes Hx Depression: Yes - HEMATOLOGY/ONCOLOGY Hx Hematology/Oncology Disorders: Yes Hx Anemia: Yes Hx Blood Transfusions: Yes (2014) Hx Blood Transfusion Reaction: No Family Medical History Any Significant Family History?: Yes Hx Cancer: Mother *Cancer Comment: uterus Hx Heart Disease: Grandparents Hx Resp Disorders: Father *Resp Comment: TB Hx Stroke: Grandparents Physical Exam - General General Appearance: Alert, Oriented x3, Cooperative, No acute distress - Head Head exam: Atraumatic, Normocephalic, Normal inspection - Eye Eye exam: Normal appearance, PERRL, EOMI - ENT Throat exam: Normal inspection. negative: Tonsillar erythema, Tonsillar exudate - Neck Neck exam: Normal inspection, Full ROM. negative: Tenderness - Respiratory Respiratory exam: Normal lung sounds bilaterally. negative: Respiratory distress - Cardiovascular Cardiovascular Exam: Regular rate, Normal rhythm, Normal heart sounds - GI/Abdominal GI/Abdominal exam: Soft, Tenderness (There is diffuse lower abdominal tenderness.). negative: Rebound, Rigid - Rectal Rectal exam: Tenderness. negative: Decreased rectal tone, Fecal impaction (There is soft stool in the vault but no impaction. The patient is having a lot of pain around her anus. ) - Extremities Extremities exam: Normal inspection, Full ROM, Normal capillary refill. negative: Tenderness - Neurological Neurological exam: Alert. negative: Motor sensory deficit - Skin Skin exam: negative: Rash Course Vital Signs 07/22/18 21:17 Temperature 98.2 F Pulse Rate [ 87 Pulse Ox Probe] Respiratory 20 Rate Blood Pressure 135/77 [Left Arm] Pulse Ox 97 - Reevaluation(s) Reevaluation #1: The patient had a VERY Large BM after the Relistor and Soap suds enema. Her pelvic pressure was resolved and she is feeling MUCH better. On exam her abdomen is very soft and nontender. The patient is to go home with a bottle of Mg Citrate for home to take tomorrow and to restart her medicines as directed. 07/23/18 00:10 Medical Decision Making - Data Complexity MDM Data: Labs Ordered and/or Reviewed, X-Ray Ordered and/or Reviewed - Lab Data Result diagrams: 07/22/18 21:32 07/22/18 21:32 - Radiology Data Radiology results: Report reviewed (Abd CT: Large stool in the rectum consistent with constipation.) Disposition Disposition: Discharge Clinical Impression: Constipation Qualifiers: Constipation type: unspecified constipation type Qualified Code(s): K59.00 - Constipation, unspecified Disposition: Home, Self-Care Condition: (2) Stable Instructions: Constipation (ED) Additional Instructions: Please take the bottle of Mg Citrate as directed and do not take any Renwick for 3 days. Please see your family doctor this week for recheck and return to the ER for any worsening symptoms. Forms: Patient Portal Access Time of Disposition: 00:12 Quality - Quality Measures Quality Measures: N/A - Blood Pressure Screening View Details: Yes Does Patient Have Any of the Following: No Blood Pressure Classification: Pre-Hypertensive BP Reading Systolic Measurement: 125 Diastolic Measurement: 88 Screening for High Blood Pressure: < Pre-Hypertensive BP, F/U Documented > [G8950] Pre-Hypertensive Follow-up Interventions: Referral to alternative/primary care provider.
[2018-07-22 21:46] LABS: ABSOLUTE NEUTROPHIL COUNT 6.08; BASO % 0.2 % (0-6); EOS % 0.8 % (0-6); GRAN % 69.7 % (47-80); HEMOGLOBIN 10.9 gm/dl (11.6-16.0); LYMPH % 19.2 % (16-45); MEAN CELL VOLUME 102.7 fl (81-97); MEAN CORPUSCULAR HEMOGLOBIN 32.9 pg (27-33); MEAN CORPUSCULAR HGB CONC 32.1 g/dl (32-36); MONO % 10.1 % (0-9); PLATELET COUNT 210 K/uL (130-400); RED BLOOD COUNT 3.31 M/uL (3.80-5.40); RED CELL DISTRIBUTION WIDTH 13.5 % (11.5-14.5); WHITE BLOOD COUNT W/O DIFF 8.7 K/uL (4.2-12.2)
[2018-07-22 21:55] LABS: BLOOD UREA NITROGEN 18 mg/dL (8-23); EST GLOMERULAR FILTRATION RATE 56 mL/min
[2018-07-22 21:56] LABS: LIPASE 24 U/L (13-60); TOTAL PROTEIN 6.7 g/dL (6.6-8.7)
[2018-07-22 21:58] LABS: GLUCOSE,RANDOM 109 mg/dL (74-109)
[2018-07-22 21:59] LABS: INR 1.4; PARTIAL THROMBOPLASTIN TIME 28.2 SECONDS (24.5-39.1); PROTHROMBIN TIME (PATIENT) 13.7 SECONDS (9.5-12.1)
[2018-07-22 22:00] LABS: ALT/SGPT 12 U/L (<33)
[2018-07-22 22:01] LABS: ALBUMIN 4.1 g/dL (4.0-5.0); ALKALINE PHOSPHATASE 40 U/L (35-104); AST/SGOT 27 U/L (10.0-35.0); BILIRUBIN,DIRECT < 0.2 mg/dL (0-0.3)
[2018-07-22 22:05] LABS: URINE APPEARANCE CLEAR; URINE BILIRUBIN NEGATIVE (NEGATIVE); URINE BLOOD TRACE-I (NEGATIVE); URINE COLOR YELLOW; URINE GLUCOSE (UA) NEGATIVE (NEGATIVE); URINE KETONE NEGATIVE (NEGATIVE); URINE LEUKOCYTE ESTERASE NEGATIVE (NEGATIVE); URINE NITRITE NEGATIVE (NEGATIVE); URINE PROTEIN TRACE (NEGATIVE); URINE UROBILINOGEN 0.2 E.U./dL (0.20 - 1.00)
[2018-07-22 22:11] LABS: URINE WBC NONE SEEN (0-2/hpf)
[2018-07-22 22:12] LABS: URINE EPITHELIAL CELLS NONE SEEN (FEW)
[2018-07-22] MEDS ORDERED: METHYLNALTREXONE BROMIDE (RELISTOR) 12MG/0.6ML SYRINGE SQ ONE ×2 (23:17→23:42)
[2018-07-23] MEDS ORDERED: MAGNESIUM CITRATE 296 ML BTL PO ONE (00:09)
--- NOTE | 2018-07-24 21:30 | CT SCAN REPORT ---
EXAM: CT SCAN ABDOMEN/PELVIS WO CONTRAST HISTORY: PATIENT HAS RECTAL PAIN WITH SUPRAPUBIC PAIN. TECHNIQUE: Serial axial CT scan of the abdomen and pelvis was performed at 2.5 mm intervals from the dome of the diaphragm down to the pubic symphysis without the use of intravenous or oral contrast. Comparison CT scan of the abdomen and pelvis dated 04/19/2018 is provided. FINDINGS: The lung windows of the lung bases demonstrate no CT evidence of a focal infiltrate or pleural effusion. Nonspecific 3 mm nodule within the left lateral lower lobe is unchanged with respect to the prior examination. The visualized heart size and contour is within normal limits. Moderate size hiatal hernia is noted. The liver, spleen bilateral adrenal glands, pancreas are unremarkable. The gallbladder is not visualized. There is no CT evidence of hydronephrosis or hydroureter. No renal or ureteral calculi are noted. The abdominal aorta demonstrates normal contour, caliber. There is moderate to advanced calcified atherosclerotic disease of the distal infrarenal abdominal aorta. Multiple collateral vessels are identified within the left paraaortic region. This finding is unchanged with respect to the prior examination. There is an inferior vena cava filter identified below the level of the renal veins. This is unchanged in location with respect to the prior CT scan. The collateral vessels within the left paraaortic region suggest occlusion of the inferior vena cava filter distal to the filter. There is also a left common iliac vein stent, which extends into the left external iliac vein and left common femoral vein. There is no CT evidence of retroperitoneal, pelvic, or inguinal lymphadenopathy. The bowel gas pattern is nonspecific. Numerous colonic diverticula are noted without CT evidence of diverticulitis. There is a large rectal stool ball identified within the rectum with surrounding perirectal fat stranding suggesting inflammation. This finding is likely creating the patient's symptoms. There is no CT evidence of free intraperitoneal fluid or free intraperitoneal air. The urinary bladder is collapsed. The uterus is absent. 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 IMPRESSION: 1. LARGE RECTAL STOOL BALL WITH PERIRECTAL FAT STRANDING IS IDENTIFIED SUGGESTING INFLAMMATION. THIS FINDING IS LIKELY CREATING THE PATIENT'S SYMPTOMS. CLINICAL CORRELATION IS RECOMMENDED. 2. INFERIOR VENA CAVA FILTER IS NOTED DESCRIBED WITH MULTIPLE COLLATERAL VESSELS SURROUNDING THE AORTA. 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 THIS FINDING IS UNCHANGED WITH RESPECT TO THE PRIOR EXAMINATION. 3. NO CT EVIDENCE OF OBSTRUCTIVE UROPATHY. 4. COLONIC DIVERTICULOSIS IS NOTED WITHOUT CT EVIDENCE OF DIVERTICULITIS. 5. MODERATE SIZE HIATAL HERNIA. JOB NUMBER: [id number] [facility]
== END 2018-07-23 00:25 | disposition home or self-care (01) ==
LOC: ER 21:06
DX: K59.00 Constipation, unspecified (principal); R10.30 Lower abdominal pain, unspecified; I10 Essential (primary) hypertension
CPT/HCPCS: 99283; 99284; 83605; 83690; 85025; 85730; 85610; 80076; 80048; 81001; 74176; J2212

== ENCOUNTER 2018-11-08 15:18 | Emergency (ER) | payer MEDICARE, BC ==
[2018-11-08] MEDS ORDERED: 0.9 % SODIUM CHLORIDE 1,000 ML BAG IV ONE (16:00)
--- NOTE | 2018-11-08 16:04 | Emergency Department Record ---
History of Present Illness - General Chief Complaint: Abdominal Pain Stated Complaint: ABD PAIN Time Seen by Provider: 11/08/18 15:44 Source: Patient Mode of Arrival: Ambulatory Limitations: No limitations - History of Present Illness Initial Comments: The patient is here due to a 3 day hx of LUQ AP. The pain is gone in the AM and comes on during the day with eating. It presently is a constant gnawing pain that intermittently radiates to the RUQ. She denies any nausea, vomiting, or change in her stools. The patient does have a hx of pancreatitis and does state this pain is similar. The patient has had her gallbladder removed in the past and has a hx of multiple GI bleeds. The patient also denies any fevers, CP, SOB, cough, or back pain. MD Complaint: Abdominal pain Onset/Timin -: Days(s) Location: LUQ Radiation: Back Severity scale (1-10): 7 Quality: Other Consistency: Constant Improves With: Nothing Worsens With: Nothing Context: Other Associated Symptoms: Nausea - Related Data Patient : No Previous Rx's Medication Instructions Recorded Lorazepam [Ativan] 1 mg PO BID PRN tablet 06/02/17 Gabapentin [Neurontin] 300 mg PO QAM capsule 04/21/18 Omeprazole 20 mg PO BID #20 tablet. 04/21/18 Allergies Allergy/AdvReac Type Severity Reaction Status Date / Time Penicillins Allergy Intermediate RASH Unverified 11/08/18 14:16 Sulfa (Sulfonamide Allergy Intermediate RASH Unverified 11/08/18 14:16 Antibiotics) Travel Screening - Travel/Exposure Within Last 30 Days Have you traveled within the last 30 days?: No Review of Systems Constitutional: Denies: Chills, Fever Eyes: Denies: Eye discharge ENT: Denies: Congestion Respiratory: Denies: Cough, Dyspnea Cardiovascular: Denies: Arrhythmia Endocrine: Denies: Fatigue Gastrointestinal: Reports: Abdominal pain. Denies: Diarrhea, Nausea, Vomiting Genitourinary: Denies: Dysuria Musculoskeletal: Denies: Arthralgia Skin: Denies: Bruising Past Medical History - SOCIAL HISTORY Smoking Status: Never smoker - RESPIRATORY Hx Respiratory Disorders: Yes - CARDIOVASCULAR Hx Cardio Disorders: Yes Hx Abnormal EKG: Yes Hx Cardiac Cath: Yes (2 stents) Hx Edema: Yes (some in ankles-on Lasix) Hx Hypertension: Yes Hx Coronary Artery Disease: Yes (per CT results) - NEURO Hx Neuro Disorders: No Hx Seizures: No - GI Hx GI Disorders: Yes Hx Hiatal Hernia: Yes (1956) Hx Ulcer: Yes - Hx Genitourinary Disorders: Yes Hx UTI: Yes - ENDOCRINE Hx Endocrine Disorders: No Hx Diabetes: No - MUSCULOSKELETAL Hx Musculoskeletal Disorders: Yes Hx Arthritis: Yes (lower back) - PSYCH Hx Psych Problems: Yes Hx Anxiety: Yes Hx Depression: Yes - HEMATOLOGY/ONCOLOGY Hx Hematology/Oncology Disorders: Yes Hx Anemia: Yes Hx Blood Transfusions: Yes (2014) Hx Blood Transfusion Reaction: No Family Medical History Any Significant Family History?: Yes Hx Cancer: Mother *Cancer Comment: uterus Hx Heart Disease: Grandparents Hx Resp Disorders: Father *Resp Comment: TB Hx Stroke: Grandparents Physical Exam - General General Appearance: Alert, Oriented x3, Cooperative, No acute distress - Head Head exam: Atraumatic, Normocephalic, Normal inspection - Eye Eye exam: Normal appearance, PERRL - ENT Throat exam: Normal inspection. negative: Tonsillar erythema, Tonsillar exudate - Neck Neck exam: Normal inspection, Full ROM. negative: Tenderness - Respiratory Respiratory exam: Normal lung sounds bilaterally. negative: Respiratory distress - Cardiovascular Cardiovascular Exam: Regular rate, Normal rhythm, Normal heart sounds - GI/Abdominal GI/Abdominal exam: Soft, Tenderness (There is mild LUQ tenderness to palpation.). negative: Distended, Rebound, Rigid - Extremities Extremities exam: Normal inspection, Full ROM, Normal capillary refill. negative: Tenderness - Neurological Neurological exam: Alert, Oriented X3. negative: Motor sensory deficit - Psychiatric Psychiatric exam: negative: Anxious, Depressed - Skin Skin exam: negative: Rash Course Vital Signs 11/08/18 15:21 Temperature 98.8 F Pulse Rate 68 Respiratory 16 Rate Blood Pressure 148/65 Pulse Ox 96 - Reevaluation(s) Reevaluation #1: The patient is doing a lot better at this time. She was sleeping when I entered the room and states her discomfort is much improved. I did discuss the lab and CT results which did not demonstrate any cause of her pain. 11/08/18 17:22 Reevaluation #2: The patient is resting comfortably at this time. She states the pain is mostly gone at this time and she feels comfortable going home. She is to see her PCP next week for recheck and is to return to the ER for any worsening symptoms. 11/08/18 17:40 Medical Decision Making - Data Complexity MDM Data: Labs Ordered and/or Reviewed, X-Ray Ordered and/or Reviewed - Lab Data Result diagrams: 11/08/18 16:05 11/08/18 16:05 - Radiology Data Radiology results: Report reviewed (Abd CT: Neg for any acute changes. Multiple chronic changes.) Disposition Disposition: Discharge Clinical Impression: Abdominal pain Disposition: Home, Self-Care Condition: (2) Stable Instructions: Abdominal Pain (ED) Additional Instructions: Please continue your regular medicines and please see your family doctor for recheck next week. Return to the ER for any worsening symptoms. Forms: Patient Portal Access Time of Disposition: 17:42 Quality - Quality Measures Quality Measures: N/A - Blood Pressure Screening View Details: Yes Does Patient Have Any of the Following: Active Dx of HTN Blood Pressure Classification: Hypertensive Reading Systolic Measurement: 148 Diastolic Measurement: 65 Screening for High Blood Pressure: Patient Exclusion, Hx of HTN [G9744]
[2018-11-08 16:13] LABS: URINE APPEARANCE CLEAR; URINE BILIRUBIN NEGATIVE (NEGATIVE); URINE BLOOD TRACE-I (NEGATIVE); URINE COLOR YELLOW; URINE GLUCOSE (UA) NEGATIVE (NEGATIVE); URINE KETONE NEGATIVE (NEGATIVE); URINE LEUKOCYTE ESTERASE NEGATIVE (NEGATIVE); URINE NITRITE NEGATIVE (NEGATIVE); URINE PROTEIN NEGATIVE (NEGATIVE); URINE UROBILINOGEN 0.2 E.U./dL (0.20 - 1.00)
[2018-11-08 16:14] LABS: ABSOLUTE NEUTROPHIL COUNT 2.89; BASO % 0.4 % (0-6); EOS % 1.8 % (0-6); GRAN % 57.5 % (47-80); HEMATOCRIT 34.5 % (35.0-47.0); HEMOGLOBIN 10.6 gm/dl (11.6-16.0); LYMPH % 31.2 % (16-45); MEAN CELL VOLUME 102.7 fl (81-97); MEAN CORPUSCULAR HEMOGLOBIN 31.5 pg (27-33); MEAN CORPUSCULAR HGB CONC 30.7 g/dl (32-36); MONO % 9.1 % (0-9); PLATELET COUNT 223 K/uL (130-400); RED BLOOD COUNT 3.36 M/uL (3.80-5.40); RED CELL DISTRIBUTION WIDTH 12.7 % (11.5-14.5)
[2018-11-08 16:21] LABS: URINE EPITHELIAL CELLS 0 - 2 (FEW); URINE RBC 0 - 2 (NONE SEEN); URINE WBC 0 - 2 (0-2/hpf)
[2018-11-08 17:05] LABS: ALBUMIN 3.9 g/dL (4.0-5.0); ALKALINE PHOSPHATASE 37 U/L (35-104); ALT/SGPT 13 U/L (<33); AST/SGOT 25 U/L (10.0-35.0); BILIRUBIN,DIRECT < 0.2 mg/dL (0-0.3); BLOOD UREA NITROGEN 15 mg/dL (8-23); CREATININE 0.9 mg/dL (0.5-0.9); EST GLOMERULAR FILTRATION RATE > 60 mL/min; GLUCOSE,RANDOM 98 mg/dL (74-109); LIPASE 24 U/L (13-60); TOTAL PROTEIN 6.4 g/dL (6.6-8.7)
[2018-11-08 17:12] LABS: INR 2.2; PARTIAL THROMBOPLASTIN TIME 33.8 SECONDS (24.5-39.1); PROTHROMBIN TIME (PATIENT) 22.2 SECONDS (9.5-12.1)
[2018-11-08] MEDS ORDERED: SUCRALFATE 1 G/10 ML UD PO ONE (17:12)
--- NOTE | 2018-11-11 05:16 | CT SCAN REPORT ---
EXAM: CT SCAN ABDOMEN/PELVIS WO CONTRAST HISTORY: ABDOMINAL PAIN BEGINNING THREE DAYS AGO. PAIN IS IN THE LEFT UPPER QUADRANT. TECHNIQUE: Routine helical CT examination of the abdomen and pelvis is performed without oral or intravenous contrast administration. Lack of oral and IV contrast utilization limits evaluation of the bowel and solid viscera respectively. COMPARISON: CT abdomen and pelvis without contrast dated 07/22/2017. FINDINGS: Minor reticular opacity prominence redemonstrated within the lateral lung base is likely due to mild chronic interstitial changes. Interstitial edema much less likely. Minor patchy opacities in the dependent lung bases consistent with atelectasis or less likely infiltrate. There are subtle micronodules within the lingula and medial aspect of the right middle lobe not definitely seen on the prior examination. These are in a tree-in-bed pattern and this can be seen with inflammation/infection of small airways. The heart is mildly enlarged. There is a borderline anterior pericardial effusion. A small sliding-type hiatal hernia is present. The right hemidiaphragm is elevated. No new focal abnormality is demonstrated within the liver, spleen, pancreas, adrenal glands, nor kidneys. The proximal right renal collecting system is again near the upper limits of normal in caliber. The gallbladder is surgically absent. Prominence of the common hepatic/common bile duct redemonstrated, unchanged without definite obstructing lesion. This likely relates to a physiologic response to surgical absence of the gallbladder. Correlation with serum bilirubin and alkaline phosphatase levels is recommended. No definite new intra-abdominal nor retroperitoneal lymphadenopathy. Diffuse atherosclerosis is redemonstrated. A venous stent is in place extending from the common femoral level superiorly to just below the IVC confluence. The inferior aspect of the IVC is small in caliber as is the right common iliac vein. An IVC filter remains in place. Venous collaterals are again noted in the subcutaneous portion of the trunk and in the left periaortic region. No new pelvic mass, lymphadenopathy, or free pelvic fluid. The uterus is surgically absent. By history, the appendix is absent. There is diverticulosis of the colon redemonstrated most pronounced in the sigmoid region where it is mild to moderate. No diverticulitis. Moderate stool within the rectum. No free intraperitoneal air nor ascites. No new lytic or blastic lesion. There are degenerative changes scattered throughout the visualized spine associated with S-shaped scoliosis of the lumbar spine. IMPRESSION: 1. NO DEFINITE CT EVIDENCE OF AN ACUTE INTRA-ABDOMINAL NOR INTRAPELVIC PROCESS. 2. COLONIC DIVERTICULOSIS REDEMONSTRATED WITHOUT EVIDENCE OF DIVERTICULITIS. 3. 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 MULTIPLE VENOUS COLLATERALS WITHIN THE RETROPERITONEUM AND SUBCUTANEOUS TRUNK. 4. MODERATE AMOUNT OF STOOL REDEMONSTRATED WITHIN THE RECTUM. 5. CARDIOMEGALY. BORDERLINE ANTERIOR PERICARDIAL EFFUSION NOT PREVIOUSLY DEMONSTRATED. 6. MINOR PATCHY OPACITIES WITHIN THE DEPENDENT LUNG BASES CONSISTENT WITH ATELECTASIS OR LESS LIKELY INFILTRATE. 7. MICRONODULAR PATTERN WITHIN THE MEDIAL LINGULA AND MEDIAL ASPECT OF THE RIGHT MIDDLE LOBE. THIS CAN BE SEEN WITH INFLAMMATION/INFECTION OF SMALL AIRWAYS. JOB NUMBER: [id number] MTDD
== END 2018-11-08 18:04 | disposition home or self-care (01) ==
LOC: ER 15:18
DX: R10.12 Left upper quadrant pain (principal); R11.0 Nausea; I10 Essential (primary) hypertension
CPT/HCPCS: 74176; 80048; 80076; 81001; 83690; 85025; 85610; 85730; 99284

== ENCOUNTER 2018-12-27 11:44 | Emergency (ER) | payer MEDICARE, BC ==
[2018-12-27] MEDS ORDERED: ASPIRIN 81 MG CHEWABLE TABLET PO ONE (12:05)
--- NOTE | 2018-12-27 12:08 | Emergency Department Record ---
History of Present Illness - General Chief complaint: Female Urogenital Problem Stated complaint: THINKS UTI Time Seen by Provider: 12/27/18 11:49 Source: Patient, RN notes reviewed Mode of Arrival: Ambulatory - History of Present Illness Initial comments: sob since yesterday and epigastric pain and [facility] at [facility] two this week and diagnosised with UTI. patient's primary Dr is Dr Betancur and no diaphoresis and no radiation of pain. reviewed chart from [facility] and seen yesterday and given one dose 3 gms of fosfomycin and pyridium TID. patient was drawn this Am by lab and probably from Dr Betancur. Complaint: Dysuria Location: Suprapubic Improves with: None Worsens with: None Associated Symptoms: Abdominal pain - Related Data Previous Rx's Medication Instructions Recorded Lorazepam [Ativan] 1 mg PO BID PRN tablet 06/02/17 Gabapentin [Neurontin] 300 mg PO QAM capsule 04/21/18 Omeprazole 20 mg PO BID #20 tablet. 04/21/18 Ciprofloxacin HCl [Cipro] 500 mg PO Q12HR #20 tablet 12/27/18 Allergies Allergy/AdvReac Type Severity Reaction Status Date / Time Penicillins Allergy Intermediate RASH Verified 12/27/18 11:54 Sulfa (Sulfonamide Allergy Intermediate RASH Verified 12/27/18 11:54 Antibiotics) Travel Screening - Travel/Exposure Within Last 30 Days Have you traveled within the last 30 days?: No Review of Systems Reviewed: No additional complaints except as noted below Constitutional: Reports: As per HPI. Denies: Chills, Fever, Malaise, Night sweats, Weakness, Weight change Eyes: Reports: As per HPI. Denies: Eye discharge, Eye pain, Photophobia, Vision change ENT: Reports: As per HPI. Denies: Congestion, Dental pain, Ear pain, Epistaxis, Hearing loss, Throat pain Respiratory: Reports: As per HPI, Dyspnea. Denies: Cough, Hemoptysis, Stridor, Wheezes Cardiovascular: Reports: As per HPI. Denies: Arrhythmia, Chest pain, Dyspnea on exertion, Edema, Murmurs, Orthopnea, Palpitations, Paroxysmal nocturnal dyspnea, Rheumatic Fever, Syncope Endocrine: Reports: As per HPI. Denies: Fatigue, Heat or cold intolerance, Polydipsia, Polyuria Gastrointestinal: Reports: As per HPI. Denies: Abdominal pain, Constipation, Diarrhea, Hematemesis, Hematochezia, Melena, Nausea, Vomiting Genitourinary: Reports: As per HPI. Denies: Abnormal menses, Discharge, Dyspareunia, Dysuria, Frequency, Hematuria, Incontinence, Retention, Urgency Musculoskeletal: Reports: As per HPI. Denies: Arthralgia, Back pain, Gout, Joint swelling, Myalgia, Neck pain Skin: Reports: As per HPI. Denies: Bruising, Change in color, Change in hair/nails, Lesions, Pruritus, Rash Neurological: Reports: As per HPI. Denies: Abnormal gait, Confusion, Headache, Numbness, Paresthesias, Seizure, Tingling, Tremors, Vertigo, Weakness Psychiatric: Reports: As per HPI. Denies: Anxiety, Auditory hallucinations, Depression, Homicidal thoughts, Suicidal thoughts, Visual hallucinations Hematological/Lymphatic: Reports: As per HPI. Denies: Anemia, Blood Clots, Easy bleeding, Easy bruising, Swollen glands Past Medical History - SOCIAL HISTORY Smoking Status: Never smoker Alcohol Use: None Drug Use: None - RESPIRATORY Hx Respiratory Disorders: Yes - CARDIOVASCULAR Hx Cardio Disorders: Yes Hx Abnormal EKG: Yes Hx Cardiac Cath: Yes (2 stents) Hx Edema: Yes (some in ankles-on Lasix) Hx Hypertension: Yes Hx Coronary Artery Disease: Yes (per CT results) - NEURO Hx Neuro Disorders: No Hx Seizures: No - GI Hx GI Disorders: Yes Hx Hiatal Hernia: Yes (1956) Hx Ulcer: Yes - Hx Genitourinary Disorders: Yes Hx UTI: Yes - ENDOCRINE Hx Endocrine Disorders: No Hx Diabetes: No - MUSCULOSKELETAL Hx Musculoskeletal Disorders: Yes Hx Arthritis: Yes (lower back) - PSYCH Hx Psych Problems: Yes Hx Anxiety: Yes Hx Depression: Yes - HEMATOLOGY/ONCOLOGY Hx Hematology/Oncology Disorders: Yes Hx Anemia: Yes Hx Blood Transfusions: Yes (2014) Hx Blood Transfusion Reaction: No Family Medical History Any Significant Family History?: Yes Hx Cancer: Mother *Cancer Comment: uterus Hx Heart Disease: Grandparents Hx Resp Disorders: Father *Resp Comment: TB Hx Stroke: Grandparents Physical Exam - General General Appearance: Alert, Oriented x3, Cooperative, No acute distress - Head Head exam: Normal inspection - Eye Eye exam: Normal appearance, PERRL Pupils: Normal accommodation - ENT ENT exam: Normal exam, Mucous membranes moist, Normal external ear exam, Normal orophraynx, TM's normal bilaterally Ear exam: Normal external inspection. negative: External canal tenderness Nasal Exam: Normal inspection. negative: Discharge, Sinus tenderness Mouth exam: Normal external inspection, Tongue normal Teeth exam: Normal inspection. negative: Dental caries Throat exam: Normal inspection. negative: Tonsillar erythema, Tonsillar exudate - Neck Neck exam: Normal inspection, Full ROM. negative: Tenderness - Respiratory Respiratory exam: Normal lung sounds bilaterally. negative: Respiratory distress - Cardiovascular Cardiovascular Exam: Regular rate, Normal rhythm, Normal heart sounds - GI/Abdominal GI/Abdominal exam: Soft, Normal bowel sounds. negative: Tenderness - Rectal Rectal exam: Deferred - exam: Deferred - Extremities Extremities exam: Normal inspection, Full ROM, Normal capillary refill. negative: Tenderness - Back Back exam: Reports: Normal inspection, Full ROM. Denies: Muscle spasm, Rash noted, Tenderness - Neurological Neurological exam: Alert, Normal gait, Oriented X3, Reflexes normal - Psychiatric Psychiatric exam: Normal affect, Normal mood - Skin Skin exam: Dry, Intact, Normal color, Warm Course Vital Signs 12/27/18 11:50 Temperature 99.1 F Pulse Rate 68 Respiratory 20 Rate Blood Pressure 172/92 Pulse Ox 93 L - Reevaluation(s) Reevaluation #1: 12/27/18 12:34 difficulty drawing blood Reevaluation #2: was able to get the urine report from lab and her urine showed pseudomonas and sensitive to cipro so will stop nitrofurantoin and start cipro 12/27/18 13:23 12/27/18 13:33 Reevaluation #3: breathing is better and she walked to the bathroom without problem. She walks with a cane 12/27/18 13:37 Medical Decision Making - Data Complexity MDM Data: Labs Ordered and/or Reviewed, X-Ray Ordered and/or Reviewed, EKG Ordered and/or Reviewed (NSR. no acute changes) - Lab Data Result diagrams: 12/27/18 12:15 12/27/18 12:15 Disposition Clinical Impression: Dyspnea Qualifiers: Dyspnea type: shortness of breath Qualified Code(s): R06.02 - Shortness of breath; R06.00 - Dyspnea, unspecified; R06.01 - Orthopnea UTI (urinary tract infection) Qualifiers: Urinary tract infection type: acute cystitis Hematuria presence: without hematuria Qualified Code(s): N30.00 - Acute cystitis without hematuria Condition: (1) Good Instructions: Urinary Tract Infection in Women (ED), Gastritis (ED) Additional Instructions: fluids follow up with Dr Betancur in 4 days return if worse stop nitofurantoin Prescriptions: Ciprofloxacin HCl [Cipro] 500 mg PO Q12HR #20 tablet Forms: Patient Portal Access Time of Disposition: 13:42 Quality - Quality Measures Quality Measures: N/A - Blood Pressure Screening Does Patient Have Any of the Following: No, Active Dx of HTN Blood Pressure Classification: Hypertensive Reading Systolic Measurement: 172 Diastolic Measurement: 92 Screening for High Blood Pressure: Patient Exclusion, Hx of HTN [G9744]
[2018-12-27 12:43] LABS: ABSOLUTE NEUTROPHIL COUNT 5.47; BASO % 0.3 % (0-6); EOS % 1.4 % (0-6); GRAN % 69.7 % (47-80); HEMATOCRIT 35.1 % (35.0-47.0); HEMOGLOBIN 11.1 gm/dl (11.6-16.0); LYMPH % 20.9 % (16-45); MEAN CELL VOLUME 101.2 fl (81-97); MEAN CORPUSCULAR HGB CONC 31.6 g/dl (32-36); MEAN PLATELET VOLUME 10.7 fl (7.4-10.4); MONO % 7.7 % (0-9); PLATELET COUNT 246 K/uL (130-400); RED BLOOD COUNT 3.47 M/uL (3.80-5.40); WHITE BLOOD COUNT W/O DIFF 7.8 K/uL (4.2-12.2)
[2018-12-27 12:45] LABS: MEAN CORPUSCULAR HEMOGLOBIN 31.9 pg (27-33)
[2018-12-27 12:56] LABS: BLOOD UREA NITROGEN 12 mg/dL (8-23); CREATININE 0.9 mg/dL (0.5-0.9); EST GLOMERULAR FILTRATION RATE > 60 mL/min
[2018-12-27 12:59] LABS: GLUCOSE,RANDOM 107 mg/dL (74-109)
[2018-12-27] MEDS ORDERED: AL HYDROX/MAG HYDROX 30ML UD PO ONE (13:35)
--- NOTE | 2018-12-27 13:51 | RADIOLOGY REPORT ---
EXAMINATION: Two View Chest Radiographs EXAM DATE: 12/27/2018 1:19 PM TECHNIQUE: Frontal and lateral views INDICATION: sob COMPARISON: June 07, 2017 and September 08, 2011 ENCOUNTER: Not applicable FINDINGS: The lung volumes are low. A linear band of scarring or atelectasis is seen in the left lateral lung b ase. The heart, mediastinum, and pulmonary vasculature are normal. No lung consolidation or pleural effu sions are present. IMPRESSION: No acute cardiopulmonary process. Dictated by: Naveed Haywood MD on 12/27/2018 1:48 PM. .
== END 2018-12-27 14:55 | disposition home or self-care (01) ==
LOC: ER 11:44
DX: N30.00 Acute cystitis without hematuria (principal); R06.02 Shortness of breath; R10.13 Epigastric pain; Z79.01 Long term (current) use of anticoagulants; Z86.718 Personal history of other venous thrombosis and embolism; D50.1 Sideropenic dysphagia; D63.1 Anemia in chronic kidney disease; Z51.81 Encounter for therapeutic drug level monitoring
CPT/HCPCS: 71046; 80048; 80053; 82607; 82728; 83550; 84484; 85025; 85379; 85610; 85730; 93005; 93010; 99284

== ENCOUNTER 2018-12-29 09:32 | Observation (INO) | payer MEDICARE, BC ==
[2018-12-29] MEDS ORDERED: DILTIAZEM 25MG/5ML VIAL IV ONE (09:41)
[2018-12-29] MEDS ORDERED: NITROGLYCERIN 0.4MG SL TABLET #25 BTL SL PRN ×2 (10:05→12:51)
[2018-12-29] MEDS ORDERED: SODIUM CHLORIDE IV SCH (10:30)
[2018-12-29 10:33] LABS: ABSOLUTE NEUTROPHIL COUNT 2.89; BASO % 0.2 % (0-6); EOS % 2.3 % (0-6); GRAN % 55.3 % (47-80); HEMOGLOBIN 11.7 gm/dl (11.6-16.0); MEAN CELL VOLUME 100.3 fl (81-97); MEAN CORPUSCULAR HEMOGLOBIN 31.7 pg (27-33); MEAN CORPUSCULAR HGB CONC 31.6 g/dl (32-36); MEAN PLATELET VOLUME 10.4 fl (7.4-10.4); MONO % 12.2 % (0-9); PLATELET COUNT 269 K/uL (130-400); RED BLOOD COUNT 3.69 M/uL (3.80-5.40); WHITE BLOOD COUNT W/O DIFF 5.2 K/uL (4.2-12.2)
[2018-12-29 10:38] LABS: INR 2.2; PROTHROMBIN TIME (PATIENT) 21.4 SECONDS (9.5-12.1)
[2018-12-29 10:43] LABS: BLOOD UREA NITROGEN 17 mg/dL (8-23); EST GLOMERULAR FILTRATION RATE 56 mL/min
[2018-12-29 10:46] LABS: GLUCOSE,RANDOM 121 mg/dL (74-109)
[2018-12-29] MEDS ORDERED: METOPROLOL SUCC 50 MG TABLET PO ONE (10:51)
[2018-12-29 11:00] LABS: THYROID STIMULATING HORMONE 2.78 uIU/mL (0.270-4.20)
--- NOTE | 2018-12-29 11:05 | Emergency Department Record ---
History of Present Illness - General Chief Complaint: Chest Pain Stated Complaint: CHEST PAIN Time Seen by Provider: 12/29/18 09:41 Source: Patient, RN notes reviewed Mode of Arrival: EMS - History of Present Illness Initial Comments: chest pain which started 1 hour prior to arrival and she is also tachycardic. EMS called and they were going to [facility] but they could not get an IV and came to [facility]. Patient states substernal chest pain and she felt her heart pounding and she was given cardizem 10 mg and nitrosublingual times one she she is feeling better but still tach so gave her fluid challenge of 200 ml and also gave her toprolxl 50 mg po Onset/Timin -: Hour(s) Pain Location: Substernal Severity: Moderate Severity scale (1-10): 7 Quality: Other Consistency: Constant Improves With: Nothing Worsens With: Nothing Anginal Symptoms: Nausea Treatments Prior to Arrival: Aspirin - Related Data Previous Rx's Medication Instructions Recorded Lorazepam [Ativan] 1 mg PO BID PRN tablet 06/02/17 Gabapentin [Neurontin] 300 mg PO QAM capsule 04/21/18 Omeprazole 20 mg PO BID #20 tablet. 04/21/18 Ciprofloxacin HCl [Cipro] 500 mg PO Q12HR #20 tablet 12/27/18 Allergies Allergy/AdvReac Type Severity Reaction Status Date / Time Penicillins Allergy Intermediate RASH Verified 12/29/18 09:37 Sulfa (Sulfonamide Allergy Intermediate RASH Verified 12/29/18 09:37 Antibiotics) Travel Screening - Travel/Exposure Within Last 30 Days Have you traveled within the last 30 days?: No - Travel/Exposure Within Last Year Have you traveled outside the [place] in the last year?: No - Additonal Travel Details Have you been exposed to anyone with a communicable illness?: No - Travel Symptoms Symptom Screening: None Review of Systems Reviewed: No additional complaints except as noted below Constitutional: Reports: As per HPI. Denies: Chills, Fever, Malaise, Night sweats, Weakness, Weight change Eyes: Reports: As per HPI. Denies: Eye discharge, Eye pain, Photophobia, Vision change ENT: Reports: As per HPI. Denies: Congestion, Dental pain, Ear pain, Epistaxis, Hearing loss, Throat pain Respiratory: Reports: As per HPI. Denies: Cough, Dyspnea, Hemoptysis, Stridor, Wheezes Cardiovascular: Reports: As per HPI, Arrhythmia, Chest pain. Denies: Dyspnea on exertion, Edema, Murmurs, Orthopnea, Palpitations, Paroxysmal nocturnal dyspnea, Rheumatic Fever, Syncope Endocrine: Reports: As per HPI. Denies: Fatigue, Heat or cold intolerance, Polydipsia, Polyuria Gastrointestinal: Reports: As per HPI. Denies: Abdominal pain, Constipation, Diarrhea, Hematemesis, Hematochezia, Melena, Nausea, Vomiting Genitourinary: Reports: As per HPI. Denies: Abnormal menses, Discharge, Dyspareunia, Dysuria, Frequency, Hematuria, Incontinence, Retention, Urgency Musculoskeletal: Reports: As per HPI. Denies: Arthralgia, Back pain, Gout, Joint swelling, Myalgia, Neck pain Skin: Reports: As per HPI. Denies: Bruising, Change in color, Change in h air/nails, Lesions, Pruritus, Rash Neurological: Reports: As per HPI. Denies: Abnormal gait, Confusion, Headache, Numbness, Paresthesias, Seizure, Tingling, Tremors, Vertigo, Weakness Psychiatric: Reports: As per HPI. Denies: Anxiety, Auditory hallucinations, Depression, Homicidal thoughts, Suicidal thoughts, Visual hallucinations Hematological/Lymphatic: Reports: As per HPI. Denies: Anemia, Blood Clots, Easy bleeding, Easy bruising, Swollen glands Past Medical History - SOCIAL HISTORY Smoking Status: Never smoker Alcohol Use: None Drug Use: None - RESPIRATORY Hx Respiratory Disorders: Yes - CARDIOVASCULAR Hx Cardio Disorders: Yes Hx Abnormal EKG: Yes Hx Cardiac Cath: Yes (2 stents) Hx Edema: Yes (some in ankles-on Lasix) Hx Hypertension: Yes Hx Coronary Artery Disease: Yes (per CT results) - NEURO Hx Neuro Disorders: No Hx Seizures: No - GI Hx GI Disorders: Yes Hx Hiatal Hernia: Yes (1956) Hx Ulcer: Yes - Hx Genitourinary Disorders: Yes Hx UTI: Yes - ENDOCRINE Hx Endocrine Disorders: No Hx Diabetes: No - MUSCULOSKELETAL Hx Musculoskeletal Disorders: Yes Hx Arthritis: Yes (lower back) - PSYCH Hx Psych Problems: Yes Hx Anxiety: Yes Hx Depression: Yes - HEMATOLOGY/ONCOLOGY Hx Hematology/Oncology Disorders: Yes Hx Anemia: Yes Hx Blood Transfusions: Yes (2014) Hx Blood Transfusion Reaction: No Family Medical History Any Significant Family History?: Yes Hx Cancer: Mother *Cancer Comment: uterus Hx Heart Disease: Grandparents Hx Resp Disorders: Father *Resp Comment: TB Hx Stroke: Grandparents Physical Exam - General General Appearance: Alert, Oriented x3, Cooperative, No acute distress - Head Head exam: Normal inspection - Eye Eye exam: Normal appearance, PERRL Pupils: Normal accommodation - ENT ENT exam: Normal exam, Mucous membranes moist, Normal external ear exam, Normal orophraynx, TM's normal bilaterally Ear exam: Normal external inspection. negative: External canal tenderness Nasal Exam: Normal inspection. negative: Discharge, Sinus tenderness Mouth exam: Normal external inspection, Tongue normal Teeth exam: Normal inspection. negative: Dental caries Throat exam: Normal inspection. negative: Tonsillar erythema, Tonsillar exudate - Neck Neck exam: Normal inspection, Full ROM. negative: Tenderness - Respiratory Respiratory exam: Normal lung sounds bilaterally. negative: Respiratory distress - Cardiovascular Cardiovascular Exam: Regular rate, Normal rhythm, Normal heart sounds - GI/Abdominal GI/Abdominal exam: Soft, Normal bowel sounds. negative: Tenderness - Rectal Rectal exam: Deferred - exam: Deferred - Extremities Extremities exam: Normal inspection, Full ROM, Normal capillary refill. negative: Tenderness - Back Back exam: Reports: Normal inspection, Full ROM. Denies: Muscle spasm, Rash noted, Tenderness - Neurological Neurological exam: Alert, Normal gait, Oriented X3, Reflexes normal - Psychiatric Psychiatric exam: Normal affect, Normal mood - Skin Skin exam: Dry, Intact, Normal color, Warm Course Vital Signs 12/29/18 09:39 Temperature 99.4 F Pulse Rate 131 H Respiratory 20 Rate Blood Pressure 120/89 Pulse Ox 96 - Reevaluation(s) Reevaluation #1: discussed case with Nica Flood and will admit to observation patient is feeling better 12/29/18 12:25 Reevaluation #2: chest pain is gone 12/29/18 12:26 Reevaluation #3: discussion with son and daughter in law and they agree with the plan of care. 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, EMS had a EKG which showed atrial fib with fast rate.) - Lab Data Result diagrams: 12/29/18 10:00 12/29/18 10:00 Lab Results 12/29/18 12/29/18 12/29/18 Range/Units 10:00 10:00 10:00 WBC 5.2 (4.2-12.2) K/uL RBC 3.69 L (3.80-5.40) M/uL Hgb 11.7 (11.6-16.0) gm/dl Hct 37.0 (35.0-47.0) % MCV 100.3 H (81-97) fl MCH 31.7 (27-33) pg MCHC 31.6 L (32-36) g/dl RDW 13.0 (11.5-14.5) % Plt Count 269 (130-400) K/uL MPV 10.4 (7.4-10.4) fl Gran % 55.3 (47-80) % Lymphocytes % 30.0 (16-45) % Monocytes % 12.2 H (0-9) % Eosinophils % 2.3 (0-6) % Basophils % 0.2 (0-6) % Absolute Neutrophils 2.89 PT 21.4 H (9.5-12.1) SECONDS INR 2.2 APTT (24.5-39.1) SECONDS Sodium 143 (136-145) mmol/L Potassium 3.8 (3.4-4.5) mmol/L Chloride 101 (98-107) mmol/L Carbon Dioxide 26.0 (22-29) mmol/L Anion Gap 16.0 (7-16) BUN 17 (8-23) mg/dL Creatinine 1.0 H (0.5-0.9) mg/dL Estimated GFR 56 mL/min Random Glucose 121 H (74-109) mg/dL Calcium 9.5 (8.8-10.2) mg/dL Troponin T < 0.010 (0-0.010) ng/mL 12/29/18 Range/Units 10:00 WBC (4.2-12.2) K/uL RBC (3.80-5.40) M/uL Hgb (11.6-16.0) gm/dl Hct (35.0-47.0) % MCV (81-97) fl MCH (27-33) pg MCHC (32-36) g/dl RDW (11.5-14.5) % Plt Count (130-400) K/uL MPV (7.4-10.4) fl Gran % (47-80) % Lymphocytes % (16-45) % Monocytes % (0-9) % Eosinophils % (0-6) % Basophils % (0-6) % Absolute Neutrophils PT (9.5-12.1) SECONDS INR APTT 37.7 (24.5-39.1) SECONDS Sodium (136-145) mmol/L Potassium (3.4-4.5) mmol/L Chloride (98-107) mmol/L Carbon Dioxide (22-29) mmol/L Anion Gap (7-16) BUN (8-23) mg/dL Creatinine (0.5-0.9) mg/dL Estimated GFR mL/min Random Glucose (74-109) mg/dL Calcium (8.8-10.2) mg/dL Troponin T (0-0.010) ng/mL Disposition Clinical Impression: Tachycardia, History of atrial fibrillation Chest pain Qualifiers: Chest pain type: unspecified Qualified Code(s): R07.9 - Chest pain, unspecified Decision to Admit: Admit from ER Condition: (1) Good Forms: Patient Portal Access Time of Disposition: 12:28 Quality - Quality Measures Quality Measures: N/A - Blood Pressure Screening Does Patient Have Any of the Following: No, Active Dx of HTN Blood Pressure Classification: Pre-Hypertensive BP Reading Systolic Measurement: 120 Diastolic Measurement: 89 Screening for High Blood Pressure: Patient Exclusion, Hx of HTN [G9744]
--- NOTE | 2018-12-29 11:36 | RADIOLOGY REPORT ---
EXAMINATION: Single View Chest EXAM DATE: 12/29/2018 10:57 AM TECHNIQUE: Single view chest INDICATION: chest pain COMPARISON: 12/27/2018 ENCOUNTER: Not applicable FINDINGS: Developing prominence of the perihilar regions with peribronchial thickening. The cardiac size is nor mal. No large opacity, pneumothorax, or pleural effusion is appreciated. IMPRESSION: Peribronchial thickening which can be seen in reactive airway disease or bronchitis. Dictated by: Romana Vallejo DO on 12/29/2018 11:19 AM. .
[2018-12-29] MEDS ORDERED: HYDROCODONE/APAP 5/325MG TABLET PO PRN (12:51)
[2018-12-29] MEDS ORDERED: ACETAMINOPHEN 325 MG TAB PO PRN (14:05)
[2018-12-29] MEDS ORDERED: 0.9 % SODIUM CHLORIDE 1000ML 1,000 ML IV ONE (14:05)
[2018-12-29] MEDS ORDERED: WARFARIN 5 MG TAB PO SCH (16:00)
[2018-12-29] MEDS: LORAZEPAM 0.5 MG TABLET PO PRN (16:51)
[2018-12-29] MEDS: ONDANSETRON 4 MG ODT TABLET PO SCH ×2 (18:42→21:51)
[2018-12-29] MEDS: PANTOPRAZOLE SODIUM 40 MG TABLET PO SCH (21:53)
[2018-12-29] MEDS: CIPROFLOXACIN HCL 500 MG TABLET PO SCH (21:53)
[2018-12-29] MEDS: CARVEDILOL 3.125 MG TABLET PO SCH (21:53)
[2018-12-29] MEDS: FUROSEMIDE 20 MG TABLET PO SCH (21:53)
[2018-12-29] MEDS ORDERED: MELATONIN 5 MG TABLET PO SCH (22:00)
[2018-12-29] MEDS ORDERED: CARVEDILOL 3.125 MG TABLET PO SCH (22:00)
[2018-12-29] MEDS ORDERED: ATORVASTATIN 20 MG TABLET PO SCH (22:00)
[2018-12-29] MEDS: POLYETHYLENE GLY 17 GM PACKET PO SCH (22:19)
[2018-12-30] MEDS ORDERED: MORPHINE SULFATE 5 MG/ML VIAL IVP ONE (00:03)
[2018-12-30] MEDS: ONDANSETRON 4 MG ODT TABLET PO SCH (05:48)
[2018-12-30 07:00] LABS: INR 2.3; PROTHROMBIN TIME (PATIENT) 22.7 SECONDS (9.5-12.1)
[2018-12-30] MEDS ORDERED: SENNOSIDES/DOCUSATE SODIUM UD CAPSULE PO SCH (10:00)
[2018-12-30] MEDS ORDERED: ASPIRIN 81 MG TABEC PO SCH (10:00)
[2018-12-30] MEDS ORDERED: POTASSIUM CHLORIDE 20 MEQ TABLET PO SCH (10:00)
[2018-12-30] MEDS ORDERED: GABAPENTIN 300 MG CAPSULE PO SCH ×2 (10:00→10:15)
[2018-12-30] MEDS ORDERED: ONDANSETRON 4 MG ODT TABLET PO PRN (10:15)
--- NOTE | 2018-12-30 10:19 | History & Physical ---
History of Present Illness - Date of Service Date of Service for History & Physical: 12/30/18 - History of Present Illness Admitting Diagnosis: chest pain. atrial fib with tachycardia parosysmal. coumadin therapy. 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 Patient arrived via EMS. Patient reported taking 1 SL nitro at home with no relief. Upon arrival to the ED, patient's heart rate was found to be 132 and in a-fib. Patient received 10mg Cardizem IVP and Toprol XL 50mg PO, which converted patient to a sinus rhythm, rate of 56. 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 Patient's coumadin level is managed by Dr. Reyes. Patient also has a history of recurrent UTI's over the past 2 weeks. She has been treated with a course of Macrobid and Fosfomycin with no relief. Patient was again evaluated in the ED 12/27 for UTI symptoms and started on Cipro 500mg BID due to the presence of psuedomonas in her urine culture. Patient's past medical history include: cardiac stents in 2006 (no current signals intelligence superintendent), high cholesterol, HTN, IVC filter in place, anxiety, and history of a GI bleed. PCP: Dr. Betancur ED Course: EK a-fib, received 10mg Cardizem IVP and Toprol XL 50mg PO Repeat EK, NSR, LBBB, no acute changes CXR: no acute cardiopulmonary process, peribronchial thickening noted Troponin <0.01 INR 2.3 12/30/18: Patient A&O x 4, resting comfortably in bed. Patient denies substernal chest pain at this time. Patient does not intermittent epigastric discomfort that is currently present. Notes intermittent symptoms since having pancreatitis 1 year ago. Patient is receiving Protonix daily for this at home. Serial troponins negative, no acute EKG changes, cardiology consult pending, ECHO to be completed this morning. Travel Screening - Travel/Exposure Within Last 30 Days Have you traveled within the last 30 days?: No - Travel/Exposure Within Last Year Have you traveled outside the [place] in the last year?: No - Additonal Travel Details Have you been exposed to anyone with a communicable illness?: No - Travel Symptoms Symptom Screening: None Review of Systems Reviewed: No additional complaints except as noted below Constitutional: Reports: As per HPI. Denies: Chills, Fever, Malaise, Night sweats, Weakness, Weight change Eyes: Reports: As per HPI. Denies: Eye discharge, Eye pain, Photophobia, Vision change ENT: Reports: As per HPI. Denies: Congestion, Dental pain, Ear pain, Epistaxis, Hearing loss, Throat pain Respiratory: Reports: As per HPI. Denies: Cough, Dyspnea, Hemoptysis, Stridor, Wheezes Cardiovascular: Reports: As per HPI, Arrhythmia, Chest pain. Denies: Dyspnea on exertion, Edema, Murmurs, Orthopnea, Palpitations, Paroxysmal nocturnal dyspnea, Rheumatic Fever, Syncope Endocrine: Reports: As per HPI. Denies: Fatigue, Heat or cold intolerance, Polydipsia, Polyuria Gastrointestinal: Reports: As per HPI. Denies: Abdominal pain, Constipation, Diarrhea, Hematemesis, Hematochezia, Melena, Nausea, Vomiting Genitourinary: Reports: As per HPI. Denies: Abnormal menses, Discharge, Dyspareunia, Dysuria, Frequency, Hematuria, Incontinence, Retention, Urgency Musculoskeletal: Reports: As per HPI. Denies: Arthralgia, Back pain, Gout, Joint swelling, Myalgia, Neck pain Skin: Reports: As per HPI. Denies: Bruising, Change in color, Change in hair/nails, Lesions, Pruritus, Rash Neurological: Reports: As per HPI. Denies: Abnormal gait, Confusion, Headache, Numbness, Paresthesias, Seizure, Tingling, Tremors, Vertigo, Weakness Psychiatric: Reports: As per HPI. Denies: Anxiety, Auditory hallucinations, Depression, Homicidal thoughts, Suicidal thoughts, Visual hallucinations Hematological/Lymphatic: Reports: As per HPI. Denies: Anemia, Blood Clots, Easy bleeding, Easy bruising, Swollen glands Past Medical History - SOCIAL HISTORY Smoking Status: Never smoker Alcohol Use: None Drug Use: None - RESPIRATORY Hx Respiratory Disorders: Yes - CARDIOVASCULAR Hx Cardio Disorders: Yes Hx Abnormal EKG: Yes Hx Cardiac Cath: Yes (2 stents) Hx Edema: Yes (some in ankles-on Lasix) Hx Hypertension: Yes Hx Coronary Artery Disease: Yes (per CT results) - NEURO Hx Neuro Disorders: No Hx Seizures: No - GI Hx GI Disorders: Yes Hx Hiatal Hernia: Yes (1956) Hx Ulcer: Yes - Hx Genitourinary Disorders: Yes Hx UTI: Yes - ENDOCRINE Hx Endocrine Disorders: No Hx Diabetes: No - MUSCULOSKELETAL Hx Musculoskeletal Disorders: Yes Hx Arthritis: Yes (lower back) - PSYCH Hx Psych Problems: Yes Hx Anxiety: Yes Hx Depression: Yes - HEMATOLOGY/ONCOLOGY Hx Hematology/Oncology Disorders: Yes Hx Anemia: Yes Hx Blood Transfusions: Yes (2014) Hx Blood Transfusion Reaction: No Family Medical History Any Significant Family History?: Yes Hx Cancer: Mother *Cancer Comment: uterus Hx Heart Disease: Grandparents Hx Resp Disorders: Father *Resp Comment: TB Hx Stroke: Grandparents H&P Meds/Allergies - Allergies Allergies: Allergies Allergy/AdvReac Type Severity Reaction Status Date / Time Penicillins Allergy Intermediate RASH Verified 12/29/18 09:37 Sulfa (Sulfonamide Allergy Intermediate RASH Verified 12/29/18 09:37 Antibiotics) - Home Medications Previous Rx's Medication Instructions Recorded Lorazepam [Ativan] 1 mg PO BID PRN tablet 06/02/17 Gabapentin [Neurontin] 300 mg PO QAM capsule 04/21/18 Omeprazole 20 mg PO BID #20 tablet. 04/21/18 Ciprofloxacin HCl [Cipro] 500 mg PO Q12HR #20 tablet 12/27/18 - Active Medications Active Medications: Current Medications Acetaminophen (Tylenol 325mg) 650 mg PO Q6H PRN PRN Reason: PAIN - MILD(1-4)/FEVER Hydrocodone Bitart/Acetaminophen ([place] 5mg/325mg) 1 each PO Q4H PRN PRN Reason: ABDOMINAL PAIN Aspirin (Ecotrin (Ec)) 81 mg PO DAILY [facility] Atorvastatin Calcium (Lipitor) 80 mg PO QHS [facility] Last Admin: 12/29/18 21:53 Dose: 80 mg Documented by: Carvedilol (Coreg) 6.25 mg PO BID [facility] Last Admin: 12/29/18 21:53 Dose: 6.25 mg Documented by: Ciprofloxacin (Cipro) 500 mg PO Q12HR [facility] Last Admin: 12/29/18 21:53 Dose: 500 mg Documented by: Furosemide (Lasix) 20 mg PO BID [facility] Last Admin: 12/29/18 21:53 Dose: 20 mg Documented by: Gabapentin (Neurontin) 600 mg PO BID [facility] Sodium Chloride () 1,000 mls @ 15 mls/hr IV .Q24H ONE Stop: 12/30/18 14:04 Last Admin: 12/29/18 16:50 Dose: Not Given Documented by: Lorazepam (Ativan) 1 mg PO BID PRN PRN Reason: ANXIETY Last Admin: 12/29/18 16:51 Dose: 1 mg Documented by: Melatonin (Melatonin) 10 mg PO QHS [facility] Last Admin: 12/29/18 21:53 Dose: 10 mg Documented by: Nitroglycerin (Nitrostat 0.4mg) 0.4 mg SL Q5MIN PRN PRN Reason: CHEST PAIN Last Admin: 12/29/18 23:48 Dose: 0.4 mg Documented by: Ondansetron HCl (Zofran Odt) 8 mg PO Q8H PRN PRN Reason: NAUSEA Pantoprazole Sodium (Protonix) 40 mg PO BID [facility] Last Admin: 12/29/18 21:53 Dose: 40 mg Documented by: Polyethylene Glycol (Miralax) 17 gm PO BID [facility] Last Admin: 12/29/18 22:19 Dose: 17 gm Documented by: Potassium Chloride (Klor-Con) 20 meq PO DAILY [facility] Senna/Docusate Sodium (Senna Plus) 1 each PO DAILY [facility] Warfarin Sodium (Coumadin) 5 mg PO [id number] [facility] Last Admin: 12/29/18 16:48 Dose: 5 mg Documented by: Physical Exam - Vital Signs Vital Signs: Vital Signs - Last 24 Hrs Temp Pulse Pulse Pulse Resp BP BP 12/30/18 08:00 98.2 F 59 L 16 150/58 12/30/18 05:35 98.4 F 61 16 141/81 12/30/18 01:10 83 18 111/57 12/30/18 00:50 78 12/29/18 23:55 63 18 109/51 12/29/18 23:35 98.0 F 85 18 141/74 12/29/18 21:50 98.1 F 61 16 132/74 12/29/18 16:05 99.2 F 61 12 120/55 12/29/18 14:05 98.6 F 80 20 123/55 12/29/18 13:11 78 16 111/71 12/29/18 12:07 114 H 20 108/74 12/29/18 10:50 130 H 18 103/74 12/29/18 10:30 134 H 18 102/64 12/29/18 10:25 133 H 18 115/63 12/29/18 10:20 132 H 20 121/78 Pulse Ox 12/30/18 08:00 98 12/30/18 05:35 98 12/30/18 01:10 98 12/30/18 00:50 95 12/29/18 23:55 97 12/29/18 23:35 98 12/29/18 21:50 93 L 12/29/18 16:05 96 12/29/18 14:05 96 12/29/18 13:11 98 12/29/18 12:07 98 12/29/18 10:50 97 12/29/18 10:30 97 12/29/18 10:25 97 12/29/18 10:20 97 - General General Appearance: Alert, Oriented x3, Cooperative, No acute distress - Head Head exam: Normal inspection - Eye Eye exam: Normal appearance, PERRL Pupils: Normal accommodation - ENT ENT exam: Normal exam, Mucous membranes moist, Normal external ear exam, Normal orophraynx Ear exam: Normal external inspection. negative: External canal tenderness Nasal Exam: Normal inspection. negative: Discharge, Sinus tenderness Mouth exam: Normal external inspection Teeth exam: negative: Dental caries Throat exam: negative: Tonsillar erythema, Tonsillar exudate - Neck Neck exam: Normal inspection, Full ROM. negative: Tenderness - Respiratory Respiratory exam: Normal lung sounds bilaterally. negative: Respiratory distress - Cardiovascular Cardiovascular Exam: Regular rate, Normal rhythm, Normal heart sounds, Bradycardia Peripheral Pulses: 2+: Radial (R), Radial (L), Dorsalis Pedis (R), Dorsalis Pedis (L) - GI/Abdominal GI/Abdominal exam: Soft, Normal bowel sounds. negative: Tenderness - Rectal Rectal exam: Deferred - exam: Deferred - Extremities Extremities exam: Normal inspection, Full ROM, Normal capillary refill. negative: Tenderness - Back Back exam: Reports: Normal inspection, Full ROM. Denies: Muscle spasm, Rash noted, Tenderness - Neurological Neurological exam: Alert, Normal gait, Oriented X3 - Psychiatric Psychiatric exam: Anxious - Skin Skin exam: Dry, Intact, Normal color, Warm Results - Labs Result Diagrams: 12/29/18 10:00 12/30/18 06:12 Labs Last 24 Hours: Laboratory Results - last 24 hr 12/29/18 12/29/18 12/29/18 10:00 10:00 10:00 WBC 5.2 RBC 3.69 L Hgb 11.7 Hct 37.0 MCV 100.3 H MCH 31.7 MCHC 31.6 L RDW 13.0 Plt Count 269 MPV 10.4 Gran % 55.3 Lymphocytes % 30.0 Monocytes % 12.2 H Eosinophils % 2.3 Basophils % 0.2 Absolute Neutrophils 2.89 PT 21.4 H INR 2.2 APTT Sodium 143 Potassium 3.8 Chloride 101 Carbon Dioxide 26.0 Anion Gap 16.0 BUN 17 Creatinine 1.0 H Estimated GFR 56 Random Glucose 121 H Calcium 9.5 Troponin T < 0.010 TSH 2.78 12/29/18 12/29/18 12/30/18 10:00 18:20 01:50 WBC RBC Hgb Hct MCV MCH MCHC RDW Plt Count MPV Gran % Lymphocytes % Monocytes % Eosinophils % Basophils % Absolute Neutrophils PT INR APTT 37.7 Sodium Potassium Chloride Carbon Dioxide Anion Gap BUN Creatinine Estimated GFR Random Glucose Calcium Troponin T < 0.010 < 0.010 TSH 12/30/18 12/30/18 06:12 06:12 WBC RBC Hgb Hct MCV MCH MCHC RDW Plt Count MPV Gran % Lymphocytes % Monocytes % Eosinophils % Basophils % Absolute Neutrophils PT 22.7 H INR 2.3 APTT Sodium 141 Potassium 3.8 Chloride 103 Carbon Dioxide 28.0 Anion Gap 10.0 BUN 19 Creatinine 1.0 H Estimated GFR 56 Random Glucose 116 H Calcium 8.6 L Troponin T TSH - Imaging and Cardiology Chest x-ray Status: Report reviewed VTE H&P Assessment - Risk for VTE Risk for VTE: Yes Risk Level: Moderate Risk Assessment Date: 12/30/18 Risk Assessment Time: 10:20 VTE Orders Placed or Will Be Placed: No VTE Reason for No Prophylaxis: Not Indicated (Therapeutic on coumadin) Plan - Detailed Diagnosis and Plan (1) Chest pain Current Visit: Yes Status: Acute Qualifiers: Chest pain type: unspecified Qualified Code(s): R07.9 - Chest pain, unspecified Base Code: R07.9 - CHEST PAIN, UNSPECIFIED Comment: 12/30/18: -Substernal chest pain on admission with tachycardia noted -No relief with SL nitro -EK afib, converted with Cardizem and Toprol XL 50mg -Repeat EKG: rate 56, LBBB -CXR: no acute cardiopulmonary process -Troponin negative x 3 -ECHO today -Cardiology consult pending -Currently no chest pain (2) History of atrial fibrillation Current Visit: Yes Status: Acute Base Code: Z86.79 - PERSONAL HISTORY OF OTHER DISEASES OF THE CIRCULATORY SYSTEM Comment: 12/30/18: -Coumadin 5mg daily, INR managed by Dr. 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 (3) Urinary tract infection Current Visit: No Status: Acute Qualifiers: Urinary tract infection type: acute cystitis Hematuria presence: without h ematuria Qualified Code(s): N30.00 - Acute cystitis without hematuria Base Code: N39.0 - URINARY TRACT INFECTION, SITE NOT SPECIFIED Comment: 12/30/18: - Recurrent UTI x 2 weeks - Previously treated with Macrobid and Fosfomycin with no relief - Urine culture positive for pseudomonas - Cipro 500mg BID started 12/27/18 (4) DVT prophylaxis Current Visit: No Status: Acute Base Code: [id number] - Comment: 12/30/18: - 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 (5) Limited code status Current Visit: Yes Status: Acute Base Code: [id number] - Comment: 12/30/18: - Patient is a limited code
[2018-12-30] MEDS: FUROSEMIDE 20 MG TABLET PO SCH (10:39)
[2018-12-30] MEDS: CIPROFLOXACIN HCL 500 MG TABLET PO SCH (10:39)
[2018-12-30] MEDS: PANTOPRAZOLE SODIUM 40 MG TABLET PO SCH (10:39)
[2018-12-30] MEDS: POLYETHYLENE GLY 17 GM PACKET PO SCH (10:39)
[2018-12-30] MEDS: LORAZEPAM 0.5 MG TABLET PO PRN (10:39)
[2018-12-30] MEDS: CARVEDILOL 3.125 MG TABLET PO SCH (10:39)
[2018-12-30 11:47] LABS: AMYLASE 44 U/L (28-100); LIPASE 49 U/L (13-60)
--- NOTE | 2018-12-30 12:57 | Discharge Summary ---
Providers Discharge Summary Date: 12/30/18 Date of admission: 12/29/18 13:37 Expected Date of Discharge: 12/30/18 Attending physician: NIRMALA DANIELS Primary care physician: ISRRAEL BETANCUR D.O. Consults: Consult Orders 12/29/18 19:54 Consult - Cardiology NOW Consulting Provider: ISABEL MINA Physician Instructions: Reason For Exam: CP, history of a-fib Does pt have current junior systems analyst?: Not Established Physical Exam - Vital Signs Vital Signs: Vital Signs - Last 24 Hrs Temp Pulse Pulse Pulse Resp BP BP 12/30/18 08:00 98.2 F 59 L 16 150/58 12/30/18 05:35 98.4 F 61 16 141/81 12/30/18 01:10 83 18 111/57 12/30/18 00:50 78 12/29/18 23:55 63 18 109/51 12/29/18 23:35 98.0 F 85 18 141/74 12/29/18 21:50 98.1 F 61 16 132/74 12/29/18 16:05 99.2 F 61 12 120/55 12/29/18 14:05 98.6 F 80 20 123/55 12/29/18 13:11 78 16 111/71 Pulse Ox 12/30/18 08:00 98 12/30/18 05:35 98 12/30/18 01:10 98 12/30/18 00:50 95 12/29/18 23:55 97 12/29/18 23:35 98 12/29/18 21:50 93 L 12/29/18 16:05 96 12/29/18 14:05 96 12/29/18 13:11 98 - General General Appearance: Alert, Oriented x3, Cooperative, No acute distress - Head Head exam: Normal inspection - Eye Eye exam: Normal appearance, PERRL Pupils: Normal accommodation - ENT ENT exam: Normal exam, Mucous membranes moist, Normal external ear exam, Normal orophraynx Ear exam: Normal external inspection. negative: External canal tenderness Nasal Exam: Normal inspection. negative: Discharge, Sinus tenderness Mouth exam: Normal external inspection Teeth exam: negative: Dental caries Throat exam: negative: Tonsillar erythema, Tonsillar exudate - Neck Neck exam: Normal inspection, Full ROM. negative: Tenderness - Respiratory Respiratory exam: Normal lung sounds bilaterally. negative: Respiratory distress - Cardiovascular Cardiovascular Exam: Regular rate, Normal rhythm, Normal heart sounds, Bradycardia Peripheral Pulses: 2+: Radial (R), Radial (L), Dorsalis Pedis (R), Dorsalis Pedis (L) - GI/Abdominal GI/Abdominal exam: Soft, Normal bowel sounds. negative: Tenderness - Rectal Rectal exam: Deferred - exam: Deferred - Extremities Extremities exam: Normal inspection, Full ROM, Normal capillary refill. negative: Tenderness - Back Back exam: Reports: Normal inspection, Full ROM. Denies: Muscle spasm, Rash noted, Tenderness - Neurological Neurological exam: Alert, Normal gait, Oriented X3 - Psychiatric Psychiatric exam: Anxious - Skin Skin exam: Dry, Intact, Normal color, Warm Hospitalization - Hospitalization Admission Diagnosis: chest pain. atrial fib with tachycardia parosysmal. coumadin therapy. CAD with stents - Problem List/Discharge Diagnosis (1) Chest pain Status: Acute Discharge Diagnosis: Chest pain type: unspecified Qualified Code(s): R07.9 - Chest pain, unspecified Base Code: R07.9 - CHEST PAIN, UNSPECIFIED Comment: 12/30/18: -Substernal chest pain on admission with tachycardia noted -No relief with SL nitro -EK afib, converted with Cardizem and Toprol XL 50mg -Repeat EKG: rate 56, LBBB -CXR: no acute cardiopulmonary process -Troponin negative x 3 -ECHO today -Cardiology consult: no medication changes recommended, continue Coreg 6.25mg BID due to HR 60's this admission. Cardiology would like outpatient stress test ordered and further follow-up outpatient. No acute findings on ECHO. Patient wishes to resume treatment with [facility], case management to schedule. -Currently no chest pain (2) History of atrial fibrillation Status: Acute Base Code: Z86.79 - PERSONAL HISTORY OF OTHER DISEASES OF THE CIRCULATORY SYSTEM Comment: 12/30/18: -Coumadin 5mg daily, INR managed by Dr. Reyes -Decrease Coumadin to 4mg daily x 7 days due to current Cipro use -No current junior systems analyst, cardiology consult with [facility] today, patient wishes to follow with [facility] -Carvedilol 6.25mg BID -monitoring analyst -Currently rate controlled (3) Urinary tract infection Status: Acute Discharge Diagnosis: Urinary tract infection type: acute cystitis Hematuria presence: without hematuria Qualified Code(s): N30.00 - Acute cystitis without hematuria Base Code: N39.0 - URINARY TRACT INFECTION, SITE NOT SPECIFIED Comment: 12/30/18: - Recurrent UTI x 2 weeks - Previously treated with Macrobid and Fosfomycin with no relief - Urine culture positive for pseudomonas - Cipro 500mg BID started 12/27/18, continue on discharge (4) DVT prophylaxis Status: Acute Base Code: ZFH2624 - Comment: 12/30/18: - 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 Patient arrived via EMS. Patient reported taking 1 SL nitro at home with no relief. Upon arrival to the ED, patient's heart rate was found to be 132 and in a-fib. Patient received 10mg Cardizem IVP and Toprol XL 50mg PO, which converted patient to a sinus rhythm, rate of 56. Patient denies a current junior systems analyst, but is on coumadin due to a-fib. Patient's coumadin level is managed by Dr. Reyes. Patient also has a history of recurrent UTI's over the past 2 weeks. She has been treated with a course of Macrobid and Fosfomycin with no relief. Patient was again evaluated in the ED 12/27 for UTI symptoms and started on Cipro 500mg BID due to the presence of psuedomonas in her urine culture. Patient's past medical history include: cardiac stents in 2006 (no current junior systems analyst), high cholesterol, HTN, IVC filter in place, anxiety, and history of a GI bleed. PCP: Dr. Betancur ED Course: EK a-fib, received 10mg Cardizem IVP and Toprol XL 50mg PO Repeat EK, NSR, LBBB, no acute changes CXR: no acute cardiopulmonary process, peribronchial thickening noted Troponin <0.01 INR 2.3 12/30/18: Patient A&O x 4, resting comfortably in bed. Patient denies substernal chest pain at this time. Patient does not intermittent epigastric discomfort that is currently present. Notes intermittent symptoms since having pancreatitis 1 year ago. Patient is receiving Protonix daily for this at home. Serial troponins negative, no acute EKG changes, cardiology consult pending, ECHO to be completed this morning. UPDATE: No further symptoms of chest pain, epigastric pain resolved as well. Amylase and lipase negative. Cardiology consult, recommend following up with patient outpatient and completing outpatient stress test. No acute findings on ECHO, per cardiology. No medication changes at this time for a-fib. Decrease Coumadin to 4mg daily x 7 days, then return to daily dose of 5mg. Complete full course of Cipro as started 12/27. Visiting nurse referral placed for help with medication changes. Procedures: Imaging and X-Rays 12/29/18 10:28 CHEST 1 VIEW [RAD] Stat Cardiology Procedures 12/29/18 09:42 Model Technician NOW EKG NOW 12/29/18 13:12 EKG NOW 12/29/18 14:05 Model Technician .Continuous EKG QDX2@0600 12/29/18 19:54 Echo W/CF & Cardiac Doppler ONCE 12/29/18 23:35 EKG ONCE Abnormal Labs: Abnormal Lab Results 12/29/18 12/29/18 12/29/18 Range/Units 10:00 10:00 10:00 RBC 3.69 L (3.80-5.40) M/uL MCV 100.3 H (81-97) fl MCHC 31.6 L (32-36) g/dl Monocytes % 12.2 H (0-9) % PT 21.4 H (9.5-12.1) SECONDS Creatinine 1.0 H (0.5-0.9) mg/dL Random Glucose 121 H (74-109) mg/dL Calcium (8.8-10.2) mg/dL 12/30/18 12/30/18 Range/Units 06:12 06:12 RBC (3.80-5.40) M/uL MCV (81-97) fl MCHC (32-36) g/dl Monocytes % (0-9) % PT 22.7 H (9.5-12.1) SECONDS Creatinine 1.0 H (0.5-0.9) mg/dL Random Glucose 116 H (74-109) mg/dL Calcium 8.6 L (8.8-10.2) mg/dL Condition at Discharge: (2) Stable Discharge Medications - Discharge Medications Prescriptions: Warfarin Sodium [Coumadin] 4 mg PO DAILY #7 tablet Home Medications: Ambulatory Orders Carvedilol 6.25 mg PO BID 06/19/14 [Last Taken 12/29/18] Furosemide 20 mg PO BID 06/19/14 [Last Taken 12/29/18] Atorvastatin Calcium [Lipitor] 80 mg PO QHS 03/30/15 [Last Taken 12/29/18] Melatonin 10 mg PO QHS 12/17/15 [Last Taken 12/29/18] Sennosides [Senokot] 8.6 mg PO DAILY 12/17/15 [Last Taken 12/29/18] Cholecalciferol (Vitamin D3) [Vitamin D3] 2,000 unit PO DAILY 06/01/17 [Last Taken 12/29/18] Lorazepam [Ativan] 1 mg PO BID PRN tablet 06/02/17 [Last Taken 12/29/18] Gabapentin [Neurontin] 300 mg PO QAM capsule 04/21/18 [Last Taken 12/29/18] Omeprazole 20 mg PO BID #20 tablet. 04/21/18 [Last Taken 12/29/18] Carbamide Peroxide [Debrox] 1 drop OT WEEKLY 07/22/18 [Last Taken 12/29/18] Hydrocodone/APAP 5/325Mg [[place] 5Mg/325Mg] 1 each PO Q4H PRN 07/22/18 [Last Taken 12/29/18] L.acidoph,Paracasei, B.lactis [Probiotic] 1 each PO DAILY 07/22/18 [Last Taken 12/29/18] Nitroglycerin 0.4MG [Nitrostat 0.4MG] 1 tab SL Q5MIN PRN MDD 3 07/22/18 [Last Taken 12/29/18] Ondansetron [Zofran Odt] 8 mg PO Q8H 07/22/18 [Last Taken 12/29/18] Potassium Chloride [Klor-Con M20] 20 meq PO DAILY 07/22/18 [Last Taken 12/29/18] Valacyclovir HCl [Valacyclovir] 500 mg PO DAILY 07/22/18 [Last Taken 12/29/18] Ciprofloxacin HCl [Cipro] 500 mg PO Q12HR #20 tablet 12/27/18 [Last Taken 12/29/18] Warfarin Sodium [Coumadin] 4 mg PO DAILY #7 tablet 12/30/18 [Last Taken Unknown] Discharge Plan - Discharge Instructions Activity at Discharge: Increase Activity as Tolerated Diet at Discharge: Advance to Usual Diet Instructions: A-fib (Atrial Fibrillation) (DC), Chest Pain (DC) Additional Instructions: Activity: Increase Activity as Tolerated Diet: Advance to Usual Diet Consults: Appointment with Dr. Raza at [facility]) on January 16 at 8:30. They can be reached at if you need to reschedule Follow Up: Appointment with Dr. Betancur on January 06 at 12:30 Additional: -Continue taking Cipro twice a day until the antibiotic is completed -Decrease your Coumadin to 4mg daily for 7 days, then resume your usual dose -Complete a stress test outpatient with [facility] Quality Measures - Quality Measures Quality Measures: Atrial Fibrillation & Atrial Flutter: Chronic Anticoagulation Therapy, Advance Directives, Coronary Artery Disease: Antiplatelet Therapy, Documentation of Current Medications in Medical Record, Elder Maltreatment Screen and Follow-Up Plan, Screening for High Blood Pressure and F/U Documented - Current Medications Quality Measure: Measure #130: Documentation of Current Medications Documentation of Current Medications: <Current Medications Documented/Reviewed> [T8458] - Blood Pressure Screening Quality Measure: Screening for High Blood Pressure and Follow-Up Documented Does Patient Have Any of the Following: Active Dx of HTN Blood Pressure Classification: Normal BP Reading Systolic Measurement: 111 Diastolic Measurement: 71 Screening for High Blood Pressure: Patient Exclusion, Hx of HTN [G9744] - Atrial Fibrillation and Atrial Flutter Quality Measure: Atrial Fibrillation & Atrial Flutter: Chronic Anticoagulation Therapy Does Patient Have Any of the Following: No CHADS2 Risk Stratification: Age 75 or Greater, Hypertension Risk Stratification Summary: One or more high risk factors OR more than one moderate risk factor exists. [G8972] Anticoagulation Therapy: <Oral anticoagulant Prescribed> [O8967] - Coronary Artery Disease Quality Measure: Measure #6: Coronary Artery Disease (CAD) Antiplatelet Therapy: <ASA or clopidogrel prescribed> [2556F] - Advance Directives Quality Measure: Measure #47: Care Plan Advance Directives Established: Yes (DNR) Advance Directives Information Provided To Patient: Already Provided Advance Directives on File: Yes Living Will: Yes Power of Crop Setting Out Machine Operator: Yes Power of Crop Setting Out Machine Operator Name: John ruff Advance Care Planning: <Care Plan/Decision Maker Documented; Discussed & Documented> [1123F] - Elder Abuse Suspicion Index Screening: Elder Abuse Suspicion Index Screening Rely on people for bathing, dressing, shopping, banking, etc: No Prevented from getting food, clothes, medication, etc: No Made to feel shamed or threatened by someone: No Forced to sign papers or use money against will: No Feel afraid, touched in ways not wanted or hurt physically: No Poor eye contact, withdrawn, malnourished, cuts or bruises: No Screening Result: Negative result EASI Reference Information: Rebeca SAMUELS, Danny C, Shay D, Darwin Drew.Development and validation of a tool to assist physicians identification of elder abuse: The Elder Abuse Suspicion Index (EASI ). Journal of Elder Abuse and Neglect, 2008; 20 (3): 276-300. - Elder Maltreatment Screen Quality Measures: Elder Maltreatment Screen and Follow-Up Plan Elder Maltreatment Screen: <Negative, No Follow-Up Plan Required> [G0706]
[2018-12-30] MEDS ORDERED: WARFARIN 1 MG TABLET PO SCH (16:00)
--- NOTE | 2018-12-31 05:27 | Cardiology Consult ---
DATE OF CONSULTATION: 12/30/2018 REASON FOR CONSULT: Chest pain and atrial fibrillation with rapid ventricular response. REFERRING PHYSICIAN: Javan Rivera M.D. HISTORY OF PRESENT ILLNESS: This is an 88-year-old female who presented to the Emergency Department for evaluation of chest pain that started approximately one hour prior to arrival with feelings of heart racing. Patient had taken one sublingual nitroglycerin at home, but states this was outdated. Upon arrival to the Emergency Room her heart rate was found to be 132 and in atrial fibrillation. The patient received 10 mg of Cardizem IV push and Toprol XL 50 mg p.o. which she then converted back to sinus rhythm at a rate of 56 b.p.m. The patient had denied a current fare collector, but states she wants to follow-up with [facility] at time of discharge. She is on Warfarin therapy at home for a history of DVT. She does state Dr. Reyes manages her Warfarin level. The patient also has been diagnosed with recurrent UTI's over the past two weeks and was found to have pseudomonas in her urine culture. The patient does have a past medical history of atrial fibrillation, but is unsure when her last episode was. The patient also has a history of cardiac stents in 2006. Patient's past medical history includes CAD with cardiac stents in 2006, hypertension, hyperlipidemia, IVC filter placed, DVT's, anxiety, and history of GI bleed. Primary care is Dr. Betancur. REVIEW OF SYSTEMS: Constitutional - Denies fever, chills, malaise or weakness. No significant weight change. Eyes - No change in vision. Ears - No change in hearing. ENT - Denies any congestion or epistaxis. Respiratory - Denies cough. No dyspnea. No hemoptysis. Cardiovascular - Positive palpitations. Positive chest pain. Negative shortness of breath on exertion. Negative PND. Endocrine - Denies fatigue or heat or cold intolerance. Gastrointestinal - Denies abdominal pain, constipation or diarrhea. Denies melena. Genitourinary - Denies dysuria or frequency. Musculoskeletal - Denies arthralgia. Skin - Denies easy bruising or rash. Neurological - Denies abnormal gait or confusion. No complaints of headache. No numbness or tingling. Psychiatric - Denies anxiety or depression. Hematological - Denies anemia. Positive for previous DVT's, but denies PE's. PAST MEDICAL HISTORY: As stated above. SOCIAL HISTORY: Denies tobacco abuse, alcohol use, or illicit drug use. FAMILY HISTORY: Denies history of premature coronary artery disease. ALLERGIES: LISTED TO PENICILLIN AND SULFA. HOME MEDICATIONS: Include Ativan 1 mg p.o. b.i.d. prn, Neurontin 300 mg p.o. q day, Omeprazole 20 mg b.i.d., Cipro 500 mg p.o. q twelve hours, Lipitor 80 mg p.o. q.h.s., Coreg 6.25 mg p.o. b.i.d., and Lasix 20 mg p.o. b.i.d. CURRENT MEDICATIONS: Include Acetaminophen 325 mg p.o. q six hours prn, [place] 5/325 mg p.o. q four hours prn, aspirin 81 mg daily, Lipitor 80 mg p.o. q.h.s., Coreg 6.25 mg p.o. b.i.d., Cipro 500 mg p.o. q twelve hours, Lasix 20 mg p.o. b.i.d., Neurontin 600 mg p.o. b.i.d., Ativan 1 mg p.o. b.i.d. prn, Melatonin 10 mg p.o. q.h.s., Nitrostat 0.4 mg prn chest pain, Protonix 40 mg p.o. b.i.d., potassium chloride 20 mEq p.o. daily, and Warfarin 5 mg p.o. daily. PHYSICAL EXAMINATION: Vitals - Blood pressure 150/58, pulse 59, respirations 16, O2 saturation 98% and she is afebrile. HEENT: Normocephalic, atraumatic. Extraocular movements are intact. Pupils are equal and round. NECK: Supple without lymphadenopathy, thyromegaly, or bruit. CARDIAC: Regular rate and rhythm. No significant murmurs were appreciated. LUNGS: Clear to auscultation in the lung gomez without rales, rhonchi or wheezing. ABDOMEN: Soft, nontender. Bowel sounds are present in all four quadrants. EXTREMITIES: No edema. 2+ pulses bilaterally. SKIN: Warm and dry. DIAGNOSTIC STUDIES: Laboratory - WBC 5.2, hemoglobin 11.7, hematocrit 37, platelet count 269, sodium 141, potassium 3.8, chloride 103, CO2 of 28, BUN 19, creatinine 1.0, glucose 116, Troponin negative times two, TSH 2.78, Protime/INR is 21.4, INR is 2.2. Chest x-ray - Peribronchial thickening which can be seen in reactive airway disease or bronchitis. EKG - Sinus rhythm at a rate of 81 b.p.m. with left bundle branch block which is not new. ASSESSMENT/PLAN: 1. CHEST PAIN. PATIENT DOES HAVE A HISTORY OF CAD. NO RECURRENT CHEST PAIN SINCE ADMISSION WHICH PROBABLY RELATED TO TACHYCARDIA. THE PATIENT WAS RECOMMENDED TO UNDERGO [facility] TEST FOR POSSIBLE PROGRESSION OF UNDERLYING CORONARY ARTERY DISEASE. THE PATIENT STATES SHE WISHES TO FOLLOW-UP WITH [facility] FOR THIS. 2. ATRIAL FIBRILLATION WITH A HISTORY OF PAS. WILL CONTINUE CURRENT MEDICATIONS. PATIENT ALREADY ON WARFARIN THERAPY FOR HISTORY OF DVT'S. WOULD RECOMMEND CONTINUATION FOR CVA PROPHYLAXIS. WILL CONTINUE ON CARVEDILOL 6.25 MG B.I.D. AND FOLLOW-UP WITH [facility]. 3. UTI PER PRIMARY CARE. THE PATIENT WAS OFFERED A FOLLOW-UP APPOINTMENT WITH A [facility] AND OFFICE VISIT, PATIENT THEN STATED SHE THOUGHT SHE HAD SEEN [facility] IN THE PAST AND WOULD LIKE TO FOLLOW-UP WITH THEIR GROUP. THE PATIENT WAS DIRECTED SHE CAN CONTACT OUR OFFICE FOR FURTHER FOLLOW-UP IF SHE CHANGES HER MIND. Thank you for the opportunity to participate in this patient's care. JOB NUMBER: [id number] MTDD
== END 2018-12-30 15:40 | disposition home health service (06) ==
LOC: ER 09:32 → MEDSURG 13:37
PROVIDERS: ADMIT Internal Medicine; ATTEND Internal Medicine
DX: R07.9 Chest pain, unspecified (principal); N30.00 Acute cystitis without hematuria; I48.91 Unspecified atrial fibrillation; R00.0 Tachycardia, unspecified; R60.9 Edema, unspecified; I25.10 Atherosclerotic heart disease of native coronary artery without angina pectoris; D64.9 Anemia, unspecified; I10 Essential (primary) hypertension; E78.00 Pure hypercholesterolemia, unspecified; M19.90 Unspecified osteoarthritis, unspecified site; Z66 Do not resuscitate; Z95.5 Presence of coronary angioplasty implant and graft; Z98.61 Coronary angioplasty status; Z86.14 Personal history of Methicillin resistant Staphylococcus aureus infection; R76.11 Nonspecific reaction to tuberculin skin test without active tuberculosis; Z79.01 Long term (current) use of anticoagulants
CPT/HCPCS: 71045; 80048; 82150; 83690; 84443; 84484; 85025; 85610; 85730; 93005; 93010; 93306; 94760; 96374; 96375; 99218; 99285

== ENCOUNTER 2019-01-24 18:51 | Observation (INO) | payer MEDICARE, BC ==
--- NOTE | 2019-01-24 19:20 | Emergency Department Record ---
History of Present Illness - General Chief Complaint: Chest Pain Stated Complaint: CHEST PAIN Time Seen by Provider: 01/24/19 19:07 Source: Patient Mode of Arrival: EMS Limitations: No limitations - History of Present Illness Initial Comments: The patient is here due to abdominal pain for the last 3 hours. The pain is in the epigastric area and has not radiated to the lower abdomen or back. She denies any nausea or vomiting due to the pain and also denies any CP or SOB. The patient does have a hx of pancreatitis with similar pain in the past. She also is having L arm and shoulder pain over the last 3 hours. That pain is much worse with any ROM of the shoulder. The patient denies any fall or trauma and has had similar pain in the past. 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 04/21/18 Warfarin Sodium [Coumadin] 4 mg PO DAILY #7 tablet 12/30/18 Allergies Allergy/AdvReac Type Severity Reaction Status Date / Time Penicillins Allergy Intermediate RASH Verified 01/24/19 18:54 Sulfa (Sulfonamide Allergy Intermediate RASH Verified 01/24/19 18:54 Antibiotics) Travel Screening - Travel/Exposure Within Last 30 Days Have you traveled within the last 30 days?: No - Travel/Exposure Within Last Year Have you traveled outside the [place] in the last year?: No - Additonal Travel Details Have you been exposed to anyone with a communicable illness?: No - Travel Symptoms Symptom Screening: None Review of Systems Constitutional: Denies: Chills, Fever Eyes: Denies: Eye discharge ENT: Denies: Congestion Respiratory: Denies: Cough, Dyspnea Cardiovascular: Denies: Arrhythmia, Chest pain, Dyspnea on exertion Endocrine: Reports: Fatigue Gastrointestinal: Reports: Abdominal pain. Denies: Nausea Genitourinary: Denies: Dysuria Musculoskeletal: Denies: Arthralgia Skin: Denies: Bruising Past Medical History - SOCIAL HISTORY Smoking Status: Never smoker Alcohol Use: None Drug Use: None - RESPIRATORY Hx Respiratory Disorders: Yes - CARDIOVASCULAR Hx Cardio Disorders: Yes Hx Abnormal EKG: Yes Hx Cardiac Cath: Yes (2 stents) Hx Edema: Yes (some in ankles-on Lasix) Hx Hypertension: Yes Hx Coronary Artery Disease: Yes (per CT results) - NEURO Hx Neuro Disorders: No Hx Seizures: No - GI Hx GI Disorders: Yes Hx Hiatal Hernia: Yes (1956) Hx Ulcer: Yes - Hx Genitourinary Disorders: Yes Hx UTI: Yes - ENDOCRINE Hx Endocrine Disorders: No Hx Diabetes: No - MUSCULOSKELETAL Hx Musculoskeletal Disorders: Yes Hx Arthritis: Yes (lower back) - PSYCH Hx Psych Problems: Yes Hx Anxiety: Yes Hx Depression: Yes - HEMATOLOGY/ONCOLOGY Hx Hematology/Oncology Disorders: Yes Hx Anemia: Yes Hx Blood Transfusions: Yes (2014) Hx Blood Transfusion Reaction: No Family Medical History Any Significant Family History?: Yes Hx Cancer: Mother *Cancer Comment: uterus Hx Heart Disease: Grandparents Hx Resp Disorders: Father *Resp Comment: TB Hx Stroke: Grandparents Physical Exam - General General Appearance: Alert, Oriented x3, Cooperative, No acute distress - Head Head exam: Atraumatic, Normocephalic, Normal inspection - Eye Eye exam: Normal appearance, PERRL, EOMI - ENT Throat exam: Normal inspection. negative: Tonsillar erythema, Tonsillar exudate - Neck Neck exam: Normal inspection, Full ROM. negative: Tenderness - Respiratory Respiratory exam: Normal lung sounds bilaterally. negative: Respiratory distress - Cardiovascular Cardiovascular Exam: Regular rate, Normal rhythm, Normal heart sounds. negative: Diastolic murmur, Systolic murmur - GI/Abdominal GI/Abdominal exam: Soft, Normal bowel sounds, Tenderness (There is mild to moderate epigastric tenderness to palpation.). negative: Rebound, Rigid - Extremities Extremities exam: Normal inspection, Full ROM, Normal capillary refill, Tenderness (There is significant tenderness to the L shoulder with any palpation or ROM of the shoulder.) - Neurological Neurological exam: Alert, Normal gait. negative: Abnormal gait, Motor sensory d eficit Course Vital Signs 01/24/19 18:59 Temperature 99.2 F Pulse Rate 74 Respiratory 20 Rate Blood Pressure 135/69 Pulse Ox 98 - Reevaluation(s) Reevaluation #1: The patient is feeling much better at this time and states her areas of pain are improving. 01/24/19 20:16 Reevaluation #2: The patient is doing a lot better at this time and is feeling back to normal. She presently is still having some pain under the L ribs but she states that pain is always with her. She also is having tenderness to the L shoulder but that is improved from admission. Due to her LBBB and chronic pain issues I did offer to admit the patient to the hospital overnight but she is refusing that plan. She is to return to the ER for any worsening issues. The patient will need to wait until 10pm for her ride home and I did tell her it will be no problem waiting in the ER for family. 01/24/19 20:27 Reevaluation #3: The patient now does not feel comfortable going home because she does not feel well. She is having mild epigastric pain but no CP, nausea, vomiting, or trouble breathing. I did discuss the case with Jasmin (RN CLINICAL QUALITY) and she does accept the admission for Observation to Dr. Rivera. 01/24/19 21:42 Medical Decision Making - Data Complexity MDM Data: Labs Ordered and/or Reviewed, EKG Ordered and/or Reviewed - Lab Data Result diagrams: 01/24/19 19:25 01/24/19 19:25 - EKG Data -: EKG Interpreted by Me EKG: No Acute Changes, Unchanged From Previous, LBBB Disposition Disposition: Admit Clinical Impression: Chest pain Qualifiers: Chest pain type: unspecified Qualified Code(s): R07.9 - Chest pain, unspecified Disposition: Still a Patient at [facility] Decision to Admit: Admit from ER Decision to Admit Date: 01/24/19 Decision to Admit Time: 21:44 Accepting Physician: Nicole Time Discussed w/Accepting Physician: 21:44 Condition: (2) Stable Forms: Patient Portal Access Time of Disposition: 21:44 Quality - Quality Measures Quality Measures: N/A - Blood Pressure Screening View Details: Yes Does Patient Have Any of the Following: No Blood Pressure Classification: Pre-Hypertensive BP Reading Systolic Measurement: 135 Diastolic Measurement: 69 Screening for High Blood Pressure: < Pre-Hypertensive BP, F/U Documented > [[id number]] Pre-Hypertensive Follow-up Interventions: Referral to alternative/primary care provider.
[2019-01-24] MEDS ORDERED: SUCRALFATE 1 G/10 ML UD PO ONE (19:21)
[2019-01-24] MEDS ORDERED: ACETAMINOPHEN 1,000 MG/100 ML BTL IVPB ONE (19:21)
[2019-01-24 19:41] LABS: ABSOLUTE NEUTROPHIL COUNT 3.95; BASO % 0.2 % (0-6); EOS % 1.8 % (0-6); GRAN % 62.8 % (47-80); HEMATOCRIT 33.7 % (35.0-47.0); HEMOGLOBIN 10.3 gm/dl (11.6-16.0); LYMPH % 25.2 % (16-45); MEAN CELL VOLUME 103.4 fl (81-97); MEAN CORPUSCULAR HEMOGLOBIN 31.5 pg (27-33); MEAN CORPUSCULAR HGB CONC 30.6 g/dl (32-36); MEAN PLATELET VOLUME 10.1 fl (7.4-10.4); PLATELET COUNT 226 K/uL (130-400); RED BLOOD COUNT 3.26 M/uL (3.80-5.40); RED CELL DISTRIBUTION WIDTH 13.4 % (11.5-14.5); WHITE BLOOD COUNT W/O DIFF 6.3 K/uL (4.2-12.2)
[2019-01-24 19:49] LABS: BLOOD UREA NITROGEN 22 mg/dL (8-23); CREATININE 1.1 mg/dL (0.5-0.9); EST GLOMERULAR FILTRATION RATE 50 mL/min
[2019-01-24 19:50] LABS: INR 2.1; PARTIAL THROMBOPLASTIN TIME 32.2 SECONDS (24.5-39.1); PROTHROMBIN TIME (PATIENT) 21.1 SECONDS (9.5-12.1)
[2019-01-24 19:51] LABS: LIPASE 41 U/L (13-60); TOTAL PROTEIN 6.5 g/dL (6.6-8.7)
[2019-01-24 19:52] LABS: GLUCOSE,RANDOM 127 mg/dL (74-109)
[2019-01-24 19:55] LABS: ALT/SGPT 12 U/L (<33)
[2019-01-24 19:56] LABS: ALKALINE PHOSPHATASE 35 U/L (35-104); AST/SGOT 21 U/L (10.0-35.0); BILIRUBIN,DIRECT < 0.2 mg/dL (0-0.3)
[2019-01-24] MEDS: MAGNESIUM HYDROXIDE/AL HYDROX 30 ML, LIDOCAINE VISC 2% 15ML 15 ML PO ONE ×4 (21:12→21:13)
[2019-01-24] MEDS ORDERED: NITROGLYCERIN 0.4MG SL TABLET #25 BTL SL PRN (22:15)
[2019-01-24] MEDS ORDERED: ONDANSETRON 4 MG ODT TABLET PO SCH (22:15)
[2019-01-24] MEDS: ACETAMINOPHEN 1,000 MG/100 ML BTL IVPB SCH (22:17)
[2019-01-24] MEDS: SUCRALFATE 1 G/10 ML UD PO SCH (22:18)
[2019-01-25] MEDS ORDERED: WARFARIN 1 MG TABLET PO SCH ×2 (00:15→16:00)
[2019-01-25] MEDS: FUROSEMIDE 20 MG TABLET PO SCH ×2 (00:29→09:24)
[2019-01-25] MEDS: ACETAMINOPHEN 1,000 MG/100 ML BTL IVPB SCH ×3 (03:13→09:30)
[2019-01-25] MEDS: LORAZEPAM 0.5 MG TABLET PO PRN ×2 (03:27→17:18)
[2019-01-25 06:39] LABS: ABSOLUTE NEUTROPHIL COUNT 3.02; HEMATOCRIT 32.2 % (35.0-47.0); HEMOGLOBIN 9.8 gm/dl (11.6-16.0); MEAN CELL VOLUME 103.2 fl (81-97); MEAN CORPUSCULAR HEMOGLOBIN 31.4 pg (27-33); MEAN CORPUSCULAR HGB CONC 30.4 g/dl (32-36); MEAN PLATELET VOLUME 10.1 fl (7.4-10.4); PLATELET COUNT 222 K/uL (130-400); RED BLOOD COUNT 3.12 M/uL (3.80-5.40); RED CELL DISTRIBUTION WIDTH 13.2 % (11.5-14.5); WHITE BLOOD COUNT W/O DIFF 5.4 K/uL (4.2-12.2)
[2019-01-25 06:53] LABS: BLOOD UREA NITROGEN 19 mg/dL (8-23); EST GLOMERULAR FILTRATION RATE 56 mL/min; GLUCOSE,RANDOM 107 mg/dL (74-109)
[2019-01-25] MEDS ORDERED: PANTOPRAZOLE SODIUM IV 40 MG VIAL IVP SCH (07:00)
[2019-01-25] MEDS ORDERED: PANTOPRAZOLE SODIUM 40 MG TABLET PO SCH (07:00)
[2019-01-25 07:10] LABS: ALBUMIN 3.8 g/dL (4.0-5.0); ALKALINE PHOSPHATASE 34 U/L (35-104); ALT/SGPT 10 U/L (<33); AST/SGOT 19 U/L (10.0-35.0); LIPASE 41 U/L (13-60); TOTAL PROTEIN 6.1 g/dL (6.6-8.7)
[2019-01-25 07:11] LABS: BILIRUBIN,DIRECT < 0.2 mg/dL (0-0.3)
[2019-01-25] MEDS: ONDANSETRON 4 MG ODT TABLET PO SCH ×2 (08:07→17:18)
[2019-01-25] MEDS: SUCRALFATE 1 G/10 ML UD PO SCH ×3 (09:25→17:17)
[2019-01-25] MEDS ORDERED: CARVEDILOL 3.125 MG TABLET PO SCH (10:00)
[2019-01-25] MEDS ORDERED: GABAPENTIN 300 MG CAPSULE PO SCH (10:00)
[2019-01-25] MEDS ORDERED: POTASSIUM CHLORIDE 20 MEQ TABLET PO SCH (10:00)
[2019-01-25] MEDS ORDERED: ATORVASTATIN 20 MG TABLET PO SCH (10:00)
[2019-01-25] MEDS ORDERED: ZINC OXIDE 28.35 GM TUBE TOP ONE (10:35)
[2019-01-25] MEDS ORDERED: ZINC OXIDE 28.35 GM TUBE TOP PRN (10:37)
[2019-01-25] MEDS ORDERED: DULOXETINE HCL 30 MG CAPSULE.DR PO SCH (12:45)
[2019-01-25] MEDS ORDERED: FAMOTIDINE 20MG TABLET PO SCH (12:45)
--- NOTE | 2019-01-25 12:58 | History & Physical ---
History of Present Illness - Date of Service Date of Service for History & Physical: 01/25/19 - History of Present Illness Admitting Diagnosis: 1. Chest Pain History of Present Illness: Demetria Shepherd is an 88 y.o. F who presented to the [facility] ED in the evening on 01/24/19 d/t abdominal pain that had started 3 hours prior to arrival. She reported epigastric pain but denied nausea, vomiting, CP or SOB. Reported a similar pain with pancreatitis in the past. Was seen by Cardiology on 12/30/18. PMHx: Hx of Cardiac Caths with stents, clotted IVC filter, HTN, CAD, hx of Afib, Hx of ulcers, recurrent UTI, OA, Anxiety and depression. PCP: Dr. Betancur ED course -Vitals: T 99.4, BP 102/63, HR 73, RR 16, SpO2 93% RA -Labs Unremarkable 01/25/19 1200 Pt was observed lying in bed. A&Ox4. Reported feeling somewhat improved, still having pain in epigastric area that wrapped around under left breast, worse with movement of the left shoulder and tender with palpation to the area. 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 Stated that she will be seing Dr. Bennett (GI Specialist) in February, has had several scopes in the past. Started getting nauseated yesterday after taking a new medication per Dr. Bennett. Had a UTI recently and just finished treatment last week. Has been having normal bowel movements but takes Miralax BID. Endorsed having severe anxiety, for which she takes stated she takes Lorazepam BID per her PCP. Has never been on any SSRIs or SNRIs for anxiety control. Pt verbalized agreement in starting a medication to try and prevent panic attacks. She also reported that she needed to get better because she has 17 people coming over for [employer]. Travel Screening - Travel/Exposure Within Last 30 Days Have you traveled within the last 30 days?: No - Travel/Exposure Within Last Year Have you traveled outside the [place] in the last year?: No - Additonal Travel Details Have you been exposed to anyone with a communicable illness?: No - Travel Symptoms Symptom Screening: Weakness, Stomach Pain Review of Systems Reviewed: No additional complaints except as noted below Constitutional: Denies: Chills, Fever Eyes: Denies: Eye discharge ENT: Denies: Congestion Respiratory: Denies: Cough, Dyspnea Cardiovascular: Denies: Arrhythmia, Chest pain, Dyspnea on exertion Endocrine: Reports: Fatigue Gastrointestinal: Reports: Abdominal pain. Denies: Nausea Genitourinary: Denies: Dysuria Musculoskeletal: Denies: Arthralgia Skin: Denies: Bruising Past Medical History - SOCIAL HISTORY Smoking Status: Never smoker Alcohol Use: None Drug Use: None - RESPIRATORY Hx Respiratory Disorders: Yes - CARDIOVASCULAR Hx Cardio Disorders: Yes Hx Abnormal EKG: Yes Hx Cardiac Cath: Yes (2 stents) Hx Edema: Yes (some in ankles-on Lasix) Hx Hypertension: Yes Hx Coronary Artery Disease: Yes (per CT results) - NEURO Hx Neuro Disorders: No Hx Seizures: No - GI Hx GI Disorders: Yes Hx Hiatal Hernia: Yes (1956) Hx Ulcer: Yes - Hx Genitourinary Disorders: Yes Hx UTI: Yes - ENDOCRINE Hx Endocrine Disorders: No Hx Diabetes: No - MUSCULOSKELETAL Hx Musculoskeletal Disorders: Yes Hx Arthritis: Yes (lower back) - PSYCH Hx Psych Problems: Yes Hx Anxiety: Yes Hx Depression: Yes - HEMATOLOGY/ONCOLOGY Hx Hematology/Oncology Disorders: Yes Hx Anemia: Yes Hx Blood Transfusions: Yes (2014) Hx Blood Transfusion Reaction: No Family Medical History Any Significant Family History?: Yes Hx Cancer: Mother *Cancer Comment: uterus Hx Heart Disease: Grandparents Hx Resp Disorders: Father *Resp Comment: TB Hx Stroke: Grandparents H&P Meds/Allergies - Allergies Allergies: Allergies Allergy/AdvReac Type Severity Reaction Status Date / Time Penicillins Allergy Intermediate RASH Verified 01/24/19 18:54 Sulfa (Sulfonamide Allergy Intermediate RASH Verified 01/24/19 18:54 Antibiotics) - Home Medications Previous Rx's Medication Instructions Recorded Lorazepam [Ativan] 1 mg PO BID PRN tablet 06/02/17 Gabapentin [Neurontin] 300 mg PO QAM capsule 04/21/18 Omeprazole 20 mg PO BID #20 tablet. 04/21/18 Warfarin Sodium [Coumadin] 4 mg PO DAILY #7 tablet 12/30/18 Acetaminophen [Tylenol 325Mg] 650 mg PO Q4H PRN tablet 01/25/19 Duloxetine HCl [Cymbalta] 30 mg PO DAILY #30 capsule. 01/25/19 Famotidine 20 mg PO BID PRN #30 tablet 01/25/19 Zinc Oxide [Desitin] 10 gm TOP ASDIR PRN tube 01/25/19 - Active Medications Active Medications: Current Medications Atorvastatin Calcium (Lipitor) 80 mg PO QHS [facility] Last Admin: 01/25/19 09:25 Dose: 80 mg Documented by: Carvedilol (Coreg) 6.25 mg PO BID [facility] Last Admin: 01/25/19 09:24 Dose: 6.25 mg Documented by: Duloxetine HCl (Cymbalta) 30 mg PO DAILY [facility] Famotidine (Pepcid) 20 mg PO DAILY [facility] Furosemide (Lasix) 20 mg PO BID [facility] Last Admin: 01/25/19 09:24 Dose: 20 mg Documented by: Gabapentin (Neurontin) 300 mg PO QAM [facility] Last Admin: 01/25/19 09:24 Dose: 300 mg Documented by: Acetaminophen (Ofirmev) 1,000 mg in 100 mls @ 400 mls/hr IVPB Q6H [facility] Last Infusion: 01/25/19 09:45 Dose: Infused Documented by: Lorazepam (Ativan) 1 mg PO BID PRN PRN Reason: ANXIETY Last Admin: 01/25/19 03:27 Dose: 1 mg Documented by: Melatonin (Melatonin) 10 mg PO QHS [facility] Nitroglycerin (Nitrostat 0.4mg) 0.4 mg SL Q5MIN PRN PRN Reason: CHEST PAIN Ondansetron HCl (Zofran Odt) 8 mg PO Q8H [facility] Last Admin: 01/25/19 08:07 Dose: 8 mg Documented by: Pantoprazole Sodium (Protonix Iv) 40 mg IVP Q24H [facility] Last Admin: 01/25/19 08:09 Dose: 40 mg Documented by: Potassium Chloride (Klor-Con) 20 meq PO DAILY [facility] Last Admin: 01/25/19 09:24 Dose: 20 meq Documented by: Sucralfate (Carafate) 1 g PO QID [facility] Last Admin: 01/25/19 09:25 Dose: 1 g Documented by: Warfarin Sodium (Coumadin) 4 mg PO QHS [facility] Last Admin: 01/25/19 00:30 Dose: 4 mg Documented by: Zinc Oxide (Desitin) 10 gm TOP ASDIR PRN PRN Reason: RASH Physical Exam - Vital Signs Vital Signs: Vital Signs - Last 24 Hrs Temp Pulse Pulse Pulse Resp BP BP 01/25/19 08:16 18 01/25/19 08:00 99.4 F 73 16 102/63 01/25/19 06:00 68 01/25/19 04:15 97.9 F 69 16 130/65 01/25/19 00:15 98.4 F 64 16 143/64 01/24/19 22:50 64 16 01/24/19 22:20 98.6 F 63 16 143/63 01/24/19 22:13 62 20 143/62 01/24/19 20:33 98.7 F 65 20 123/58 01/24/19 18:59 99.2 F 74 20 135/69 Pulse Ox 01/25/19 08:16 01/25/19 08:00 93 L 01/25/19 06:00 96 01/25/19 04:15 98 01/25/19 00:15 96 01/24/19 22:50 01/24/19 22:20 98 01/24/19 22:13 99 01/24/19 20:33 98 01/24/19 18:59 98 - General General Appearance: Alert, Oriented x3, Cooperative, No acute distress Limitations: No limitations - Head Head exam: Atraumatic, Normocephalic, Normal inspection - Eye Eye exam: Normal appearance, PERRL, EOMI - ENT Throat exam: Normal inspection. negative: Tonsillar erythema, Tonsillar exudate - Neck Neck exam: Normal inspection, Full ROM. negative: Tenderness - Respiratory Respiratory exam: Normal lung sounds bilaterally. negative: Respiratory distress - Cardiovascular Cardiovascular Exam: Regular rate, Normal rhythm, Normal heart sounds. negative: Diastolic murmur, Systolic murmur - GI/Abdominal GI/Abdominal exam: Soft, Normal bowel sounds, Tenderness (epigastric tenderness). negative: Rebound, Rigid - Extremities Extremities exam: Normal inspection, Full ROM, Normal capillary refill, Tenderness (There is significant tenderness to the L shoulder with any palpation or ROM of the shoulder.) - Neurological Neurological exam: Alert, Normal gait. negative: Abnormal gait, Motor sensory deficit - Psychiatric Psychiatric exam: Normal affect Results - Labs Result Diagrams: 01/25/19 06:20 01/25/19 06:20 Labs Last 24 Hours: Laboratory Results - last 24 hr 01/24/19 01/24/19 01/24/19 19:25 19:25 19:25 WBC 6.3 RBC 3.26 L Hgb 10.3 L Hct 33.7 L MCV 103.4 H MCH 31.5 MCHC 30.6 L RDW 13.4 Plt Count 226 MPV 10.1 Gran % 62.8 Neutrophils % Band Neutrophils % Lymphocytes % 25.2 Monocytes % 10.0 H Eosinophils % 1.8 Basophils % 0.2 Absolute Neutrophils 3.95 Lymphocytes Monocytes Eosinophil Count PT 21.1 H INR 2.1 APTT 32.2 Sodium 143 Potassium 4.1 Chloride 104 Carbon Dioxide 26.0 Anion Gap 13.0 BUN 22 Creatinine 1.1 H Estimated GFR 50 Random Glucose 127 H Calcium 8.8 Total Bilirubin Direct Bilirubin AST ALT Alkaline Phosphatase Troponin T < 0.010 NT-Pro-B Natriuret Pep 190.40 Total Protein Albumin Lipase 01/24/19 01/24/19 01/25/19 19:25 21:20 06:20 WBC RBC Hgb Hct MCV MCH MCHC RDW Plt Count MPV Gran % Neutrophils % Band Neutrophils % Lymphocytes % Monocytes % Eosinophils % Basophils % Absolute Neutrophils Lymphocytes Monocytes Eosinophil Count PT INR APTT Sodium Potassium Chloride Carbon Dioxide Anion Gap BUN Creatinine Estimated GFR Random Glucose Calcium Total Bilirubin 0.30 0.50 Direct Bilirubin < 0.2 < 0.2 AST 21 19 ALT 12 10 Alkaline Phosphatase 35 34 L Troponin T < 0.010 NT-Pro-B Natriuret Pep Total Protein 6.5 L 6.1 L Albumin 4.0 3.8 L Lipase 41 41 01/25/19 01/25/19 06:20 06:20 WBC 5.4 RBC 3.12 L Hgb 9.8 L Hct 32.2 L MCV 103.2 H MCH 31.4 MCHC 30.4 L RDW 13.2 Plt Count 222 MPV 10.1 Gran % Neutrophils % 61.0 Band Neutrophils % 1.0 Lymphocytes % Monocytes % Eosinophils % Not Reportable Basophils % Not Reportable Absolute Neutrophils 3.02 Lymphocytes 27.0 Monocytes 10.0 H Eosinophil Count 1.0 PT INR APTT Sodium 144 Potassium 4.0 Chloride 103 Carbon Dioxide 30.0 H Anion Gap 11.0 BUN 19 Creatinine 1.0 H Estimated GFR 56 Random Glucose 107 Calcium 8.6 L Total Bilirubin Direct Bilirubin AST ALT Alkaline Phosphatase Troponin T < 0.010 NT-Pro-B Natriuret Pep Total Protein Albumin Lipase VTE H&P Assessment - Risk for VTE Risk for VTE: Yes Risk Level: Moderate Risk Assessment Date: 01/25/19 Risk Assessment Time: 12:00 VTE Orders Placed or Will Be Placed: No VTE Reason for No Prophylaxis: Not Indicated (already on Coumadin) Plan - Detailed Diagnosis and Plan (1) Abdominal pain Status: Acute Qualifiers: Base Code: R10.9 - UNSPECIFIED ABDOMINAL PAIN Comment: 01/25/19: -Epigastric pain, slight improvement - Recurrent abdominal pain s/p multiple EGD/Colonsocopies. Most recent EGD 01/2018 only showing duodenitis. - Abd Xray: No acute process - Labs: WBC 10.3, Lipase 41, Trops Neg. x 3 - Pain control with Protonix 40mg IV, Carafate 1gm QID, Zofran 4mg Q4H PRN, home dose Neurontin 300mg q. am, Ofirmev and [place] 5/325mg PRN (2) History of atrial fibrillation Status: Acute Base Code: Z86.79 - PERSONAL HISTORY OF OTHER DISEASES OF THE CIRCULATORY SYSTEM Comment: 01/25/19: -Continue home dose Coumadin -Continue Carvedilol 6.25mg BID -desk monitor (3) Anxiety Status: Acute Base Code: F41.9 - ANXIETY DISORDER, UNSPECIFIED Comment: 01/25/19 -Continue home dose Lorazepam 0.5mg PO BID PRN -Discussed starting an antidepressant and f/u with PCP, pt agreeable -Trial Cymbalta 30mg daily for anxiety, depression and potential efficacy with pain control (4) DNR (do not resuscitate) discussion Status: Acute Base Code: Z71.89 - OTHER SPECIFIED COUNSELING Comment: 01/25/19 -DNR this admission (5) DVT prophylaxis Status: Acute Base Code: [id number] - Comment: 01/25/19 -Continue home dose Coumadin -No further prophylaxis required
[2019-01-25] MEDS ORDERED: ACETAMINOPHEN 325 MG TAB PO PRN (13:49)
[2019-01-25 14:04] LABS: URINE APPEARANCE CLEAR; URINE BILIRUBIN NEGATIVE (NEGATIVE); URINE BLOOD SMALL (NEGATIVE); URINE COLOR YELLOW; URINE GLUCOSE (UA) NEGATIVE (NEGATIVE); URINE KETONE NEGATIVE (NEGATIVE); URINE LEUKOCYTE ESTERASE NEGATIVE (NEGATIVE); URINE NITRITE NEGATIVE (NEGATIVE); URINE PROTEIN NEGATIVE (NEGATIVE); URINE UROBILINOGEN 0.2 E.U./dL (0.20 - 1.00)
[2019-01-25 14:12] LABS: URINE EPITHELIAL CELLS 0 - 2 (FEW); URINE RBC 0 - 2 (NONE SEEN); URINE WBC 0 - 2 (0-2/hpf)
--- NOTE | 2019-01-25 16:01 | RADIOLOGY REPORT ---
EXAMINATION: Abdomen Single View EXAM DATE: 01/25/2019 3:08 PM TECHNIQUE: Single view INDICATION: epigastric pain COMPARISON: CT images from 11/08/2018 FINDINGS: 3 AP images. Normal bowel gas pattern. No abnormal dilatation. Known diverticular disease. Redemonstr ation of the IVC filter and left-sided venous stents. IMPRESSION: Normal bowel gas pattern. Dictated by: Adrian Johnson MD on 01/25/2019 3:48 PM. .
--- NOTE | 2019-01-25 17:52 | Discharge Summary ---
Providers Discharge Summary Date: 01/25/19 Date of admission: 01/24/19 22:14 Attending physician: NIRMALA DANIELS Primary care physician: ISRRAEL BETANCUR D.O. Physical Exam - Vital Signs Vital Signs: Vital Signs - Last 24 Hrs Temp Pulse Pulse Pulse Resp BP BP 01/25/19 14:00 98.8 F 67 17 140/73 01/25/19 08:16 18 01/25/19 08:00 99.4 F 73 16 102/63 01/25/19 06:00 68 01/25/19 04:15 97.9 F 69 16 130/65 01/25/19 00:15 98.4 F 64 16 143/64 01/24/19 22:50 64 16 01/24/19 22:20 98.6 F 63 16 143/63 01/24/19 22:13 62 20 143/62 01/24/19 20:33 98.7 F 65 20 123/58 01/24/19 18:59 99.2 F 74 20 135/69 Pulse Ox 01/25/19 14:00 94 L 01/25/19 08:16 01/25/19 08:00 93 L 01/25/19 06:00 96 01/25/19 04:15 98 01/25/19 00:15 96 01/24/19 22:50 01/24/19 22:20 98 01/24/19 22:13 99 01/24/19 20:33 98 01/24/19 18:59 98 - General General Appearance: Alert, Oriented x3, Cooperative, No acute distress Limitations: No limitations - Head Head exam: Atraumatic, Normocephalic, Normal inspection - Eye Eye exam: Normal appearance, PERRL, EOMI - ENT Throat exam: Normal inspection. negative: Tonsillar erythema, Tonsillar exudate - Neck Neck exam: Normal inspection, Full ROM. negative: Tenderness - Respiratory Respiratory exam: Normal lung sounds bilaterally. negative: Respiratory distress - Cardiovascular Cardiovascular Exam: Regular rate, Normal rhythm, Normal heart sounds. negative: Diastolic murmur, Systolic murmur - GI/Abdominal GI/Abdominal exam: Soft, Normal bowel sounds, Tenderness (There is mild to mo derate epigastric tenderness to palpation.). negative: Rebound, Rigid - Extremities Extremities exam: Normal inspection, Full ROM, Normal capillary refill, Tend erness (There is significant tenderness to the L shoulder with any palpation or ROM of the shoulder.) - Neurological Neurological exam: Alert, Normal gait. negative: Abnormal gait, Motor sensory deficit Hospitalization - Hospitalization Admission Diagnosis: 1. Chest Pain - Problem List/Discharge Diagnosis (1) Abdominal pain Status: Acute Discharge Diagnosis: Base Code: R10.9 - UNSPECIFIED ABDOMINAL PAIN Comment: 01/25/19: -Epigastric pain, slight improvement - Recurrent abdominal pain s/p multiple EGD/Colonsocopies. Most recent EGD 01/2018 only showing duodenitis. - Abd Xray: No acute process - Labs: WBC 10.3, Lipase 41, Trops Neg. x 3 - U/A: Negative - Pain control with Protonix 40mg IV, Carafate 1gm QID, Zofran 4mg Q4H PRN, home dose Neurontin 300mg q. am, Ofirmev and [place] 5/325mg PRN (2) Anxiety Status: Acute Base Code: F41.9 - ANXIETY DISORDER, UNSPECIFIED Comment: 01/25/19 -Continue home dose Lorazepam 0.5mg PO BID PRN -Discussed starting an antidepressant and f/u with PCP, pt agreeable -Trial Cymbalta 30mg daily for anxiety, depression and potential efficacy with pain control (3) DVT prophylaxis Status: Acute Base Code: [id number] - Comment: 01/25/19 -Continue home dose Coumadin -No further prophylaxis required (4) History of atrial fibrillation Status: Acute Base Code: Z86.79 - PERSONAL HISTORY OF OTHER DISEASES OF THE CIRCULATORY SYSTEM Comment: 01/25/19: -Continue home dose Coumadin -Continue Carvedilol 6.25mg BID -property assessment monitor (5) DNR (do not resuscitate) discussion Status: Acute Base Code: Z71.89 - OTHER SPECIFIED COUNSELING Comment: 01/25/19 -DNR this admission - Hospitalization Course Disposition: Home, Self-Care Hospital Course: Demetria Shepherd is an 88 y.o. F who presented to the [facility] ED in the evening on 01/24/19 d/t abdominal pain that had started 3 hours prior to arrival. She reported epigastric pain but denied nausea, vomiting, CP or SOB. Reported a similar pain with pancreatitis in the past. Was seen by Cardiology on 12/30/18. PMHx: Hx of Cardiac Caths with stents, clotted IVC filter, HTN, CAD, hx of Afib, Hx of ulcers, recurrent UTI, OA, Anxiety and depression. PCP: Dr. Betancur ED course -Vitals: T 99.4, BP 102/63, HR 73, RR 16, SpO2 93% RA -Labs Unremarkable 01/25/19 1200 Pt was observed lying in bed. A&Ox4. Reported feeling somewhat improved, still having pain in epigastric area that wrapped around under left breast, worse with movement of the left shoulder and tender with palpation to the area. 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 Stated that she will be seing Dr. Bennett (GI Specialist) in February, has had several scopes in the past. Started getting nauseated yesterday after taking a new medication per Dr. Bennett. Had a UTI recently and just finished treatment last week. Has been having normal bowel movements but takes Miralax BID. Endorsed having severe anxiety, for which she takes stated she takes Lorazepam BID per her PCP. Has never been on any SSRIs or SNRIs for anxiety control. Pt verbalized agreement in starting a medication to try and prevent panic attacks. She also reported that she needed to get better because she has 17 people coming over for Thanksgiving. Procedures: Imaging and X-Rays 01/25/19 12:44 ABDOMEN 1 VIEW [RAD] Stat Cardiology Procedures 01/24/19 19:20 Director Of Psychiatry NOW EKG NOW 01/24/19 22:15 Director Of Psychiatry .Continuous EKG QDX2@0600 Abnormal Labs: Abnormal Lab Results 01/24/19 01/24/19 01/24/19 Range/Units 19:25 19:25 19:25 RBC 3.26 L (3.80-5.40) M/uL Hgb 10.3 L (11.6-16.0) gm/dl Hct 33.7 L (35.0-47.0) % MCV 103.4 H (81-97) fl MCHC 30.6 L (32-36) g/dl Monocytes % 10.0 H (0-9) % Monocytes (0-9) % PT 21.1 H (9.5-12.1) SECONDS Carbon Dioxide (22-29) mmol/L Creatinine 1.1 H (0.5-0.9) mg/dL Random Glucose 127 H (74-109) mg/dL Calcium (8.8-10.2) mg/dL Alkaline Phosphatase (35-104) U/L Total Protein (6.6-8.7) g/dL Albumin (4.0-5.0) g/dL Urine Blood (NEGATIVE) 01/24/19 01/25/19 01/25/19 Range/Units 19:25 06:20 06:20 RBC 3.12 L (3.80-5.40) M/uL Hgb 9.8 L (11.6-16.0) gm/dl Hct 32.2 L (35.0-47.0) % MCV 103.2 H (81-97) fl MCHC 30.4 L (32-36) g/dl Monocytes % (0-9) % Monocytes 10.0 H (0-9) % PT (9.5-12.1) SECONDS Carbon Dioxide (22-29) mmol/L Creatinine (0.5-0.9) mg/dL Random Glucose (74-109) mg/dL Calcium (8.8-10.2) mg/dL Alkaline Phosphatase 34 L (35-104) U/L Total Protein 6.5 L 6.1 L (6.6-8.7) g/dL Albumin 3.8 L (4.0-5.0) g/dL Urine Blood (NEGATIVE) 01/25/19 01/25/19 Range/Units 06:20 13:58 RBC (3.80-5.40) M/uL Hgb (11.6-16.0) gm/dl Hct (35.0-47.0) % MCV (81-97) fl MCHC (32-36) g/dl Monocytes % (0-9) % Monocytes (0-9) % PT (9.5-12.1) SECONDS Carbon Dioxide 30.0 H (22-29) mmol/L Creatinine 1.0 H (0.5-0.9) mg/dL Random Glucose (74-109) mg/dL Calcium 8.6 L (8.8-10.2) mg/dL Alkaline Phosphatase (35-104) U/L Total Protein (6.6-8.7) g/dL Albumin (4.0-5.0) g/dL Urine Blood Small H (NEGATIVE) Condition at Discharge: (2) Stable Discharge Medications - Discharge Medications Prescriptions: Duloxetine HCl [Cymbalta] 30 mg PO DAILY #30 capsule. Famotidine 20 mg PO BID PRN #30 tablet PRN Reason: Indigestion Home Medications: Ambulatory Orders Carvedilol 6.25 mg PO BID 06/19/14 [Last Taken 01/24/19] Furosemide 20 mg PO BID 06/19/14 [Last Taken 01/24/19] Atorvastatin Calcium [Lipitor] 80 mg PO QHS 03/30/15 [Last Taken 01/24/19] Melatonin 10 mg PO QHS 12/17/15 [Last Taken 01/24/19] Sennosides [Senokot] 8.6 mg PO DAILY 12/17/15 [Last Taken 01/24/19] Cholecalciferol (Vitamin D3) [Vitamin D3] 2,000 unit PO DAILY 06/01/17 [Last Taken 01/24/19] Lorazepam [Ativan] 1 mg PO BID PRN tablet 06/02/17 [Last Taken 01/24/19] Gabapentin [Neurontin] 300 mg PO QAM capsule 04/21/18 [Last Taken 01/24/19] Omeprazole 20 mg PO BID #20 tablet. 04/21/18 [Last Taken 01/24/19] Carbamide Peroxide [Debrox] 1 drop OT WEEKLY 07/22/18 [Last Taken 01/24/19] Hydrocodone/APAP 5/325Mg [[place] 5Mg/325Mg] 1 each PO Q4H PRN 07/22/18 [Last Taken 01/24/19] L.acidoph,Paracasei, B.lactis [Probiotic] 1 each PO DAILY 07/22/18 [Last Taken 01/24/19] Nitroglycerin 0.4MG [Nitrostat 0.4MG] 1 tab SL Q5MIN PRN MDD 3 07/22/18 [Last Taken 01/24/19] Ondansetron [Zofran Odt] 8 mg PO Q8H 07/22/18 [Last Taken 01/24/19] Potassium Chloride [Klor-Con M20] 20 meq PO DAILY 07/22/18 [Last Taken 01/24/19] Warfarin Sodium [Coumadin] 4 mg PO DAILY #7 tablet 12/30/18 [Last Taken ] Acetaminophen [Tylenol 325Mg] 650 mg PO Q4H PRN tablet 01/25/19 [Last Taken Unknown] Duloxetine HCl [Cymbalta] 30 mg PO DAILY #30 capsule. 01/25/19 [Last Taken Unknown] Famotidine 20 mg PO BID PRN #30 tablet 01/25/19 [Last Taken Unknown] Zinc Oxide [Desitin] 10 gm TOP ASDIR PRN tube 01/25/19 [Last Taken Unknown] Discharge Plan - Discharge Instructions Activity at Discharge: Increase Activity as Tolerated Diet at Discharge: Advance to Usual Diet Instructions: Chronic Abdominal Pain (GEN) Additional Instructions: Continue Omeprazole 20mg twice a day Start taking Pepcid 20mg twice a day as needed for heart burn, upset stomach Start taking Cymbalta 30mg daily. This is a medication for anxiety and depression. It may also help your pain. You will need to follow up with your Primary Care Provider for a medication check to get refills on this medication. Continue with your appointment on 02/03/19 with your GI doctor in [place] Continue Activity as tolerated Thank you for choosing [facility]!! Quality Measures - Quality Measures Quality Measures: Atrial Fibrillation & Atrial Flutter: Chronic Anticoagulation Therapy, Advance Directives, Coronary Artery Disease: Antiplatelet Therapy, Documentation of Current Medications in Medical Record, Elder Maltreatment Screen and Follow-Up Plan, Screening for High Blood Pressure and F/U Documented - Current Medications Quality Measure: Measure #130: Documentation of Current Medications Documentation of Current Medications: <Current Medications Documented/Reviewed> [G8482] - Blood Pressure Screening Quality Measure: Screening for High Blood Pressure and Follow-Up Documented Does Patient Have Any of the Following: No Blood Pressure Classification: Pre-Hypertensive BP Reading Systolic Measurement: 135 Diastolic Measurement: 69 Screening for High Blood Pressure: < Pre-Hypertensive BP, F/U Documented > [G8950] Pre-Hypertensive Follow-up Interventions: Referral to alternative/primary care provider. - Atrial Fibrillation and Atrial Flutter Quality Measure: Atrial Fibrillation & Atrial Flutter: Chronic Anticoagulation Therapy Does Patient Have Any of the Following: No CHADS2 Risk Stratification: Age 75 or Greater, Hypertension Risk Stratification Summary: One or more high risk factors OR more than one moderate risk factor exists. [G8972] Anticoagulation Therapy: <Oral anticoagulant Prescribed> [A2650] - Coronary Artery Disease Quality Measure: Measure #6: Coronary Artery Disease (CAD) Antiplatelet Therapy: Not Prescribed for Medical Reason [4086F with 1P] Medical Reason for NOT Prescribing Antiplatelet: On Warfarin Therapy - Advance Directives Quality Measure: Measure #47: Care Plan Advance Directives Established: Yes (DNR) Advance Directives Information Provided To Patient: Already Provided Advance Directives on File: Yes Living Will: Yes Power of Local [employer]: Yes Power of Local [employer] Name: Anali- daughter Advance Care Planning: <Care Plan/Decision Maker Documented; Discussed & Documented> [4733F] - Elder Abuse Suspicion Index Screening: Elder Abuse Suspicion Index Screening Rely on people for bathing, dressing, shopping, banking, etc: No Prevented from getting food, clothes, medication, etc: No Made to feel shamed or threatened by someone: No Forced to sign papers or use money against will: No Feel afraid, touched in ways not wanted or hurt physically: No Poor eye contact, withdrawn, malnourished, cuts or bruises: No Screening Result: Negative result EASI Reference Information: Rebeca SAMUELS, Danny C, Shay D, Darwin Drew.Development and validation of a tool to assist physicians identification of elder abuse: The Elder Abuse Suspicion Index (EASI ). Journal of Elder Abuse and Neglect, 2008; 20 (3): 276-300. - Elder Maltreatment Screen Quality Measures: Elder Maltreatment Screen and Follow-Up Plan Elder Maltreatment Screen: <Negative, No Follow-Up Plan Required> [H6934]
[2019-01-25] MEDS ORDERED: MELATONIN 5 MG TABLET PO SCH (22:00)
== END 2019-01-25 18:25 | disposition home or self-care (01) ==
LOC: ER 18:51 → MEDSURG 22:14
PROVIDERS: ADMIT Internal Medicine; ATTEND Internal Medicine
DX: R07.9 Chest pain, unspecified (principal); R10.9 Unspecified abdominal pain; I44.7 Left bundle-branch block, unspecified; F41.9 Anxiety disorder, unspecified; D64.9 Anemia, unspecified; R60.9 Edema, unspecified; I25.10 Atherosclerotic heart disease of native coronary artery without angina pectoris; Z79.01 Long term (current) use of anticoagulants; M19.90 Unspecified osteoarthritis, unspecified site; Z66 Do not resuscitate; Z95.5 Presence of coronary angioplasty implant and graft; Z98.61 Coronary angioplasty status; Z86.14 Personal history of Methicillin resistant Staphylococcus aureus infection; I48.91 Unspecified atrial fibrillation
CPT/HCPCS: 74018; 80048; 80076; 81001; 83690; 83880; 84484; 85025; 85027; 85610; 85730; 93005; 93010; 94760; 99220; C9113

== ENCOUNTER 2019-02-19 17:59 | Emergency (ER) | payer MEDICARE, BC ==
--- NOTE | 2019-02-19 18:21 | Emergency Department Record ---
History of Present Illness - General Chief Complaint: Shortness of breath Stated Complaint: ACOSTA Time Seen by Provider: 02/19/19 18:02 Source: Patient Mode of Arrival: EMS Limitations: No limitations - History of Present Illness Initial Comments: The patient is here due to developing trouble breathing and then upper AP about an hour ago. She denies any CP, upper back pain, fever, or vomiting. The SOB seems to come and go and presently is better. The patient does have a hx of chronic AP and has had pain like this before. The abdominal pain is an upper aching pain over the LUQ. It sometimes radiates to the L flank. She does have a hx of having her GB removed and also is on Coumadin for recurrent clots. Additionally the patient does have a hx of similar AP with pancreatitis. MD Complaint: Shortness of breath Onset/Timin -: Minutes(s) Improves With: Nothing Worsens With: Nothing Treatments Prior to Arrival: None - Related Data Home Oxygen Therapy: No Home Medications Medication Instructions Recorded Confirmed Last Taken Gabapentin [Neurontin] 600 mg PO BID 02/19/19 02/19/19 Unknown Nitrofurantoin [place] [Macrobid] 100 mg PO BID 02/19/19 02/19/19 Unknown Warfarin Sodium [Coumadin] 5 mg PO DAILY 02/19/19 02/19/19 Unknown Previous Rx's Medication Instructions Recorded Lorazepam [Ativan] 1 mg PO BID PRN tablet 06/02/17 Omeprazole 20 mg PO BID #20 tablet. 04/21/18 Acetaminophen [Tylenol 325Mg] 650 mg PO Q4H PRN tablet 01/25/19 Duloxetine HCl [Cymbalta] 30 mg PO DAILY #30 capsule. 01/25/19 Famotidine 20 mg PO BID PRN #30 tablet 01/25/19 Zinc Oxide [Desitin] 10 gm TOP ASDIR PRN tube 01/25/19 Allergies Allergy/AdvReac Type Severity Reaction Status Date / Time Penicillins Allergy Intermediate RASH Verified 02/19/19 18:13 Sulfa (Sulfonamide Allergy Intermediate RASH Verified 02/19/19 18:13 Antibiotics) Travel Screening - Travel/Exposure Within Last 30 Days Have you traveled within the last 30 days?: No Review of Systems Constitutional: Denies: Chills, Fever Eyes: Denies: Eye discharge ENT: Denies: Congestion Respiratory: Reports: Dyspnea. Denies: Cough, Hemoptysis Cardiovascular: Denies: Chest pain Endocrine: Reports: Fatigue Gastrointestinal: Denies: Nausea Genitourinary: Reports: Dysuria (Improved now on Macrobid.) Musculoskeletal: Denies: Arthralgia Skin: Denies: Bruising Past Medical History - SOCIAL HISTORY Smoking Status: Never smoker Alcohol Use: None Drug Use: None - RESPIRATORY Hx Respiratory Disorders: Yes - CARDIOVASCULAR Hx Cardio Disorders: Yes Hx Abnormal EKG: Yes Hx Cardiac Cath: Yes (2 stents) Hx Edema: Yes Hx Hypertension: Yes Hx Coronary Artery Disease: Yes - NEURO Hx Neuro Disorders: No - GI Hx GI Disorders: Yes Hx Hiatal Hernia: Yes (1954) Hx Ulcer: Yes - Hx Genitourinary Disorders: Yes Hx UTI: Yes - ENDOCRINE Hx Endocrine Disorders: No - MUSCULOSKELETAL Hx Musculoskeletal Disorders: Yes Hx Arthritis: Yes (lower back) - PSYCH Hx Psych Problems: Yes Hx Anxiety: Yes Hx Depression: Yes - HEMATOLOGY/ONCOLOGY Hx Hematology/Oncology Disorders: Yes Hx Anemia: Yes Hx Blood Transfusions: Yes (2014) Hx Blood Transfusion Reaction: No Family Medical History Any Significant Family History?: Yes Hx Cancer: Mother *Cancer Comment: uterus Hx Heart Disease: Grandparents Hx Resp Disorders: Father *Resp Comment: TB Hx Stroke: Grandparents Physical Exam - General General Appearance: Alert, Oriented x3, Cooperative, No acute distress - Head Head exam: Atraumatic, Normocephalic, Normal inspection - Eye Eye exam: Normal appearance, PERRL, EOMI - ENT Throat exam: Normal inspection. negative: Tonsillar erythema, Tonsillar exudate - Neck Neck exam: Normal inspection, Full ROM. negative: Tenderness - Respiratory Respiratory exam: Normal lung sounds bilaterally. negative: Respiratory distress - Cardiovascular Cardiovascular Exam: Regular rate, Normal rhythm, Normal heart sounds. negative: Diastolic murmur, Systolic murmur - GI/Abdominal GI/Abdominal exam: Soft, Tenderness (There is mild to mod LUQ and epigastric tenderness to palpation.). negative: Rebound, Rigid - Extremities Extremities exam: Normal inspection, Full ROM, Normal capillary refill. negative: Pedal edema, Tenderness - Neurological Neurological exam: Alert, Normal gait. negative: Abnormal gait, Motor sensory deficit Course Vital Signs 02/19/19 18:09 Temperature 99.3 F Pulse Rate 86 Respiratory 22 Rate Blood Pressure 152/85 Pulse Ox 96 - Reevaluation(s) Reevaluation #1: The patient is doing better at this time. Her SOB seems to have resolved and now she is only having upper AP. On exam she is presently pointing to her L anterior lower rib margin where palpation EXACTLY reproduces the patient's pain. The patient at this time is receiving Ofirmiv for pain and will be receiving Zofran for nausea. The patient's care will be turned over to Dr. Larose at 19:00 due to shift change. 02/19/19 18:44 Medical Decision Making - Data Complexity MDM Data: EKG Ordered and/or Reviewed - Lab Data Result diagrams: 02/19/19 18:30 02/19/19 18:30 - EKG Data -: EKG Interpreted by Me EKG: No Acute Changes, Unchanged From Previous, LBBB Disposition Forms: Patient Portal Access Quality - Quality Measures Quality Measures: N/A - Blood Pressure Screening View Details: Yes Does Patient Have Any of the Following: Active Dx of HTN Blood Pressure Classification: Pre-Hypertensive BP Reading Systolic Measurement: 152 Diastolic Measurement: 85 Screening for High Blood Pressure: Patient Exclusion, Hx of HTN [G9744]
[2019-02-19] MEDS ORDERED: ACETAMINOPHEN 1,000 MG/100 ML BTL IVPB ONE (18:23)
[2019-02-19] MEDS ORDERED: ONDANSETRON HCL IV 4 MG/2 ML VIAL IVP ONE (18:43)
[2019-02-19 18:49] LABS: ABSOLUTE NEUTROPHIL COUNT 2.92; BASO % 0.2 % (0-6); EOS % 1.7 % (0-6); GRAN % 61.1 % (47-80); HEMATOCRIT 35.4 % (35.0-47.0); HEMOGLOBIN 10.7 gm/dl (11.6-16.0); LYMPH % 25.9 % (16-45); MEAN CELL VOLUME 102.3 fl (81-97); MEAN CORPUSCULAR HEMOGLOBIN 30.9 pg (27-33); MEAN CORPUSCULAR HGB CONC 30.2 g/dl (32-36); MONO % 11.1 % (0-9); PLATELET COUNT 239 K/uL (130-400); RED BLOOD COUNT 3.46 M/uL (3.80-5.40); RED CELL DISTRIBUTION WIDTH 13.4 % (11.5-14.5); WHITE BLOOD COUNT W/O DIFF 4.8 K/uL (4.2-12.2)
[2019-02-19 19:03] LABS: PARTIAL THROMBOPLASTIN TIME 31.8 SECONDS (24.5-39.1); PROTHROMBIN TIME (PATIENT) 20.1 SECONDS (9.5-12.1)
[2019-02-19 19:04] LABS: BLOOD UREA NITROGEN 19 mg/dL (8-23); EST GLOMERULAR FILTRATION RATE 56 mL/min; TOTAL PROTEIN 6.9 g/dL (6.6-8.7)
[2019-02-19 19:05] LABS: LIPASE 38 U/L (13-60)
[2019-02-19 19:06] LABS: GLUCOSE,RANDOM 137 mg/dL (74-109)
--- NOTE | 2019-02-19 19:08 | Emergency Department Record ---
History of Present Illness - General Chief Complaint: Shortness of breath Stated Complaint: ACOSTA Time Seen by Provider: 02/19/19 18:02 Source: Patient Mode of Arrival: EMS Limitations: No limitations - History of Present Illness MD Complaint: Shortness of breath Onset/Timin -: Minutes(s) Improves With: Nothing Worsens With: Nothing Known History Of: Other Treatments Prior to Arrival: None - Related Data Home Oxygen Therapy: No Home Medications Medication Instructions Recorded Confirmed Last Taken Gabapentin [Neurontin] 600 mg PO BID 02/19/19 02/19/19 Unknown Nitrofurantoin [place] [Macrobid] 100 mg PO BID 02/19/19 02/19/19 Unknown Warfarin Sodium [Coumadin] 5 mg PO DAILY 02/19/19 02/19/19 Unknown Previous Rx's Medication Instructions Recorded Lorazepam [Ativan] 1 mg PO BID PRN tablet 06/02/17 Omeprazole 20 mg PO BID #20 tablet. 04/21/18 Acetaminophen [Tylenol 325Mg] 650 mg PO Q4H PRN tablet 01/25/19 Duloxetine HCl [Cymbalta] 30 mg PO DAILY #30 capsule. 01/25/19 Famotidine 20 mg PO BID PRN #30 tablet 01/25/19 Zinc Oxide [Desitin] 10 gm TOP ASDIR PRN tube 01/25/19 Allergies Allergy/AdvReac Type Severity Reaction Status Date / Time Penicillins Allergy Intermediate RASH Verified 02/19/19 18:13 Sulfa (Sulfonamide Allergy Intermediate RASH Verified 02/19/19 18:13 Antibiotics) Travel Screening - Travel/Exposure Within Last 30 Days Have you traveled within the last 30 days?: No Review of Systems Constitutional: Denies: Chills, Fever Eyes: Denies: Eye discharge ENT: Denies: Congestion Respiratory: Reports: Dyspnea. Denies: Cough, Hemoptysis Cardiovascular: Denies: Chest pain Endocrine: Reports: Fatigue Gastrointestinal: Denies: Nausea Genitourinary: Reports: Dysuria (Improved now on Macrobid.) Musculoskeletal: Denies: Arthralgia Skin: Denies: Bruising Past Medical History - SOCIAL HISTORY Smoking Status: Never smoker Alcohol Use: None Drug Use: None - RESPIRATORY Hx Respiratory Disorders: Yes - CARDIOVASCULAR Hx Cardio Disorders: Yes Hx Abnormal EKG: Yes Hx Cardiac Cath: Yes (2 stents) Hx Edema: Yes Hx Hypertension: Yes Hx Coronary Artery Disease: Yes - NEURO Hx Neuro Disorders: No - GI Hx GI Disorders: Yes Hx Hiatal Hernia: Yes (1956) Hx Ulcer: Yes - Hx Genitourinary Disorders: Yes Hx UTI: Yes - ENDOCRINE Hx Endocrine Disorders: No - MUSCULOSKELETAL Hx Musculoskeletal Disorders: Yes Hx Arthritis: Yes (lower back) - PSYCH Hx Psych Problems: Yes Hx Anxiety: Yes Hx Depression: Yes - HEMATOLOGY/ONCOLOGY Hx Hematology/Oncology Disorders: Yes Hx Anemia: Yes Hx Blood Transfusions: Yes (2014) Hx Blood Transfusion Reaction: No Family Medical History Any Significant Family History?: Yes Hx Cancer: Mother *Cancer Comment: uterus Hx Heart Disease: Grandparents Hx Resp Disorders: Father *Resp Comment: TB Hx Stroke: Grandparents Physical Exam - General Limitations: No limitations Course Vital Signs 02/19/19 18:09 Temperature 99.3 F Pulse Rate 86 Respiratory 22 Rate Blood Pressure 152/85 Pulse Ox 96 - Reevaluation(s) Reevaluation #1: 88 yo female was signed out at shift turnover by Dr Franz The patient is currently in radiology The CBC was reviewed. Chronic anemia. Mildly improved from the prior. The BMP was reviewed. CR is 1.0 02/19/19 19:00 02/19/19 19:19 The patient returned from radiology. She states she developed a sharp left lower pain in the chest at 5pm while watching TV. She states the pain made if difficult to breath. She was treated with Ofirmev initially and has some relief. The EMR was reviewed again. The patient has an extensive history that was reviewed in prior ED visits, H and Ps, and DC summaries. 02/19/19 19:21 INR is 2.0 The Troponin and BNP are normal On examination the patient is point tender of the left lower rib margins, soft not tender abdomen. Clear lungs. Heart is regular. 02/19/19 19:23 The CXR was reviewed. No acute process. 02/19/19 20:19 The patient was was given all the results. No acute abnormalities on the labs or CXR. A second troponin will be sent at three hours On recheck the patient still has very reproducible tenderness over a very specific area of the left ribs that reproduces her tenderness I think at this time a PE is very unlikely with her examination of completely reproducible tenderness, no tachycardia or hypoxia. Additionally she is therapeutic on INR. The abdomen remains completely non tender on examination. NO LUQ tenderness. 02/19/19 20:29 02/19/19 21:59 The repeat troponin is normal. I have examined her a third time. The only time she has pain is with palpation of the lower L rib. The patient does no have any acute abnormalities to suggest an immediate alternative diagnosis. She is stable for DC home with instructions to return if any concerns. Medical Decision Making - Lab Data Result diagrams: 02/19/19 18:30 02/19/19 18:30 Lab Results 02/19/19 02/19/19 Range/Units 18:30 18:30 WBC 4.8 (4.2-12.2) K/uL RBC 3.46 L (3.80-5.40) M/uL Hgb 10.7 L (11.6-16.0) gm/dl Hct 35.4 (35.0-47.0) % MCV 102.3 H (81-97) fl MCH 30.9 (27-33) pg MCHC 30.2 L (32-36) g/dl RDW 13.4 (11.5-14.5) % Plt Count 239 (130-400) K/uL MPV 10.0 (7.4-10.4) fl Gran % 61.1 (47-80) % Lymphocytes % 25.9 (16-45) % Monocytes % 11.1 H (0-9) % Eosinophils % 1.7 (0-6) % Basophils % 0.2 (0-6) % Absolute Neutrophils 2.92 Sodium 139 (136-145) mmol/L Potassium 4.5 (3.4-4.5) mmol/L Chloride 100 (98-107) mmol/L Carbon Dioxide 26.0 (22-29) mmol/L Anion Gap 13.0 (7-16) BUN 19 (8-23) mg/dL Creatinine 1.0 H (0.5-0.9) mg/dL Estimated GFR 56 mL/min Calcium 9.1 (8.8-10.2) mg/dL Total Bilirubin 0.30 (0.2-1.0) mg/dL Total Protein 6.9 (6.6-8.7) g/dL Lipase 38 (13-60) U/L Disposition Disposition: Discharge Clinical Impression: Left-sided chest wall pain Disposition: Home, Self-Care Condition: (1) Good Instructions: Chest Wall Pain (ED) Additional Instructions: Review this ER visit and the tests performed with your family doctor Call your doctor for the next available follow up appointment Return to the ER for a recheck immediately if worse, any new concerns or questions Forms: Patient Portal Access Time of Disposition: 22:01 Quality - Quality Measures Quality Measures: N/A - Blood Pressure Screening Does Patient Have Any of the Following: No Blood Pressure Classification: Pre-Hypertensive BP Reading Systolic Measurement: 152 Diastolic Measurement: 85 Screening for High Blood Pressure: < Pre-Hypertensive BP, F/U Documented > [G8950] Pre-Hypertensive Follow-up Interventions: Referral to alternative/primary care provider.
[2019-02-19 19:09] LABS: ALBUMIN 4.2 g/dL (4.0-5.0); ALKALINE PHOSPHATASE 40 U/L (35-104); ALT/SGPT 14 U/L (<33); AST/SGOT 26 U/L (10.0-35.0); BILIRUBIN,DIRECT < 0.2 mg/dL (0-0.3)
--- NOTE | 2019-02-19 19:19 | RADIOLOGY REPORT ---
EXAMINATION: Two View Chest Radiographs EXAM DATE: 02/19/2019 7:14 PM TECHNIQUE: Frontal and lateral views INDICATION: ACOSTA COMPARISON: December 29, 2018 ENCOUNTER: Not applicable FINDINGS: The heart, mediastinum, and pulmonary vasculature are stable. No lung consolidation or pleural effu sions are present. Bones are osteopenic. IMPRESSION: Negative for active intrathoracic disease Dictated by: Pedro Fletcher MD on 02/19/2019 7:16 PM. .
[2019-02-19 19:21] LABS: THYROID STIMULATING HORMONE 1.67 uIU/mL (0.270-4.20)
== END 2019-02-19 22:20 | disposition home or self-care (01) ==
LOC: ER 17:59
DX: R07.89 Other chest pain (principal); R10.13 Epigastric pain; I10 Essential (primary) hypertension; Z79.01 Long term (current) use of anticoagulants
CPT/HCPCS: 99284 ×2; 96365; 96375; 83605; 83690; 85025; 85730; 85610; 80076; 80048; 84443; 84484; 83880; 71046; 93005; 93010; J2405

== ENCOUNTER 2019-04-05 20:41 | Observation (INO) | payer MEDICARE, BC ==
--- NOTE | 2019-04-05 21:03 | Emergency Department Record ---
History of Present Illness - General Chief Complaint: Abdominal Pain Stated Complaint: HEART RACING,CHEST PAIN Time Seen by Provider: 04/05/19 20:50 Source: Patient Mode of Arrival: EMS Limitations: No limitations - History of Present Illness Initial Comments: The patient is here due to a 3 hour hx of upper abdominal pain with nausea. The patient has had some mild dry heaves with the pain but denies any back pain, SOB, ACOSTA, or upper chest pain. She has had some palpitations with it but that has improved. The patient has a LONG hx of similar issues and has had multiple visits to [facility] and [facility] for the same thing with no diagnosis given. She also does have multiple medical issues including CAD and is on Coumadin. The patient did have a neg noncontrast chest CT 3 days ago for this same issue along with a neg LUE US. She also had an abdominal CT about 5 weeks ago for this same thing at [facility] that did not demonstrate any acute changes. MD Complaint: Abdominal pain Onset/Timin -: Hour(s) Location: Epigastric Radiation: Other Migration to: No migration Severity: Moderate Severity scale (1-10): 7 Quality: Fullness, Other Consistency: Constant Improves With: Nothing Worsens With: Nothing Associated Symptoms: Nausea Treatments Prior to Arrival: Antacids, Other - Related Data Patient : No Home Medications Medication Instructions Recorded Confirmed Last Taken Gabapentin 300 mg PO QID 04/05/19 04/05/19 Unknown Lorazepam 1 mg PO BID 04/05/19 04/05/19 Unknown Previous Rx's Medication Instructions Recorded Omeprazole 20 mg PO BID #20 tablet. 04/21/18 Famotidine 20 mg PO BID PRN #30 tablet 01/25/19 Allergies Allergy/AdvReac Type Severity Reaction Status Date / Time Penicillins Allergy Intermediate RASH Verified 04/05/19 20:44 Sulfa (Sulfonamide Allergy Intermediate RASH Verified 04/05/19 20:44 Antibiotics) Travel Screening - Travel/Exposure Within Last 30 Days Have you traveled within the last 30 days?: No - Travel/Exposure Within Last Year Have you traveled outside the [place] in the last year?: No - Additonal Travel Details Have you been exposed to anyone with a communicable illness?: No - Travel Symptoms Symptom Screening: None Review of Systems Constitutional: Denies: Chills, Fever Eyes: Denies: Eye discharge ENT: Denies: Congestion Respiratory: Denies: Cough, Dyspnea Cardiovascular: Denies: Arrhythmia, Chest pain Endocrine: Denies: Fatigue Gastrointestinal: Reports: Abdominal pain, Nausea Genitourinary: Denies: Dysuria Musculoskeletal: Denies: Arthralgia Skin: Denies: Bruising Past Medical History - SOCIAL HISTORY Smoking Status: Never smoker Alcohol Use: None Drug Use: None - RESPIRATORY Hx Respiratory Disorders: No - CARDIOVASCULAR Hx Cardio Disorders: Yes Hx Abnormal EKG: Yes Hx Cardiac Cath: Yes (2 stents) Hx Edema: Yes Hx Hypertension: Yes Hx Coronary Artery Disease: Yes - NEURO Hx Neuro Disorders: No Hx Seizures: No - GI Hx GI Disorders: Yes Hx Hiatal Hernia: Yes (1956) Hx Ulcer: Yes - Hx Genitourinary Disorders: Yes Hx UTI: Yes - ENDOCRINE Hx Endocrine Disorders: No Hx Diabetes: No - MUSCULOSKELETAL Hx Musculoskeletal Disorders: Yes Hx Arthritis: Yes (lower back) - PSYCH Hx Psych Problems: Yes Hx Anxiety: Yes Hx Depression: Yes - HEMATOLOGY/ONCOLOGY Hx Hematology/Oncology Disorders: Yes Hx Anemia: Yes Hx Blood Transfusions: Yes (2014) Hx Blood Transfusion Reaction: No Family Medical History Any Significant Family History?: No Hx Cancer: Mother *Cancer Comment: uterus Hx Heart Disease: Grandparents Hx Resp Disorders: Father *Resp Comment: TB Hx Stroke: Grandparents Physical Exam - General General Appearance: Alert, Oriented x3, Cooperative, No acute distress - Head Head exam: Atraumatic, Normocephalic - Eye Eye exam: Normal appearance, PERRL - ENT Throat exam: Normal inspection. negative: Tonsillar erythema, Tonsillar exudate - Neck Neck exam: Normal inspection, Full ROM. negative: Tenderness - Respiratory Respiratory exam: Normal lung sounds bilaterally. negative: Respiratory distr ess - Cardiovascular Cardiovascular Exam: Regular rate, Normal rhythm, Normal heart sounds - GI/Abdominal GI/Abdominal exam: Soft, Normal bowel sounds, Tenderness. negative: Rebound, Rigid - Extremities Extremities exam: Normal inspection, Full ROM, Normal capillary refill. negati ve: Tenderness - Neurological Neurological exam: Alert. 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 She is sitting up and resting comfortably. The upper abdominal discomfort is much better. Reevaluation #2: The patient is doing a lot better at this time. She is resting comfortably and in no distress. She states the pain is much improved. We will be drawing a 2nd Trop shortly. 04/05/19 22:41 Reevaluation #3: The patient is resting comfortably but states the upper abdominal pain is slightly returning. She states there is no CP or SOB at this time. I did discuss the issues with the patient and do believe the issue is related to her chronic abdominal pain. The patient states she does not feel comfortable going home and would like to stay in the hospital for this. Due to the patient having a FULL evaluation recently I do not believe any imaging is needed at this time. We will admit her to the hospital as an Obs patient and re-evaluate in the morning. 04/05/19 23:56 Medical Decision Making - Data Complexity MDM Data: Labs Ordered and/or Reviewed, EKG Ordered and/or Reviewed, Review and Summary of Old Record Discussed (CT result from 04/01/19 reviewed.) - Lab Data Result diagrams: 04/05/19 21:15 04/05/19 20:57 - EKG Data -: EKG Interpreted by Me EKG: No Acute Changes, Unchanged From Previous, LBBB Disposition Disposition: Admit Clinical Impression: Abdominal pain Qualifiers: Abdominal location: unspecified location Qualified Code(s): R10.9 - Unspecified abdominal pain Disposition: Still a Patient at [facility] Decision to Admit: Admit from ER Decision to Admit Date: 04/06/19 Decision to Admit Time: 00:24 Accepting Physician: Nicole. Time Discussed w/Accepting Physician: 00:24 Condition: (2) Stable Forms: Patient Portal Access Time of Disposition: 00:25 Quality - Quality Measures Quality Measures: N/A - Blood Pressure Screening View Details: Yes Does Patient Have Any of the Following: No Blood Pressure Classification: Normal BP Reading Systolic Measurement: 102 Diastolic Measurement: 53 Screening for High Blood Pressure: < Normal BP, F/U Not Required > [G8783]
[2019-04-05 21:19] LABS: INR 1.5; PARTIAL THROMBOPLASTIN TIME 28.3 SECONDS (24.5-39.1); PROTHROMBIN TIME (PATIENT) 14.8 SECONDS (9.5-12.1)
[2019-04-05 21:22] LABS: ABSOLUTE NEUTROPHIL COUNT 3.98; BASO % 0.2 % (0-6); EOS % 1.9 % (0-6); GRAN % 63.3 % (47-80); HEMATOCRIT 36.4 % (35.0-47.0); LYMPH % 25.2 % (16-45); MEAN CELL VOLUME 103.7 fl (81-97); MEAN CORPUSCULAR HEMOGLOBIN 31.3 pg (27-33); MEAN CORPUSCULAR HGB CONC 30.2 g/dl (32-36); MEAN PLATELET VOLUME 10.3 fl (7.4-10.4); MONO % 9.4 % (0-9); PLATELET COUNT 246 K/uL (130-400); RED BLOOD COUNT 3.51 M/uL (3.80-5.40); RED CELL DISTRIBUTION WIDTH 13.1 % (11.5-14.5); WHITE BLOOD COUNT W/O DIFF 6.3 K/uL (4.2-12.2)
[2019-04-05 21:23] LABS: BLOOD UREA NITROGEN 20 mg/dL (8-23); CREATININE 1.1 mg/dL (0.5-0.9); EST GLOMERULAR FILTRATION RATE 50 mL/min
[2019-04-05 21:24] LABS: LIPASE 42 U/L (13-60)
[2019-04-05 21:26] LABS: GLUCOSE,RANDOM 115 mg/dL (74-109)
[2019-04-05 21:28] LABS: ALT/SGPT 15 U/L (<33); AST/SGOT 30 U/L (10.0-35.0)
[2019-04-05] MEDS ORDERED: ONDANSETRON HCL IV 4 MG/2 ML VIAL IVP ONE (21:28)
[2019-04-05] MEDS ORDERED: ACETAMINOPHEN 1,000 MG/100 ML BTL IVPB ONE (21:28)
[2019-04-05 21:29] LABS: ALBUMIN 3.8 g/dL (4.0-5.0); ALKALINE PHOSPHATASE 37 U/L (35-104); CREATINE PHOSPHOKINASE 153 U/L (26-192)
[2019-04-05 21:30] LABS: BILIRUBIN,DIRECT < 0.2 mg/dL (0-0.3)
[2019-04-05] MEDS ORDERED: MAGNESIUM HYDROXIDE/AL HYDROX 30 ML, LIDOCAINE VISC 2% 15ML 15 ML PO ONE ×2 (21:30)
[2019-04-05] MEDS ORDERED: SUCRALFATE 1 G/10 ML UD PO ONE (23:50)
[2019-04-06] MEDS ORDERED: ACETAMINOPHEN 1,000 MG/100 ML BTL IVPB SCH (01:22)
[2019-04-06] MEDS ORDERED: ONDANSETRON HCL IV 4 MG/2 ML VIAL IVP PRN (01:22)
[2019-04-06] MEDS ORDERED: ATORVASTATIN 20 MG TABLET PO SCH (01:45)
[2019-04-06] MEDS: FUROSEMIDE 20 MG TABLET PO SCH ×2 (01:46→09:50)
[2019-04-06] MEDS ORDERED: MELATONIN 5 MG TABLET PO SCH (02:00)
[2019-04-06] MEDS ORDERED: WARFARIN 5 MG TAB PO SCH (02:00)
[2019-04-06] MEDS: LORAZEPAM 0.5 MG TABLET PO SCH ×2 (02:24→09:49)
[2019-04-06] MEDS: CARVEDILOL 3.125 MG TABLET PO SCH ×2 (02:24→09:50)
[2019-04-06] MEDS: HYDROCODONE/APAP 5/325MG TABLET PO PRN ×3 (02:25→14:37)
[2019-04-06] MEDS: GABAPENTIN 300 MG CAPSULE PO SCH ×3 (02:25→14:53)
[2019-04-06] MEDS: PANTOPRAZOLE SODIUM 40 MG TABLET PO SCH ×2 (02:25→09:50)
[2019-04-06] MEDS: ACETAMINOPHEN 1,000 MG/100 ML BTL IVPB SCH ×3 (03:02→14:39)
--- NOTE | 2019-04-06 09:10 | History & Physical ---
History of Present Illness - Date of Service Date of Service for History & Physical: 04/06/19 - History of Present Illness Admitting Diagnosis: 1. Acute Exacerbation of Chronic Abdominal Pain. History of Present Illness: The patient is here due to a 3 hour hx of upper abdominal pain with nausea. The patient has had some mild dry heaves with the pain but denies any back pain, SOB, ACOSTA, or upper chest pain. She has had some palpitations with it but that has improved. The patient has a LONG hx of similar issues and has had multiple visits to [facility] and [facility] for the same thing with no diagnosis given. She also does have multiple medical issues including CAD and is on Coumadin. The patient did have a neg noncontrast chest CT 3 days ago for this same issue along with a neg LUE US. She also had an abdominal CT about 5 weeks ago for the same symptoms at [facility] that did not demonstrate any acute changes. She reports epigastirc and left sided abominal pain have been occurring since 2014. She does follow with GI at [facility] for this with last admission for abdominal pain 02/03/19. She denies any nausea or vomiting associated with pain. Does have Mo[place] at home for the pain but states she does not take it because she does not want to develop an addiction to it. She rates the pain as shart adn always a 3/10 at baseline, when pain raises to 5/10 she will apply ice to her abdomen, and if pain goes above that she will come to the ER. She states over eating and sweets is what flares pain. She did have birthday cake just prior to arrival to ED. [facility] records from February 2019 reviewed, work up negative for acute intraabdominal process and was determined pain was likely musculoskeletal in nature. 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 It was also determined her pain was referred pain/musculoskeletal in nature. Admitted for observation and pain control. Advance diet as she is able to tolerate and disharge home to follow up with PCP, hank is requesting referral to [facility].PCP: Brenda Jones [employer] Significant ED findings Hgb 11.0 MCV 103.7 WBC 9.3 INR 1.5 Potassium 4.6 Anion Gap 17 Bun/Cr 20/1.1 Lactic acid 1.3 Troponin x 2 <0.010 Albumin 3.8 EKG NRS, LBBB PAST MEDICAL/SURGICAL HISTORY Past Surgical History back injs and rhizotomy hernia repair cholecystectomy hand surgery cardiac stents 2001, 2005 Juhi filter in Left Lower Extremity EGD/colonoscopy in [place] Emergent tranfer and 13 units of blood for GI bleeding EGD PMH - Respiratory Hx Respiratory Disorders No Hx Bronchitis Yes Hx Pneumonia Yes: February 2016 Hx Sleep Apnea Yes: O2 2.5L by nc Hx Tuberculosis No Hx of CPAP No Hx of SOB Yes Comment: oxygen at night 2 L PMH - Cardiovascular Hx Cardiovascular Disorders Yes Hx Abnormal EKG Yes Hx Cardiac Catheterization Yes: 2 stents Hx Chest Pain No Hx Congestive Heart Failure No Hx Deep Vein Thrombosis Yes: 2001 and 2015 Hx Edema Yes Hx Heart Attack No Hx Hypertension Yes Hx Irregular Heartbeat Yes Hx Palpitations No Hx Pacemaker/Defibrillator No Hx Coronary Artery Disease Yes Hx Coronary Artery Bypass No Graft Hx Coronary Stent Yes: x2 Hx Heart Murmur No Hx of Mitral Valve Prolapse No Hx Transient Ischemic Attacks No (TIA) Residual Deficits from CVA No Hx of Migraines No PMH - Neuro Hx Neurological Disorders No Hx Headaches No Hx Neuropathy Yes Hx Seizures No Hx Transient Ischemic Attacks No (TIA) Hx Weakness Yes: generalized PMH - GI Hx Gastrointestinal Disorders Yes Hx Abdominal Pain Yes Hx Diverticulitis Yes Hx Gastrointestinal Bleed Yes: 2014 Hx Gastroesophageal Reflux Yes Hx Hepatitis/Jaundice No Hx Hiatal Hernia Yes: 1956 Hx Liver Disease No Hx Nausea/Vomiting Yes Hx Pancreatitis No Hx Rectal Bleeding Yes: 2014 Hx Ulcer Yes Hx Weight Loss/Weight Gain Yes: loss 5 lbs in last month Hx Cirrhosis No Comment: EGD 3 months ago-negative PMH - Hx Genitourinary Disorders Yes Patient No Hx Renal Disease Yes: Bright's disease at 7yrs old Hx Urinary Tract Infection Yes PMH - Endocrine Hx Endocrine Disorders No Hx Diabetes No Hx Thyroid Disease No PMH - Musculoskeletal Hx Musculoskeletal Disorders Yes Hx Arthritis Yes: lower back Hx Back Injury Yes: broke tailbone-removed Hx Osteoporosis Yes PMH - Psych Hx Psychiatric Problems Yes Hx Anxiety Yes Hx Depression 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 - Hematology/Oncology Hx Hematology/Oncology Yes Disorders Hx Anemia Yes Hx Bruising Yes: on coumadin Hx Cancer No Hx Chemotherapy No Hx Radiation Therapy No Hx Unexplained Bleeding Yes: 2014 Hx Blood Transfusion Reaction No Laboratory Results WBC 6.3 K/uL (4.2-12.2) 04/05/19 21:15 RBC 3.51 M/uL (3.80-5.40) L 04/05/19 21:15 Hgb 11.0 gm/dl (11.6-16.0) L 04/05/19 21:15 Hct 36.4 % (35.0-47.0) 04/05/19 21:15 MCV 103.7 fl (81-97) H 04/05/19 21:15 MCH 31.3 pg (27-33) 04/05/19 21:15 MCHC 30.2 g/dl (32-36) L 04/05/19 21:15 RDW 13.1 % (11.5-14.5) 04/05/19 21:15 Plt Count 246 K/uL (130-400) 04/05/19 21:15 MPV 10.3 fl (7.4-10.4) 04/05/19 21:15 Gran % 63.3 % (47-80) 04/05/19 21:15 Lymphocytes % 25.2 % (16-45) 04/05/19 21:15 Monocytes % 9.4 % (0-9) H 04/05/19 21:15 Eosinophils % 1.9 % (0-6) 04/05/19 21:15 Basophils % 0.2 % (0-6) 04/05/19 21:15 Absolute Neutrophils 3.98 04/05/19 21:15 PT 14.8 SECONDS (9.5-12.1) H 04/05/19 20:57 INR 1.5 04/05/19 20:57 APTT 28.3 SECONDS (24.5-39.1) 04/05/19 20:57 Sodium 140 mmol/L (136-145) 04/05/19 20:57 Potassium 4.6 mmol/L (3.4-4.5) H 04/05/19 20:57 Chloride 98 mmol/L (98-107) 04/05/19 20:57 Carbon Dioxide 25.0 mmol/L (22-29) 04/05/19 20:57 Anion Gap 17.0 (7-16) H 04/05/19 20:57 BUN 20 mg/dL (8-23) 04/05/19 20:57 Creatinine 1.1 mg/dL (0.5-0.9) H 04/05/19 20:57 Estimated GFR 50 mL/min 04/05/19 20:57 Random Glucose 115 mg/dL (74-109) H 04/05/19 20:57 Lactic Acid 1.3 mmol/L (0.5-2.2) 04/05/19 21:15 Calcium 8.8 mg/dL (8.8-10.2) 04/05/19 20:57 Total Bilirubin 0.20 mg/dL (0.2-1.0) 04/05/19 20:57 Direct Bilirubin < 0.2 mg/dL (0-0.3) 04/05/19 20:57 AST 30 U/L (10.0-35.0) 04/05/19 20:57 ALT 15 U/L (<33) 04/05/19 20:57 Alkaline Phosphatase 37 U/L (35-104) 04/05/19 20:57 Creatine Kinase 153 U/L (26-192) 04/05/19 20:57 CK-MB (CK-2) 2.0 ng/mL (<3.77) 04/05/19 20:57 Troponin T < 0.010 ng/mL (0-0.010) 04/05/19 23:00 NT-Pro-B Natriuret Pep 111.00 pg/mL (<450) 04/05/19 20:57 Total Protein 7.0 g/dL (6.6-8.7) 04/05/19 20:57 Albumin 3.8 g/dL (4.0-5.0) L 04/05/19 20:57 Lipase 42 U/L (13-60) 04/05/19 20:57 Vital Signs - Last 24 Hrs Temp Pulse Pulse Resp BP BP Pulse Ox 04/06/19 01:22 97.5 F L 65 18 147/60 99 04/06/19 00:35 66 20 128/62 97 04/05/19 23:30 98.4 F 04/05/19 22:29 73 16 102/53 97 04/05/19 21:40 99.2 F 76 16 115/58 93 L 04/05/19 20:44 99.2 F 95 H 24 128/84 93 L 04/06/19 Patient resting in bed comfortably. Reports her abdominal pain is at her baseline of310. Has tolerated clear liquid diet up to this point. No N/V/D. Travel Screening - Travel/Exposure Within Last 30 Days Have you traveled within the last 30 days?: No - Travel/Exposure Within Last Year Have you traveled outside the [place] in the last year?: No - Additonal Travel Details Have you been exposed to anyone with a communicable illness?: No - Travel Symptoms Symptom Screening: None Review of Systems Constitutional: Denies: Chills, Fever Eyes: Denies: Eye discharge ENT: Denies: Congestion Respiratory: Denies: Cough, Dyspnea Cardiovascular: Denies: Arrhythmia, Chest pain Endocrine: Denies: Fatigue Gastrointestinal: Reports: Abdominal pain, Nausea Genitourinary: Denies: Dysuria Musculoskeletal: Denies: Arthralgia Skin: Denies: Bruising Past Medical History - SOCIAL HISTORY Smoking Status: Never smoker Alcohol Use: None Drug Use: None - RESPIRATORY Hx Respiratory Disorders: No - CARDIOVASCULAR Hx Cardio Disorders: Yes Hx Abnormal EKG: Yes Hx Cardiac Cath: Yes (2 stents) Hx Edema: Yes Hx Hypertension: Yes Hx Coronary Artery Disease: Yes - NEURO Hx Neuro Disorders: No Hx Seizures: No - GI Hx GI Disorders: Yes Hx Abdominal Pain: Yes Hx Reflux: Yes Hx Hiatal Hernia: Yes (1956) Hx Ulcer: Yes - Hx Genitourinary Disorders: Yes Hx UTI: Yes - ENDOCRINE Hx Endocrine Disorders: No Hx Diabetes: No - MUSCULOSKELETAL Hx Musculoskeletal Disorders: Yes Hx Arthritis: Yes (lower back) - PSYCH Hx Psych Problems: Yes Hx Anxiety: Yes Hx Depression: Yes - HEMATOLOGY/ONCOLOGY Hx Hematology/Oncology Disorders: Yes Hx Anemia: Yes Hx Blood Transfusions: Yes (2014) Hx Blood Transfusion Reaction: No Family Medical History Any Significant Family History?: Yes Hx Cancer: Mother *Cancer Comment: uterus Hx Heart Disease: Grandparents Hx Resp Disorders: Father *Resp Comment: TB Hx Stroke: Grandparents H&P Meds/Allergies - Allergies Allergies: Allergies Allergy/AdvReac Type Severity Reaction Status Date / Time Penicillins Allergy Intermediate RASH Verified 04/05/19 20:44 Sulfa (Sulfonamide Allergy Intermediate RASH Verified 04/05/19 20:44 Antibiotics) - Home Medications Home Medications Medication Instructions Recorded Confirmed Last Taken Gabapentin 600 mg PO BID 04/05/19 04/06/19 Unknown Lorazepam 1 mg PO BID 04/05/19 04/05/19 Unknown Polyethylene Glycol 3350 [Miralax] 17 gm PO QHS 04/06/19 04/06/19 04/04/19 22:00 17 grams Previous Rx's Medication Instructions Recorded Omeprazole 20 mg PO BID #20 tablet. 04/21/18 Famotidine 20 mg PO BID PRN #30 tablet 01/25/19 - Active Medications Active Medications: Current Medications Hydrocodone Bitart/Acetaminophen (Moosup 5mg/325mg) 1 each PO Q4H PRN PRN Reason: ABDOMINAL PAIN Last Admin: 04/06/19 02:25 Dose: 1 each Documented by: Atorvastatin Calcium (Lipitor) 80 mg PO QHS [facility] Last Admin: 04/06/19 02:24 Dose: 80 mg Documented by: Carvedilol (Coreg) 6.25 mg PO BID [facility] Last Admin: 04/06/19 02:24 Dose: Not Given Documented by: Furosemide (Lasix) 20 mg PO BID [facility] Last Admin: 04/06/19 01:46 Dose: Not Given Documented by: Gabapentin (Neurontin) 300 mg PO QID [facility] Last Admin: 04/06/19 02:25 Dose: 300 mg Documented by: Acetaminophen (Ofirmev) 1,000 mg in 100 mls @ 400 mls/hr IVPB Q6H [facility] Last Admin: 04/06/19 03:02 Dose: Not Given Documented by: Lorazepam (Ativan) 1 mg PO BID [facility] Last Admin: 04/06/19 02:24 Dose: Not Given Documented by: Melatonin (Melatonin) 10 mg PO QHS [facility] Last Admin: 04/06/19 02:25 Dose: 10 mg Documented by: Ondansetron HCl (Zofran) 4 mg IVP Q4H PRN PRN Reason: NAUSEA Last Admin: 04/06/19 02:23 Dose: 4 mg Documented by: Pantoprazole Sodium (Protonix) 40 mg PO BID [facility] Last Admin: 04/06/19 02:25 Dose: 40 mg Documented by: Potassium Chloride (Klor-Con) 20 meq PO DAILY [facility] Senna/Docusate Sodium (Senna Plus) 1 each PO DAILY [facility] Sucralfate (Carafate) 1 g PO QID [facility] Warfarin Sodium (Coumadin) 5 mg PO QHS [facility] Last Admin: 04/06/19 02:26 Dose: 5 mg Documented by: Physical Exam - Vital Signs Vital Signs: Vital Signs - Last 24 Hrs Temp Pulse Pulse Resp BP BP Pulse Ox 04/06/19 01:22 97.5 F L 65 18 147/60 99 04/06/19 00:35 66 20 128/62 97 04/05/19 23:30 98.4 F 04/05/19 22:29 73 16 102/53 97 04/05/19 21:40 99.2 F 76 16 115/58 93 L 04/05/19 20:44 99.2 F 95 H 24 128/84 93 L - General General Appearance: Alert, Oriented x3, Cooperative, No acute distress Limitations: No limitations - Head Head exam: Atraumatic, Normocephalic - Eye Eye exam: Normal appearance, PERRL - ENT ENT exam: Mucous membranes moist Throat exam: Normal inspection. negative: Tonsillar erythema, Tonsillar exudate - Neck Neck exam: Normal inspection, Full ROM. negative: Tenderness - Respiratory Respiratory exam: Normal lung sounds bilaterally. negative: Respiratory distress - Cardiovascular Cardiovascular Exam: Regular rate, Normal rhythm, Normal heart sounds Peripheral Pulses: 3+: Radial (R), Radial (L) - GI/Abdominal GI/Abdominal exam: Soft, Normal bowel sounds. negative: Rebound, Rigid, Tenderness - Extremities Extremities exam: Normal inspection, Full ROM, Normal capillary refill. negative: Tenderness - Neurological Neurological exam: Alert. negative: Motor sensory deficit Results - Labs Result Diagrams: 04/05/19 21:15 04/05/19 20:57 Labs Last 24 Hours: Laboratory Results - last 24 hr 04/05/19 04/05/19 04/05/19 20:57 20:57 21:15 WBC 6.3 RBC 3.51 L Hgb 11.0 L Hct 36.4 MCV 103.7 H MCH 31.3 MCHC 30.2 L RDW 13.1 Plt Count 246 MPV 10.3 Gran % 63.3 Lymphocytes % 25.2 Monocytes % 9.4 H Eosinophils % 1.9 Basophils % 0.2 Absolute Neutrophils 3.98 PT 14.8 H INR 1.5 APTT 28.3 Sodium 140 Potassium 4.6 H Chloride 98 Carbon Dioxide 25.0 Anion Gap 17.0 H BUN 20 Creatinine 1.1 H Estimated GFR 50 Random Glucose 115 H Lactic Acid Cancelled Calcium 8.8 Total Bilirubin 0.20 Direct Bilirubin < 0.2 AST 30 ALT 15 Alkaline Phosphatase 37 Creatine Kinase 153 CK-MB (CK-2) 2.0 Troponin T < 0.010 NT-Pro-B Natriuret Pep 111.00 Total Protein 7.0 Albumin 3.8 L Lipase 42 04/05/19 04/05/19 21:15 23:00 WBC RBC Hgb Hct MCV MCH MCHC RDW Plt Count MPV Gran % Lymphocytes % Monocytes % Eosinophils % Basophils % Absolute Neutrophils PT INR APTT Sodium Potassium Chloride Carbon Dioxide Anion Gap BUN Creatinine Estimated GFR Random Glucose Lactic Acid 1.3 Calcium Total Bilirubin Direct Bilirubin AST ALT Alkaline Phosphatase Creatine Kinase CK-MB (CK-2) Troponin T < 0.010 NT-Pro-B Natriuret Pep Total Protein Albumin Lipase VTE H&P Assessment - Risk for VTE Risk for VTE: Yes Risk Level: Moderate Risk Assessment Date: 04/06/19 Risk Assessment Time: 08:58 VTE Orders Placed or Will Be Placed: Yes Plan - Detailed Diagnosis and Plan (1) Abdominal pain Status: Acute Qualifiers: Abdominal location: unspecified location Qualified Code(s): R10.9 - Unspecified abdominal pain Base Code: R10.9 - UNSPECIFIED ABDOMINAL PAIN Comment: 04/06/19 - Recurrent abdominal pain s/p multiple EGD/Colonsocopies. Most recent EGD 01/2018 only showing duodenitis. [facility] records review reveal no acute abdominal process and suggest pain is referred pain/musculoskeletal in nature - Labs: WBC 9.3, Lactic acid 1.3 Trops Neg. x 2 - Pain control with Protonix 40mg IV, Carafate 1gm QID, Zofran 4mg Q4H PRN, home dose Neurontin 300mg QID, Ofirmev and [place] 5/325mg PRN - Encouraged her to take [place] for pain that is intolerable for her to see if her pain improves before she comes to ED for treatment. Education provided regarding the difference between physiologic pain and treatment vs. addiction/dependence behavior - Pain is at her baseline, will advance her diet to her usual diet and discharge home if she tolerates it - Advised she follow up with PCP regarding desire for [facility] referral - Avoid sweets and over eating as to not exacerbate chronic abdominal pain (2) History of atrial fibrillation Status: Acute Base Code: Z86.79 - PERSONAL HISTORY OF OTHER DISEASES OF THE CIRCULATORY SYSTEM Comment: 04/06/19 Coumadin, INR subtherapeutic, increase dose by 10% weekly maintenance and recheck INR in 48 hours -Continue Carvedilol 6.25mg BID -knocker off (3) At risk for deep venous thrombosis Status: Acute Base Code: Z91.89 - OTH PERSONAL RISK FACTORS, NOT ELSEWHERE CLASSIFIED Comment: 04/06/19 hx of a-fib and chronic DVTs. - Warfarin 5mg QD - INR 1.5 (4) DNR (do not resuscitate) Status: Acute Base Code: Z66 - DO NOT RESUSCITATE
[2019-04-06] MEDS: SUCRALFATE 1 G/10 ML UD PO SCH ×3 (09:51→16:55)
[2019-04-06] MEDS ORDERED: SENNOSIDES/DOCUSATE SODIUM UD CAPSULE PO SCH (10:00)
[2019-04-06] MEDS ORDERED: PANTOPRAZOLE SODIUM IV 40 MG VIAL IV SCH (10:00)
[2019-04-06] MEDS ORDERED: POTASSIUM CHLORIDE 20 MEQ TABLET PO SCH (10:00)
[2019-04-06] MEDS ORDERED: WARFARIN 1 MG TABLET PO SCH (16:00)
--- NOTE | 2019-04-06 19:24 | Discharge Summary ---
Providers Discharge Summary Date: 04/06/19 Date of admission: 04/06/19 01:16 Expected Date of Discharge: 04/06/19 Attending physician: NIRMALA DANIELS Primary care physician: Jamie Jones NP Physical Exam - Vital Signs Vital Signs: Vital Signs - Last 24 Hrs Temp Pulse Pulse Resp BP BP Pulse Ox 04/06/19 17:00 99.0 F 62 16 156/68 91 L 04/06/19 13:00 98.0 F 63 16 126/48 90 L 04/06/19 09:00 98.6 F 66 70 16 138/53 93 L 04/06/19 01:22 97.5 F L 65 18 147/60 99 04/06/19 00:35 66 20 128/62 97 04/05/19 23:30 98.4 F 04/05/19 22:29 73 16 102/53 97 04/05/19 21:40 99.2 F 76 16 115/58 93 L 04/05/19 20:44 99.2 F 95 H 24 128/84 93 L - General General Appearance: Alert, Oriented x3, Cooperative, No acute distress Limitations: No limitations - Head Head exam: Atraumatic, Normocephalic - Eye Eye exam: Normal appearance, PERRL - ENT ENT exam: Mucous membranes moist Throat exam: Normal inspection. negative: Tonsillar erythema, Tonsillar exudate - Neck Neck exam: Normal inspection, Full ROM. negative: Tenderness - Respiratory Respiratory exam: Normal lung sounds bilaterally. negative: Respiratory distress - Cardiovascular Cardiovascular Exam: Regular rate, Normal rhythm, Normal heart sounds Peripheral Pulses: 3+: Radial (R), Radial (L) - GI/Abdominal GI/Abdominal exam: Soft, Normal bowel sounds. negative: Rebound, Rigid, Tenderness - Extremities Extremities exam: Normal inspection, Full ROM, Normal capillary refill. negative: Tenderness - Neurological Neurological exam: Alert. negative: Motor sensory deficit Hospitalization - Hospitalization Admission Diagnosis: 1. Acute Exacerbation of Chronic Abdominal Pain. - Problem List/Discharge Diagnosis (1) Abdominal pain Status: Acute Discharge Diagnosis: Abdominal location: unspecified location Qualified Code(s): R10.9 - Unspecified abdominal pain Base Code: R10.9 - UNSPECIFIED ABDOMINAL PAIN Comment: 04/06/19 - Recurrent abdominal pain s/p multiple EGD/Colonsocopies. Most recent EGD 01/2018 only showing duodenitis. [facility] reveal no acute abdominal process and suggest pain is referred pain/musculoskeletal in nature - Labs: WBC 9.3, Lactic acid 1.3 Trops Neg. x 2 - Pain control with Protonix 40mg IV, Carafate 1gm QID, Zofran 4mg Q4H PRN, home dose Neurontin 300mg QID, Ofirmev and [place] 5/325mg PRN - Encouraged her to take [place] for pain that is intolerable for her to see if her pain improves before she comes to ED for treatment. Education provided regarding the difference between physiologic pain and treatment vs. addiction/dependence behavior - Pain is at her baseline, will advance her diet to her usual diet and discharge home if she tolerates it - Advised she follow up with PCP regarding desire for [facility] referral - Avoid sweets and over eating as to not exacerbate chronic abdominal pain (2) History of atrial fibrillation Status: Acute Base Code: Z86.79 - PERSONAL HISTORY OF OTHER DISEASES OF THE CIRCULATORY SYSTEM Comment: 04/06/19 Coumadin, INR subtherapeutic, increase dose by 10% weekly maintenance and recheck INR in 48 hours -Continue Carvedilol 6.25mg BID -pvc monitor (3) At risk for deep venous thrombosis Status: Acute Base Code: Z91.89 - OTH PERSONAL RISK FACTORS, NOT ELSEWHERE CLASSIFIED Comment: 04/06/19 hx of a-fib and chronic DVTs. - Warfarin 5mg QD - INR 1.5 (4) DNR (do not resuscitate) Status: Acute Base Code: Z66 - DO NOT RESUSCITATE - Hospitalization Course Disposition: Home, Self-Care Hospital Course: The patient is here due to a 3 hour hx of upper abdominal pain with nausea. The patient has had some mild dry heaves with the pain but denies any back pain, SOB, ACOSTA, or upper chest pain. She has had some palpitations with it but that has improved. The patient has a LONG hx of similar issues and has had multiple visits to [facility] and [facility] for the same thing with no diagnosis given. She also does have multiple medical issues including CAD and is on Coumadin. The patient did have a neg noncontrast chest CT 3 days ago for this same issue along with a neg LUE US. She also had an abdominal CT about 5 weeks ago for the same symptoms at [facility] that did not demonstrate any acute changes. She reports epigastirc and left sided abominal pain have been occurring since 2014. She does follow with GI at [facility] for this with last admission for abdominal pain 02/03/19. She denies any nausea or vomiting associated with pain. Does have [place] at home for the pain but states she does not take it because she does not want to develop an addiction to it. She rates the pain as shart adn always a 3/10 at baseline, when pain raises to 5/10 she will apply ice to her abdomen, and if pain goes above that she will come to the ER. She states over eating and sweets is what flares pain. She did have birthday cake just prior to arrival to ED. [facility] records from February 2019 reviewed, work up negative for acute intraabdominal process and was determined pain was likely musculoskeletal in nature. 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 It was also determined her pain was referred pain/musculoskeletal in nature. Admitted for observation and pain control. Advance diet as she is able to tolerate and disharge home to follow up with PCP, hank is requesting referral to [facility].PCP: Brenda Jones PLASTICS NURSE Significant ED findings Hgb 11.0 MCV 103.7 WBC 9.3 INR 1.5 Potassium 4.6 Anion Gap 17 Bun/Cr 20/1.1 Lactic acid 1.3 Troponin x 2 <0.010 Albumin 3.8 EKG NRS, LBBB PAST MEDICAL/SURGICAL HISTORY Past Surgical History back injs and rhizotomy hernia repair cholecystectomy hand surgery cardiac stents 2001, 2005 Juhi filter in Left Lower Extremity EGD/colonoscopy in [facility] tranfer and 13 units of blood for GI bleeding EGD PMH - Respiratory Hx Respiratory Disorders No Hx Bronchitis Yes Hx Pneumonia Yes: February 2016 Hx Sleep Apnea Yes: O2 2.5L by nc Hx Tuberculosis No Hx of CPAP No Hx of SOB Yes Comment: oxygen at night 2 L PMH - Cardiovascular Hx Cardiovascular Disorders Yes Hx Abnormal EKG Yes Hx Cardiac Catheterization Yes: 2 stents Hx Chest Pain No Hx Congestive Heart Failure No Hx Deep Vein Thrombosis Yes: 2001 and 2015 Hx Edema Yes Hx Heart Attack No Hx Hypertension Yes Hx Irregular Heartbeat Yes Hx Palpitations No Hx Pacemaker/Defibrillator No Hx Coronary Artery Disease Yes Hx Coronary Artery Bypass No Graft Hx Coronary Stent Yes: x2 Hx Heart Murmur No Hx of Mitral Valve Prolapse No Hx Transient Ischemic Attacks No (TIA) Residual Deficits from CVA No Hx of Migraines No PMH - Neuro Hx Neurological Disorders No Hx Headaches No Hx Neuropathy Yes Hx Seizures No Hx Transient Ischemic Attacks No (TIA) Hx Weakness Yes: generalized PMH - GI Hx Gastrointestinal Disorders Yes Hx Abdominal Pain Yes Hx Diverticulitis Yes Hx Gastrointestinal Bleed Yes: 2014 Hx Gastroesophageal Reflux Yes Hx Hepatitis/Jaundice No Hx Hiatal Hernia Yes: 1956 Hx Liver Disease No Hx Nausea/Vomiting Yes Hx Pancreatitis No Hx Rectal Bleeding Yes: 2014 Hx Ulcer Yes Hx Weight Loss/Weight Gain Yes: loss 5 lbs in last month Hx Cirrhosis No Comment: EGD 3 months ago-negative PMH - Hx Genitourinary Disorders Yes Patient No Hx Renal Disease Yes: Bright's disease at 7yrs old Hx Urinary Tract Infection Yes PMH - Endocrine Hx Endocrine Disorders No Hx Diabetes No Hx Thyroid Disease No PMH - Musculoskeletal Hx Musculoskeletal Disorders Yes Hx Arthritis Yes: lower back Hx Back Injury Yes: broke tailbone-removed Hx Osteoporosis Yes PMH - Psych Hx Psychiatric Problems Yes Hx Anxiety Yes Hx Depression 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 - Hematology/Oncology Hx Hematology/Oncology Yes Disorders Hx Anemia Yes Hx Bruising Yes: on coumadin Hx Cancer No Hx Chemotherapy No Hx Radiation Therapy No Hx Unexplained Bleeding Yes: 2014 Hx Blood Transfusion Reaction No Laboratory Results WBC 6.3 K/uL (4.2-12.2) 04/05/19 21:15 RBC 3.51 M/uL (3.80-5.40) L 04/05/19 21:15 Hgb 11.0 gm/dl (11.6-16.0) L 04/05/19 21:15 Hct 36.4 % (35.0-47.0) 04/05/19 21:15 MCV 103.7 fl (81-97) H 04/05/19 21:15 MCH 31.3 pg (27-33) 04/05/19 21:15 MCHC 30.2 g/dl (32-36) L 04/05/19 21:15 RDW 13.1 % (11.5-14.5) 04/05/19 21:15 Plt Count 246 K/uL (130-400) 04/05/19 21:15 MPV 10.3 fl (7.4-10.4) 04/05/19 21:15 Gran % 63.3 % (47-80) 04/05/19 21:15 Lymphocytes % 25.2 % (16-45) 04/05/19 21:15 Monocytes % 9.4 % (0-9) H 04/05/19 21:15 Eosinophils % 1.9 % (0-6) 04/05/19 21:15 Basophils % 0.2 % (0-6) 04/05/19 21:15 Absolute Neutrophils 3.98 04/05/19 21:15 PT 14.8 SECONDS (9.5-12.1) H 04/05/19 20:57 INR 1.5 04/05/19 20:57 APTT 28.3 SECONDS (24.5-39.1) 04/05/19 20:57 Sodium 140 mmol/L (136-145) 04/05/19 20:57 Potassium 4.6 mmol/L (3.4-4.5) H 04/05/19 20:57 Chloride 98 mmol/L (98-107) 04/05/19 20:57 Carbon Dioxide 25.0 mmol/L (22-29) 04/05/19 20:57 Anion Gap 17.0 (7-16) H 04/05/19 20:57 BUN 20 mg/dL (8-23) 04/05/19 20:57 Creatinine 1.1 mg/dL (0.5-0.9) H 04/05/19 20:57 Estimated GFR 50 mL/min 04/05/19 20:57 Random Glucose 115 mg/dL (74-109) H 04/05/19 20:57 Lactic Acid 1.3 mmol/L (0.5-2.2) 04/05/19 21:15 Calcium 8.8 mg/dL (8.8-10.2) 04/05/19 20:57 Total Bilirubin 0.20 mg/dL (0.2-1.0) 04/05/19 20:57 Direct Bilirubin < 0.2 mg/dL (0-0.3) 04/05/19 20:57 AST 30 U/L (10.0-35.0) 04/05/19 20:57 ALT 15 U/L (<33) 04/05/19 20:57 Alkaline Phosphatase 37 U/L (35-104) 04/05/19 20:57 Creatine Kinase 153 U/L (26-192) 04/05/19 20:57 CK-MB (CK-2) 2.0 ng/mL (<3.77) 04/05/19 20:57 Troponin T < 0.010 ng/mL (0-0.010) 04/05/19 23:00 NT-Pro-B Natriuret Pep 111.00 pg/mL (<450) 04/05/19 20:57 Total Protein 7.0 g/dL (6.6-8.7) 04/05/19 20:57 Albumin 3.8 g/dL (4.0-5.0) L 04/05/19 20:57 Lipase 42 U/L (13-60) 04/05/19 20:57 Vital Signs - Last 24 Hrs Temp Pulse Pulse Resp BP BP Pulse Ox 04/06/19 01:22 97.5 F L 65 18 147/60 99 04/06/19 00:35 66 20 128/62 97 04/05/19 23:30 98.4 F 04/05/19 22:29 73 16 102/53 97 04/05/19 21:40 99.2 F 76 16 115/58 93 L 04/05/19 20:44 99.2 F 95 H 24 128/84 93 L 04/06/19 Patient resting in bed comfortably. Reports her abdominal pain is at her baseline of3/10. Has tolerated clear liquid diet up to this point. No N/V/D. 04/06/19- Hospital course unremarkable. Tolerated usual diet with any new or increase in baseline left sided and epigastric pain. - Recurrent abdominal pain s/p multiple EGD/Colonsocopies. Most recent EGD 01/2018 only showing duodenitis. [facility] review reveal no acute abdominal process and suggest pain is referred pain/musculoskeletal in nature. Labs: WBC 9.3, Lactic acid 1.3 Trops Neg. x 2. Pain control with Protonix 40mg IV, Carafate 1gm QID, Zofran 4mg Q4H PRN, home dose Neurontin 300mg QID, Ofirmev and [place] 5/325mg PRN. Encouraged her to take [place] for pain that is intolerable for her to see if her pain improves before she comes to ED for treatment. Education provided regarding the difference between physiologic pain and treatment vs. addiction/dependence behavior. Pain is at her baseline, she tolerated a regular diet without any new or exacerbation of left sided abdominal pain. INR was subtherapeutic at time of admission and dose was adjusted to increase by 10% maintenance dose, recheck INR in 48 hours. Advised she follow up with PCP regarding desire for [facility] referral. Avoid sweets and over eating as to not exacerbate chronic abdominal pain Procedures: Cardiology Procedures 04/05/19 20:55 EKG NOW 04/05/19 20:59 Cnc Milling Machine Operator NOW Abnormal Labs: Abnormal Lab Results 04/05/19 04/05/19 04/05/19 Range/Units 20:57 20:57 21:15 RBC 3.51 L (3.80-5.40) M/uL Hgb 11.0 L (11.6-16.0) gm/dl MCV 103.7 H (81-97) fl MCHC 30.2 L (32-36) g/dl Monocytes % 9.4 H (0-9) % PT 14.8 H (9.5-12.1) SECONDS Potassium 4.6 H (3.4-4.5) mmol/L Anion Gap 17.0 H (7-16) Creatinine 1.1 H (0.5-0.9) mg/dL Random Glucose 115 H (74-109) mg/dL Albumin 3.8 L (4.0-5.0) g/dL Condition at Discharge: (2) Stable Discharge Medications - Discharge Medications Prescriptions: Warfarin Sodium [Coumadin] 1 mg PO DAILY #24 tab Warfarin Sodium [Coumadin] 5 mg PO DAILY #30 tab Home Medications: Ambulatory Orders Carvedilol 6.25 mg PO BID 06/19/14 [Last Taken 01/24/19] Furosemide 20 mg PO BID 06/19/14 [Last Taken 01/24/19] Atorvastatin Calcium [Lipitor] 80 mg PO QHS 03/30/15 [Last Taken 01/24/19] Melatonin 10 mg PO QHS 12/17/15 [Last Taken 01/24/19] Sennosides [Senokot] 8.6 mg PO DAILY 12/17/15 [Last Taken 01/24/19] Cholecalciferol (Vitamin D3) [Vitamin D3] 2,000 unit PO DAILY 06/01/17 [Last Taken 01/24/19] Omeprazole 20 mg PO BID #20 tablet. 04/21/18 [Last Taken 01/24/19] Carbamide Peroxide [Debrox] 1 drop OT WEEKLY 07/22/18 [Last Taken 01/24/19] Hydrocodone/APAP 5/325Mg [[place] 5Mg/325Mg] 1 each PO Q4H PRN 07/22/18 [Last Taken 01/24/19] L.acidoph,Paracasei, B.lactis [Probiotic] 1 each PO DAILY 07/22/18 [Last Taken 01/24/19] Nitroglycerin 0.4MG [Nitrostat 0.4MG] 1 tab SL Q5MIN PRN MDD 3 07/22/18 [Last Taken 01/24/19] Famotidine 20 mg PO BID PRN #30 tablet 01/25/19 [Last Taken Unknown] Vitamin B Complex 1 each PO DAILY tab 03/26/19 [Last Taken Unknown] Gabapentin 600 mg PO BID 04/05/19 [Last Taken Unknown] Lorazepam 1 mg PO BID 04/05/19 [Last Taken Unknown] Polyethylene Glycol 3350 [Miralax] 17 gm PO QHS 04/06/19 [Last Taken 04/04/19 22:00 17 grams] Warfarin Sodium [Coumadin] 1 mg PO DAILY #24 tab 04/06/19 [Last Taken Unknown] Warfarin Sodium [Coumadin] 5 mg PO DAILY #30 tab 04/06/19 [Last Taken Unknown] Discharge Plan - Discharge Instructions Activity at Discharge: Increase Activity as Tolerated Diet at Discharge: Regular Diet Instructions: Chronic Abdominal Pain (GEN) Additional Instructions: Activity: Up as tolerated Diet: As tolerated Consults: [] Follow Up: [With primary care in 7-10 days] Dressing/Wound Care: (Type) (Change) Additional: [Continue home medications Please take coumadin 5mg tonight Please take a total of 6mg of coumadin on Sunday and and take your normal scheduled dose the remaining days Please recheck your INR in 2 days or on Sunday04/08/2019 Please continue taking your norco as prescribed for your pain ] Quality Measures - Quality Measures Quality Measures: Atrial Fibrillation & Atrial Flutter: Chronic Anticoagulation Therapy, Advance Directives, Coronary Artery Disease: Antiplatelet Therapy, Documentation of Current Medications in Medical Record, Elder Maltreatment Screen and Follow-Up Plan, Screening for High Blood Pressure and F/U Documented - Current Medications Quality Measure: Measure #130: Documentation of Current Medications Documentation of Current Medications: <Current Medications Documented/Reviewed> [G2207] - Blood Pressure Screening Quality Measure: Screening for High Blood Pressure and Follow-Up Documented Does Patient Have Any of the Following: No, Active Dx of HTN Blood Pressure Classification: Hypertensive Reading Systolic Measurement: 156 Diastolic Measurement: 68 Screening for High Blood Pressure: Patient Exclusion, Hx of HTN [G9484] - Atrial Fibrillation and Atrial Flutter Quality Measure: Atrial Fibrillation & Atrial Flutter: Chronic Anticoagulation Therapy Does Patient Have Any of the Following: No CHADS2 Risk Stratification: Age 75 or Greater, Hypertension Risk Stratification Summary: One or more high risk factors OR more than one moderate risk factor exists. [G8972] Anticoagulation Therapy: <Oral anticoagulant Prescribed> [G8929] - Coronary Artery Disease Quality Measure: Measure #6: Coronary Artery Disease (CAD) Antiplatelet Therapy: Not Prescribed for Medical Reason [2386F with 1P] Medical Reason for NOT Prescribing Antiplatelet: On Warfarin Therapy - Advance Directives Quality Measure: Measure #47: Care Plan Advance Directives Established: Yes (DNR) Advance Directives Information Provided To Patient: Already Provided Advance Directives on File: Yes Living Will: Yes Power of Visual Merchandising Associate: Yes Power of Visual Merchandising Associate Name: Anali- daughter Advance Care Planning: <Care Plan/Decision Maker Documented; Discussed & Documented> [1993F] - Elder Abuse Suspicion Index Screening: Elder Abuse Suspicion Index Screening Rely on people for bathing, dressing, shopping, banking, etc: Yes Prevented from getting food, clothes, medication, etc: No Made to feel shamed or threatened by someone: No Forced to sign papers or use money against will: No Feel afraid, touched in ways not wanted or hurt physically: No Poor eye contact, withdrawn, malnourished, cuts or bruises: No Screening Result: Negative result EASI Reference Information: Rebeca SAMUELS, Danny C, Shay Hooper, Darwin Drew.Development and validation of a tool to assist physicians identification of elder abuse: The Elder Abuse Suspicion Index (EASI ). Journal of Elder Abuse and Neglect, 2008; 20 (3): 276-300. - Elder Maltreatment Screen Quality Measures: Elder Maltreatment Screen and Follow-Up Plan Elder Maltreatment Screen: <Negative, No Follow-Up Plan Required> [G8734]
[2019-04-06] MEDS ORDERED: GABAPENTIN 300 MG CAPSULE PO SCH (22:00)
== END 2019-04-06 17:25 | disposition home or self-care (01) ==
LOC: ER 20:41 → MEDSURG 04-06 01:16
PROVIDERS: ADMIT Internal Medicine; ATTEND Internal Medicine
DX: R10.13 Epigastric pain (principal); R00.2 Palpitations; I25.10 Atherosclerotic heart disease of native coronary artery without angina pectoris; I10 Essential (primary) hypertension; Z79.01 Long term (current) use of anticoagulants; R60.9 Edema, unspecified; D64.9 Anemia, unspecified; M19.90 Unspecified osteoarthritis, unspecified site; Z95.5 Presence of coronary angioplasty implant and graft; Z66 Do not resuscitate; Z86.14 Personal history of Methicillin resistant Staphylococcus aureus infection; Z86.11 Personal history of tuberculosis; Z86.718 Personal history of other venous thrombosis and embolism; Z87.19 Personal history of other diseases of the digestive system; G62.9 Polyneuropathy, unspecified
CPT/HCPCS: 80048; 80076; 82550; 82553; 83605; 83690; 83880; 84484; 85025; 85610; 85730; 93005; 93010; 96365; 96375; 99220; 99285; J2405